=== PATIENT | female | born 1945 | race Caucasian/White ===

== ENCOUNTER → 2018-07-29 09:28 | Outpatient (CLI) | payer MEDICARE, OTHER, SELFPAY ==
--- NOTE | 2018-07-29 09:33 | BI_ITS ---
MAMMOGRAPHY - BILATERAL SCREENING 3-D ALBERT SYNTHESIS REASON FOR EXAM: Female, 73 years old. Bilateral Screening 3-D tomosynthesis PERTINENT HISTORY: No significant family history. TECHNIQUE: 2-D mammograms and 3-D Albert synthesis of the breast (s) were performed. CAD was performed. COMPARISON: July 28, 2017, July 23, 2016 FINDINGS: The breast composition is composed of scattered fibroglandular density. There are stable benign lymph nodes in both axillae. Scattered benign calcifications are seen. No dense spiculated masses or suspicious microcalcifications are identified. No architectural distortion is identified. There is no skin thickening or retraction. There has been no significant change since the prior study. BI/SCREENING MAMM (CAD), BILAT IMPRESSION: No mammographic signs of malignancy. Routine yearly mammograms recommended. ASSESSMENT CATEGORY: BIRADS Category 2: Benign. A letter regarding these results will be sent to the patient by the facility within 30 days. FOLLOW UP RECOMMENDATION: Yearly follow up mammogram recommended. (A) Approximately 10% of breast cancers are not detected by mammography. A normal mammogram should not delay biopsy of a clinically suspicious abnormality. Electronically Signed: Alexandro Hathaway MD at 10:45 EST , Service support ,
== END ==
PROVIDERS: Family Provider Family Medicine; PCP Family Medicine; Visit Provider Obstetrics & Gynecology
DX: Z12.31 Encounter for screening mammogram for malignant neoplasm of breast (principal)
CPT/HCPCS: 77063; 77067

== ENCOUNTER → 2019-09-01 14:12 | Outpatient (CLI) | payer MEDICARE, OTHER, SELFPAY ==
--- NOTE | 2019-09-01 14:15 | BI_ITS ---
MAMMOGRAPHY - BILATERAL SCREENING REASON FOR EXAM: Female, 74 years old. Routine annual screening examination. PERTINENT HISTORY: Non-contributory. TECHNIQUE: Digital bilateral breast albert (3D mammographic acquisition) in the CC and MLO projections. 2-D mediolateral oblique (MLO) and craniocaudad (CC) views of both breasts were obtained. CAD: Full Field Digital Mammography with Computer Added Detection was performed. COMPARISON: Comparison is made with prior study April 29, 2018 and July 28, 2017. FINDINGS: Breast Composition: The breasts are heterogeneously dense, which may obscure small masses. There are no dominant masses or suspicious calcifications. No other significant abnormalities are identified. There has been no significant change since the prior study. BI/SCREEN MAMM (CAD) W/ALBERT BILAT IMPRESSION: Stable bilateral screening mammogram. Yearly follow-up mammogram recommended. (A) ASSESSMENT CATEGORY: BIRADS Category 1: Negative. A letter regarding these results will be sent to the patient by the facility within 30 days. Approximately 10% of breast cancers are not detected by mammography. A normal mammogram should not delay biopsy of a clinically suspicious abnormality. [id number] Electronically Signed: Evan Leahy, at 15:34 EST , Service support ,
--- NOTE | 2019-09-01 14:26 | BD_ITS ---
STUDY: DUAL ENERGY X-RAY ABSORPTIOMETRY / DXA REASON FOR EXAM: Female, 74 years old. PURCHASING [employer] -- CURRENTLY ON HRT -- TAKES CALCIUM AND VITAMIN D -- DOES HIGH AMOUNT OF EXERCISE -- FAMILY HX OF OSTEO- MOTHER -- HX OF RIB FX -- NO AVANI TECHNIQUE: Bone Mineral Density (BMD) measurements of lumbar spine and bilateral hips were obtained. COMPARISON: Comparison is made with prior examination dated July 28, 2017. FINDINGS: Lumbar Spine (L1-L4): g/cm2 (1.142) / T-score (-0.3) / Z-score (1.4) Findings are suggestive of normal bone density with a low fracture risk. Left Femur Total: g/cm2 (0.921) / T-score (0.7) / Z-score (1.0) Left Femoral Neck: g/cm2 (0.762) / T-score (-2.0) / Z-score (-0.1) Right Femur Total: g/cm2 (0.866) / T-score (-1.1) / Z-score (0.5) Right Femoral Neck: g/cm2 (0.789) / T-score (-1.8) / Z-score (0.1) The T-Scores on the most recent prior examination were: Lumbar Spine (L1-L4): There has been worsening of bone density since the previous examination. Left Femur Total: which represents a worsening of 0.1%. Right Femur Total: which represents an improvement of 1.2%. BD/Dexa Bone Density Study IMPRESSION: The patient is considered osteopenic as outlined below according to World [place] Organization (WHO) criteria with a moderate fracture risk. There has been worsening of bone density since the previous examination. Reference Information: The T-score is the number of standard deviations above or below the standard which is normal for young adults at their peak bone mineral density. The World Health Organization (WHO) interprets the T-scores as follows: Above -1 Normal bone density Between -1 and -2.5 Osteopenia Equal to / or below -2.5 Osteoporosis As a practical clinical guideline, osteopenia may be graded as follows: Mild -1 through -1.5 Moderate -1.6 through -2.0 Severe -2.1 through -2.4 The Z-score is the number of standard deviations above or below age-matched controls. A Z-score of less than -1.5 would be considered abnormal. References: 1. NIH Osteoporosis and Related Bone Diseases http://www.osteo.org 2. International Society for Clinical Densitometry http://www.iscd.org 3. National Osteoporosis Foundation http://www.nof.org Electronically Signed: Evan Leahy, at 15:15 EST , Service support ,
== END ==
PROVIDERS: Family Provider Family Medicine; PCP Internal Medicine; Referring Provider Advanced Practice Midwife; Visit Provider Advanced Practice Midwife
DX: Z13.820 Encounter for screening for osteoporosis (principal); M85.89 Other specified disorders of bone density and structure, multiple sites; Z12.31 Encounter for screening mammogram for malignant neoplasm of breast
CPT/HCPCS: 77063; 77067; 77080

== ENCOUNTER → 2020-09-04 08:33 | Outpatient (CLI) | payer MEDICARE, OTHER, SELFPAY ==
--- NOTE | 2020-09-04 08:35 | BI_ITS ---
MAMMOGRAPHY - BILATERAL SCREENING REASON FOR EXAM: Female, 75 years old. Routine annual screening examination. PERTINENT HISTORY: Non-contributory. TECHNIQUE: Digital bilateral breast albert (3D mammographic acquisition) in the CC and MLO projections. 2-D mediolateral oblique (MLO) and craniocaudad (CC) views of both breasts were obtained. CAD: Full Field Digital Mammography with Computer Added Detection was performed. COMPARISON: Comparison is made with prior study dated 09/01/2019 and July 22 7018. FINDINGS: Breast Composition: The breasts are heterogeneously dense, which may obscure small masses. There are no dominant masses or suspicious calcifications. No other significant abnormalities are identified. There has been no significant change since the prior study. BI/SCRN MAMM (CAD)W/ALBERT BILAT IMPRESSION: Stable bilateral screening mammogram. Yearly follow-up mammogram recommended. (A) ASSESSMENT CATEGORY: Approximately 10% of breast cancers are not detected by mammography. A normal mammogram should not delay biopsy of a clinically suspicious abnormality. [id number] Electronically Signed: Evan Leahy MD at 9:50 EST , Service support ,
== END ==
PROVIDERS: PCP Internal Medicine; Referring Provider Obstetrics & Gynecology; Visit Provider Obstetrics & Gynecology
DX: Z12.31 Encounter for screening mammogram for malignant neoplasm of breast (principal)
CPT/HCPCS: 77063; 77067

== ENCOUNTER 2021-09-17 09:32 | Outpatient (CLI) | payer MEDICARE, OTHER, SELFPAY ==
--- NOTE | 2021-09-17 09:38 | BI_ITS ---
MAMMOGRAPHY - BILATERAL SCREENING REASON FOR EXAM: Female, 76 years old. Routine annual screening examination. PERTINENT HISTORY: Non-contributory. TECHNIQUE: Digital bilateral breast albert (3D mammographic acquisition) in the CC and MLO projections. 2-D mediolateral oblique (MLO) and craniocaudad (CC) views of both breasts were obtained. CAD: Full Field Digital Mammography with Computer Added Detection was performed. COMPARISON: Comparison is made with prior study dated 09/04/2020 and 09/01/2019. FINDINGS: Breast Composition: The breasts are heterogeneously dense, which may obscure small masses. There are no dominant masses or suspicious calcifications. No other significant abnormalities are identified. There has been no significant change since the prior study. BI/SCRN MAMM (CAD)W/ALBERT BILAT IMPRESSION: Stable bilateral screening mammogram. Yearly follow-up mammogram recommended. (A) ASSESSMENT CATEGORY: BIRADS Category 1: Negative. A letter regarding these results will be sent to the patient by the facility within 30 days. Approximately 10% of breast cancers are not detected by mammography. A normal mammogram should not delay biopsy of a clinically suspicious abnormality. [id number] Electronically Signed: Evan Leahy MD at 10:54 EST ,
--- NOTE | 2021-09-17 09:42 | BD_ITS ---
STUDY: DUAL ENERGY X-RAY ABSORPTIOMETRY / DXA REASON FOR EXAM: Female, 76 years old. [id number]. Patient is postmenopausal. TECHNIQUE: Bone Mineral Density (BMD) measurements of lumbar spine and bilateral hips were obtained. COMPARISON: Comparison is made with prior study dated 09/01/2019. FINDINGS: Lumbar Spine (L1-L4): g/cm2 (0.919) / T-score (-1.5) / Z-score (1.1) Findings are suggestive of osteopenia with a low fracture risk. Left Femur Total: g/cm2 (0.869) / T-score (-0.6) / Z-score (1.2) Left Femoral Neck: g/cm2 (0.648) / T-score (-1.8) / Z-score (0.3) Right Femur Total: g/cm2 (0.833) / T-score (-0.9) / Z-score (0.9) Right Femoral Neck: g/cm2 (0.6-0) / T-score (-2.1) / Z-score (0.0) The T-Scores on the most recent prior examination were: Lumbar Spine (L1-L4): There has been worsening of bone density since the previous examination. Left Femur Total: which represents an improvement of 1.5%. Right Femur Total: which represents an improvement of 3.6%. BD/Dexa Bone Density Study IMPRESSION: The patient is considered osteopenic as outlined below according to World [place] Organization (WHO) criteria with a moderate fracture risk. There has been improvement of bone density since the previous examination. Reference Information: The T-score is the number of standard deviations above or below the standard which is normal for young adults at their peak bone mineral density. The World Health Organization (WHO) interprets the T-scores as follows: Above -1 Normal bone density Between -1 and -2.5 Osteopenia Equal to / or below -2.5 Osteoporosis As a practical clinical guideline, osteopenia may be graded as follows: Mild -1 through -1.5 Moderate -1.6 through -2.0 Severe -2.1 through -2.4 The Z-score is the number of standard deviations above or below age-matched controls. A Z-score of less than -1.5 would be considered abnormal. References: 1. NIH Osteoporosis and Related Bone Diseases www osteo.org 2. International Society for Clinical Densitometry www iscd.org 3. National Osteoporosis Foundation www nof.org Electronically Signed: Evan Leahy MD at 9:28 EST ,
== END 2021-09-17 23:59 | disposition home or self-care (01) ==
LOC: OPBD 09:33
PROVIDERS: PCP Internal Medicine; Referring Provider Obstetrics & Gynecology; Visit Provider Obstetrics & Gynecology
DX: Z13.820 Encounter for screening for osteoporosis (principal); Z78.0 Asymptomatic menopausal state; Z12.31 Encounter for screening mammogram for malignant neoplasm of breast
CPT/HCPCS: 77063; 77067; 77080

== ENCOUNTER → 2022-07-15 | Outpatient (CLI) | payer MEDICARE, OTHER, SELFPAY ==
--- NOTE | 2022-07-15 08:53 | US_ITS ---
STUDY: ULTRASOUND BREAST - LEFT REASON FOR EXAM: Female, 77 years old. Increasing size of a left axillary lump. TECHNIQUE: Axial and longitudinal images of the LEFT breast were performed with a high resolution ultrasound transducer. # OF IMAGES: 21 COMPARISON: Comparison is made with prior mammograms and earlier today. FINDINGS: LEFT Breast: The axillary region of left breast was examined by ultrasound. 2 benign-appearing lymph nodes are seen. The larger lymph node measures 2.1 cm x 2.4 cm x 0.9 cm. A fatty hilum is seen US/Breast Limited Unilateral IMPRESSION: 2 benign appearing lymph nodes are seen in the left axilla. ASSESSMENT CATEGORY: BIRADS Category 2: Benign. A letter regarding these results will be sent to the patient by the facility within 30 days. Electronically Signed: Evan Leahy MD at 11:07 EST ,
--- NOTE | 2022-07-15 08:53 | BI_ITS ---
MAMMOGRAPHY - BILATERAL DIAGNOSTIC REASON FOR EXAM: Female, 77 years old. Palpable left axillary mass. PERTINENT HISTORY: Non-contributory. TECHNIQUE: Digital bilateral breast keiko (3D mammographic acquisition) in the CC and MLO projections. 2-D mediolateral oblique (MLO) and craniocaudad (CC) views of both breasts were obtained. Exaggerated craniocaudal views of the left breast were obtained as well. CAD: Full Field Digital Mammography with Computer Added Detection was performed. COMPARISON: Comparison is made with prior study dated 09/17/2021 and 09/04/2020. FINDINGS: Breast Composition: The breasts are heterogeneously dense, which may obscure small masses. There are no dominant masses or suspicious calcifications. Benign appearing bilateral axillary No other significant abnormalities are identified. There has been no significant change since the prior study. BI/DIAG MAMM W/CAD, BILAT IMPRESSION: Stable bilateral diagnostic mammogram. With the patient''s history of a palpable lump in the left axilla, correlation with ultrasound is recommended. ASSESSMENT CATEGORY: BIRADS Category 0: Incomplete. Need additional imaging evaluation. A letter regarding these results will be sent to the patient by the facility within 30 days. Approximately 10% of breast cancers are not detected by mammography. A normal mammogram should not delay biopsy of a clinically suspicious abnormality. Electronically Signed: Evan Leahy MD at 10:34 EST ,
== END | disposition home or self-care (01) ==
LOC: OPBI 08:50
PROVIDERS: PCP Internal Medicine; Visit Provider Internal Medicine
DX: Z12.31 Encounter for screening mammogram for malignant neoplasm of breast (principal); R22.32 Localized swelling, mass and lump, left upper limb; N64.4 Mastodynia
CPT/HCPCS: 76642; 77062; 77066; G0279

== ENCOUNTER → 2025-01-11 | Outpatient (CLI) | payer MEDICARE, SELFPAY ==
--- NOTE | 2025-01-11 10:12 | BI_ITS ---
EXAM: SCRN MAMM (CAD)W/ALBERT BILAT 01/11/2025 CLINICAL HISTORY: F, Age 79 y/o , SCREENING TECHNIQUE: Bilateral screening digital breast tomosynthesis with 2D and 3D images. Computer aided detection. COMPARISON: Prior exam(s) dated 07/15/2022, 09/17/2021, 09/04/2020. FINDINGS: TISSUE DENSITY: The breast tissue is heterogenously dense, which may obscure small masses. The mammogram demonstrates that the patient has dense breasts. Supplemental screening with whole breast ultrasound or MRI may be considered for further evaluation. Bilateral Breast Mammographic Findings: No significant masses, calcifications or other abnormalities are identified. BI/SCRN MAMM (CAD)W/ALBERT BILAT IMPRESSION: Right Breast: BIRADS 1 NEGATIVE. Left Breast: BIRADS 1 NEGATIVE. OVERALL FINAL ASSESSMENT: BIRADS 1 NEGATIVE. RECOMMENDATION: Routine annual follow-up in 1 Year A letter with findings and recommendations will be mailed to the patient. Reading Location: [id number]
--- NOTE | 2025-01-11 10:18 | BD_ITS ---
PROCEDURE: DEXA BONE DENSITY STUDY 01/11/2025 REASON FOR EXAM: F, age 79 y/o . Postmenopausal. TECHNIQUE: DXA scan of sites with data reported below. REFERENCE LINKS: [facility] Adult Position[facility] COMPARISON: Prior study dated September 01, 2019. FINDINGS: BMD and T-SCORES Lumbar spine: 0.956 g/cm2, T-score -0.8 Levels: L1-L4 Change from prior: Loss of 5.4%. Left femoral neck: 0.622 g/cm2, T-score -2.0 Femoral neck comparison data not recommended for monitoring change. Left total hip: 0.845 g/cm2, T-score -0.8 Change from prior: Loss of 2.9%. Right femoral neck: 0.602 g/cm2, T-score -2.2 Femoral neck comparison data not recommended for monitoring change. Right total hip: 0.793 g/cm2, T-score -1.2 Change from prior: Loss of 4.8%. The World Health Organization has defined the following categories based on bone density: Normal bone density: T-score equal to or greater than -1.0 Osteopenia: T-score between -1.0 and -2.5 Osteoporosis: T-score equal to or less than -2.5 The patient does meet the pharmacological treatment recommendations for prevention of osteoporosis. BD/Dexa Bone Density Study IMPRESSION: OSTEOPENIA. Recommend follow-up as clinically warranted. Reading Location: [place] [id number]
--- OUTSIDE RECORDS SUMMARY | 2025-01-11 20:02 | XMS RPT_ITS | CCD ---
Author Organization [facility] Care Team Providers Care Retail Store Associate Name Role Phone Oberhauser, Alberta Unavailable Unavailable Sippey, Alberta Unavailable Unavailable Oberhauser, Alberta L Unavailable Unavailable Unknown, Referring Provider Unavailable Unav ailable Cedric Zuluaga Unavailable Unavailable Oberhauser, Alberta L Unavailable Unavailable Oberhauser, Albreta L Unavailable Unavailable Unavailable Unavailable Unavailable Unavailable Unavailable Oberhauser, Alberta Primary Care Unavailable Babar Bill Attending Unavailable Oberhauser, Alberta Primary Care Unavailable Oberhauser, Alberta Attending Unavailable Oberhauser, Alberta Primary Care Unavailable Oberhauser, Alberta Attending Unavailable Maude, Mr. Ben Kelly Attending Unavail able Oberhauser, Alberta Primary Care Unavailable Oberhauser DO, Alberta L Primary Care Provider Oberhauser DO, Alberta L Unavailable Oberhauser DO, Alberta L Unavailable [phone] Oberhauser DO, Alberta L Unavailable [phone] OBERHAUSER, ALBERTA L Primary Care Unavailable OBERHAUSER, ALBERTA L Primary Care Unavailable Jona FOREIGN CORRESPONDENT, Sisi Unavailable Unavailable Oberhauser DO, Alberta L Unavailable Jona FOREIGN CORRESPONDENT, Sisi Unavailable Unavailable Oberhauser DO, Alberta L Unavailable Jona FOREIGN CORRESPONDENT, Sisi Unavailable Eliud CAR CHECKER-DETECTIVE PRIVATE EYE, Sangita B Primary Care Provider Generic Provider MD, No Assigned Pcp Primary Car e Provider Unavailable SIPPEY, ALBERTA Attending Unavailable SIPPEY, ALBERTA Referring Unavailable ELIUD, SANGITA B Primary Care Unavailable ELIUD, SANGITA B Referring Unavailable OBERHAUSER, ALBERTA L Primary Care Unavailable OBERHAUSER, ALBERTA L Primary Care Unavailable LEMSAURAV, JANI D Attending Unavailable OBERHAUSER, ALBERTA L Primary Care Unavailable LEMJANI MG D Attending Unavailable AFSHIN VALDEZ Referring Unavailable LEMSAURAV, JANI Arita Referring Unavailable OBERHAUSER, ALBERTA L Primary Care Unavailable OBERHAUSER, ALBERTA L Primary Care Unavailable THEO RECINOS Attending Unavailable THEO RECINOS Admitting Unavailable ELIUD, SANGITA B Attending Unavailable OBERHAUSER, ALBERTA L Primary Care Unavailable ELIUD, SANGITA B Attending Unavailable LEMASTERS, JANI D Referring Unavailable OBERHAUSER, ALBERTA L Primary Care Unavailable BG SRINIVASAN Attending Unavailable OBERHAUSER, ALBERTA L Primary Care Unavailable ELIUD, SANGITA B Attending Unavailable OBERHAUSER, ALBERTA L Primary Care Unavailable OBERHAUSER, ALBERTA L Attending Unavailable OBERHAUSER, ALBERTA L Referring Unavailable OBERHAUSER, ALBERTA L Primary Care Unavailable SIPPEY, ALBERTA Attending Unavailable OBERHAUSER, ALBERTA L Referring Unavailable OBERHAUSER, ALBERTA L Primary Care Unavailable OBERHAUSER, ALBERTA L Attending Unavailable OBERHAUSER, ALBERTA L Primary Care Unavailable LEMASTERS, JANI D Referring Unavailable ROBERTO WATSON Attending Unavailable ELIUD, SANGITA B Primary Care Unavailable WOOD, DON L Attending Unavailable THOMROBERTO PLUMMER R Attending Unavailable WOOD DON L Attending Unavailable WOOD, DON L Referring Unavailable WOOD, DON L Primary Care Unavailable Wood CAR CHECKER-DETECTIVE PRIVATE EYE, Don L Primary Care Provider Oberhauser, Alberta Primary Care Unavailable WOOD, DON Referring Unavailable WOOD, DON Attending Unavailable Allergies Allergy Classification Reported Allergen(s) Allergy Type Date of Onset Reaction(s) Facility Amoxicillin / Clavulanate (3 sources) Amoxicillin / Clavulanate; Translations: [Augmentin] Drug Allergy [facility] Work Phone: Fish (3 sources) shellfish, unspecified Food Allergy [facility] Work Phone: Quinolones (antibiotic) (3 sources) Ciprofloxacin; Translations: [Cipro] Drug Allergy [facility] Work Phone: (20 sources) Amoxicillin / Clavulanate; Translations: [Augmentin] Drug Allergy [facility] Work Phone: (20 sources) Ciprofloxacin; Translations: [Cipro] Drug Allergy [facility] Work Phone: (20 sources) shellfish, unspecified Allergy to substance (finding) [facility] Work Phone: (20 sources) gatifloxacin; Translations: [gatifloxacin] Drug Allergy 04-22-20 [address] Work Phone: (20 sources) levoFLOXacin; Translations: [levofloxacin] Drug Allergy 04-22-20 [address] Work Phone: (12 sources) Quinolones (Antibiotic); Translations: [Quinolones] Allergy to drug (finding) 12-23-19 14 Hives, Itching, Rash [facility] (20 sources) Amoxicillin / Clavulanate; Translations: [AMOXICILLIN-POT CLAVULANATE] Drug Allergy 01-20-20 23 Hives, Itching [facility] (20 sources) Ciprofloxacin; Translations: [CIPROFLOXACIN] Drug Allergy 01-20-20 23 [facility] Work Phone: (20 sources) Ciprofloxacin / fluocinolone; Translations: [CIPROFLOXACIN-FLUO CINOLONE] Drug Allergy 01-20-20 23 [facility] Work Phone: (20 sources) Shellfish; Translations: [SHELLFISH CONTAINING PRODUCTS] Propensity to adverse reactions 09-24-19 10 Hives, Swelling [facility] Work Phone: (20 sources) Amoxicillin; Translations: [AMOXICILLIN] Drug Allergy 12-23-19 14 Itching [facility] (17 sources) Quinolones Drug Allergy 12-23-19 14 Hives, Itching, Rash [facility] Work Phone: (18 sources) predniSONE; Translations: [PREDNISONE] Drug Allergy 04-02-20 24 Unknown [facility] (16 sources) Sulfamethoxazole / Trimethoprim; Translations: [SULFAMETHOXAZOLE-T RIMETHOPRIM] Drug Allergy 04-27-20 24 Hives [facility] Work Phone: (20 sources) Estroven Nighttime; Translations: [ESTROVEN NIGHTTIME] Propensity to adverse reactions 08-14-19 Rash [facility] Work Phone: (15 sources) Cephalexin; Translations: [CEPHALEXIN] Drug Allergy 07-14-20 Itching [facility] (15 sources) metroNIDAZOLE; Translations: [METRONIDAZOLE] Drug Allergy 07-14-20 Itching [facility] Work Phone: (10 sources) Shellfish; Translations: [SHELLFISH DERIVED] Propensity to adverse reactions 08-19-19 Other [facility] Medications Current Medications Medication Drug Class(es) Dates Sig (Normalized) Sig (Original) Acetaminophen (20 sources) Start: 08-19-2024 take 1 tablet by mouth every four hours as needed acetaminophen (Tylenol) tablet 650 mg take 2 tablets by mo uth once daily at bedtime acetaminophen (Tylenol 8 Hour) 650 mg ER tablet Take 2 tablets (1,300 mg) by mouth once daily at bedtime. Active acetaminophen (T ylenol 8 Hour) 650 mg ER tablet Take by mouth. [address] rength 500 MG Oral Tablet Quantity: 0 Refills: 0 Ordered: 23-May-2019 DO Active Tylenol Extra St rength 500 MG Oral Tablet Refills: 0 Active amLODIPine 2.5 mg oral tablet (9 sources) Dihydropyridine Calcium Channel Wagner Start: 08-23-2024 End: 08-26-2025 take 1 tablet by mouth once daily amLODIPine (Norvasc) 2.5 mg tablet Indications: Primary hypertension Take 1 tablet (2.5 mg) by mouth once daily. 90 tablet 3 08/31/2024 08/26/2025 Active Start: 08-20-2024 take 2.5 mg by mouth once ady y 2.5 mg, oral, Daily, First dose on 1/18/25 at 1000 amoxicillin 875 mg / clavulanate 125 mg oral tablet (7 sources) Penicillin-class Antibacterial Start: 11-15-2024 End: 11-20-2024 take 1 tablet by mouth twice daily amoxicillin-pot clavulanate (Augmentin) 875-125 mg tablet Indications: Diverticulitis Take 1 tablet (875 mg) by mouth 2 times a day for 5 days. 10 tablet 11/15/2024 11/20/2024 Active Start: 08-17-2024 End: 08-27-2024 take 1 tablet by mouth every twelve hours in the evening amoxicillin-pot clavulanate (Augmentin) 875-125 mg tablet Indications: Abdominal Infection Take 1 tablet by mouth every 12 hours for 5 doses. 5 tablet 08/22/2024 2:41 PM EST 08/22/2024 08/25/2024 Active ascorbic acid 500 mg oral capsule (20 sources) Vitamin C take 2 tablets by mo uth once daily ascorbic acid, vitamin C, 500 mg capsule Take 2 tablets by mouth once daily. Active take 1 tablet by mouth once ady y ascorbic acid, vitamin C, 500 mg capsule Take 1 tablet by mouth once daily. Active Vitamin C 500 MG Oral Capsule Quantity: 0 Refills: 0 Ordered: 05-Sep-2019 DO Active calcium carb-vit D3-magnesium 250-200-125 mg-unit-mg capsule (20 sources) Start: 01-23-2011 take 2 tablets by mouth once daily calcium carb-vit D3-magnesium 250-200-125 mg-unit-mg capsule Take 2 tablets by mouth once daily. 01/23/2011 Active Start: 01-23-2011 calcium carb-v it D3-magnesium 250-200-125 mg-unit-mg capsule Take by mouth. 01/23/2011 Active Start: 01-23-2011 calcium carb-v it D3-magnesium 250-200-125 mg-unit-mg capsule Take by mouth. 0 01/23/2011 Active calcium carbonate 1250 mg / cholecalciferol 200 unt oral tablet (2 sources) Vitamin D take 2 tablets by mouth once daily calcium carbonate-vitamin D3 500 mg-5 mcg (200 unit) tablet Take 2 tablets by mouth once daily. Active CHOLESTYRAMINE, BULK, MISC (1 source) Start: 020 End: CHOLESTYRAMINE, BULK, MISC Take by mouth. 0 03/26/2020 08/04/2023 Discontinued (Therapy completed) colesevelam hydrochloride 625 mg oral tablet (20 sources) Bile Acid Sequestrant Start: 020 End: 025 take 1 tablet by mouth twice daily at mealtime colesevelam (Welchol) 625 mg tablet Indications: Bile acid esophageal reflux Take 1 tablet (625 mg) by mouth 2 times a day. Take with meal(s) and a liquid. 180 tablet 3 10/30/2023 04/07/2024 Discontinued (Med List Cleanup) take 3 tablets by mouth twice da michelle colesevelam (Welchol) 625 mg tablet Take 3 tablets (1,875 mg) by mouth 2 times daily (morning and late afternoon). 625mg Active cyclobenzaprine hydrochloride 5 mg oral tablet (3 sources) Muscle Relaxant Start: 03-14-2021 End: 04-01-2021 take 1 tablet by mouth three times daily as needed Cyclobenzaprine HCl - 5 MG Oral Tablet TAKE 1 TABLET 3 TIMES DAILY NEEDED. Quantity: 30 Refills: 0 Ordered: 14-Mar-2021 Alberta Brown DO Start : 14-Mar-2021 End : 01-Apr-2021 Complete ECHINACEA ORAL (18 sources) take 2 tablets by mouth twice daily ECHINACEA ORAL Take 2 tablets by mouth 2 times a day. Active End: 08-19-2024 take 1 tablet by mouth once daily ECHINACEA ORAL Take 1 tablet by mouth once daily. 08/19/2024 Discontinued (Entered in Error) take 1 tablet by marry th once daily ECHINACEA ORAL Take 1 tablet by mouth once daily. Active take 1 tablet by marry th once daily ECHINACEA ORAL Take 1 tablet by mouth once daily. 0 Active ergocalciferol 0.05 mg oral tablet (5 sources) Provitamin D2 Compound ergocalci ferol, vitamin D2, 50 mcg (2,000 unit) tablet Take by mouth. 0 Active Vitamin D2 TABS Refills: 0 Active ergocalciferol, vitamin D2, (VITAMIN D2 ORAL) (3 sources) take 1 tablet by mouth once daily ergocalciferol, vitamin D2, (VITAMIN D2 ORAL) Take 1 tablet by mouth once daily. Active estradiol 1 mg oral tablet (20 sources) Estrogen Start: 08-04-2023 End: 08-13-2024 take 1 tablet by mouth once daily estradiol (Estrace) 1 mg tablet Indications: Osteopenia, unspecified location Take 1 tablet by mouth once daily 90 tablet 3 08/01/2024 Active Start: 05-23-2019 End: 05-25-2023 take 1 tablet by mouth once daily Estradiol 1 MG Oral Tablet TAKE 1 TABLET DAILY DIRECTED. Quantity: 0 Refills: 0 Ordered: 23-May-2019 Alberta Brown DO Start : 23-May-2019 Active Start: 05-23-2019 Estradiol 1 MG Oral Tablet Quantity: 0 Refills: 0 Ordered: 23-May-2019 Alberta Brown DO Start : 23-May-2019 Active famotidine 20 mg oral tablet (16 sources) Histamine-2 Receptor Antagonist Start: 08-21-2024 End: 08-25-2024 take 1 tablet by mouth twice daily in the evening famotidine (Pepcid) 20 mg tablet Indications: Diverticulitis Take 1 tablet (20 mg) by mouth 2 times a day for 5 doses. 5 tablet 08/22/2024 2:41 PM EST 08/22/2024 Active Start: 08-20-2024 End: 08-22-2024 take 20 mg by mouth once daily 20 mg, oral, Daily, Fir st dose on Thu08/20/24 at 0900 Start: 08-02-2023 End: 08-02-2023 famotidine PF (Pepcid) injec tion 40 mg 1 ml heparin sodium, porcine 5000 unt/ml injection (1 source) Unfractionated Heparin, Anti-coagulant Start: 08-19-2024 inject 5000 [IU] by subcutaneous injection every eight hours 5,000 Units, subcutaneous, Every 8 hours, First dose on Thu08/19/24 at 2115 herbal complex no.174 (ECHINACEA AND GOLDENSEAL ORAL) (4 sources) End: 08-04-2023 herbal complex no.174 (ECHINACEA AND GOLDENSEAL ORAL) Take by mouth. 0 08/04/2023 Discontinued (Therapy completed) herbal complex n o.174 (ECHINACEA AND GOLDENSEAL ORAL) Take by mouth. 0 Active lidocaine hydrochloride 20 mg/ml mucous membrane topical solution (1 source) Antiarrhythmic, Amide Local Anesthetic Start: 01-18-2025 10 mL, Swish & Spit, Every 4 hours PRN, mucositis/stomatitis, Starting on 08/20/24 at 1458 melatonin 3 mg oral tablet (1 source) Start: 08-19-2024 24 hr metoprolol succinate 25 mg extended release oral tablet (20 sources) beta-Adrenergic Wagner Start: 11-01-2024 End: 11-01-2025 take 1 tablet by mouth once daily metoprolol succinate XL (Toprol-XL) 25 mg 24 hr tablet Indications: PSVT (paroxysmal supraventricular tachycardia) Take 1 tablet (25 mg) by mouth once daily. Do not crush or chew. 90 tablet 3 11/01/2024 11/01/2025 Active Start: 11-23-2023 End: 05-27-2024 take 1 tablet by mouth once daily metoprolol tartrate (Lopressor) 25 mg tablet Indications: PSVT (paroxysmal supraventricular tachycardia) (CMS-HCC) Take 1 tablet (25 mg) by mouth once daily. 90 tablet 3 05/27/2024 Active Start: 09-18-2022 End: 05-25-2023 take 1 tablet by mouth once daily metoprolol tartrate (Lopressor) 25 mg tablet Indications: PSVT (paroxysmal supraventricular tachycardia) Take 1 tablet (25 mg) by mouth once daily. 90 tablet 3 05/25/2023 Active Start: 08-26-2022 End: 05-25-2023 take 1 tablet by mouth once daily metoprolol succinate XL (Toprol-XL) 25 mg 24 hr tablet Take 1 tablet (25 mg) by mouth once daily. 0 08/26/2022 05/25/2023 Discontinued (Duplicate order) Start: 07-31-2022 take 1 tablet by marry th once daily Metoprolol Succinate ER 25 MG Oral Tablet Extended Release 24 Hour take 1 tablet by mouth once daily Quantity: 30 Refills: 5 Ordered: 11-Aug-2022 Alberta Brown DO Start : 31-Jul-2022 Active 1 ml morphine sulfate 2 mg/ml prefilled syringe (1 source) Opioid Agonist Start: 08-19-2024 mv-mn/folic acid/vit [id number] (ALIVE ONCE DAILY WOMEN 50 PLUS ORAL) (3 sources) End: 08-04-2023 take 1 tablet by mouth once daily mv-mn/folic acid/vit [id number] (ALIVE ONCE DAILY WOMEN 50 PLUS ORAL) Take 1 tablet by mouth once daily. 0 08/04/2023 Discontinued (Therapy completed) take 1 tablet by mouth once ady y mv-mn/folic acid/vit [id number] (ALIVE ONCE DAILY WOMEN 50 PLUS ORAL) Take 1 tablet by mouth once daily. 0 Active omeprazole 20 mg delayed release oral capsule (12 sources) Proton Pump Inhibitor Start: 03-26-2020 End: 08-04-2023 omeprazole (PriLOSEC) [address] capsule Take by mouth. 0 03/26/2020 08/04/2023 Discontinued (Therapy completed) pantoprazole 40 mg injection (4 sources) Proton Pump Inhibitor Start: 12-19-2024 40 mg, intravenous, Daily, First dose on Thu12/19/24 at 1610, Reconstitute each 40 mg vial with 10 mL NS to make 4 mg/mL solution. Start: 12-19-2024 End: 12-29-2024 take 2 tablets by mouth once daily pantoprazole (ProtoNix) 20 mg EC tablet Indications: LUQ pain Take 2 tablets (40 mg) by mouth once daily for 10 days. Do not crush, chew, or split. 20 tablet 12/19/2024 Active polyethylene glycol 3350 70522 mg powder for oral solution (1 source) Osmotic Laxative Start: 08-19-2024 take 17 g by mouth every twenty-four hours as needed sucralfate 1000 mg oral tablet (3 sources) Aluminum Complex Start: 12-19-2024 take 1 tablet by mouth twice daily as needed sucralfate (Carafate) 1 gram tablet Indications: LUQ pain Take 1 tablet (1 g) by mouth 2 times a day as needed (acid reflux) for up to 30 doses. Chew tablet 30 tablet 12/19/2024 Active sulfamethoxazole 800 mg / trimethoprim 160 mg oral tablet (5 sources) Dihydrofolate Reductase Inhibitor Antibacterial, Sulfonamide Antimicrobial Start: 03-23-2024 End: 04-07-2024 take 1 tablet by mouth twice daily sulfamethoxazole -trimethoprim (Bactrim DS) 800-160 mg tablet Indications: Kidney infection Take 1 tablet by mouth 2 times a day for 5 days. 10 tablet 03/29/2024 04/07/2024 Discontinued (Med List Cleanup) Completed/Discontinued Medications Medication Drug Class(es) Dates Sig (Normalized) Sig (Original) ALPRAZolam 0.5 mg oral tablet (3 sources) Benzodiazepine Start: 08-31-2024 End: 04-28-2025 take 1 tablet by mouth three times daily as needed for anxiety ALPRAZolam (Xanax) 0.5 mg tablet Indications: Anxiety Take 1 tablet (0.5 mg) by mouth 3 times a day as needed for anxiety. 6 tablet 08/31/2024 11/15/2024 Discontinued (Other) aluminum hydroxide 40 mg/ml / magnesium hydroxide 40 mg/ml / simethicone 4 mg/ml oral suspension (6 sources) Start: 08-20-2024 End: 11-15-2024 take 10 mL by mouth every four hours in the evening alum-mag hydroxide-simeth (Mylanta) 200-200-20 mg/5 mL oral suspension Indications: Diverticulitis Take 10 mL by mouth every 4 hours if needed (mucositis/stomatiti s). 355 mL 08/22/2024 2:41 PM EST 08/22/2024 11/15/2024 Discontinued (Other) ampicillin-sulbact am (Unasyn) 3 g in sodium chloride 0.9 % 100 mL IV (2 sources) Start: 08-19-2024 End: 08-21-2024 take 3 g intravenously every six hours 3 g, intravenous, at 200 mL/hr, Administer over 30 Minutes, Every 6 hours, First dose on Thu08/19/24 at 0920, For 9 doses, Mini-Bag Plus/ADD-[place] bag, Suspected Indication (Select all that apply): Abdominal Infection, Type of Therapy: Empiric, Type of infection: Community-Acquired, Indications: Abdominal Infection Start: 08-17-2024 End: 08-17-2024 3 g, intravenous, at 200 mL/ hr, Administer over 30 Minutes, Once, On Thu08/17/24 at 1045, For 1 dose, Mini-Bag Plus/ADD-[place] bag, Suspected Indication (Select all that apply): Abdominal Infection, Type of Therapy: Empiric, Type of infection: Community-Acquired, Indications: Abdominal Infection aspirin 81 mg chewable tablet (1 source) Platelet Aggregation Inhibitor, Nonsteroidal Anti-inflammatory Drug Start: 01-23-2011 End: 05-25-2023 aspirin 81 mg chewable tablet Chew 1 tablet (81 mg) once daily. 0 01/23/2011 05/25/2023 Discontinued (Side effects) Calcium Citrate (20 sources) Citracal TABS TA KE 2 TABLET Daily Quantity: 0 Refills: 0 Ordered: 18-Sep-2022 DO Active Citracal TABS Qu antity: 0 Refills: 0 Ordered: 05-Sep-2019 DO Active Citracal TABS Re fills: 0 Active calcium citrate/vitamin D3 (CITRACAL REGULAR ORAL) (1 source) End: 05-25-2023 take 2 tablets by mouth once daily calcium citrate/vitamin D3 (CITRACAL REGULAR ORAL) Take 2 tablets by mouth once daily. 0 05/25/2023 Discontinued (Duplicate order) cetirizine hydrochloride 10 mg oral tablet (20 sources) Histamine-1 Receptor Antagonist Start: 08-20-2024 End: 08-21-2024 take 10 mg by mouth every other day 10 mg, oral, Every other day, First dose on 08/20/24 at 0900 Start: 05-23-2019 take 0.5 tablet by m outh every other day cetirizine (ZyrTEC) 10 mg tablet Take 0.5 tablets (5 mg) by mouth every other day. 4x/week 05/23/2019 Active Start: 05-23-2019 take 2 tablets by mo uth every other day cetirizine (ZyrTEC) 5 mg tablet Take 2 tablets (10 mg) by mouth every other day. 4x/week 05/23/2019 Active Start: 05-23-2019 take 1 tablet by marry th every other day cetirizine (ZyrTEC) 10 mg tablet Take 1 tablet (10 mg) by mouth every other day. 4x/week 05/23/2019 Active Start: 05-23-2019 take 0.5 tablet by m outh every week cetirizine (ZyrTEC) 10 mg tablet Take 0.5 tablets (5 mg) by mouth 1 (one) time per week in the molder closed molds.. 4x/week 05/23/2019 Active Start: 05-23-2019 take 1 tablet by marry th every twenty-four hours as needed cetirizine (ZyrTEC) 10 mg tablet Take 1 tablet (10 mg) by mouth once daily as needed. 0 05/23/2019 Active Start: 05-23-2019 Cetirizine HCl - 10 MG Oral Tablet Quantity: 0 Refills: 0 Ordered: 23-May-2019 Alberta Brown DO Start : 23-May-2019 Active cholecalciferol 0.025 mg oral capsule (1 source) Vitamin D End: 05-25-2023 take 1 capsule by mouth twice daily cholecalciferol (Vitamin D-3) 25 MCG (1000 UT) capsule Take 1 capsule (25 mcg) by mouth twice a day. 0 05/25/2023 Discontinued (Other) cholestyramine resin 4000 mg powder for oral suspension (3 sources) Bile Acid Sequestrant Start: 03-26-2020 Cholestyramine 4 GM Oral Packet MIX THE CONTENTS OF 1 POWDER PACKET WITH 2 TO 6 OZ OF NONCARBONATED BEVERAGE AND DRINK 3 TIMES DAILY. Quantity: 90 Refills: 0 Alberta Brown DO Start : 26-Mar-2020 Active diphenhydrAMINE hydrochloride 25 mg oral tablet (16 sources) Histamine-1 Receptor Antagonist Start: 08-22-2024 End: 10-18-2024 take 1 tablet by mouth twice daily diphenhydrAMINE (Sominex) 25 mg tablet Indications: Diverticulitis Take 1 tablet (25 mg) by mouth 2 times a day for 5 doses. 5 tablet 08/22/2024 10/18/2024 Discontinued (Med List Cleanup) Start: 08-21-2024 End: 08-25-2024 take 25 mg by mouth twice daily 25 mg, oral, 2 times daily, First dose on 08/21/24 at 2100, For 7 doses, Give with augmentin and pepcid Start: 08-19-2024 take 25 mg by mouth once daily as needed for sleep 25 mg, oral, Nightly PRN, sleep, Starting on Thu08/19/24 at 2054 Start: 08-02-2023 End: 08-02-2023 diphenhydrAMINE (BENADryl) i njection 50 mg take 1 tablet by marry once daily as needed diphenhydramine HCl (BENADRYL ALLERGY ORAL) Take 1 tablet by mouth once daily as needed. Active Echinacea TABS (4 sources) Echinacea TABS R efills: 0 Active Echinacea TABS (20 sources) Echinacea TABS T YEYO DIRECTED. Quantity: 0 Refills: 0 Ordered: 18-Sep-2022 DO Active Echinacea TABS Q uantity: 0 Refills: 0 Ordered: 05-Sep-2019 DO Active ERGOCALCIFEROL, VITAMIN D2, ORAL (19 sources) End: 11-15-2024 take 2400 [IU] by mouth once daily ERGOCALCIFEROL, VITAMIN D2, ORAL Take 2,400 Units by mouth once daily. 11/15/2024 Discontinued (Other) take 2400 [IU] by mouth once angelica ly ERGOCALCIFEROL, VITAMIN D2, ORAL Take 2,400 Units by mouth once daily. Active take 2400 [IU] by mouth once angelica ly ERGOCALCIFEROL, VITAMIN D2, ORAL Take 2,400 Units by mouth once daily. 0 Active 1 ml fentaNYL 0.05 mg/ml injection (3 sources) Opioid Agonist Start: 12-19-2024 End: 12-19-2024 50 mcg, intravenous, Once, On Thu12/19/24 at 1610, For 1 dose Start: 10-24-2024 End: 10-24-2024 intravenous, As needed, Star ting on Thu10/24/24 at 0903, Intraprocedure glucagon (rdna) 1 mg injection (1 source) Antihypoglycemic Agent Start: 10-24-2024 End: 10-24-2024 intravenous, As needed, Starting on Thu10/24/24 at 0855, Intraprocedure 250 ml glucose 50 mg/ml / sodium chloride 4.5 mg/ml injection (1 source) Start: 08-19-2024 End: 08-20-2024 take 75 mL intravenously every hour 75 mL/hr, intravenous, Continuous, Starting on Thu08/19/24 at 1730, For 1 day iohexol (OMNIPaque) 350 mg iodine/mL solution 68 mL (1 source) Start: 12-19-2024 End: 12-19-2024 68 mL, intravenous, Once in imaging, Starting on Thu12/19/24 at 1728, For 1 dose iohexol (OMNIPaque) 350 mg iodine/mL solution 72 mL (1 source) Start: 08-17-2024 End: 08-17-2024 72 mL, intravenous, Once in imaging, Starting on Thu08/17/24 at 0958, For 1 dose meloxicam 15 mg oral tablet (1 source) Nonsteroidal Anti-inflammatory Drug End: 05-25-2023 take 1 tablet by mouth once daily meloxicam (Mobic) 15 mg tablet Take 1 tablet (15 mg) by mouth once daily. 0 05/25/2023 Discontinued (Other) Metamucil POWD (2 sources) Metamucil POWD T YEYO 1 TSP Twice daily Quantity: 0 Refills: 0 Ordered: 20-Nov-2022 DO Active methylPREDNISolone 125 mg injection (1 source) Corticosteroid Start: 08-02-2023 End: 08-02-2023 methylPREDNISolone sod succinate (SOLU-Medrol) injection 125 mg 2 ml midazolam 5 mg/ml injection (2 sources) Benzodiazepine Start: 10-24-2024 End: 10-24-2024 intravenous, Administer over 5 Minutes, As needed, Starting on 10/24/24 at 0902, Intraprocedure NON FORMULARY (8 sources) End: 08-19-2024 take 1 dose by mouth once daily NON FORMULARY Take 1 each by mouth once daily. 08/19/2024 Discontinued (Entered in Error) take 1 dose by mouth once daily NON FORMULARY Take 1 each by mouth once daily. Active 2 ml ondansetron 2 mg/ml injection (1 source) Serotonin-3 Receptor Antagonist Start: 12-19-2024 End: 12-19-2024 4 mg, intravenous, Once, On 12/19/24 at 1610, For 1 dose, When administering via IV Push, administer over 3-5 minutes. microencapsulated potassium chloride 20 meq extended release oral tablet (1 source) Start: 08-20-2024 End: 08-20-2024 40 mEq, oral, Once, On 08/20/24 at 0830, For 1 dose, Best given with food and plenty of water to minimize gastric irritation. Do not crush or chew. predniSONE 10 mg oral tablet (3 sources) Start: 01-19-2023 End: 05-25-2023 take 4 tablets by mouth once daily, then take 3 tablets by mouth once daily, then take 2 tablets by mouth once daily, then take 1 tablet by mouth once daily predniSONE (Deltasone) 10 mg tablet Indications: Inflammatory arthritis 4 tabs po every day x3 days, then 3 tabs po every day x3 days, then 2 tabs po every day x3 days, then 1 tab po every day x3 days 30 tablet 0 01/20/2023 05/25/2023 Discontinued (Side effects) Psyllium (2 sources) End: 05-25-2023 psyllium (Metamucil, sugar,) powder Take by mouth twice a day. 0 05/25/2023 Discontinued (Therapy completed) psyllium (Metamu cil, sugar,) powder Take by mouth twice a day. 0 Active 1000 ml sodium chloride 9 mg/ml injection (2 sources) Start: 12-19-2024 End: 12-19-2024 500 mL, intravenous, at 500 mL/hr, Administer over 1 Hours, Once, On 12/19/24 at 1610, For 1 dose Start: 04-02-2024 End: 04-02-2024 1,000 mL, intravenous, at 99 9 mL/hr, Administer over 1 Hours, Once, On 04/02/24 at 1540, For 1 dose 1 ml triamcinolone acetonide 40 mg/ml injection (1 source) Corticosteroid Start: 08-02-2023 End: 08-02-2023 triamcinolone acetonide (Kenalog-40) injection 20 mg UNABLE TO FIND (4 sources) End: 10-18-2024 take 1 tablet by mouth once daily UNABLE TO FIND Take 1 tablet by mouth once daily. Med Name: PREVAGAN 10/18/2024 Discontinued (Med List Cleanup) take 1 tablet by mouth once ady y UNABLE TO FIND Take 1 tablet by mouth once daily. Med Name: PREVAGAN Active Vitamin D2 TABS (20 sources) Vitamin D2 TABS 2400 IU daily Quantity: 0 Refills: 0 Ordered: 18-Sep-2022 DO Active Vitamin D2 TABS Quantity: 0 Refills: 0 Ordered: 05-Sep-2019 DO Active Problems Active Problems Problem Classification Problem Date Documented Da te Episodic/Chronic Abdominal hernia (2 sources) Umbilical hernia; Translations: [Umbilical hernia without obstruction or gangrene] Onset: 5 01-05-2025 Episodic Anxiety disorders (3 sources) Anxiety; Translations: [Anxiety disorder, unspecified] Onset: 5 08-31-2024 Chronic Cardiac dysrhythmias (20 sources) Multiple premature ventricular complexes; Translations: [Other premature beats] Onset: 3 Chronic Disorders of lipid metabolism (5 sources) Mixed hyperlipidemia; Translations: [Dyslipidemia] Onset: 5 Chronic Diverticulosis and diverticulitis (20 sources) Diverticulitis; Translations: [Diverticulitis of intestine, part unspecified, without perforation or abscess without bleeding] Onset: 4 Resolved: 5 07-14-2024 Chronic E Codes: Adverse effects of medical drugs (2 sources) Adverse effect of other drugs, medicaments and biological substances, initial encounter; Translations: [Adverse effect of other drugs, medicaments and biological substances, initial encounter] Onset: 5 Episodic Essential hypertension (20 sources) Essential hypertension; Translations: [Essential (primary) hypertension] Onset: 4 08-04-2023 Chronic Osteoarthritis (20 sources) Osteoarthritis; Translations: [Osteoarthrosis, unspecified whether generalized or localized, site unspecified] Onset: 3 01-19-2023 Chronic Other bone disease and musculoskeletal deformities (1 source) Osteopenia; Translations: [Other specified disorders of bone density and structure, unspecified site] 08-04-2023 Episodic Other diseases of kidney and ureters (2 sources) Infectious disorder of kidney; Translations: [Renal tubulo-interstitial disease, unspecified] 03-29-2024 Chronic Other diseases of kidney and ureters (6 sources) Renal tubulo-interstitial disease, unspecified; Translations: [Renal tubulo-interstitial disease, unspecified] Onset: 4 Chronic Other gastrointestinal disorders (20 sources) History of gastrointestinal bleed; Translations: [Personal history of other diseases of digestive system] Episodic Other screening for suspected conditions (not mental disorders or infectious disease) (20 sources) Mammography abnormal; Translations: [Other abnormal and inconclusive findings on diagnostic imaging of breast] Onset: 0 04-22-2023 Episodic Other upper respiratory disease (2 sources) Other allergic rhinitis; Translations: [Other allergic rhinitis] Onset: 5 Chronic Other upper respiratory disease (2 sources) Chronic rhinitis; Translations: [Chronic rhinitis] Onset: 5 Chronic Other upper respiratory infections (2 sources) Acute pharyngitis; Translations: [Acute pharyngitis, unspecified] Onset: 5 01-05-2025 Episodic Prolapse of female genital organs (5 sources) Cystocele, unspecified; Translations: [Cystocele] Onset: 5 Chronic Residual codes; unclassified (3 sources) Asymptomatic menopausal state; Translations: [Asymptomatic menopausal state] Onset: 5 Episodic Unclassified (2 sources) ER Follow-up; Translations: [ER Follow-up] Onset: 5 Unclassified (1 source) Supraventricular tachycardia, unspecified (CMS-HCC); Translations: [Supraventricular tachycardia, unspecified (CMS-HCC)] Onset: 3 Urinary tract infections (20 sources) Acute urinary tract infection; Translations: [Urinary tract infection, site not specified] Episodic Viral infection (12 sources) Disease caused by 2019-nCoV; Translations: [Other specified viral infection] Episodic Past or Other Problems Problem Classification Problem Date Documented Da te Episodic/Chronic Abdominal pain (20 sources) Right flank pain; Translations: [Abdominal pain, other specified site] Onset: 6 04-22-2023 Episodic Allergic reactions (12 sources) Allergic reaction to drug; Translations: [Allergy, unspecified, initial encounter] Onset: 5 08-02-2023 Episodic Cardiac dysrhythmias (20 sources) Palpitations; Translations: [Palpitations] Onset: 2 Episodic Conditions associated with dizziness or vertigo (6 sources) Lightheadedness; Translations: [Dizziness and giddiness] Onset: 4 04-02-2024 Episodic Diabetes mellitus without complication (20 sources) Hyperglycemia; Translations: [Hyperglycemia, unspecified] Onset: 4 08-04-2023 Episodic Esophageal disorders (20 sources) Gastroesophageal reflux disease; Translations: [Esophageal reflux] Onset: 3 Resolved: 5 04-22-2023 Chronic Genitourinary symptoms and ill-defined conditions (20 sources) Dysuria; Translations: [Dysuria] Onset: 3 Resolved: 5 04-22-2023 Episodic Immunizations and screening for infectious disease (20 sources) Patient encounter status; Translations: [Other specified vaccination] Onset: 4 08-04-2023 Episodic Menopausal disorders (20 sources) Atrophic vaginitis; Translations: [Postmenopausal atrophic vaginitis] Onset: 1 Resolved: 5 04-22-2023 Chronic Nonmalignant breast conditions (20 sources) Mastodynia; Translations: [Breast pain, left] Onset: 3 04-22-2023 Episodic Other gastrointestinal disorders (20 sources) Non-infective diarrhea; Translations: [Other specified intestinal malabsorption] Onset: 3 Resolved: 5 04-22-2023 Chronic Other gastrointestinal disorders (3 sources) Non-infective diarrhea; Translations: [Bile salt-induced diarrhea] Episodic Other gastrointestinal disorders (12 sources) History of diverticulitis; Translations: [Personal history of other diseases of the digestive system] Onset: 5 08-08-2024 Episodic Other gastrointestinal disorders (2 sources) Personal history of other diseases of the digestive system; Translations: [Personal history of other diseases of the digestive system] Onset: 5 Episodic Other nutritional; endocrine; and metabolic disorders (20 sources) Body mass index 25-29 - overweight; Translations: [Body Mass Index 25.0-25.9, adult] Onset: 3 Resolved: 5 04-22-2023 Episodic Other nutritional; endocrine; and metabolic disorders (20 sources) Overweight in adulthood with body mass index of 25 or more but less than 30; Translations: [Body Mass Index 25.0-25.9, adult] Onset: 3 04-22-2023 Episodic Other skin disorders (20 sources) Localized swelling, mass and lump, left upper limb; Translations: [Mass of left axilla] Onset: 2 Episodic Other skin disorders (20 sources) Mass of axilla; Translations: [Localized superficial swelling, mass, or lump] Onset: 3 Resolved: 5 04-22-2023 Episodic Spondylosis; intervertebral disc disorders; other back problems (20 sources) Backache; Translations: [Backache, unspecified] Onset: 3 04-22-2023 Episodic Unclassified (4 sources) History of clinical finding in subject; Translations: [History of right flank pain] Unclassified (2 sources) Patient encounter status; Translations: [Medicare annual wellness visit, subsequent] Unclassified (20 sources) Onset: 3 Resolved: 5 01-19-2023 Unclassified (1 source) Supraventricular tachycardia, unspecified (CMS-HCC); Translations: [Supraventricular tachycardia, unspecified (CMS-HCC)] Onset: 4 NEGATED: Highlighted row has not occurred!Residual codes; unclassified (20 sources) Disease Episodic Results Test Name Value Interpretation Reference Range Facility HEMOGLOBIN A1c WITH eAGon eAG (mmol/L) 6.5 mmol/L Normal [facility] Comment on above: Performed By: #### 7 600, 93022, 22688 #### [facility] [address], [address] [place] [id number] Automotive Welder: dEuin Garcia MD HbA1c (Bld) [Mass fraction] 5.7 % High <5.7 [facility] Comment on above: Result Comment: For someone without known diabetes, a hemoglobin A1c value between 5.7% and 6.4% is consistent with prediabetes and should be confirmed with a follow-up test. For someone with known diabetes, a value <7% indicates that their diabetes is well controlled. A1c targets should be individualized based on duration of diabetes, age, comorbid conditions, and other considerations. This assay result is consistent with an increased risk of diabetes. Currently, no consensus exists regarding use of hemoglobin A1c for diagnosis of diabetes for children. Performed By: #### 7 600, 56412, 93019 #### [facility] [address], [address] [place] [phone] Automotive Welder: Eduin Garcia MD Magnesium [Mass/Vol] 117 mg/dL Normal [facility] Comment on above: Performed By: #### 7 600, 05540, 90968 #### [facility] [address], [address] [place] [phone] Automotive Welder: Eduin Garcia MD LIPID PANEL, STANDARDon 12-02 Cholesterol [Mass/Vol] 242 mg/dL High <200 [facility] Comment on above: Performed By: #### 7 600, 51609, 17789 #### [facility] [place] [address] Automotive Welder: Eduin Garcia MD Cholesterol in HDL [Mass/Vol] 52 mg/dL Normal > OR = 50 [facility] Comment on above: Performed By: #### 7 600, 89463, 05277 #### [facility] [address], [address] [place] [address] Automotive Welder: Eduin Garcia MD Cholesterol in LDL [Mass/Vol] 146 mg/dL High [facility] Comment on above: Result Comment: Refe rence range: <100 Desirable range <100 mg/dL for primary prevention; <70 mg/dL for patients with CHD or diabetic patients with > or = 2 CHD risk factors. LDL-C is now calculated using the Beata calculation, which is a validated novel method providing better accuracy than the Friedewald equation in the estimation of LDL-C. Tai ALLISON et al. SANTOS. 2013;310(19): 6586-3622 (http://education.[email or web address] Everest.Smart Sparrow/faq/EAT821) Performed By: #### 7 600, 83813, 97507 #### [facility] [place] [address] Automotive Welder: Eduin Garcia MD Cholesterol.total/Ch olesterol in HDL [Mass ratio] 4.7 {ratio} Normal <5.0 [facility] Comment on above: Performed By: #### 7 600, 38095, 18906 #### [facility] [address], [address] [place], [place] [id number] Automotive Welder: Eduin Garcia MD NON HDL CHOLESTEROL 190 mg/dL (calc) High <130 [facility] Comment on above: Result Comment: For patients with diabetes plus 1 major ASCVD risk factor, treating to a non-HDL-C goal of <100 mg/dL (LDL-C of <70 mg/dL) is considered a therapeutic option. Performed By: #### 7 600, 31805, 03579 #### [facility] [address], [address] [place] [address] Automotive Welder: Eduin Garcia MD Triglyceride [Mass/Vol] 266 mg/dL High <150 [facility] Comment on above: Result Comment: If a non-fasting specimen was collected, consider repeat triglyceride testing on a fasting specimen if clinically indicated. Dinorah et al. J. of Clin. Lipidol. 2015;9:129-169. Performed By: #### 7 600, 11610, 30739 #### [facility] [address], [address] [place] [address] Automotive Welder: Eduin Garcia MD TSH W/REFLEX TO FT4on 2024 TSH W/REFLEX TO FT4 1.53 mIU/L Normal 0.40-4.50 [facility] Comment on above: Performed By: #### 7 600, 70307, 77625 #### [facility] [address], [address] [place] [address] Automotive Welder: Eduin Garcia MD ECG 12 leadOrdered By: Diana Jiménez on 12-20-2024 Atrial Rate 84 BPM [facility] Work Phone: P [place] 53 degrees [facility] Work Phone: P Offset 207 [facility] Work Phone: P Onset 157 [facility] Work Phone: MO Interval 130 ms [facility] Work Phone: Q Onset 222 ms [facility] Work Phone: QRS Count 14 beats [facility] Work Phone: QRS Duration 82 ms [facility] Work Phone: QT Interval 368 ms [facility] Work Phone: QTC Calculation(Bazett) 434 [facility] Work Phone: QTC Fredericia 411 [facility] Work Phone: R [place] 25 degrees [facility] Work Phone: T [place] 36 degrees [facility] Work Phone: T Offset 406 ms [facility] Work Phone: Ventricular Rate 84 BPM [facility] Work Phone: [facility] Work Phone: ECG 12 leadon 12-20-2024 Normal sinus rhythm Nonspecific ST abnormality Abnormal ECG When compared with ECG of 17-AUG-2024 08:41, Premature ventricular complexes are no longer Present See ED provider note for full interpretation and clinical correlation Confirmed by Piedad Jiménez ([id number]) on 12/20/2024 12:50:25 PM Jessica Calles, [employer] - 12/20/2024 Normal sinus rhythm Nonspecific ST abnormality Abnormal ECG When compared with ECG of 17-AUG-2024 08:41, Premature ventricular complexes are no longer Present See ED provider note for full interpretation and clinical correlation Confirmed by Piedad Jiménez ([id number]) on 12/20/2024 12:50:25 PM [facility] Work Phone: CBC panel Auto (Bld)on 12-19 Erythrocyte distribution width (RBC) [Ratio] 13.2 % 11.5 - 14.5 % [facility] Hematocrit (Bld) [Volume fraction] 39.6 % 36.0 - 46.0 % [facility] Hemoglobin (Bld) [Mass/Vol] 12.9 g/dL 12.0 - 16.0 g/dL [facility] Interpretation and review of laboratory results Normal [facility] MCH (RBC) [Entitic mass] 30.1 pg 26.0 - 34.0 pg [facility] MCHC (RBC) [Mass/Vol] 32.6 g/dL 32.0 - 36.0 g/dL [facility] MCV (RBC) [Entitic vol] 92 fL 80 - 100 fL [facility] Nucleated RBC/100 WBC (Bld) [Ratio] 0 % [facility] Platelets (Bld) [#/Vol] 281 10*3/uL [facility] RBC (Bld) [#/Vol] 4.29 10*6/uL [facility] WBC (Bld) [#/Vol] 6.5 10*3/uL [facility] Erythrocyte distribution width (RBC) [Ratio] 13.2 % Normal 11.5-14.5 [facility] Comment on above: Performed By: #### 2 4323-8 #### IAN SCHMITT ([id number]) [facility] ([facility]) [address] [place] [address] Hematocrit (Bld) [Volume fraction] 39.6 % Normal 36.0-46.0 [facility] Comment on above: Performed By: #### 2 4323-8 #### IAN SCHMITT ([id number]) [facility] ([facility]) [address] [place] [address] Hemoglobin (Bld) [Mass/Vol] 12.9 g/dL Normal 12.0-16.0 [facility] Comment on above: Performed By: #### 2 4323-8 #### IAN SCHMITT ([id number]) [facility] ([facility]) [address] [place] [address]1982 MCH (RBC) [Entitic mass] 30.1 pg Normal 26.0-34.0 [facility] Comment on above: Performed By: #### 2 4323-8 #### IAN SCHMITT ([id number]) [facility] ([facility]) [address] [place] [address]107 MCHC (RBC) [Mass/Vol] 32.6 g/dL Normal 32.0-36.0 [facility] Comment on above: Performed By: #### 2 4323-8 #### IAN SCHMITT ([id number]) [facility] ([facility]) [address] [place] [address]51 MCV (RBC) [Entitic vol] 92 fL Normal 80-100 [facility] Comment on above: Performed By: #### 2 4323-8 #### IAN SCHMITT ([id number]) [facility] ([facility]) [address] [place] [address] 43734 Nucleated RBC/100 WBC (Bld) [Ratio] 0.0 /100 WBCs Normal 0.0-0.0 [facility] Comment on above: Performed By: #### 2 4323-8 #### IAN SCHMITT ([id number]) [facility] ([facility]) [address] [place] [address]29[address] Platelets (Bld) [#/Vol] 281 x10*3/uL Normal 150-450 [facility] Comment on above: Performed By: #### 2 4323-8 #### IAN SCHMITT ([id number]) [facility] ([facility]) [address] [place] [address] 97283 RBC (Bld) [#/Vol] 4.29 x10*6/uL Normal 4.00-5.20 [facility] Comment on above: Performed By: #### 2 4323-8 #### IAN SCHMITT ([id number]) [facility] ([facility]) [address] [place] [address] 42461 WBC (Bld) [#/Vol] 6.5 x10*3/uL Normal 4.4-11.3 [facility] Comment on above: Performed By: #### 2 4323-8 #### IAN SCHMITT ([id number]) [facility] ([facility]) [address] [place], [place] [id number] CT ABDOMEN PELVIS W IV CONTR Myron 12-19-2024 CT ABDOMEN PELVIS W IV CONTRAST Interpreted By: Richard Chatman, STUDY: CT ABDOMEN PELVIS W IV CONTRAST; 12/19/2024 5:27 pm INDICATION: 79 y/o F with Signs/Symptoms:RUQ and epigastric pain. LIMITATIONS: None. ACCESSION NUMBER(S): [id number] ORDERING CLINICIAN: AFSHIN VALDEZ TECHNIQUE: After the administration of IV iodonated contrast, spiral axial images were obtained from the xiphoid down through the symphysis pubis. Sagittal and coronal reconstruction images were generated. COMPARISON: 08/17/2024 FINDINGS: Lower Chest: Small hiatal hernia. Liver: Couple of small subcentimeter hypodensities adjacent to the gallbladder fossa, too small to characterize. There is an 11 mm enhancing lesion in the right posterior liver, stable when compared to prior exam and CT from 2020 indicating benign etiology. Gallbladder and Biliary: Status post cholecystectomy. Pancreas: Pancreatic parenchymal atrophy. Spleen: No abnormality identified in the spleen. Adrenals: No abnormality identified in either adrenal gland. Urinary: There is a 3 mm nonobstructive calculus in the left kidney midzone lower pole. Lobulated kidneys with renal cortical thinning bilaterally. Couple of small subcentimeter left renal hypodensities, too small to characterize. No hydronephrosis. Low-lying bladder neck. Gastrointestinal/Periton eum: No small or large bowel obstruction in the visualized abdomen. In the abdomen, there is no extraluminal air. No significant free fluid. Multiple duodenal diverticula. Colonic diverticulosis. Redemonstrated caty mesentery may be seen with edema or panniculitis, similar when compared to prior exam. Reproductive: Multiple left ovarian cysts measuring up to 2 cm. Vascular: Abdominal aorta is normal in caliber. Atherosclerosis. Lymphatics: No enlarged lymph nodes by size criteria. MSK/Body Wall: No aggressive bony lesion identified. IMPRESSION: No acute abnormality in the abdomen or pelvis. Nonobstructive left renal calculus. Severe colonic diverticulosis. Duodenal diverticula. Left ovarian cysts, recommend follow-up with annual ultrasound. Signed by: Richard Chatman 12/19/2024 6:11 PM Dictation workstation: [id number] [facility] CT Abdomen and Pelvis W cont rast Lane 12-19-2024 No acute abnormality in the abdomen or pelvis. Nonobstructive left renal calculus. Severe colonic diverticulosis. Duodenal diverticula. Left ovarian cysts, recommend follow-up with annual ultrasound. Signed by: Richard Chatman 12/19/2024 6:11 PM Dictation workstation: [id number] MMODAL Interpreted By: Richard Chatman, STUDY: CT ABDOMEN PELVIS W IV CONTRAST; 12/19/2024 5:27 pm INDICATION: 79 y/o F with Signs/Symptoms:RUQ and epigastric pain. LIMITATIONS: None. ACCESSION NUMBER(S): [id number] ORDERING CLINICIAN: AFSHIN VALDEZ TECHNIQUE: After the administration of IV iodonated contrast, spiral axial images were obtained from the xiphoid down through the symphysis pubis. Sagittal and coronal reconstruction images were generated. COMPARISON: 08/17/2024 FINDINGS: Lower Chest: Small hiatal hernia. Liver: Couple of small subcentimeter hypodensities adjacent to the gallbladder fossa, too small to characterize. There is an 11 mm enhancing lesion in the right posterior liver, stable when compared to prior exam and CT from 2020 indicating benign etiology. Gallbladder and Biliary: Status post cholecystectomy. Pancreas: Pancreatic parenchymal atrophy. Spleen: No abnormality identified in the spleen. Adrenals: No abnormality identified in either adrenal gland. Urinary: There is a 3 mm nonobstructive calculus in the left kidney midzone lower pole. Lobulated kidneys with renal cortical thinning bilaterally. Couple of small subcentimeter left renal hypodensities, too small to characterize. No hydronephrosis. Low-lying bladder neck. Gastrointestinal/Periton eum: No small or large bowel obstruction in the visualized abdomen. In the abdomen, there is no extraluminal air. No significant free fluid. Multiple duodenal diverticula. Colonic diverticulosis. Redemonstrated caty mesentery may be seen with edema or panniculitis, similar when compared to prior exam. Reproductive: Multiple left ovarian cysts measuring up to 2 cm. Vascular: Abdominal aorta is normal in caliber. Atherosclerosis. Lymphatics: No enlarged lymph nodes by size criteria. MSK/Body Wall: No aggressive bony lesion identified. MMODAL Richard Chatman MD - 12/19/2024 Interpreted By: Richard Chatman, STUDY: CT ABDOMEN PELVIS W IV CONTRAST; 12/19/2024 5:27 pm INDICATION: 79 y/o F with Signs/Symptoms:RUQ and epigastric pain. LIMITATIONS: None. ACCESSION NUMBER(S): [id number] ORDERING CLINICIAN: AFSHIN VALDEZ TECHNIQUE: After the administration of IV iodonated contrast, spiral axial images were obtained from the xiphoid down through the symphysis pubis. Sagittal and coronal reconstruction images were generated. COMPARISON: 08/17/2024 FINDINGS: Lower Chest: Small hiatal hernia. Liver: Couple of small subcentimeter hypodensities adjacent to the gallbladder fossa, too small to characterize. There is an 11 mm enhancing lesion in the right posterior liver, stable when compared to prior exam and CT from 2019 indicating benign etiology. Gallbladder and Biliary: Status post cholecystectomy. Pancreas: Pancreatic parenchymal atrophy. Spleen: No abnormality identified in the spleen. Adrenals: No abnormality identified in either adrenal gland. Urinary: There is a 3 mm nonobstructive calculus in the left kidney midzone lower pole. Lobulated kidneys with renal cortical thinning bilaterally. Couple of small subcentimeter left renal hypodensities, too small to characterize. No hydronephrosis. Low-lying bladder neck. Gastrointestinal/Periton eum: No small or large bowel obstruction in the visualized abdomen. In the abdomen, there is no extraluminal air. No significant free fluid. Multiple duodenal diverticula. Colonic diverticulosis. Redemonstrated caty mesentery may be seen with edema or panniculitis, similar when compared to prior exam. Reproductive: Multiple left ovarian cysts measuring up to 2 cm. Vascular: Abdominal aorta is normal in caliber. Atherosclerosis. Lymphatics: No enlarged lymph nodes by size criteria. MSK/Body Wall: No aggressive bony lesion identified. IMPRESSION: No acute abnormality in the abdomen or pelvis. Nonobstructive left renal calculus. Severe colonic diverticulosis. Duodenal diverticula. Left ovarian cysts, recommend follow-up with annual ultrasound. Signed by: Richard Chatman 12/19/2024 6:11 PM Dictation workstation: [id number] [facility] Work Phone: Radiology Study observation (narrative) [facility] Work Phone: CT Abdomen and Pelvis W cont rast IVOrdered By: Richard Chatman on 12-19-2024 [facility] Work Phone: Comprehensive metabolic 2000 panelon 12-19-2024 Albumin BCP dye [Mass/Vol] 4.3 g/dL 3.4 - 5.0 g/dL [facility] ALP [Catalytic activity/Vol] 42 U/L 33 - 136 U/L [facility] ALT With P-5'-P [Catalytic activity/Vol] 9 U/L 7 - 45 U/L [facility] Comment on above: Patients treated wit h Sulfasalazine may generate falsely decreased results for ALT. Anion gap [Moles/Vol] 13 mmol/L 10 - 20 mmol/L [facility] AST With P-5'-P [Catalytic activity/Vol] 12 U/L 9 - 39 U/L [facility] Bilirubin [Mass/Vol] 0.4 mg/dL 0.0 - 1 .2 mg/dL [facility] Calcium [Mass/Vol] 9.7 mg/dL 8.6 - 10. 3 mg/dL [facility] Chloride [Moles/Vol] 102 mmol/L 98 - 10 7 mmol/L [facility] CO2 [Moles/Vol] 28 mmol/L 21 - 32 mmol/L [facility] Creatinine [Mass/Vol] 0.57 mg/dL 0.50 - 1.05 mg/dL [facility] eGFR - PINF [facility] Comment on above: Calculations of jerilyn mated GFR are performed using the 2020 CKD-EPI Study Refit equation without the race variable for the IDMS-Traceable creatinine methods. https://jasn.asnjournals.org/content//ASN.3012479 988 Glucose [Mass/Vol] 109 mg/dL High 74 - 99 mg/dL [facility] Interpretation and review of laboratory results Abnormal [facility] Potassium [Moles/Vol] 4 mmol/L 3.5 - 5.3 mmol/L [facility] Protein [Mass/Vol] 7.1 g/dL 6.4 - 8.2 g/dL [facility] Sodium [Moles/Vol] 139 mmol/L 136 - 145 mmol/L [facility] Urea nitrogen [Mass/Vol] 11 mg/dL 6 - 23 mg/dL [facility] Albumin BCP dye [Mass/Vol] 4.3 g/dL Normal 3.4-5.0 [facility] Comment on above: Performed By: #### 2 4323-8 #### SOSA OSKAR ([id number]) [facility] ([facility]) [address] [place] [address] ALP [Catalytic activity/Vol] 42 U/L Normal 33-136 [facility] Comment on above: Performed By: #### 2 4323-8 #### AIN SCHMITT ([id number]) [facility] ([facility]) [address] [place] [address] ALT With P-5'-P [Catalytic activity/Vol] 9 U/L Normal 7-45 [facility] Comment on above: Result Comment: Dorita ents treated with Sulfasalazine may generate falsely decreased results for ALT. Performed By: #### 2 432-8 #### IAN SCHMITT ([id number]) [facility] ([facility]) [facility] [place] [address] Anion gap [Moles/Vol] 13 mmol/L Normal 10-20 [facility] Comment on above: Performed By: #### 2 432-8 #### IAN SCHMITT ([id number]) [facility] ([facility]) [address] [place] [address] AST With P-5'-P [Catalytic activity/Vol] 12 U/L Normal 9-39 [facility] Comment on above: Performed By: #### 2 432-8 #### IAN SCHMITT ([id number]) [facility] ([facility]) [address] [place] [address] Bilirubin [Mass/Vol] 0.4 mg/dL Normal 0.0-1.2 [facility] Comment on above: Performed By: #### 2 432-8 #### IAN SCHMITT ([id number]) [facility] ([facility]) [address] [place] [address] Calcium [Mass/Vol] 9.7 mg/dL Normal 8.6-10.3 [facility] Comment on above: Performed By: #### 2 4323-8 #### IAN SCHMITT ([id number]) [facility] ([facility]) [address] [place] [address] Chloride [Moles/Vol] 102 mmol/L Normal 98-107 [facility] Comment on above: Performed By: #### 2 4323-8 #### IAN SCHMITT ([id number]) [facility] ([facility]) [address] [place] [address] CO2 [Moles/Vol] 28 mmol/L Normal 21-32 [facility] Comment on above: Performed By: #### 2 4323-8 #### IAN SCHMITT ([id number]) [facility] ([facility]) [address] [place] [address] Creatinine [Mass/Vol] 0.57 mg/dL Normal 0.50-1.05 [facility] Comment on above: Performed By: #### 2 4323-8 #### IAN SCHMITT ([id number]) [facility] ([facility]) [address] [place] [address] GFR/1.73 sq M.predicted MDRD (S/P/Bld) [Vol rate/Area] mL/min/{1.73_m2} Normal >60 [facility] Comment on above: Result Comment: Calc ulations of estimated GFR are performed using the 2020 CKD-EPI Study Refit equation without the race variable for the IDMS-Traceable creatinine methods. https://jasn.asnjournals.org/content/early//ASN.1210932 988 Performed By: #### 2 4323-8 #### IAN SCHMITT ([id number]) [facility] ([facility]) [address] [place] [address] Glucose [Mass/Vol] 109 mg/dL High 74-99 [facility] Comment on above: Performed By: #### 2 4323-8 #### IAN SCHMITT ([id number]) [facility] ([facility]) [address] [place] [address] Potassium [Moles/Vol] 4.0 mmol/L Normal 3.5-5.3 [facility] Comment on above: Performed By: #### 2 4323-8 #### IAN SCHMITT ([id number]) [facility] ([facility]) [address] [place] [address] Protein [Mass/Vol] 7.1 g/dL Normal 6.4-8.2 [facility] Comment on above: Performed By: #### 2 4323-8 #### IAN SCHMITT ([id number]) [facility] ([facility]) [address] [place] [address] Sodium [Moles/Vol] 139 mmol/L Normal 136-145 [facility] Comment on above: Performed By: #### 2 4323-8 #### IAN SCHMITT ([id number]) [facility] ([facility]) [address] [place], [place] [address] Urea nitrogen [Mass/Vol] 11 mg/dL Normal 6-23 [facility] Comment on above: Performed By: #### 2 4323-8 #### IAN SCHMITT ([id number]) [facility] ([facility]) [address] [place], [place] [address] ECG 12-LEADon 12-19-2024 ECG 12-LEAD Ventricular Rate 84 Atrial Rate 84 P-R Interval 130 QRS Duration 82 Q-T Interval 368 QTC Calculation(Bazett) 434 P [place] 53 R [place] 25 T [place] 36 QRS Count 14 Q Onset 222 P Onset 157 P Offset 207 T Offset 406 QTC Fredericia 411 Diagnosis Normal sinus rhythm Nonspecific ST abnormality Abnormal ECG When compared with ECG of 17-AUG-2024 08:41, Premature ventricular complexes are no longer Present See ED provider note for full interpretation and clinical correlation Confirmed by Piedad Jiménez ([id number]) on 12/20/2024 12:50:25 PM Normal [facility] Lipaseon 12-19-2024 Lipase [Catalytic activity/Vol] 15 U/L 9 - 82 U/L [facility] Lipase [Catalytic activity/V ol]on 12-19-2024 Interpretation and review of laboratory results Normal [facility] Venipuncture immedia tely after or during the administration of Metamizole may lead to falsely low results. Testing should be performed immediately prior to Metamizole dosing. [facility] Triacylglycerol lipaseon Lipase [Catalytic activity/Vol] 15 U/L Normal -82 [facility] Comment on above: Order Comment: Venip uncture immediately after or during the administration of Metamizole may lead to falsely low results. Testing should be performed immediately prior to Metamizole dosing. Performed By: #### 2 4323-8 #### SOSA OSKAR ([id number]) [facility] ([facility]) [facility] [place] [address] Tropinin I.cardiac panel Hig h sensitivity methodon 12-19-2024 Interpretation and review of laboratory results Normal [facility] Less than 99th percentile of normal range cutoff- Female and children under 18 years old <14 ng/L; Male <21 ng/L: Negative Repeat testing should be performed if clinically indicated. Female and children under 18 years old 14-50 ng/L; Male 21-50 ng/L: Consistent with possible cardiac damage and possible increased clinical risk. Serial measurements may help to assess extent of myocardial damage. >50 ng/L: Consistent with cardiac damage, increased clinical risk and myocardial infarction. Serial measurements may help assess extent of myocardial damage. NOTE: Children less than 1 year old may have higher baseline troponin levels and results should be interpreted in conjunction with the overall clinical context. NOTE: Troponin I testing is performed using a different testing methodology at [facility] than at other [facility]. Direct result comparisons should only be made within the same method. [facility] Troponin I, High Sensitivity on 12-19-2024 Tropinin I.cardiac panel High sensitivity method 5 ng/L 0 - 13 ng/L [facility] Troponin I.cardiac panelon 0 12-19-2024 Tropinin I.cardiac panel High sensitivity method 5 ng/L Normal 0-13 [facility] Comment on above: Order Comment: Less than 99th percentile of normal range cutoff-Female and children under 18 years old <14 ng/L; Male <21 ng/L: NegativeRepeat testing should be performed if clinically indicated.Female and children under 18 years old 14-50 ng/L; Male 21-50 ng/L:Consistent with possible cardiac damage and possible increased clinicalrisk. Serial measurements may help to assess extent of myocardial damage.>50 ng/L: Consistent with cardiac damage, increased clinical risk andmyocardial infarction. Serial measurements may help assess extent ofmyocardial damage.NOTE: Children less than 1 year old may have higher baseline troponinlevels and results should be interpreted in conjunction with the overallclinical context.NOTE: Troponin I testing is performed using a differenttesting methodology at [facility] than at [facility]. Direct result comparisons should onlybe made within the same method. Performed By: #### 2 4323-8 #### IAN SCHMITT ([id number]) [facility] ([facility]) [address] [place] [address] Urinalysis complete W Reflex Culture panel (U)on 12-19-2024 Appearance (U) Clear Clear [facility] Bilirubin (U) [Mass/Vol] Negative NEGATIVE mg/dL [facility] Color (U) Colorless Abnormal Light-Yellow , Yellow, Dark-Yellow [facility] Glucose Auto test strip (U) [Mass/Vol] Normal Normal mg/dL [facility] Interpretation and review of laboratory results Abnormal [facility] Ketones (U) [Mass/Vol] Negative NEGATIVE mg/dL [facility] Leukocyte esterase Auto test strip Ql (U) Negative NEGATIVE [facility] Nitrite Auto test strip Ql (U) Negative NEGATIVE [facility] pH (U) 7 [pH] 5.0, 5.5, 6.0, 6.5, 7.0, 7.5, 8.0 [facility] Protein (U) [Mass/Vol] Negative NEGATIVE, 10 (TRACE), 20 (TRACE) mg/dL [facility] RBC (U) [#/Vol] Negative NEGATIVE mg/dL [facility] Specific gravity (U) [Rel density] 1.006 1.005 - 1.035 [facility] Urobilinogen (U) [Mass/Vol] Normal Normal mg/dL [facility] Appearance (U) Clear Normal Clear [facility] Comment on above: Performed By: #### 2 4323-8 #### IAN SCHMITT ([id number]) [facility] ([facility]) [address] [place] [address] Bilirubin (U) [Mass/Vol] Negative Normal NEGATIVE [facility] Comment on above: Performed By: #### 2 4322-8 #### IAN SCHMITT ([id number]) [facility] ([facility]) [address] [place], [place] [address] Color (U) Colorless Normal Light-Yellow , Yellow, Dark-Yellow [facility] Comment on above: Performed By: #### 2 4322-8 #### IAN SCHMITT ([id number]) [facility] ([facility]) [address] [place], [place] [address] Glucose Auto test strip (U) [Mass/Vol] Normal Normal Normal [facility] Comment on above: Performed By: #### 2 4322-8 #### IAN SCHMITT ([id number]) [facility] ([facility]) [address] [place], [place] [address] Ketones (U) [Mass/Vol] Negative Normal NEGATIVE [facility] Comment on above: Performed By: #### 2 4322-8 #### IAN SCHMITT ([id number]) [facility] ([facility]) [address] [place] [address] Leukocyte esterase Auto test strip Ql (U) Negative Normal NEGATIVE [facility] Comment on above: Performed By: #### 2 4322-8 #### IAN SCHMITT ([id number]) [facility]) [address] [place] [address] Nitrite Auto test strip Ql (U) Negative Normal NEGATIVE [facility] Comment on above: Performed By: #### 2 4322-8 #### IAN SCHMITT ([id number]) [facility] ([facility]) [address] [place], [place] [address] pH (U) 7.0 [pH] Normal 5.0, 5.5, 6.0, 6.5, 7.0, 7.5, 8.0 [facility] Comment on above: Performed By: #### 2 4322-8 #### IAN SCHMITT ([id number]) [facility] ([facility]) [address] [place] [address] Protein (U) [Mass/Vol] Negative Normal NEGATIVE, 10 (TRACE), 20 (TRACE) [facility] Comment on above: Performed By: #### 2 4323-8 #### IAN SCHMITT ([id number]) [facility]) [address] [place] [address] RBC (U) [#/Vol] Negative Normal NEGATIVE [facility] Comment on above: Performed By: #### 2 4323-8 #### IAN SCHMITT ([id number]) [facility] ([facility]) [address] [place] [address] Specific gravity (U) [Rel density] 1.006 Normal 1.005-1.035 [facility] Comment on above: Performed By: #### 2 4323-8 #### INA SCHMITT ([id number]) [facility] ([facility]) [address] [place] [address] Urobilinogen (U) [Mass/Vol] Normal Normal Normal [facility] Comment on above: Performed By: #### 2 4323-8 #### IAN SCHMITT ([id number]) [facility] ([facility]) [address] [place] [address] COLONOSCOPYon 10-24-2024 Colonoscopy Table formatting fro m the original result was not included. 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 One polyp measuring smaller than 5 mm in the cecum; performed cold forceps biopsy with complete en bloc removal One polyp measuring smaller than 5 mm in the proximal ascending colon; performed cold forceps biopsy with complete en bloc removal One polyp measuring 5-9 mm in the proximal transverse colon; performed cold snare with complete en bloc removal and retrieved specimen One polyp measuring smaller than 5 mm in the proximal descending colon; performed cold forceps biopsy with complete piecemeal removal Recommendation Await pathology results Repeat colonoscopy in 3 - 5 years provided remaining in good health. Indication Diverticulitis Medications fentaNYL PF (Sublimaze) injection 100 mcg midazolam PF (Versed) injection 6 mg glucagon (Glucagen) injection 1 mg (Totals for administrations occurring from 0850 to 0929 on 10/24/24) Preprocedure A history and physical has been performed, and patient medication allergies have been reviewed. The patient's tolerance of previous anesthesia has been reviewed. The risks and benefits of the procedure and the sedation options and risks were discussed with the patient. All questions were answered and informed consent obtained. Details of the Procedure The patient underwent moderate sedation, which was administered by the procedural nurse. The patient's blood pressure, ECG, ETCO2, heart rate, level of consciousness, oxygen and respirations were monitored throughout the procedure. A digital rectal exam was performed. The scope was introduced through the anus and advanced to the cecum. Retroflexion was performed in the rectum. The quality of bowel preparation was evaluated using the [place] Bowel Preparation Scale with scores of: right colon = 3, transverse colon = 3, left colon = 3. The total BBPS score was 9. Bowel prep was adequate. The patient's estimated blood loss was minimal (<5 mL). The procedure was not difficult. The patient tolerated the procedure well. There were no apparent adverse events. Events Procedure Events Event Event Time ENDO SCOPE IN TIME 10/24/2024 8:59 AM ENDO CECUM REACHED 10/24/2024 9:10 AM ENDO SCOPE OUT TIME 10/24/2024 9:29 AM Specimens ID Type Source Tests Collected by Time 1 : CECAL POLYP Tissue COLON -CECUM POLYP SURGICAL PATHOLOGY EXAM Ranjana Cormier RN 10/24/2024 0909 2 : ASCENDING COLON POLYP Tissue ASCENDING COLON POLYP SURGICAL PATHOLOGY EXAM Ranjana Cormier RN 10/24/2024 0912 3 : PROXIMAL TRANSVERSE COLON POLYP Tissue COLON - TRANSVERSE POLYP SURGICAL PATHOLOGY EXAM Ranjana Cormier RN 10/24/2024 0915 4 : PROXIMAL DESCENDING COLON POLYP Tissue COLON - DESCENDING POLYP SURGICAL PATHOLOGY EXAM Ranjana Cormier RN 10/24/2024 0920 Procedure Location [facility] OR [address] [place] [id number] Primary Care Provider Sangita Kline APRN-[employer]ECTIVE [employer] Procedure Provider Alberta Navarro MD [facility] Comment on above: Order Comment: Colonoscopy studyon 10-25-19 Table formatting fro m the original result was not included. 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 One polyp measuring smaller than 5 mm in the cecum; performed cold forceps biopsy with complete en bloc removal One polyp measuring smaller than 5 mm in the proximal ascending colon; performed cold forceps biopsy with complete en bloc removal One polyp measuring 5-9 mm in the proximal transverse colon; performed cold snare with complete en bloc removal and retrieved specimen One polyp measuring smaller than 5 mm in the proximal descending colon; performed cold forceps biopsy with complete piecemeal removal Recommendation Await pathology results Repeat colonoscopy in 3 - 5 years provided remaining in good health. Indication Diverticulitis Medications fentaNYL PF (Sublimaze) injection 100 mcg midazolam PF (Versed) injection 6 mg glucagon (Glucagen) injection 1 mg (Totals for administrations occurring from 0850 to 0929 on 10/24/24) Preprocedure A history and physical has been performed, and patient medication allergies have been reviewed. The patient's tolerance of previous anesthesia has been reviewed. The risks and benefits of the procedure and the sedation options and risks were discussed with the patient. All questions were answered and informed consent obtained. Details of the Procedure The patient underwent moderate sedation, which was administered by the procedural nurse. The patient's blood pressure, ECG, ETCO2, heart rate, level of consciousness, oxygen and respirations were monitored throughout the procedure. A digital rectal exam was performed. The scope was introduced through the anus and advanced to the cecum. Retroflexion was performed in the rectum. The quality of bowel preparation was evaluated using the [place] Bowel Preparation Scale with scores of: right colon = 3, transverse colon = 3, left colon = 3. The total BBPS score was 9. Bowel prep was adequate. The patient's estimated blood loss was minimal (<5 mL). The procedure was not difficult. The patient tolerated the procedure well. There were no apparent adverse events. Events Procedure Events Event Event Time ENDO SCOPE IN TIME 10/24/2024 8:59 AM ENDO CECUM REACHED 10/24/2024 9:10 AM ENDO SCOPE OUT TIME 10/24/2024 9:29 AM Specimens ID Type Source Tests Collected by Time 1 : CECAL POLYP Tissue COLON -CECUM POLYP SURGICAL PATHOLOGY EXAM Ranjana Cormier RN 10/24/2024 0909 2 : ASCENDING COLON POLYP Tissue ASCENDING COLON POLYP SURGICAL PATHOLOGY EXAM Ranjana Cormier RN 10/24/2024 0912 3 : PROXIMAL TRANSVERSE COLON POLYP Tissue COLON - TRANSVERSE POLYP SURGICAL PATHOLOGY EXAM Ranjana Cormier RN 10/24/2024 0915 4 : PROXIMAL DESCENDING COLON POLYP Tissue COLON - DESCENDING POLYP SURGICAL PATHOLOGY EXAM Ranjana Cormier RN 10/24/2024 0920 Procedure Location [facility] [place] [address] [facility] [address] Primary Care Provider Sangita Kline APRN-[employer]ECTIVE [employer] Procedure Provider Alberta Navarro MD IMAGING [facility] Work Phone: Radiology Study observation (narrative) [facility] Work Phone: Surgical pathology studyon 0 10-24-2024 Surgical pathology study Pathology report.total SEE COMMENT Surgical Pathology Case: [id number] Authorizing Provider: Alberta Navarro MD Collected: 10/24/2024 0909 Ordering Location: [facility] Received: 10/24/2024 1612 Center [place] Pathologist: Herman Wang MD Specimens: A) - COLON -CECUM POLYP, CECAL POLYP B) - ASCENDING COLON POLYP C) - COLON - TRANSVERSE POLYP, PROXIMAL TRANSVERSE COLON POLYP D) - COLON - DESCENDING POLYP, PROXIMAL DESCENDING COLON POLYP Path report.final diagnosis SEE COMMENT A. COLON -CECUM POLYP: TUBULAR ADENOMA. B. ASCENDING COLON POLYP: TUBULAR ADENOMA. C. COLON - TRANSVERSE POLYP: TUBULAR ADENOMA. D. COLON - DESCENDING POLYP: TUBULAR ADENOMA. Laboratory comment By the signature on this report, the individual or group listed as making the Final Interpretation/Diagnosis certifies that they have reviewed this case. Path report.relevant Hx Diverticulitis [K57.92] Path report.gross observation SEE COMMENT A: Received in formalin, labeled with the patient's name and hospital number and specimen 1, cecal polyp, C, is a fragment of humphreys, soft tissue measuring 0.3 x 0.2 x 0.2 cm. The specimen is submitted in toto in 1 cassette. Rabbit TV/Adapt B: Received in formalin, labeled with the patient's name and hospital number and ASC, specimen 2, ascending colon, is a fragment of humphreys, soft tissue measuring 0.3 x 0.3 x 0.2 cm. The specimen is submitted in toto in 1 cassette. JCodeEval/SMS C: Received in formalin, labeled with the patient's name and hospital number and T, specimen 3, proximal transverse colon, are multiple fragments of humphreys, soft tissue aggregating to 1.0 x 0.2 x 0.2 cm. The specimen is submitted in toto in 1 cassette. BAIRON/LINDA D: Received in formalin, labeled with the patient's name and hospital number and P.DESC, specimen 4, proximal descending colon, are 2 fragments of humphreys, soft tissue aggregating to 0.7 x 0.3 x 0.3 cm. The specimen is submitted in toto in 1 cassette. Vincent/[facility] Normal [facility] Basic metabolic 2000 panelon 08-22-2024 Anion gap [Moles/Vol] 11 mmol/L 10 - 20 mmol/L [facility] Calcium [Mass/Vol] 9.1 mg/dL 8.6 - 10. 3 mg/dL [facility] Chloride [Moles/Vol] 104 mmol/L 98 - 10 7 mmol/L [facility] CO2 [Moles/Vol] 27 mmol/L 21 - 32 mmol/L [facility] Creatinine [Mass/Vol] 0.7 mg/dL 0.50 - 1.05 mg/dL [facility] GFR/1.73 sq M.predicted among non-blacks MDRD (S/P/Bld) [Vol rate/Area] 89 mL/min/{1.73_m2} - PINF [facility] Comment on above: Calculations of jerilyn mated GFR are performed using the 2020 CKD-EPI Study Refit equation without the race variable for the IDMS-Traceable creatinine methods. https://jasn.asnjournals.org/content/early/ASN.8263291 988 Glucose [Mass/Vol] 95 mg/dL 74 - 99 mg/dL [facility] Interpretation and review of laboratory results Normal [facility] Potassium [Moles/Vol] 3.8 mmol/L 3.5 - 5.3 mmol/L [facility] Sodium [Moles/Vol] 138 mmol/L 136 - 145 mmol/L [facility] Urea nitrogen [Mass/Vol] 12 mg/dL 6 - 23 mg/dL [facility] Anion gap [Moles/Vol] 11 mmol/L Normal 10-20 [facility] Comment on above: Performed By: #### 2 4323-8 #### IAN SCHMITT ([id number]) [facility] ([facility]) [address] [place] [address] 09648 Calcium [Mass/Vol] 9.1 mg/dL Normal 8.6-10.3 [facility] Comment on above: Performed By: #### 2 4323-8 #### IAN SCHMITT ([id number]) [facility] ([facility]) [address] [place] [address] 85894 Chloride [Moles/Vol] 104 mmol/L Normal 98-107 [facility] Comment on above: Performed By: #### 2 4323-8 #### IAN SCHMITT ([id number]) [facility] ([facility]) [address] [place] [address] 71117 CO2 [Moles/Vol] 27 mmol/L Normal 21-32 [facility] Comment on above: Performed By: #### 2 4323-8 #### IAN SCHMITT ([id number]) [facility] ([facility]) [address] [place] [address] 63080 Creatinine [Mass/Vol] 0.70 mg/dL Normal 0.50-1.05 [facility] Comment on above: Performed By: #### 2 4323-8 #### IAN SCHMITT ([id number]) [facility] ([facility]) [address] [place] [address] 28296 Glomerular filtration rate/1.73 sq M.predicted 89 mL/min/1.73m*2 Normal >60 [facility] Comment on above: Result Comment: Calc ulations of estimated GFR are performed using the 2020 CKD-EPI Study Refit equation without the race variable for the IDMS-Traceable creatinine methods. https://jasn.asnjournals.org/content/early/ASN.8262118 988 Performed By: #### 2 4323-8 #### IAN SCHMITT ([id number]) [facility] ([facility]) [address] [place] [address] 84818 Glucose [Mass/Vol] 95 mg/dL Normal 74-99 [facility] Comment on above: Performed By: #### 2 4323-8 #### IAN SCHMITT ([id number]) [facility] ([facility]) [address] [place] [address] 47506 Potassium [Moles/Vol] 3.8 mmol/L Normal 3.5-5.3 [facility] Comment on above: Performed By: #### 2 4323-8 #### IAN SCHMITT ([id number]) [facility] ([facility]) [address] [place] [address] 33481 Sodium [Moles/Vol] 138 mmol/L Normal 136-145 [facility] Comment on above: Performed By: #### 2 4323-8 #### IAN SCHMITT ([id number]) [facility] ([facility]) [address] [place] [address] 17227 Urea nitrogen [Mass/Vol] 12 mg/dL Normal 6-23 [facility] Comment on above: Performed By: #### 2 4323-8 #### IAN SCHMITT ([id number]) [facility] ([facility]) [address] [place], [place] [id number] CBC W Auto Differential pane l (Bld)on 08-22-2024 Basophils (Bld) [#/Vol] 0.03 10*3/uL [facility] Basophils/100 WBC (Bld) 0.5 % 0.0 - 2.0 % [facility] Eosinophils (Bld) [#/Vol] 0.15 10*3/uL [facility] Eosinophils/100 WBC (Bld) 2.7 % 0.0 - 6.0 % [facility] Erythrocyte distribution width (RBC) [Ratio] 12.8 % 11.5 - 14.5 % [facility] Hematocrit (Bld) [Volume fraction] 37.8 % 36.0 - 46.0 % [facility] Hemoglobin (Bld) [Mass/Vol] 11.8 g/dL Low 12.0 - 16.0 g/dL [facility] Immature granulocytes (Bld) [#/Vol] 0.01 10*3/uL [facility] Immature granulocytes/100 WBC (Bld) 0.2 % 0.0 - 0.9 % [facility] Comment on above: Immature Granulocyte Count (IG) includes promyelocytes, myelocytes and metamyelocytes but does not include bands. Percent differential counts (%) should be interpreted in the context of the absolute cell counts (cells/UL). Interpretation and review of laboratory results Abnormal [facility] Lymphocytes (Bld) [#/Vol] 2.02 10*3/uL [facility] Lymphocytes/100 WBC (Bld) 36.4 % 13.0 - 44.0 % [facility] MCH (RBC) [Entitic mass] 29.3 pg 26.0 - 34.0 pg [facility] MCHC (RBC) [Mass/Vol] 31.2 g/dL Low 32.0 - 36.0 g/dL [facility] MCV (RBC) [Entitic vol] 94 fL 80 - 100 fL [facility] Monocytes (Bld) [#/Vol] 0.58 10*3/uL [facility] Monocytes/100 WBC (Bld) 10.5 % 2.0 - 10.0 % [facility] Neutrophils (Bld) [#/Vol] 2.76 10*3/uL [facility] Comment on above: Percent differential counts (%) should be interpreted in the context of the absolute cell counts (cells/uL). Neutrophils/100 WBC (Bld) 49.7 % 40.0 - 80.0 % [facility] Nucleated RBC/100 WBC (Bld) [Ratio] 0 % [facility] Platelets (Bld) [#/Vol] 310 10*3/uL [facility] RBC (Bld) [#/Vol] 4.03 10*6/uL [facility] WBC (Bld) [#/Vol] 5.6 10*3/uL [facility] Basophils (Bld) [#/Vol] 0.03 x10*3/uL Normal 0.00-0.10 [facility] Comment on above: Performed By: #### 5 7021-8 #### IAN SCHMITT ([id number]) [facility] ([facility]) [address] [place] [address] 14817 Basophils/100 WBC (Bld) 0.5 % Normal 0.0-2.0 [facility] Comment on above: Performed By: #### 7021-8 #### IAN SCHMITT ([id number]) [facility] ([facility]) [address] [place] [address] 98035 Eosinophils (Bld) [#/Vol] 0.15 x10*3/uL Normal 0.00-0.40 [facility] Comment on above: Performed By: #### 7021-8 #### IAN SCHMITT ([id number]) [facility] ([facility]) [address] [place] [address] 41586 Eosinophils/100 WBC (Bld) 2.7 % Normal 0.0-6.0 [facility] Comment on above: Performed By: #### 7021-8 #### IAN SCHMITT ([id number]) [facility] ([facility]) [address] [place] [address] 42048 Erythrocyte distribution width (RBC) [Ratio] 12.8 % Normal 11.5-14.5 [facility] Comment on above: Performed By: #### 7021-8 #### IAN SCHMITT ([id number]) [facility] ([facility]) [address] [place] [address] 80136 Hematocrit (Bld) [Volume fraction] 37.8 % Normal 36.0-46.0 [facility] Comment on above: Performed By: #### 7021-8 #### IAN SCHMITT ([id number]) [facility] ([facility]) [address] [place] [address] 14912 Hemoglobin (Bld) [Mass/Vol] 11.8 g/dL Low 12.0-16.0 [facility] Comment on above: Performed By: #### 7021-8 #### IAN SCHMITT ([id number]) [facility] ([facility]) [address] [place] [address] 18632 Immature granulocytes (Bld) [#/Vol] 0.01 x10*3/uL Normal 0.00-0.50 [facility] Comment on above: Performed By: #### 5 7021-8 #### IAN SCHMITT ([id number]) [facility] ([facility]) [address] [place] [address] 70236 Immature granulocytes/100 WBC (Bld) 0.2 % Normal 0.0-0.9 [facility] Comment on above: Result Comment: Lilliam ture Granulocyte Count (IG) includes promyelocytes, myelocytes and metamyelocytes but does not include bands. Percent differential counts (%) should be interpreted in the context of the absolute cell counts (cells/UL). Performed By: #### 5 7021-8 #### IAN SCHMITT ([id number]) [facility] ([facility]) [address] [place] [address] Lymphocytes (Bld) [#/Vol] 2.02 x10*3/uL Normal 0.80-3.00 [facility] Comment on above: Performed By: #### 5 7021-8 #### IAN SCHMITT ([id number]) [facility] ([facility]) [address] [place] [address] 72863 Lymphocytes/100 WBC (Bld) 36.4 % Normal 13.0-44.0 [facility] Comment on above: Performed By: #### 5 7021-8 #### IAN SCHMITT ([id number]) [facility] ([facility]) [address] [place] [address] 50723 MCH (RBC) [Entitic mass] 29.3 pg Normal 26.0-34.0 [facility] Comment on above: Performed By: #### 5 7021-8 #### IAN SCHMITT ([id number]) [facility] ([facility]) [address] [place] [address] 26750 MCHC (RBC) [Mass/Vol] 31.2 g/dL Low 32.0-36.0 [facility] Comment on above: Performed By: #### 5 7021-8 #### IAN SCHMITT ([id number]) [facility] ([facility]) [address] [place] [address] 61841 MCV (RBC) [Entitic vol] 94 fL Normal 80-100 [facility] Comment on above: Performed By: #### 5 7021-8 #### IAN SCHMITT ([id number]) [facility] ([facility]) [address] [place] [address] 66630 Monocytes (Bld) [#/Vol] 0.58 x10*3/uL Normal 0.05-0.80 [facility] Comment on above: Performed By: #### 5 7021-8 #### IAN SCHMITT ([id number]) [facility] ([facility]) [address] [place] [address] 68748 Monocytes/100 WBC (Bld) 10.5 % Normal 2.0-10.0 [facility] Comment on above: Performed By: #### 5 7021-8 #### IAN SCHMITT ([id number]) [facility] ([facility]) [address] [place] [address] 71087 Neutrophils (Bld) [#/Vol] 2.76 x10*3/uL Normal 1.60-5.50 [facility] Comment on above: Result Comment: Perc ent differential counts (%) should be interpreted in the context of the absolute cell counts (cells/uL). Performed By: #### 5 7021-8 #### IAN SCHMITT ([id number]) [facility] ([facility]) [address] [place] [address] 72199 Neutrophils/100 WBC (Bld) 49.7 % Normal 40.0-80.0 [facility] Comment on above: Performed By: #### 5 7021-8 #### IAN SCHMITT ([id number]) [facility] ([facility]) [address] [place] [address] 67013 Nucleated RBC/100 WBC (Bld) [Ratio] 0.0 /100 WBCs Normal 0.0-0.0 [facility] Comment on above: Performed By: #### 5 7021-8 #### IAN SCHMITT ([id number]) [facility] ([facility]) [address] [place] [address] Platelets (Bld) [#/Vol] 310 x10*3/uL Normal 150-450 [facility] Comment on above: Performed By: #### 5 7021-8 #### IAN SCHMITT ([id number]) [facility] ([facility]) [facility] [place] [address] RBC (Bld) [#/Vol] 4.03 x10*6/uL Normal 4.00-5.20 [facility] Comment on above: Performed By: #### 5 7021-8 #### IAN SCHMITT ([id number]) [facility] ([facility]) [address] [place] [address] 92504 WBC (Bld) [#/Vol] 5.6 x10*3/uL Normal 4.4-11.3 [facility] Comment on above: Performed By: #### 5 7021-8 #### IAN SCHMITT ([id number]) [facility] ([facility]) [address] [place] [address] 36285 Basic metabolic 2000 panelon 08-21-2024 Anion gap [Moles/Vol] 11 mmol/L 10 - 20 mmol/L [facility] Calcium [Mass/Vol] 9.3 mg/dL 8.6 - 10. 3 mg/dL [facility] Chloride [Moles/Vol] 106 mmol/L 98 - 10 7 mmol/L [facility] CO2 [Moles/Vol] 26 mmol/L 21 - 32 mmol/L [facility] Creatinine [Mass/Vol] 0.51 mg/dL 0.50 - 1.05 mg/dL [facility] eGFR - PINF [facility] Comment on above: Calculations of jerilyn mated GFR are performed using the 2020 CKD-EPI Study Refit equation without the race variable for the IDMS-Traceable creatinine methods. https://jasn.asnjournals.org/content//ASN.2054974 988 Glucose [Mass/Vol] 91 mg/dL 74 - 99 mg/dL [facility] Interpretation and review of laboratory results Normal [facility] Potassium [Moles/Vol] 4.2 mmol/L 3.5 - 5.3 mmol/L [facility] Sodium [Moles/Vol] 139 mmol/L 136 - 145 mmol/L [facility] Urea nitrogen [Mass/Vol] 8 mg/dL 6 - 23 mg/dL [facility] Anion gap [Moles/Vol] 11 mmol/L Normal 10-20 [facility] Comment on above: Performed By: #### 5 7021-8 #### IAN SCHMITT ([id number]) [facility] ([facility]) [address] [place] [address] 21046 Calcium [Mass/Vol] 9.3 mg/dL Normal 8.6-10.3 [facility] Comment on above: Performed By: #### 5 7021-8 #### IAN SCHMITT ([id number]) [facility] ([facility]) [address] [place] [address] 90696 Chloride [Moles/Vol] 106 mmol/L Normal 98-107 [facility] Comment on above: Performed By: #### 5 7021-8 #### IAN SCHMITT ([id number]) [facility] ([facility]) [address] [place] [address] 75850 CO2 [Moles/Vol] 26 mmol/L Normal 21-32 [facility] Comment on above: Performed By: #### 5 7021-8 #### IAN SCHMITT ([id number]) [facility] ([facility]) [address] [place] [address] 42362 Creatinine [Mass/Vol] 0.51 mg/dL Normal 0.50-1.05 [facility] Comment on above: Performed By: #### 5 7021-8 #### IAN SCHMITT ([id number]) [facility] ([facility]) [address] [place] [address] 48638 GFR/1.73 sq M.predicted MDRD (S/P/Bld) [Vol rate/Area] mL/min/{1.73_m2} Normal >60 [facility] Comment on above: Result Comment: Calc ulations of estimated GFR are performed using the 2020 CKD-EPI Study Refit equation without the race variable for the IDMS-Traceable creatinine methods. https://jasn.asnjournals.org/content/early/ASN.1717742 988 Performed By: #### 5 7021-8 #### IAN SCHMITT ([id number]) [facility] ([facility]) [address] [place] [address] 61776 Glucose [Mass/Vol] 91 mg/dL Normal 74-99 [facility] Comment on above: Performed By: #### 5 7021-8 #### IAN SCHMITT ([id number]) [facility] ([facility]) [address] [place] [address] 17396 Potassium [Moles/Vol] 4.2 mmol/L Normal 3.5-5.3 [facility] Comment on above: Performed By: #### 5 7021-8 #### IAN SCHMITT ([id number]) [facility] ([facility]) [address] [place] [address] 42722 Sodium [Moles/Vol] 139 mmol/L Normal 136-145 [facility] Comment on above: Performed By: #### 5 7021-8 #### IAN SCHMITT ([id number]) [facility] ([facility]) [address] [place] [address] 69493 Urea nitrogen [Mass/Vol] 8 mg/dL Normal 6-23 [facility] Comment on above: Performed By: #### 5 7021-8 #### IAN SCHMITT ([id number]) [facility] ([facility]) [address] [place] [address] 39491 CBC W Auto Differential pane l (Bld)on 08-21-2024 Basophils (Bld) [#/Vol] 0.03 10*3/uL [facility] Basophils/100 WBC (Bld) 0.6 % 0.0 - 2.0 % [facility] Eosinophils (Bld) [#/Vol] 0.14 10*3/uL [facility] Eosinophils/100 WBC (Bld) 2.7 % 0.0 - 6.0 % [facility] Erythrocyte distribution width (RBC) [Ratio] 12.8 % 11.5 - 14.5 % [facility] Hematocrit (Bld) [Volume fraction] 40.4 % 36.0 - 46.0 % [facility] Hemoglobin (Bld) [Mass/Vol] 12.7 g/dL 12.0 - 16.0 g/dL [facility] Immature granulocytes (Bld) [#/Vol] 0.01 10*3/uL [facility] Immature granulocytes/100 WBC (Bld) 0.2 % 0.0 - 0.9 % [facility] Comment on above: Immature Granulocyte Count (IG) includes promyelocytes, myelocytes and metamyelocytes but does not include bands. Percent differential counts (%) should be interpreted in the context of the absolute cell counts (cells/UL). Interpretation and review of laboratory results Abnormal [facility] Lymphocytes (Bld) [#/Vol] 1.92 10*3/uL [facility] Lymphocytes/100 WBC (Bld) 36.7 % 13.0 - 44.0 % [facility] MCH (RBC) [Entitic mass] 29.3 pg 26.0 - 34.0 pg [facility] MCHC (RBC) [Mass/Vol] 31.4 g/dL Low 32.0 - 36.0 g/dL [facility] MCV (RBC) [Entitic vol] 93 fL 80 - 100 fL [facility] Monocytes (Bld) [#/Vol] 0.53 10*3/uL [facility] Monocytes/100 WBC (Bld) 10.1 % 2.0 - 10.0 % [facility] Neutrophils (Bld) [#/Vol] 2.6 10*3/uL [facility] Comment on above: Percent differential counts (%) should be interpreted in the context of the absolute cell counts (cells/uL). Neutrophils/100 WBC (Bld) 49.7 % 40.0 - 80.0 % [facility] Nucleated RBC/100 WBC (Bld) [Ratio] 0 % [facility] Platelets (Bld) [#/Vol] 310 10*3/uL [facility] RBC (Bld) [#/Vol] 4.34 10*6/uL [facility] WBC (Bld) [#/Vol] 5.2 10*3/uL [facility] Basophils (Bld) [#/Vol] 0.03 x10*3/uL Normal 0.00-0.10 [facility] Comment on above: Performed By: #### 5 7021-8 #### IAN SCHMITT ([id number]) [facility] ([facility]) [address] [place] [address] 05884 Basophils/100 WBC (Bld) 0.6 % Normal 0.0-2.0 [facility] Comment on above: Performed By: #### 5 7021-8 #### IAN SCHMITT ([id number]) [facility] ([facility]) [address] [place] [address] 35233 Eosinophils (Bld) [#/Vol] 0.14 x10*3/uL Normal 0.00-0.40 [facility] Comment on above: Performed By: #### 7021-8 #### IAN SCHMITT ([id number]) [facility] ([facility]) [address] [place] [address] 01320 Eosinophils/100 WBC (Bld) 2.7 % Normal 0.0-6.0 [facility] Comment on above: Performed By: #### 5 7021-8 #### IAN SCHMITT ([id number]) [facility] ([facility]) [address] [place] [address] 06259 Erythrocyte distribution width (RBC) [Ratio] 12.8 % Normal 11.5-14.5 [facility] Comment on above: Performed By: #### 5 7021-8 #### IAN SCHMITT ([id number]) [facility] ([facility]) [address] [place] [address] 33558 Hematocrit (Bld) [Volume fraction] 40.4 % Normal 36.0-46.0 [facility] Comment on above: Performed By: #### 5 7021-8 #### IAN SCHMITT ([id number]) [facility] ([facility]) [address] [place] [address] 73393 Hemoglobin (Bld) [Mass/Vol] 12.7 g/dL Normal 12.0-16.0 [facility] Comment on above: Performed By: #### 5 7021-8 #### IAN SCHMITT ([id number]) [facility] ([facility]) [address] [place] [address] 58339 Immature granulocytes (Bld) [#/Vol] 0.01 x10*3/uL Normal 0.00-0.50 [facility] Comment on above: Performed By: #### 5 7021-8 #### IAN SCHMITT ([id number]) [facility] ([facility]) [address] [place] [address] 09660 Immature granulocytes/100 WBC (Bld) 0.2 % Normal 0.0-0.9 [facility] Comment on above: Result Comment: Lilliam ture Granulocyte Count (IG) includes promyelocytes, myelocytes and metamyelocytes but does not include bands. Percent differential counts (%) should be interpreted in the context of the absolute cell counts (cells/UL). Performed By: #### 5 7021-8 #### IAN SCHMITT ([id number]) [facility] ([facility]) [address] [place] [address] 77089 Lymphocytes (Bld) [#/Vol] 1.92 x10*3/uL Normal 0.80-3.00 [facility] Comment on above: Performed By: #### 5 7021-8 #### IAN SCHMITT ([id number]) [facility] ([facility]) [address] [place] [address] 99313 Lymphocytes/100 WBC (Bld) 36.7 % Normal 13.0-44.0 [facility] Comment on above: Performed By: #### 5 7021-8 #### IAN SCHMITT ([id number]) [facility] ([facility]) [address] [place] [address] 28932 MCH (RBC) [Entitic mass] 29.3 pg Normal 26.0-34.0 [facility] Comment on above: Performed By: #### 5 7021-8 #### IAN SCHMITT ([id number]) [facility] ([facility]) [address] [place] [address] 07539 MCHC (RBC) [Mass/Vol] 31.4 g/dL Low 32.0-36.0 [facility] Comment on above: Performed By: #### 5 7021-8 #### IAN SCHMITT ([id number]) [facility] ([facility]) [address] [place] [address] 59212 MCV (RBC) [Entitic vol] 93 fL Normal 80-100 [facility] Comment on above: Performed By: #### 5 7021-8 #### IAN SCHMITT ([id number]) [facility] ([facility]) [address] [place] [address] 55511 Monocytes (Bld) [#/Vol] 0.53 x10*3/uL Normal 0.05-0.80 [facility] Comment on above: Performed By: #### 5 7021-8 #### IAN SCHMITT ([id number]) [facility] ([facility]) [address] [place] [address] 30147 Monocytes/100 WBC (Bld) 10.1 % Normal 2.0-10.0 [facility] Comment on above: Performed By: #### 5 7021-8 #### IAN SCHMITT ([id number]) [facility] ([facility]) [address] [place] [address] 35603 Neutrophils (Bld) [#/Vol] 2.60 x10*3/uL Normal 1.60-5.50 [facility] Comment on above: Result Comment: Perc ent differential counts (%) should be interpreted in the context of the absolute cell counts (cells/uL). Performed By: #### 5 7021-8 #### IAN SCHMITT ([id number]) [facility] ([facility]) [address] [place] [address] 78030 Neutrophils/100 WBC (Bld) 49.7 % Normal 40.0-80.0 [facility] Comment on above: Performed By: #### 5 7021-8 #### IAN SCHMITT ([id number]) [facility] ([facility]) [address] [place] [address] 02391 Nucleated RBC/100 WBC (Bld) [Ratio] 0.0 /100 WBCs Normal 0.0-0.0 [facility] Comment on above: Performed By: #### 5 7021-8 #### IAN SCHMITT ([id number]) [facility] ([facility]) [address] [place] [address] 33827 Platelets (Bld) [#/Vol] 310 x10*3/uL Normal 150-450 [facility] Comment on above: Performed By: #### 5 7021-8 #### IAN SCHMITT ([id number]) [facility] ([facility]) [address] [place] [address] 36120 RBC (Bld) [#/Vol] 4.34 x10*6/uL Normal 4.00-5.20 [facility] Comment on above: Performed By: #### 5 7021-8 #### IAN SCHMITT ([id number]) [facility] ([facility]) [address] [place] [address] 87059 WBC (Bld) [#/Vol] 5.2 x10*3/uL Normal 4.4-11.3 [facility] Comment on above: Performed By: #### 5 7021-8 #### IAN SCHMITT ([id number]) [facility] ([facility]) [address] [place] [address] 45263 Basic metabolic 2000 panelon 08-20-2024 Anion gap [Moles/Vol] 10 mmol/L 10 - 20 mmol/L [facility] Calcium [Mass/Vol] 8.9 mg/dL 8.6 - 10. 3 mg/dL [facility] Chloride [Moles/Vol] 105 mmol/L 98 - 10 7 mmol/L [facility] CO2 [Moles/Vol] 27 mmol/L 21 - 32 mmol/L [facility] Creatinine [Mass/Vol] 0.5 mg/dL 0.50 - 1.05 mg/dL [facility] eGFR - PINF [facility] Comment on above: Calculations of jerilyn mated GFR are performed using the 2020 CKD-EPI Study Refit equation without the race variable for the IDMS-Traceable creatinine methods. https://jasn.asnjournals.org/content/early/ASN.5862687 988 Glucose [Mass/Vol] 103 mg/dL High 74 - 99 mg/dL [facility] Interpretation and review of laboratory results Abnormal [facility] Potassium [Moles/Vol] 3.4 mmol/L Low 3.5 - 5.3 mmol/L [facility] Sodium [Moles/Vol] 139 mmol/L 136 - 145 mmol/L [facility] Urea nitrogen [Mass/Vol] 7 mg/dL 6 - 23 mg/dL [facility] Anion gap [Moles/Vol] 10 mmol/L Normal 10-20 [facility] Comment on above: Performed By: #### 5 7021-8 #### IAN SCHMITT ([id number]) [facility] ([facility]) [address] [place] [address] Calcium [Mass/Vol] 8.9 mg/dL Normal 8.6-10.3 [facility] Comment on above: Performed By: #### 5 7021-8 #### IAN SCHMITT ([id number]) [facility] ([facility]) [address] [place] [address] Chloride [Moles/Vol] 105 mmol/L Normal 98-107 [facility] Comment on above: Performed By: #### 5 7021-8 #### IAN SCHMITT ([id number]) [facility] ([facility]) [address] [place] [address] CO2 [Moles/Vol] 27 mmol/L Normal 21-32 [facility] Comment on above: Performed By: #### 5 7021-8 #### IAN SCHMITT ([id number]) [facility] ([facility]) [address] [place] [address] Creatinine [Mass/Vol] 0.50 mg/dL Normal 0.50-1.05 [facility] Comment on above: Performed By: #### 5 7021-8 #### IAN SCHMITT ([id number]) [facility] ([facility]) [address] [place] [address] 59975 GFR/1.73 sq M.predicted MDRD (S/P/Bld) [Vol rate/Area] mL/min/{1.73_m2} Normal >60 [facility] Comment on above: Result Comment: Calc ulations of estimated GFR are performed using the 2020 CKD-EPI Study Refit equation without the race variable for the IDMS-Traceable creatinine methods. https://jasn.asnjournals.org/content//ASN.6484034 988 Performed By: #### 5 7021-8 #### IAN SCHMITT ([id number]) [facility] ([facility]) [address] [place] [address] 36009 Glucose [Mass/Vol] 103 mg/dL High 74-99 [facility] Comment on above: Performed By: #### 5 7021-8 #### IAN SCHMITT ([id number]) [facility] ([facility]) [address] [place] [address] 38150 Potassium [Moles/Vol] 3.4 mmol/L Low 3.5-5.3 [facility] Comment on above: Performed By: #### 5 7021-8 #### IAN SCHMITT ([id number]) [facility] ([facility]) [address] [place] [address] 76594 Sodium [Moles/Vol] 139 mmol/L Normal 136-145 [facility] Comment on above: Performed By: #### 5 7021-8 #### IAN SCHMITT ([id number]) [facility] ([facility]) [address] [place] [address] 11368 Urea nitrogen [Mass/Vol] 7 mg/dL Normal 6-23 [facility] Comment on above: Performed By: #### 5 7021-8 #### IAN SCHMITT ([id number]) [facility] ([facility]) [address] [place] [address] 90178 CBC panel Auto (Bld)on 08-20 Erythrocyte distribution width (RBC) [Ratio] 12.9 % 11.5 - 14.5 % [facility] Hematocrit (Bld) [Volume fraction] 38.3 % 36.0 - 46.0 % [facility] Hemoglobin (Bld) [Mass/Vol] 12.2 g/dL 12.0 - 16.0 g/dL [facility] Interpretation and review of laboratory results Abnormal [facility] MCH (RBC) [Entitic mass] 29.6 pg 26.0 - 34.0 pg [facility] MCHC (RBC) [Mass/Vol] 31.9 g/dL Low 32.0 - 36.0 g/dL [facility] MCV (RBC) [Entitic vol] 93 fL 80 - 100 fL [facility] Nucleated RBC/100 WBC (Bld) [Ratio] 0 % [facility] Platelets (Bld) [#/Vol] 307 10*3/uL [facility] RBC (Bld) [#/Vol] 4.12 10*6/uL [facility] WBC (Bld) [#/Vol] 6 10*3/uL [facility] Erythrocyte distribution width (RBC) [Ratio] 12.9 % Normal 11.5-14.5 [facility] Comment on above: Performed By: #### 5 7021-8 #### IAN SCHMITT ([id number]) [facility] ([facility]) [address] [place] [address] 12827 Hematocrit (Bld) [Volume fraction] 38.3 % Normal 36.0-46.0 [facility] Comment on above: Performed By: #### 5 7021-8 #### IAN SCHMITT ([id number]) [facility] ([facility]) [address] [place] [address] 35666 Hemoglobin (Bld) [Mass/Vol] 12.2 g/dL Normal 12.0-16.0 [facility] Comment on above: Performed By: #### 5 7021-8 #### IAN SCHMITT ([id number]) [facility] ([facility]) [address] [place] [address] 69335 MCH (RBC) [Entitic mass] 29.6 pg Normal 26.0-34.0 [facility] Comment on above: Performed By: #### 5 7021-8 #### IAN SCHMITT ([id number]) [facility] ([facility]) [address] [place] [address] 63837 MCHC (RBC) [Mass/Vol] 31.9 g/dL Low 32.0-36.0 [facility] Comment on above: Performed By: #### 5 7021-8 #### IAN SCHMITT ([id number]) [facility] ([facility]) [address] [place] [address] MCV (RBC) [Entitic vol] 93 fL Normal 80-100 [facility] Comment on above: Performed By: #### 5 7021-8 #### IAN SCHMITT ([id number]) [facility] ([facility]) [address] [place] [address] Nucleated RBC/100 WBC (Bld) [Ratio] 0.0 /100 WBCs Normal 0.0-0.0 [facility] Comment on above: Performed By: #### 5 7021-8 #### IAN SCHMITT ([id number]) [facility] ([facility]) [address] [place] [address] 71650 Platelets (Bld) [#/Vol] 307 x10*3/uL Normal 150-450 [facility] Comment on above: Performed By: #### 5 7021-8 #### IAN SCHMITT ([id number]) [facility] ([facility]) [address] [place] [address] 09985 RBC (Bld) [#/Vol] 4.12 x10*6/uL Normal 4.00-5.20 [facility] Comment on above: Performed By: #### 5 7021-8 #### IAN SCHMITT ([id number]) [facility] ([facility]) [address] [place] [address] 67624 WBC (Bld) [#/Vol] 6.0 x10*3/uL Normal 4.4-11.3 [facility] Comment on above: Performed By: #### 5 7021-8 #### SOSA OSKAR ([id number]) [facility] ([facility]) [address] [place] [address] CBC W Auto Differential pane l (Bld)on 08-19-2024 Basophils (Bld) [#/Vol] 0.02 10*3/uL [facility] Basophils/100 WBC (Bld) 0.3 % 0.0 - 2.0 % [facility] Eosinophils (Bld) [#/Vol] 0.03 10*3/uL [facility] Eosinophils/100 WBC (Bld) 0.4 % 0.0 - 6.0 % [facility] Erythrocyte distribution width (RBC) [Ratio] 12.8 % 11.5 - 14.5 % [facility] Hematocrit (Bld) [Volume fraction] 40.3 % 36.0 - 46.0 % [facility] Hemoglobin (Bld) [Mass/Vol] 12.6 g/dL 12.0 - 16.0 g/dL [facility] Immature granulocytes (Bld) [#/Vol] 0.03 10*3/uL [facility] Immature granulocytes/100 WBC (Bld) 0.4 % 0.0 - 0.9 % [facility] Comment on above: Immature Granulocyte Count (IG) includes promyelocytes, myelocytes and metamyelocytes but does not include bands. Percent differential counts (%) should be interpreted in the context of the absolute cell counts (cells/UL). Interpretation and review of laboratory results Abnormal [facility] Lymphocytes (Bld) [#/Vol] 1.59 10*3/uL [facility] Lymphocytes/100 WBC (Bld) 21.1 % 13.0 - 44.0 % [facility] MCH (RBC) [Entitic mass] 29.1 pg 26.0 - 34.0 pg [facility] MCHC (RBC) [Mass/Vol] 31.3 g/dL Low 32.0 - 36.0 g/dL [facility] MCV (RBC) [Entitic vol] 93 fL 80 - 100 fL [facility] Monocytes (Bld) [#/Vol] 0.51 10*3/uL [facility] Monocytes/100 WBC (Bld) 6.8 % 2.0 - 10.0 % [facility] Neutrophils (Bld) [#/Vol] 5.35 10*3/uL [facility] Comment on above: Percent differential counts (%) should be interpreted in the context of the absolute cell counts (cells/uL). Neutrophils/100 WBC (Bld) 71 % 40.0 - 80.0 % [facility] Nucleated RBC/100 WBC (Bld) [Ratio] 0 % [facility] Platelets (Bld) [#/Vol] 319 10*3/uL [facility] RBC (Bld) [#/Vol] 4.33 10*6/uL [facility] WBC (Bld) [#/Vol] 7.5 10*3/uL [facility] Basophils (Bld) [#/Vol] 0.02 x10*3/uL Normal 0.00-0.10 [facility] Comment on above: Performed By: #### 5 7021-8 #### IAN SCHMITT ([id number]) [facility] ([facility]) [address] [place] [address] 30030 Basophils/100 WBC (Bld) 0.3 % Normal 0.0-2.0 [facility] Comment on above: Performed By: #### 5 7021-8 #### IAN SCHMITT ([id number]) [facility] ([facility]) [address] [place] [address] 39298 Eosinophils (Bld) [#/Vol] 0.03 x10*3/uL Normal 0.00-0.40 [facility] Comment on above: Performed By: #### 5 7021-8 #### IAN SCHMITT ([id number]) [facility] ([facility]) [address] [place] [address] 81660 Eosinophils/100 WBC (Bld) 0.4 % Normal 0.0-6.0 [facility] Comment on above: Performed By: #### 5 7021-8 #### IAN SCHMITT ([id number]) [facility] ([facility]) [address] [place], [place] [phone] Erythrocyte distribution width (RBC) [Ratio] 12.8 % Normal 11.5-14.5 [facility] Comment on above: Performed By: #### 5 7021-8 #### IAN SCHMITT ([id number]) [facility] ([facility]) [address] [place] [address] Hematocrit (Bld) [Volume fraction] 40.3 % Normal 36.0-46.0 [facility] Comment on above: Performed By: #### 5 7021-8 #### IAN SCHMITT ([id number]) [facility] ([facility]) [address] [place] [address] Hemoglobin (Bld) [Mass/Vol] 12.6 g/dL Normal 12.0-16.0 [facility] Comment on above: Performed By: #### 5 7021-8 #### IAN SCHMITT ([id number]) [facility] ([facility]) [address] [place] [address] Immature granulocytes (Bld) [#/Vol] 0.03 x10*3/uL Normal 0.00-0.50 [facility] Comment on above: Performed By: #### 5 7021-8 #### IAN SCHMITT ([id number]) [facility] ([facility]) [address] [place], [place] [address] Immature granulocytes/100 WBC (Bld) 0.4 % Normal 0.0-0.9 [facility] Comment on above: Result Comment: Lilliam ture Granulocyte Count (IG) includes promyelocytes, myelocytes and metamyelocytes but does not include bands. Percent differential counts (%) should be interpreted in the context of the absolute cell counts (cells/UL). Performed By: #### 5 7021-8 #### IAN SCHMITT ([id number]) [facility] ([facility]) [address] [place], [place] [phone] Lymphocytes (Bld) [#/Vol] 1.59 x10*3/uL Normal 0.80-3.00 [facility] Comment on above: Performed By: #### 5 7021-8 #### IAN SCHMITT ([id number]) [facility] ([facility]) [address] [place] [address] 11078 Lymphocytes/100 WBC (Bld) 21.1 % Normal 13.0-44.0 [facility] Comment on above: Performed By: #### 5 7021-8 #### IAN SCHMITT ([id number]) [facility] ([facility]) [address] [place] [address] 00461 MCH (RBC) [Entitic mass] 29.1 pg Normal 26.0-34.0 [facility] Comment on above: Performed By: #### 5 7021-8 #### IAN SCHMITT ([id number]) [facility] ([facility]) [address] [place] [address] 71848 MCHC (RBC) [Mass/Vol] 31.3 g/dL Low 32.0-36.0 [facility] Comment on above: Performed By: #### 5 7021-8 #### IAN SCHMITT ([id number]) [facility] ([facility]) [address] [place] [address] 47509 MCV (RBC) [Entitic vol] 93 fL Normal 80-100 [facility] Comment on above: Performed By: #### 5 7021-8 #### IAN SCHMITT ([id number]) [facility] ([facility]) [address] [place] [address] 39356 Monocytes (Bld) [#/Vol] 0.51 x10*3/uL Normal 0.05-0.80 [facility] Comment on above: Performed By: #### 5 7021-8 #### IAN SCHMITT ([id number]) [facility] ([facility]) [address] [place] [address] 34343 Monocytes/100 WBC (Bld) 6.8 % Normal 2.0-10.0 [facility] Comment on above: Performed By: #### 5 7021-8 #### IAN SCHMITT ([id number]) [facility] ([facility]) [address] [place] [address] 04573 Neutrophils (Bld) [#/Vol] 5.35 x10*3/uL Normal 1.60-5.50 [facility] Comment on above: Result Comment: Perc ent differential counts (%) should be interpreted in the context of the absolute cell counts (cells/uL). Performed By: #### 5 7021-8 #### IAN SCHMITT ([id number]) [facility] ([facility]) [address] [place] [address] 21172 Neutrophils/100 WBC (Bld) 71.0 % Normal 40.0-80.0 [facility] Comment on above: Performed By: #### 5 7021-8 #### IAN SCHMITT ([id number]) [facility] ([facility]) [address] [place] [address] 95462 Nucleated RBC/100 WBC (Bld) [Ratio] 0.0 /100 WBCs Normal 0.0-0.0 [facility] Comment on above: Performed By: #### 5 7021-8 #### IAN SCHMITT ([id number]) [facility] ([facility]) [address] [place] [address] 42081 Platelets (Bld) [#/Vol] 319 x10*3/uL Normal 150-450 [facility] Comment on above: Performed By: #### 5 7021-8 #### IAN SCHMITT ([id number]) [facility] ([facility]) [address] [place] [address] 51438 RBC (Bld) [#/Vol] 4.33 x10*6/uL Normal 4.00-5.20 [facility] Comment on above: Performed By: #### 5 7021-8 #### IAN SCHMITT ([id number]) [facility] ([facility]) [address] [place] [address] 33107 WBC (Bld) [#/Vol] 7.5 x10*3/uL Normal 4.4-11.3 [facility] Comment on above: Performed By: #### 5 7021-8 #### SOSA YANEBRADFORD ([id number]) [facility]) [address] [place] [address] Comprehensive metabolic 2000 panelon 08-19-2024 Albumin BCP dye [Mass/Vol] 4.1 g/dL 3.4 - 5.0 g/dL [facility] ALP [Catalytic activity/Vol] 52 U/L 33 - 136 U/L [facility] ALT With P-5'-P [Catalytic activity/Vol] 6 U/L Low 7 - 45 U/L [facility] Comment on above: Patients treated wit h Sulfasalazine may generate falsely decreased results for ALT. Anion gap [Moles/Vol] 12 mmol/L 10 - 20 mmol/L [facility] AST With P-5'-P [Catalytic activity/Vol] 12 U/L 9 - 39 U/L [facility] Bilirubin [Mass/Vol] 0.3 mg/dL 0.0 - 1 .2 mg/dL [facility] Calcium [Mass/Vol] 9.5 mg/dL 8.6 - 10. 3 mg/dL [facility] Chloride [Moles/Vol] 104 mmol/L 98 - 10 7 mmol/L [facility] CO2 [Moles/Vol] 28 mmol/L 21 - 32 mmol/L [facility] Creatinine [Mass/Vol] 0.57 mg/dL 0.50 - 1.05 mg/dL [facility] eGFR - PINF [facility] Comment on above: Calculations of jerilyn mated GFR are performed using the 2020 CKD-EPI Study Refit equation without the race variable for the IDMS-Traceable creatinine methods. https://jasn.asnjournals.org/content///ASN.5020177 988 Glucose [Mass/Vol] 99 mg/dL 74 - 99 mg/dL [facility] Interpretation and review of laboratory results Abnormal [facility] Potassium [Moles/Vol] 4.2 mmol/L 3.5 - 5.3 mmol/L [facility] Protein [Mass/Vol] 7.5 g/dL 6.4 - 8.2 g/dL [facility] Sodium [Moles/Vol] 140 mmol/L 136 - 145 mmol/L [facility] Urea nitrogen [Mass/Vol] 10 mg/dL 6 - 23 mg/dL [facility] Albumin BCP dye [Mass/Vol] 4.1 g/dL Normal 3.4-5.0 [facility] Comment on above: Performed By: #### 5 7021-8 #### IAN SCHMITT ([id number]) [facility] ([facility]) [address] [place] [address] ALP [Catalytic activity/Vol] 52 U/L Normal 33-136 [facility] Comment on above: Performed By: #### 5 7021-8 #### IAN SCHMITT ([id number]) [facility] ([facility]) [address] [place] [address] 51257 ALT With P-5'-P [Catalytic activity/Vol] 6 U/L Low 7-45 [facility] Comment on above: Result Comment: Dorita ents treated with Sulfasalazine may generate falsely decreased results for ALT. Performed By: #### 5 7021-8 #### IAN SCHMITT ([id number]) [facility] ([facility]) [address] [place] [address] 52032 Anion gap [Moles/Vol] 12 mmol/L Normal 10-20 [facility] Comment on above: Performed By: #### 5 7021-8 #### IAN SCHMITT ([id number]) [facility] ([facility]) [address] [place] [address] 85118 AST With P-5'-P [Catalytic activity/Vol] 12 U/L Normal 9-39 [facility] Comment on above: Performed By: #### 5 7021-8 #### IAN SCHMITT ([id number]) [facility] ([facility]) [address] [place] [address] 88129 Bilirubin [Mass/Vol] 0.3 mg/dL Normal 0.0-1.2 [facility] Comment on above: Performed By: #### 5 7021-8 #### IAN SCHMITT ([id number]) [facility] ([facility]) [address] [place] [address] 46143 Calcium [Mass/Vol] 9.5 mg/dL Normal 8.6-10.3 [facility] Comment on above: Performed By: #### 5 7021-8 #### IAN SCHMITT ([id number]) [facility] ([facility]) [address] [place] [address] 54382 Chloride [Moles/Vol] 104 mmol/L Normal 98-107 [facility] Comment on above: Performed By: #### 5 7021-8 #### IAN SCHMITT ([id number]) [facility]) [address] [place] [address] 18252 CO2 [Moles/Vol] 28 mmol/L Normal 21-32 [facility] Comment on above: Performed By: #### 5 7021-8 #### IAN SCHMITT ([id number]) [facility] ([facility]) [address] [place] [address] 35844 Creatinine [Mass/Vol] 0.57 mg/dL Normal 0.50-1.05 [facility] Comment on above: Performed By: #### 5 7021-8 #### IAN SCHMITT ([id number]) [facility] ([facility]) [address] [place] [address] 69798 GFR/1.73 sq M.predicted MDRD (S/P/Bld) [Vol rate/Area] mL/min/{1.73_m2} Normal >60 [facility] Comment on above: Result Comment: Calc ulations of estimated GFR are performed using the 2020 CKD-EPI Study Refit equation without the race variable for the IDMS-Traceable creatinine methods. https://jasn.asnjournals.org/content//ASN.2881419 988 Performed By: #### 5 7021-8 #### IAN SCHMITT ([id number]) [facility]) [address] [place] [address] 71734 Glucose [Mass/Vol] 99 mg/dL Normal 74-99 [facility] Comment on above: Performed By: #### 5 7021-8 #### IAN SCHMITT ([id number]) [facility]) [address] [place] [address] 10861 Potassium [Moles/Vol] 4.2 mmol/L Normal 3.5-5.3 [facility] Comment on above: Performed By: #### 5 7021-8 #### IAN SCHMITT ([id number]) [facility]) [address] [place] [address] 32861 Protein [Mass/Vol] 7.5 g/dL Normal 6.4-8.2 [facility] Comment on above: Performed By: #### 5 7021-8 #### IAN SCHMITT ([id number]) [facility]) [address] [place] [address] 10085 Sodium [Moles/Vol] 140 mmol/L Normal 136-145 [facility] Comment on above: Performed By: #### 5 7021-8 #### IAN SCHMITT ([id number]) [facility]) [address] [place] [address] 28508 Urea nitrogen [Mass/Vol] 10 mg/dL Normal 6-23 [facility] Comment on above: Performed By: #### 5 7021-8 #### IAN SCHMITT ([id number]) [facility]) [address] [place] [address] 95975 CBC W Auto Differential pane l (Bld)on 08-17-2024 Basophils (Bld) [#/Vol] 0.04 10*3/uL [facility] Basophils/100 WBC (Bld) 0.5 % 0.0 - 2.0 % [facility] Eosinophils (Bld) [#/Vol] 0.02 10*3/uL [facility] Eosinophils/100 WBC (Bld) 0.2 % 0.0 - 6.0 % [facility] Erythrocyte distribution width (RBC) [Ratio] 13 % 11.5 - 14.5 % [facility] Hematocrit (Bld) [Volume fraction] 40.1 % 36.0 - 46.0 % [facility] Hemoglobin (Bld) [Mass/Vol] 12.7 g/dL 12.0 - 16.0 g/dL [facility] Immature granulocytes (Bld) [#/Vol] 0.02 10*3/uL [facility] [place] Immature granulocytes/100 WBC (Bld) 0.2 % 0.0 - 0.9 % [facility] Comment on above: Immature Granulocyte Count (IG) includes promyelocytes, myelocytes and metamyelocytes but does not include bands. Percent differential counts (%) should be interpreted in the context of the absolute cell counts (cells/UL). Interpretation and review of laboratory results Abnormal [facility] [place] Lymphocytes (Bld) [#/Vol] 1.68 10*3/uL [facility] [place] Lymphocytes/100 WBC (Bld) 20 % 13.0 - 44.0 % [facility] [place] MCH (RBC) [Entitic mass] 29.7 pg 26.0 - 34.0 pg [facility] [place] MCHC (RBC) [Mass/Vol] 31.7 g/dL Low 32.0 - 36.0 g/dL [facility] [place] MCV (RBC) [Entitic vol] 94 fL 80 - 100 fL [facility] [place] Monocytes (Bld) [#/Vol] 0.49 10*3/uL [facility] [place] Monocytes/100 WBC (Bld) 5.8 % 2.0 - 10.0 % [facility] [place] Neutrophils (Bld) [#/Vol] 6.13 10*3/uL High [facility] [place] Comment on above: Percent differential counts (%) should be interpreted in the context of the absolute cell counts (cells/uL). Neutrophils/100 WBC (Bld) 73.3 % 40.0 - 80.0 % [facility] [place] Nucleated RBC/100 WBC (Bld) [Ratio] 0 % [facility] [place] Platelets (Bld) [#/Vol] 308 10*3/uL [facility] [place] RBC (Bld) [#/Vol] 4.27 10*6/uL [facility] WBC (Bld) [#/Vol] 8.4 10*3/uL [facility] Basophils (Bld) [#/Vol] 0.04 x10*3/uL Normal 0.00-0.10 [facility] Comment on above: Order Comment: Laven sandee EDTA Performed By: #### 5 7021-8 #### IAN SCHMITT ([id number]) [facility] ([facility]) [address] [place] [address] [phone] Basophils/100 WBC (Bld) 0.5 % Normal 0.0-2.0 [facility] Comment on above: Order Comment: Laven sandee EDTA Performed By: #### 5 7021-8 #### IAN SCHMITT ([id number]) [facility] ([facility]) [address] [place] [address] 26318 Eosinophils (Bld) [#/Vol] 0.02 x10*3/uL Normal 0.00-0.40 [facility] Comment on above: Order Comment: Laven sandee EDTA Performed By: #### 5 7021-8 #### IAN SCHMITT ([id number]) [facility] ([facility]) [address] [place] [address] 16957 Eosinophils/100 WBC (Bld) 0.2 % Normal 0.0-6.0 [facility] Comment on above: Order Comment: Laven sandee EDTA Performed By: #### 5 7021-8 #### IAN SCHMITT ([id number]) [facility] ([facility]) [address] [place] [address] 28375 Erythrocyte distribution width (RBC) [Ratio] 13.0 % Normal 11.5-14.5 [facility] Comment on above: Order Comment: Laven sandee EDTA Performed By: #### 5 7021-8 #### IAN SCHMITT ([id number]) [facility] ([facility]) [address] [place] [address] 78560 Hematocrit (Bld) [Volume fraction] 40.1 % Normal 36.0-46.0 [facility] Comment on above: Order Comment: Laven sandee EDTA Performed By: #### 5 7021-8 #### IAN SCHMITT ([id number]) [facility] ([facility]) [address] [place] [address] 42705 Hemoglobin (Bld) [Mass/Vol] 12.7 g/dL Normal 12.0-16.0 [facility] Comment on above: Order Comment: Laven sandee EDTA Performed By: #### 5 7021-8 #### IAN SCHMITT ([id number]) [facility] ([facility]) [address] [place] [address] 23481 Immature granulocytes (Bld) [#/Vol] 0.02 x10*3/uL Normal 0.00-0.50 [facility] Comment on above: Order Comment: Laven sandee EDTA Performed By: #### 5 7021-8 #### IAN SCHMITT ([id number]) [facility] ([facility]) [address] [place] [address] 98052 Immature granulocytes/100 WBC (Bld) 0.2 % Normal 0.0-0.9 [facility] Comment on above: Order Comment: Laven sandee EDTA Result Comment: Lilliam ture Granulocyte Count (IG) includes promyelocytes, myelocytes and metamyelocytes but does not include bands. Percent differential counts (%) should be interpreted in the context of the absolute cell counts (cells/UL). Performed By: #### 5 7021-8 #### IAN SCHMITT ([id number]) [facility] ([facility]) [address] [place] [address] 63620 Lymphocytes (Bld) [#/Vol] 1.68 x10*3/uL Normal 0.80-3.00 [facility] Comment on above: Order Comment: Laven sandee EDTA Performed By: #### 5 7021-8 #### IAN SCHMITT ([id number]) [facility] ([facility]) [address] [place] [address] 56408 Lymphocytes/100 WBC (Bld) 20.0 % Normal 13.0-44.0 [facility] Comment on above: Order Comment: Laven sandee EDTA Performed By: #### 5 7021-8 #### IAN SCHMITT ([id number]) [facility] ([facility]) [address] [place] [address] 48256 MCH (RBC) [Entitic mass] 29.7 pg Normal 26.0-34.0 [facility] Comment on above: Order Comment: Laven sandee EDTA Performed By: #### 5 7021-8 #### IAN SCHMITT ([id number]) [facility] ([facility]) [address] [place] [address] 63641 MCHC (RBC) [Mass/Vol] 31.7 g/dL Low 32.0-36.0 [facility] Comment on above: Order Comment: Laven sandee EDTA Performed By: #### 5 7021-8 #### IAN SCHMITT ([id number]) [facility] ([facility]) [address] [place] [address] 72371 MCV (RBC) [Entitic vol] 94 fL Normal 80-100 [facility] Comment on above: Order Comment: Laven sandee EDTA Performed By: #### 5 7021-8 #### IAN SCHMITT ([id number]) [facility] ([facility]) [address] [place] [address] 84892 Monocytes (Bld) [#/Vol] 0.49 x10*3/uL Normal 0.05-0.80 [facility] Comment on above: Order Comment: Laven sandee EDTA Performed By: #### 5 7021-8 #### IAN SCHMITT ([id number]) [facility] ([facility]) [address] [place] [address] 68185 Monocytes/100 WBC (Bld) 5.8 % Normal 2.0-10.0 [facility] Comment on above: Order Comment: Laven sandee EDTA Performed By: #### 5 7021-8 #### IAN SCHMITT ([id number]) [facility] ([facility]) [address] [place] [address] 43442 Neutrophils (Bld) [#/Vol] 6.13 x10*3/uL High 1.60-5.50 [facility] Comment on above: Order Comment: Laven sandee EDTA Result Comment: Perc ent differential counts (%) should be interpreted in the context of the absolute cell counts (cells/uL). Performed By: #### 5 7021-8 #### IAN SCHMITT ([id number]) [facility] ([facility]) [address] [place] [address] 70245 Neutrophils/100 WBC (Bld) 73.3 % Normal 40.0-80.0 [facility] Comment on above: Order Comment: Laven sandee EDTA Performed By: #### 5 7021-8 #### IAN SCHMITT ([id number]) [facility] ([facility]) [address] [place] [address] 61485 Nucleated RBC/100 WBC (Bld) [Ratio] 0.0 /100 WBCs Normal 0.0-0.0 [facility] Comment on above: Order Comment: Laven sandee EDTA Performed By: #### 5 7021-8 #### IAN SCHMITT ([id number]) [facility] ([facility]) [address] [place] [address] 76956 Platelets (Bld) [#/Vol] 308 x10*3/uL Normal 150-450 [facility] Comment on above: Order Comment: Laven sandee EDTA Performed By: #### 5 7021-8 #### IAN SCHMITT ([id number]) [facility] ([facility]) [address] [place] [address] 42400 RBC (Bld) [#/Vol] 4.27 x10*6/uL Normal 4.00-5.20 [facility] Comment on above: Order Comment: Laven sandee EDTA Performed By: #### 5 7021-8 #### IAN SCHMITT ([id number]) [facility] ([facility]) [address] [place] [address] 09033 WBC (Bld) [#/Vol] 8.4 x10*3/uL Normal 4.4-11.3 [facility] Comment on above: Order Comment: Laven sandee EDTA Performed By: #### 5 7021-8 #### IAN SCHMITT ([id number]) [facility] ([facility]) [address] [place] [id number] [address] ABDOMEN PELVIS W IV CONTR Myron 08-17-2024 CT ABDOMEN PELVIS W IV CONTRAST Interpreted By: Raulito Segal, STUDY: CT ABDOMEN PELVIS W IV CONTRAST; 08/17/2024 10:02 am INDICATION: Signs/Symptoms:llq pain. COMPARISON: CT abdomen and pelvis without contrast 02 April 2024; CT chest without contrast 18 Dec 2021; CT abdomen and pelvis with contrast 23 August 2019 ACCESSION NUMBER(S): [id number] ORDERING CLINICIAN: JANI MCGRATH TECHNIQUE: CT of the abdomen and pelvis from the lung bases through the symphysis pubis after the uneventful administration of intravenous contrast (75 mL Omnipaque 350). No oral contrast. FINDINGS: LOWER CHEST: No acute airspace disease. BONES: No acute skeletal findings. LIVER: Elongated in craniocaudal long-axis diameter which may be a Candelaria lobe variant, remainder does not appear enlarged. No change from prior. Not overtly cirrhotic or fatty. No mass or abscess. All vessels patent SPLEEN: Normal. No enlargement, mass or evidence of splenic vein thrombosis. PANCREAS: Normal. No CT evidence of acute or chronic pancreatitis. No duct dilation. No mass. GALLBLADDER: Surgically absent. BILE DUCTS: Normal. No biliary duct dilation. ADRENAL GLANDS: Subcentimeter solitary left adrenal nodule did not have precontrast attenuation of a lipid rich adenoma on CT 02 April 2024, still statistically a lipid poor adenoma especially based on long-term stability, being unchanged back through 23 August 2027, the oldest comparison exam available. Right side remains normal KIDNEYS AND URETERS: Solitary small nonobstructing left renal stone is unchanged. No new stone anywhere in the urinary tract. No stone in either ureter. No hydroureteronephrosis on either side. Each kidney has one or two subcentimeter too small to characterize but likely benign low-attenuation lesions LYMPH NODES: No adenopathy, intraperitoneal, retroperitoneal, pelvic or otherwise APPENDIX: Normal. Not dilated, thick walled or in any other way inflamed in appearance. No inflammatory change about the appendix. COLON: Impressive pancolonic diverticulosis, with wall thickening of and inflammatory change around just one distal left or proximal sigmoid colonic diverticulum diverticulum on axial 119 and coronal 31). Elsewhere no inflammatory changes SMALL BOWEL: Normal. No small bowel dilation or any other sign of small bowel obstruction. No sign of active inflammatory bowel disease. STOMACH / DUODENUM: Grossly normal by CT which has limited sensitivity and specificity for the stomach and duodenum. RETROPERITONEUM: Normal. No acute hemorrhage or inflammatory change. Lymph nodes in a separate dedicated section. OMENTUM, MESENTERY AND PERITONEAL SPACES: Free intraperitoneal air: Negative Free intraperitoneal fluid: Negative Abscess: Negative Other: Unchanged hazy increase of the normal fat attenuation in the mesentery in the right abdomen unchanged back through 2019, of doubtful clinical consequence at this time URINARY BLADDER: Normal. No wall thickening, large diverticula, radiodense stone or surrounding inflammatory change. PELVIS: Hysterectomy. Two adjacent small left adnexal cysts are both unchanged from 02 April 2024 VASCULATURE: Aortic and iliac atherosclerotic calcifications without aneurysm or other acute finding. No high grade stenosis of the major abdominal aortic branch vessels. Portal venous system patent. ABDOMINAL WALL: Hernia: Negative Other: No acute or contributory abnormality. IMPRESSION: Pancolonic diverticulosis, but there is acute diverticulitis involving just a single thick walled, ectatic diverticulum along the antimesenteric margin of the distal left or proximal sigmoid colon No other acute findings No associated acute findings suggest perforation, abscess, free fluid or any extraluminal gas bubbles adjacent to the involved diverticulum to suggest so-called contained microperforation No separate acute process such as obstructing urinary stone/hydronephrosis. The left renal stone is unchanged from 02 April 2024 MACRO: None Signed by: Raulito Segal 08/17/2024 10:27 AM Dictation workstation: [id number] [facility] CT Abdomen and Pelvis W cont rast Lane 08-17-2024 Pancolonic diverticulosis, but there is acute diverticulitis involving just a single thick walled, ectatic diverticulum along the antimesenteric margin of the distal left or proximal sigmoid colon No other acute findings No associated acute findings suggest perforation, abscess, free fluid or any extraluminal gas bubbles adjacent to the involved diverticulum to suggest so-called contained microperforation No separate acute process such as obstructing urinary stone/hydronephrosis. The left renal stone is unchanged from 02 April 2024 MACRO: None Signed by: Raulito Segal 08/17/2024 10:27 AM Dictation workstation: [id number] Interpreted By: Raulito Conti, STUDY: CT ABDOMEN PELVIS W IV CONTRAST; 08/17/2024 10:02 am INDICATION: Signs/Symptoms:llq pain. COMPARISON: CT abdomen and pelvis without contrast 02 April 2024; CT chest without contrast 18 Dec 2021; CT abdomen and pelvis with contrast 23 August 2019 ACCESSION NUMBER(S): [id number] ORDERING CLINICIAN: JANI MCGRATH TECHNIQUE: CT of the abdomen and pelvis from the lung bases through the symphysis pubis after the uneventful administration of intravenous contrast (75 mL Omnipaque 350). No oral contrast. FINDINGS: LOWER CHEST: No acute airspace disease. BONES: No acute skeletal findings. LIVER: Elongated in craniocaudal long-axis diameter which may be a Candelaria lobe variant, remainder does not appear enlarged. No change from prior. Not overtly cirrhotic or fatty. No mass or abscess. All vessels patent SPLEEN: Normal. No enlargement, mass or evidence of splenic vein thrombosis. PANCREAS: Normal. No CT evidence of acute or chronic pancreatitis. No duct dilation. No mass. GALLBLADDER: Surgically absent. BILE DUCTS: Normal. No biliary duct dilation. ADRENAL GLANDS: Subcentimeter solitary left adrenal nodule did not have precontrast attenuation of a lipid rich adenoma on CT 02 April 2024, still statistically a lipid poor adenoma especially based on long-term stability, being unchanged back through 23 August 2027, the oldest comparison exam available. Right side remains normal KIDNEYS AND URETERS: Solitary small nonobstructing left renal stone is unchanged. No new stone anywhere in the urinary tract. No stone in either ureter. No hydroureteronephrosis on either side. Each kidney has one or two subcentimeter too small to characterize but likely benign low-attenuation lesions LYMPH NODES: No adenopathy, intraperitoneal, retroperitoneal, pelvic or otherwise APPENDIX: Normal. Not dilated, thick walled or in any other way inflamed in appearance. No inflammatory change about the appendix. COLON: Impressive pancolonic diverticulosis, with wall thickening of and inflammatory change around just one distal left or proximal sigmoid colonic diverticulum diverticulum on axial 119 and coronal 31). Elsewhere no inflammatory changes SMALL BOWEL: Normal. No small bowel dilation or any other sign of small bowel obstruction. No sign of active inflammatory bowel disease. STOMACH / DUODENUM: Grossly normal by CT which has limited sensitivity and specificity for the stomach and duodenum. RETROPERITONEUM: Normal. No acute hemorrhage or inflammatory change. Lymph nodes in a separate dedicated section. OMENTUM, MESENTERY AND PERITONEAL SPACES: Free intraperitoneal air: Negative Free intraperitoneal fluid: Negative Abscess: Negative Other: Unchanged hazy increase of the normal fat attenuation in the mesentery in the right abdomen unchanged back through 2019, of doubtful clinical consequence at this time URINARY BLADDER: Normal. No wall thickening, large diverticula, radiodense stone or surrounding inflammatory change. PELVIS: Hysterectomy. Two adjacent small left adnexal cysts are both unchanged from 02 April 2024 VASCULATURE: Aortic and iliac atherosclerotic calcifications without aneurysm or other acute finding. No high grade stenosis of the major abdominal aortic branch vessels. Portal venous system patent. ABDOMINAL WALL: Hernia: Negative Other: No acute or contributory abnormality. [facility] MMODAL Raulito Segal MD - 08/17/2024 Interpreted By: Raulito Segal, STUDY: CT ABDOMEN PELVIS W IV CONTRAST; 08/17/2024 10:02 am INDICATION: Signs/Symptoms:llq pain. COMPARISON: CT abdomen and pelvis without contrast 02 April 2024; CT chest without contrast 18 Dec 2021; CT abdomen and pelvis with contrast 23 August 2019 ACCESSION NUMBER(S): [id number] ORDERING CLINICIAN: JANI MCGRATH TECHNIQUE: CT of the abdomen and pelvis from the lung bases through the symphysis pubis after the uneventful administration of intravenous contrast (75 mL Omnipaque 350). No oral contrast. FINDINGS: LOWER CHEST: No acute airspace disease. BONES: No acute skeletal findings. LIVER: Elongated in craniocaudal long-axis diameter which may be a Candelaria lobe variant, remainder does not appear enlarged. No change from prior. Not overtly cirrhotic or fatty. No mass or abscess. All vessels patent SPLEEN: Normal. No enlargement, mass or evidence of splenic vein thrombosis. PANCREAS: Normal. No CT evidence of acute or chronic pancreatitis. No duct dilation. No mass. GALLBLADDER: Surgically absent. BILE DUCTS: Normal. No biliary duct dilation. ADRENAL GLANDS: Subcentimeter solitary left adrenal nodule did not have precontrast attenuation of a lipid rich adenoma on CT 02 April 2024, still statistically a lipid poor adenoma especially based on long-term stability, being unchanged back through 23 August 2027, the oldest comparison exam available. Right side remains normal KIDNEYS AND URETERS: Solitary small nonobstructing left renal stone is unchanged. No new stone anywhere in the urinary tract. No stone in either ureter. No hydroureteronephrosis on either side. Each kidney has one or two subcentimeter too small to characterize but likely benign low-attenuation lesions LYMPH NODES: No adenopathy, intraperitoneal, retroperitoneal, pelvic or otherwise APPENDIX: Normal. Not dilated, thick walled or in any other way inflamed in appearance. No inflammatory change about the appendix. COLON: Impressive pancolonic diverticulosis, with wall thickening of and inflammatory change around just one distal left or proximal sigmoid colonic diverticulum diverticulum on axial 119 and coronal 31). Elsewhere no inflammatory changes SMALL BOWEL: Normal. No small bowel dilation or any other sign of small bowel obstruction. No sign of active inflammatory bowel disease. STOMACH / DUODENUM: Grossly normal by CT which has limited sensitivity and specificity for the stomach and duodenum. RETROPERITONEUM: Normal. No acute hemorrhage or inflammatory change. Lymph nodes in a separate dedicated section. OMENTUM, MESENTERY AND PERITONEAL SPACES: Free intraperitoneal air: Negative Free intraperitoneal fluid: Negative Abscess: Negative Other: Unchanged hazy increase of the normal fat attenuation in the mesentery in the right abdomen unchanged back through 2019, of doubtful clinical consequence at this time URINARY BLADDER: Normal. No wall thickening, large diverticula, radiodense stone or surrounding inflammatory change. PELVIS: Hysterectomy. Two adjacent small left adnexal cysts are both unchanged from 02 April 2024 VASCULATURE: Aortic and iliac atherosclerotic calcifications without aneurysm or other acute finding. No high grade stenosis of the major abdominal aortic branch vessels. Portal venous system patent. ABDOMINAL WALL: Hernia: Negative Other: No acute or contributory abnormality. IMPRESSION: Pancolonic diverticulosis, but there is acute diverticulitis involving just a single thick walled, ectatic diverticulum along the antimesenteric margin of the distal left or proximal sigmoid colon No other acute findings No associated acute findings suggest perforation, abscess, free fluid or any extraluminal gas bubbles adjacent to the involved diverticulum to suggest so-called contained microperforation No separate acute process such as obstructing urinary stone/hydronephrosis. The left renal stone is unchanged from 02 April 2024 MACRO: None Signed by: Raulito Segal 08/17/2024 10:27 AM Dictation workstation: [id number] [facility] [place] Work Phone: Radiology Study observation (narrative) [facility] [place] Work Phone: CT Abdomen and Pelvis W cont rast IVOrdered By: Raulito Segal on 08-17-2024 [facility] [place] Work Phone: Comprehensive metabolic 2000 panelon 08-17-2024 Albumin BCP dye [Mass/Vol] 4.1 g/dL 3.4 - 5.0 g/dL [facility] [place] ALP [Catalytic activity/Vol] 52 U/L 33 - 136 U/L [facility] [place] ALT With P-5'-P [Catalytic activity/Vol] 6 U/L Low 7 - 45 U/L [facility] [place] Comment on above: Patients treated wit h Sulfasalazine may generate falsely decreased results for ALT. Anion gap [Moles/Vol] 13 mmol/L 10 - 20 mmol/L [facility] [place] AST With P-5'-P [Catalytic activity/Vol] 12 U/L 9 - 39 U/L [facility] [place] Bilirubin [Mass/Vol] 0.4 mg/dL 0.0 - 1 .2 mg/dL [facility] [place] Calcium [Mass/Vol] 9.3 mg/dL 8.6 - 10. 3 mg/dL [facility] [place] Chloride [Moles/Vol] 104 mmol/L 98 - 10 7 mmol/L [facility] [place] CO2 [Moles/Vol] 27 mmol/L 21 - 32 mmol/L [facility] [place] Creatinine [Mass/Vol] 0.57 mg/dL 0.50 - 1.05 mg/dL [facility] [place] eGFR - PINF [facility] [place] Comment on above: Calculations of jerilyn mated GFR are performed using the 2020 CKD-EPI Study Refit equation without the race variable for the IDMS-Traceable creatinine methods. https://jasn.asnjournals.org/content//ASN.1161706 988 Glucose [Mass/Vol] 104 mg/dL High 74 - 99 mg/dL [facility] [place] Interpretation and review of laboratory results Abnormal [facility] [place] Potassium [Moles/Vol] 4.4 mmol/L 3.5 - 5.3 mmol/L [facility] [place] Protein [Mass/Vol] 7.7 g/dL 6.4 - 8.2 g/dL [facility] [place] Sodium [Moles/Vol] 140 mmol/L 136 - 145 mmol/L [facility] [place] Urea nitrogen [Mass/Vol] 7 mg/dL 6 - 23 mg/dL [facility] [place] Albumin BCP dye [Mass/Vol] 4.1 g/dL Normal 3.4-5.0 [facility] Comment on above: Order Comment: Plasm a Serum Separator Tube (SST) Performed By: #### 2 4323-8 #### IAN SCHMITT ([id number]) [facility]) [address] [place] [address] ALP [Catalytic activity/Vol] 52 U/L Normal 33-136 [facility] Comment on above: Order Comment: Plasm a Serum Separator Tube (SST) Performed By: #### 2 4323-8 #### IAN SCHMITT ([id number]) [facility] ([facility]) [address] [place] [address] ALT With P-5'-P [Catalytic activity/Vol] 6 U/L Low 7-45 [facility] Comment on above: Order Comment: Plasm a Serum Separator Tube (SST) Result Comment: Dorita ents treated with Sulfasalazine may generate falsely decreased results for ALT. Performed By: #### 2 4323-8 #### IAN SCHMITT ([id number]) [facility] ([facility]) [address] [place] [address] Anion gap [Moles/Vol] 13 mmol/L Normal 10-20 [facility] Comment on above: Order Comment: Plasm a Serum Separator Tube (SST) Performed By: #### 2 4323-8 #### IAN SCHMITT ([id number]) [facility] ([facility]) [address] [place] [address] AST With P-5'-P [Catalytic activity/Vol] 12 U/L Normal 9-39 [facility] Comment on above: Order Comment: Plasm a Serum Separator Tube (SST) Performed By: #### 2 4323-8 #### IAN SCHMITT ([id number]) [facility] ([facility]) [address] [place] [address] Bilirubin [Mass/Vol] 0.4 mg/dL Normal 0.0-1.2 [facility] Comment on above: Order Comment: Plasm a Serum Separator Tube (SST) Performed By: #### 2 4323-8 #### IAN SCHMITT ([id number]) [facility] [facility] ([facility]) [address] [place] [address] Calcium [Mass/Vol] 9.3 mg/dL Normal 8.6-10.3 [facility] Comment on above: Order Comment: Plasm a Serum Separator Tube (SST) Performed By: #### 2 4323-8 #### IAN SCHMITT ([id number]) [facility] ([facility]) [address] [place] [address] Chloride [Moles/Vol] 104 mmol/L Normal 98-107 [facility] Comment on above: Order Comment: Plasm a Serum Separator Tube (SST) Performed By: #### 2 4323-8 #### IAN SCHMITT ([id number]) [facility] ([facility]) [address] [place] [address] 28280 CO2 [Moles/Vol] 27 mmol/L Normal 21-32 [facility] Comment on above: Order Comment: Plasm a Serum Separator Tube (SST) Performed By: #### 2 4323-8 #### IAN SCHMITT ([id number]) [facility] ([facility]) [address] [place] [address] 62948 Creatinine [Mass/Vol] 0.57 mg/dL Normal 0.50-1.05 [facility] Comment on above: Order Comment: Plasm a Serum Separator Tube (SST) Performed By: #### 2 4323-8 #### IAN SCHMITT ([id number]) [facility] ([facility]) [address] [place] [address] 57083 GFR/1.73 sq M.predicted MDRD (S/P/Bld) [Vol rate/Area] mL/min/{1.73_m2} Normal >60 [facility] Comment on above: Order Comment: Plasm a Serum Separator Tube (SST) Result Comment: Calc ulations of estimated GFR are performed using the 2020 CKD-EPI Study Refit equation without the race variable for the IDMS-Traceable creatinine methods. https://jasn.asnjournals.org/content/early//ASN.8647211 988 Performed By: #### 2 4323-8 #### IAN SCHMITT ([id number]) [facility] ([facility]) [address] [place] [address] 66200 Glucose [Mass/Vol] 104 mg/dL High 74-99 [facility] Comment on above: Order Comment: Plasm a Serum Separator Tube (SST) Performed By: #### 2 4323-8 #### IAN SCHMITT ([id number]) [facility] ([facility]) [address] [place] [address] 19522 Potassium [Moles/Vol] 4.4 mmol/L Normal 3.5-5.3 [facility] Comment on above: Order Comment: Plasm a Serum Separator Tube (SST) Performed By: #### 2 4323-8 #### IAN SCHMITT ([id number]) [facility] ([facility]) [address] [place] [address] 35940 Protein [Mass/Vol] 7.7 g/dL Normal 6.4-8.2 [facility] Comment on above: Order Comment: Plasm a Serum Separator Tube (SST) Performed By: #### 2 4323-8 #### IAN SCHMITT ([id number]) [facility] ([facility]) [address] [place] [address] 29234 Sodium [Moles/Vol] 140 mmol/L Normal 136-145 [facility] Comment on above: Order Comment: Plasm a Serum Separator Tube (SST) Performed By: #### 2 4323-8 #### IAN SCHMITT ([id number]) [facility] ([facility]) [address] [place] [address] 98494 Urea nitrogen [Mass/Vol] 7 mg/dL Normal 6-23 [facility] Comment on above: Order Comment: Plasm a Serum Separator Tube (SST) Performed By: #### 2 4323-8 #### IAN SCHMITT ([id number]) [facility] ([facility]) [address] [place] [address] 04539 ECG 12-LEADon 01-15-2025 ECG 12-LEAD Ventricular Rate 85 Atrial Rate 85 P-R Interval 136 QRS Duration 78 Q-T Interval 402 QTC Calculation(Bazett) 478 P [place] 51 R [place] 14 T [place] 13 QRS Count 14 Q Onset 220 P Onset 152 P Offset 204 T Offset 421 QTC Fredericia 451 Diagnosis Sinus rhythm with occasional Premature ventricular complexes Nonspecific ST abnormality Abnormal ECG When compared with ECG of 02-APR-2024 15:48, Premature ventricular complexes are now Present Nonspecific T wave abnormality now evident in Inferior leads See ED provider note for full interpretation and clinical correlation Confirmed by Afshin Valdez ([id number]) on 08/22/2024 2:25:21 PM Normal [facility] Lactateon 08-17-2024 Lactate [Moles/Vol] 1.1 mmol/L 0.4 - 2. 0 mmol/L [facility] Lactate [Moles/Vol] 1.1 mmol/L Normal 0.4-2.0 [facility] Comment on above: Order Comment: Venip uncture immediately after or during the administration of Metamizole may lead to falsely low results. Testing should be performed immediately prior to Metamizole dosing. Performed By: #### 5 7021-8 #### SOSA OSKAR ([id number]) [facility] ([facility]) [address] [place] [address] Lactate [Moles/Vol]on 2024 Interpretation and review of laboratory results Normal [facility] Venipuncture immedia tely after or during the administration of Metamizole may lead to falsely low results. Testing should be performed immediately prior to Metamizole dosing. [facility] Lipaseon 08-17-2024 Lipase [Catalytic activity/Vol] 9 U/L 9 - 82 U/L [facility] Lipase [Catalytic activity/V ol]on 08-17-2024 Interpretation and review of laboratory results Normal [facility] Venipuncture immedia tely after or during the administration of Metamizole may lead to falsely low results. Testing should be performed immediately prior to Metamizole dosing. [facility] No Panel Informationon 08-17 Extra Tube Hold for add-ons. [facility] Comment on above: Auto resulted. [facility] Triacylglycerol lipaseon Lipase [Catalytic activity/Vol] 9 U/L Normal 9-82 [facility] Comment on above: Order Comment: Plasm a/Serum Separator Venipuncture immediately after or during the administration of Metamizole may lead to falsely low results. Testing should be performed immediately prior to Metamizole dosing. Performed By: #### 3 040-3 #### IAN SCHMITT ([id number]) [facility] ([facility]) [address] [place] [address] Urinalysis complete W Reflex Culture panel (U)on 08-17-2024 Appearance (U) Clear Clear [facility] Bilirubin (U) [Mass/Vol] Negative NEGATIVE [facility] Color (U) Colorless Abnormal Light-Yellow , Yellow, Dark-Yellow [facility] Glucose Auto test strip (U) [Mass/Vol] Normal Normal mg/dL [facility] Interpretation and review of laboratory results Abnormal [facility] Ketones (U) [Mass/Vol] 10 (1+) Abnormal NEGATIVE mg/dL [facility] Leukocyte esterase Auto test strip Ql (U) Negative NEGATIVE [facility] Nitrite Auto test strip Ql (U) Negative NEGATIVE [facility] pH (U) 7 [pH] 5.0, 5.5, 6.0, 6.5, 7.0, 7.5, 8.0 [facility] Protein (U) [Mass/Vol] Negative NEGATIVE, 10 (TRACE), 20 (TRACE) mg/dL [facility] RBC (U) [#/Vol] Negative NEGATIVE [facility] Specific gravity (U) [Rel density] 1.035 1.005 - 1.035 [facility] Urobilinogen (U) [Mass/Vol] Normal Normal mg/dL [facility] Appearance (U) Clear Normal Clear [facility] Comment on above: Performed By: #### 5 7021-8 #### IAN SCHMITT ([id number]) [facility] ([facility]) [address] [place] [address] Bilirubin (U) [Mass/Vol] Negative Normal NEGATIVE [facility] Comment on above: Performed By: #### 5 7021-8 #### IAN SCHMITT ([id number]) [facility] ([facility]) [address] [place] [address] 06531 Color (U) Colorless Normal Light-Yellow , Yellow, Dark-Yellow [facility] Comment on above: Performed By: #### 7021-8 #### IAN SCHMITT ([id number]) [facility] ([facility]) [address] [place] [address] 68438 Glucose Auto test strip (U) [Mass/Vol] Normal Normal Normal [facility] Comment on above: Performed By: #### 5 7021-8 #### IAN SCHMITT ([id number]) [facility] ([facility]) [address] [place] [address] 06601 Ketones (U) [Mass/Vol] 10 (1+) Abnormal NEGATIVE [facility] Comment on above: Performed By: #### 7021-8 #### IAN SCHMITT ([id number]) [facility] ([facility]) [address] [place] [address] 36833 Leukocyte esterase Auto test strip Ql (U) Negative Normal NEGATIVE [facility] Comment on above: Performed By: #### 7021-8 #### IAN SCHMITT ([id number]) [facility] ([facility]) [address] [place] [address] 91714 Nitrite Auto test strip Ql (U) Negative Normal NEGATIVE [facility] Comment on above: Performed By: #### 7021-8 #### IAN SCHMITT ([id number]) [facility] ([facility]) [address] [place] [address] 57733 pH (U) 7.0 [pH] Normal 5.0, 5.5, 6.0, 6.5, 7.0, 7.5, 8.0 [facility] Comment on above: Performed By: #### 7021-8 #### IAN SCHMITT ([id number]) [facility] ([facility]) [address] [place] [address] 69301 Protein (U) [Mass/Vol] Negative Normal NEGATIVE, 10 (TRACE), 20 (TRACE) [facility] Comment on above: Performed By: #### 5 7021-8 #### IAN SCHMITT ([id number]) [facility] ([facility]) [address] [place] [address] 98305 RBC (U) [#/Vol] Negative Normal NEGATIVE [facility] Comment on above: Performed By: #### 5 7021-8 #### IAN SCHMITT ([id number]) [facility] ([facility]) [address] [place] [address] 15069 Specific gravity (U) [Rel density] 1.035 Normal 1.005-1.035 [facility] Comment on above: Performed By: #### 5 7021-8 #### IAN SCHMITT ([id number]) [facility] ([facility]) [address] [place] [address] 41882 Urobilinogen (U) [Mass/Vol] Normal Normal Normal [facility] Comment on above: Performed By: #### 5 7021-8 #### IAN SCHMITT ([id number]) [facility] ([facility]) [address] [place] [address] Amoxicillin Ab.IgEon 025 Amoxicillin IgE Qn (S) <0.10 Normal <=0.34 [facility] Comment on above: Result Comment: Perf ormed By: [employer] [facility] [address] [place] [address] [employer]: Chuy Petit MD, PhD CLIA Number: [id number] Performed By: #### 6 829-6 #### CLEAR (BRYCE) ([id number]) [address] [place] [address] Miscellaneous allergen IgE R AST class (S)on 08-15-2024 Annotation comment [Interpretation] Narrative See Note Normal [facility] Comment on above: Result Comment: REFE RENCE INTERVAL: Allergen, Interpretation Less than 0.10 kU/L......Class 0.....No significant level detected 0.10-0.34 kU/L...........Class 0/1...Clinical relevance undetermined 0.35-0.70 kU/L...........Class 1.....Low 0.71-3.50 kU/L...........Class 2.....Moderate 3.51-17.50 kU/L..........Class 3.....High 17.51-50.00 kU/L.........Class 4.....Very High 50.01-100.00 kU/L........Class 5.....Very High Greater than 100.00kU/L..Class 6.....Very High Allergen results of 0.10-0.34 kU/L are intended for specialist use as the clinical relevance is undetermined. Even though increasing ranges are reflective of increasing concentrations of allergen-specific IgE, these concentrations may not correlate with the degree of clinical response or skin testing results when challenged with a specific allergen. The correlation of allergy laboratory results with clinical history and in vivo reactivity to specific allergens is essential. A negative test may not rule out clinical allergy or even anaphylaxis. Performed By: [facility] [address] [place] [address] [employer]: Chuy Petit MD, PhD CLIA Number: [id number] Performed By: #### 3 3536-4 #### [facility]) ([id number]) [address] [place] [address] CBC W Auto Differential pane l (Bld)on 04-02-2024 Basophils (Bld) [#/Vol] 0.03 10*3/uL [facility] Basophils/100 WBC (Bld) 0.4 % 0.0 - 2.0 % [facility] Eosinophils (Bld) [#/Vol] 0.04 10*3/uL [facility] Eosinophils/100 WBC (Bld) 0.6 % 0.0 - 6.0 % [facility] Erythrocyte distribution width (RBC) [Ratio] 13.5 % 11.5 - 14.5 % [facility] Hematocrit (Bld) [Volume fraction] 42.4 % 36.0 - 46.0 % [facility] Hemoglobin (Bld) [Mass/Vol] 13.2 g/dL 12.0 - 16.0 g/dL [facility] Immature granulocytes (Bld) [#/Vol] 0.01 10*3/uL [facility] Immature granulocytes/100 WBC (Bld) 0.1 % 0.0 - 0.9 % [facility] Comment on above: Immature Granulocyte Count (IG) includes promyelocytes, myelocytes and metamyelocytes but does not include bands. Percent differential counts (%) should be interpreted in the context of the absolute cell counts (cells/UL). Interpretation and review of laboratory results Abnormal [facility] Lymphocytes (Bld) [#/Vol] 2.34 10*3/uL [facility] Lymphocytes/100 WBC (Bld) 33.5 % 13.0 - 44.0 % [facility] MCH (RBC) [Entitic mass] 29.3 pg 26.0 - 34.0 pg [facility] MCHC (RBC) [Mass/Vol] 31.1 g/dL Low 32.0 - 36.0 g/dL [facility] MCV (RBC) [Entitic vol] 94 fL 80 - 100 fL [facility] Monocytes (Bld) [#/Vol] 0.55 10*3/uL [facility] Monocytes/100 WBC (Bld) 7.9 % 2.0 - 10.0 % [facility] Neutrophils (Bld) [#/Vol] 4.02 10*3/uL [facility] Comment on above: Percent differential counts (%) should be interpreted in the context of the absolute cell counts (cells/uL). Neutrophils/100 WBC (Bld) 57.5 % 40.0 - 80.0 % [facility] Nucleated RBC/100 WBC (Bld) [Ratio] 0.0 % [facility] Platelets (Bld) [#/Vol] 268 10*3/uL [facility] RBC (Bld) [#/Vol] 4.51 10*6/uL [facility] WBC (Bld) [#/Vol] 7.0 10*3/uL [facility] Basophils (Bld) [#/Vol] 0.03 x10*3/uL Normal 0.00-0.10 [facility] Comment on above: Performed By: #### 5 7021-8 #### IAN SCHMITT ([id number]) [facility] ([facility]) [address] [place] [address] 57000 Basophils/100 WBC (Bld) 0.4 % Normal 0.0-2.0 [facility] Comment on above: Performed By: #### 5 7021-8 #### IAN SCHMITT ([id number]) [facility] ([facility]) [address] [place] [address] 80108 Eosinophils (Bld) [#/Vol] 0.04 x10*3/uL Normal 0.00-0.40 [facility] Comment on above: Performed By: #### 5 7021-8 #### IAN SCHMITT ([id number]) [facility] ([facility]) [address] [place] [address] 55674 Eosinophils/100 WBC (Bld) 0.6 % Normal 0.0-6.0 [facility] Comment on above: Performed By: #### 5 7021-8 #### IAN SCHMITT ([id number]) [facility] ([facility]) [address] [place] [address] 02242 Erythrocyte distribution width (RBC) [Ratio] 13.5 % Normal 11.5-14.5 [facility] Comment on above: Performed By: #### 5 7021-8 #### IAN SCHMITT ([id number]) [facility] ([facility]) [address] [place] [address] 82216 Hematocrit (Bld) [Volume fraction] 42.4 % Normal 36.0-46.0 [facility] Comment on above: Performed By: #### 5 7021-8 #### AIN SCHMITT ([id number]) [facility] ([facility]) [address] [place] [address] 72076 Hemoglobin (Bld) [Mass/Vol] 13.2 g/dL Normal 12.0-16.0 [facility] Comment on above: Performed By: #### 5 7021-8 #### IAN SCHMITT ([id number]) [facility] ([facility]) [address] [place] [address] 57811 Immature granulocytes (Bld) [#/Vol] 0.01 x10*3/uL Normal 0.00-0.50 [facility] Comment on above: Performed By: #### 5 7021-8 #### IAN SCHMITT ([id number]) [facility] ([facility]) [address] [place] [address] 13994 Immature granulocytes/100 WBC (Bld) 0.1 % Normal 0.0-0.9 [facility] Comment on above: Result Comment: Lilliam ture Granulocyte Count (IG) includes promyelocytes, myelocytes and metamyelocytes but does not include bands. Percent differential counts (%) should be interpreted in the context of the absolute cell counts (cells/UL). Performed By: #### 5 7021-8 #### IAN SCHMITT ([id number]) [facility] ([facility]) [address] [place] [address] 04580 Lymphocytes (Bld) [#/Vol] 2.34 x10*3/uL Normal 0.80-3.00 [facility] Comment on above: Performed By: #### 5 7021-8 #### IAN SCHMITT ([id number]) [facility] ([facility]) [address] [place] [address] 92661 Lymphocytes/100 WBC (Bld) 33.5 % Normal 13.0-44.0 [facility] Comment on above: Performed By: #### 5 7021-8 #### IAN SCHMITT ([id number]) [facility] ([facility]) [address] [place] [address] 45946 MCH (RBC) [Entitic mass] 29.3 pg Normal 26.0-34.0 [facility] Comment on above: Performed By: #### 5 7021-8 #### IAN SCHMITT ([id number]) [facility] ([facility]) [address] [place] [address] 10638 MCHC (RBC) [Mass/Vol] 31.1 g/dL Low 32.0-36.0 [facility] Comment on above: Performed By: #### 5 7021-8 #### IAN SCHMITT ([id number]) [facility] ([facility]) [address] [place] [address] 00457 MCV (RBC) [Entitic vol] 94 fL Normal 80-100 [facility] Comment on above: Performed By: #### 5 7021-8 #### IAN SCHMITT ([id number]) [facility] ([facility]) [address] [place] [address] 23337 Monocytes (Bld) [#/Vol] 0.55 x10*3/uL Normal 0.05-0.80 [facility] Comment on above: Performed By: #### 5 7021-8 #### IAN SCHMITT ([id number]) [facility] ([facility]) [address] [place] [address] 52924 Monocytes/100 WBC (Bld) 7.9 % Normal 2.0-10.0 [facility] Comment on above: Performed By: #### 5 7021-8 #### IAN SCHMITT ([id number]) [facility] ([facility]) [address] [place] [address] 16853 Neutrophils (Bld) [#/Vol] 4.02 x10*3/uL Normal 1.60-5.50 [facility] Comment on above: Result Comment: Perc ent differential counts (%) should be interpreted in the context of the absolute cell counts (cells/uL). Performed By: #### 5 7021-8 #### IAN SCHMITT ([id number]) [facility] ([facility]) [address] [place] [address] 80316 Neutrophils/100 WBC (Bld) 57.5 % Normal 40.0-80.0 [facility] Comment on above: Performed By: #### 5 7021-8 #### IAN SCHMITT ([id number]) [facility] ([facility]) [address] [place] [address] 98775 Nucleated RBC/100 WBC (Bld) [Ratio] 0.0 /100 WBCs Normal 0.0-0.0 [facility] Comment on above: Performed By: #### 5 7021-8 #### IAN SCHMITT ([id number]) [facility] ([facility]) [facility] [place] [address] Platelets (Bld) [#/Vol] 268 x10*3/uL Normal 150-450 [facility] Comment on above: Performed By: #### 5 7021-8 #### IAN SCHMITT ([id number]) [facility] ([facility]) [facility] [place] [address] RBC (Bld) [#/Vol] 4.51 x10*6/uL Normal 4.00-5.20 [facility] Comment on above: Performed By: #### 5 7021-8 #### IAN SCHMITT ([id number]) [facility] ([facility]) [address] [place] [address] WBC (Bld) [#/Vol] 7.0 x10*3/uL Normal 4.4-11.3 [facility] Comment on above: Performed By: #### 5 7021-8 #### IAN SCHMITT ([id number]) [facility] ([facility]) [address] [place] [address] CT ABDOMEN PELVIS WO IV CONT [facility] 04-02-2024 CT ABDOMEN PELVIS WO IV CONTRAST Interpreted By: Raulito Segal, STUDY: CT ABDOMEN PELVIS WO IV CONTRAST; 04/02/2024 3:59 pm INDICATION: Signs/Symptoms:right flank. COMPARISON: CT abdomen and pelvis with contrast 23 August 2019 ACCESSION NUMBER(S): [id number] ORDERING CLINICIAN: JANI MCGRATH TECHNIQUE: CT of the abdomen and pelvis from the lung bases through the symphysis pubis without oral or IV contrast FINDINGS: LOWER CHEST: No acute airspace disease. BONES: No acute skeletal findings. RIGHT KIDNEY AND URETER: Radiodense stone: Solitary less than 3 mm (too small to accurately measure attenuation) nonobstructing renal stone. No others. None in the ureter Hydronephrosis: Negative Congenital variant anatomy: Negative. No duplicated ureter or other variant anatomy. Other: n/a LEFT KIDNEY AND URETER: Radiodense stone: Solitary less than 3 mm (too small to accurately measure attenuation) nonobstructing renal stone. No others. None in the ureter Hydronephrosis: Negative Congenital variant anatomy: Negative. No duplicated ureter or other variant anatomy. Other: n/a URINARY BLADDER: Radiodense stone: Negative Wall thickening / other inflammatory change: Negative Diverticula: Negative Congenital variant anatomy: Negative. No variant anatomy such as urachal remnant. Other: n/a LIVER: Normal. No enlargement or evidence of cirrhosis or fatty change. No gross evidence of a mass, noting low sensitivity and specificity without IV contrast. SPLEEN: Normal. No enlargement. PANCREAS: Normal. No CT evidence of acute or chronic pancreatitis. No obvious duct dilation. No gross evidence of a mass, noting low sensitivity and specificity without IV contrast. GALLBLADDER: Surgically absent. BILE DUCTS: Normal. No biliary duct dilation. ADRENAL GLANDS: Right side normal. Left adrenal nodule is not a lipid rich adenoma based on unenhanced attenuation, nevertheless still statistically a lipid poor adenoma given no interval change from 23 August 2019 LYMPH NODES: No adenopathy, intraperitoneal, retroperitoneal, pelvic, inguinal or otherwise. APPENDIX: Normal. Not dilated, thick walled or in any other way inflamed in appearance. No inflammatory change about the appendix. COLON: Distal diverticulosis without acute inflammatory change; otherwise, normal. No sign of acute diverticulitis or other colitis. No annular constricting mass. SMALL BOWEL: Normal. No small bowel dilation or any other sign of small bowel obstruction. STOMACH / DUODENUM: Incidental but unchanged duodenal diverticula without acute inflammatory changes RETROPERITONEUM: Normal. No acute hemorrhage or inflammatory change. Lymph nodes in a separate dedicated section. OMENTUM, MESENTERY AND PERITONEAL SPACES: Free intraperitoneal air: Negative Free intraperitoneal fluid: Negative Abscess: Negative Other: There is hazy increased attenuation of the normal fat density of the small bowel mesentery where there is an increased number of nonenlarged lymph nodes, constellation of findings commonly seen in asymptomatic patients, but sometimes associated with mesenteritis, a self-limiting condition. I suspect it is completely incidental as it is unchanged from prior CT PELVIS: Adjacent benign-appearing ellipsoid 21 mm (sagittal 58) and 19 mm (sagittal 55) left adnexal cysts. Floor of urinary bladder is about 1.5 cm inferior to the pubococcygeal line, new VASCULATURE: Aortic and iliac atherosclerotic calcifications without aneurysm or other acute finding. ABDOMINAL WALL: Hernia: Negative Other: No acute or contributory abnormality. IMPRESSION: No acute findings in the abdomen or pelvis Each kidney contains just one, less than 3 mm (too small to accurately measure attenuation) nonobstructing stone. No obstructing/offending stone anywhere in the urinary tract No hydroureteronephrosis Mild urinary bladder floor descent, 1.5 cm inferior to the level the pubococcygeal line for example on sagittal image 65 which I have annotated. This is new from prior CT from 2019 Normal appendix No bowel obstruction, perforation, abscess or free fluid No hernia Two unchanged benign-appearing small left adnexal cysts, the more inferior of which could artifactually mimic a urinary bladder diverticulum volume confident it is an adnexal cyst especially given no change from CT from 2019 Impressive nearly orantes colonic diverticulosis but none with any associated inflammatory change No acute hemorrhage or hematoma, retroperitoneal or otherwise anywhere in the abdomen or pelvis MACRO: None Signed by: Raulito Segal 04/02/2024 4:52 PM Dictation workstation: [id number] [facility] CT Abdomen WO contraston No acute findings in the abdomen or pelvis Each kidney contains just one, less than 3 mm (too small to accurately measure attenuation) nonobstructing stone. No obstructing/offending stone anywhere in the urinary tract No hydroureteronephrosis Mild urinary bladder floor descent, 1.5 cm inferior to the level the pubococcygeal line for example on sagittal image 65 which I have annotated. This is new from prior CT from 2019 Normal appendix No bowel obstruction, perforation, abscess or free fluid No hernia Two unchanged benign-appearing small left adnexal cysts, the more inferior of which could artifactually mimic a urinary bladder diverticulum volume confident it is an adnexal cyst especially given no change from CT from 2019 Impressive nearly orantes colonic diverticulosis but none with any associated inflammatory change No acute hemorrhage or hematoma, retroperitoneal or otherwise anywhere in the abdomen or pelvis MACRO: None Signed by: Raulito Segal 04/02/2024 4:52 PM Dictation workstation: [id number] MMODAL Interpreted By: Raulito Conti, STUDY: CT ABDOMEN PELVIS WO IV CONTRAST; 04/02/2024 3:59 pm INDICATION: Signs/Symptoms:right flank. COMPARISON: CT abdomen and pelvis with contrast 23 August 2019 ACCESSION NUMBER(S): [id number] ORDERING CLINICIAN: JANI MCGRATH TECHNIQUE: CT of the abdomen and pelvis from the lung bases through the symphysis pubis without oral or IV contrast FINDINGS: LOWER CHEST: No acute airspace disease. BONES: No acute skeletal findings. RIGHT KIDNEY AND URETER: Radiodense stone: Solitary less than 3 mm (too small to accurately measure attenuation) nonobstructing renal stone. No others. None in the ureter Hydronephrosis: Negative Congenital variant anatomy: Negative. No duplicated ureter or other variant anatomy. Other: n/a LEFT KIDNEY AND URETER: Radiodense stone: Solitary less than 3 mm (too small to accurately measure attenuation) nonobstructing renal stone. No others. None in the ureter Hydronephrosis: Negative Congenital variant anatomy: Negative. No duplicated ureter or other variant anatomy. Other: n/a URINARY BLADDER: Radiodense stone: Negative Wall thickening / other inflammatory change: Negative Diverticula: Negative Congenital variant anatomy: Negative. No variant anatomy such as urachal remnant. Other: n/a LIVER: Normal. No enlargement or evidence of cirrhosis or fatty change. No gross evidence of a mass, noting low sensitivity and specificity without IV contrast. SPLEEN: Normal. No enlargement. PANCREAS: Normal. No CT evidence of acute or chronic pancreatitis. No obvious duct dilation. No gross evidence of a mass, noting low sensitivity and specificity without IV contrast. GALLBLADDER: Surgically absent. BILE DUCTS: Normal. No biliary duct dilation. ADRENAL GLANDS: Right side normal. Left adrenal nodule is not a lipid rich adenoma based on unenhanced attenuation, nevertheless still statistically a lipid poor adenoma given no interval change from 23 August 2019 LYMPH NODES: No adenopathy, intraperitoneal, retroperitoneal, pelvic, inguinal or otherwise. APPENDIX: Normal. Not dilated, thick walled or in any other way inflamed in appearance. No inflammatory change about the appendix. COLON: Distal diverticulosis without acute inflammatory change; otherwise, normal. No sign of acute diverticulitis or other colitis. No annular constricting mass. SMALL BOWEL: Normal. No small bowel dilation or any other sign of small bowel obstruction. STOMACH / DUODENUM: Incidental but unchanged duodenal diverticula without acute inflammatory changes RETROPERITONEUM: Normal. No acute hemorrhage or inflammatory change. Lymph nodes in a separate dedicated section. OMENTUM, MESENTERY AND PERITONEAL SPACES: Free intraperitoneal air: Negative Free intraperitoneal fluid: Negative Abscess: Negative Other: There is hazy increased attenuation of the normal fat density of the small bowel mesentery where there is an increased number of nonenlarged lymph nodes, constellation of findings commonly seen in asymptomatic patients, but sometimes associated with mesenteritis, a self-limiting condition. I suspect it is completely incidental as it is unchanged from prior CT PELVIS: Adjacent benign-appearing ellipsoid 21 mm (sagittal 58) and 19 mm (sagittal 55) left adnexal cysts. Floor of urinary bladder is about 1.5 cm inferior to the pubococcygeal line, new VASCULATURE: Aortic and iliac atherosclerotic calcifications without aneurysm or other acute finding. ABDOMINAL WALL: Hernia: Negative Other: No acute or contributory abnormality. [facility] MMODAL Raulito Segal MD - 04/02/2024 Interpreted By: Raulito Segal, STUDY: CT ABDOMEN PELVIS WO IV CONTRAST; 04/02/2024 3:59 pm INDICATION: Signs/Symptoms:right flank. COMPARISON: CT abdomen and pelvis with contrast 23 August 2019 ACCESSION NUMBER(S): [id number] ORDERING CLINICIAN: JANI MCGRATH TECHNIQUE: CT of the abdomen and pelvis from the lung bases through the symphysis pubis without oral or IV contrast FINDINGS: LOWER CHEST: No acute airspace disease. BONES: No acute skeletal findings. RIGHT KIDNEY AND URETER: Radiodense stone: Solitary less than 3 mm (too small to accurately measure attenuation) nonobstructing renal stone. No others. None in the ureter Hydronephrosis: Negative Congenital variant anatomy: Negative. No duplicated ureter or other variant anatomy. Other: n/a LEFT KIDNEY AND URETER: Radiodense stone: Solitary less than 3 mm (too small to accurately measure attenuation) nonobstructing renal stone. No others. None in the ureter Hydronephrosis: Negative Congenital variant anatomy: Negative. No duplicated ureter or other variant anatomy. Other: n/a URINARY BLADDER: Radiodense stone: Negative Wall thickening / other inflammatory change: Negative Diverticula: Negative Congenital variant anatomy: Negative. No variant anatomy such as urachal remnant. Other: n/a LIVER: Normal. No enlargement or evidence of cirrhosis or fatty change. No gross evidence of a mass, noting low sensitivity and specificity without IV contrast. SPLEEN: Normal. No enlargement. PANCREAS: Normal. No CT evidence of acute or chronic pancreatitis. No obvious duct dilation. No gross evidence of a mass, noting low sensitivity and specificity without IV contrast. GALLBLADDER: Surgically absent. BILE DUCTS: Normal. No biliary duct dilation. ADRENAL GLANDS: Right side normal. Left adrenal nodule is not a lipid rich adenoma based on unenhanced attenuation, nevertheless still statistically a lipid poor adenoma given no interval change from 23 August 2019 LYMPH NODES: No adenopathy, intraperitoneal, retroperitoneal, pelvic, inguinal or otherwise. APPENDIX: Normal. Not dilated, thick walled or in any other way inflamed in appearance. No inflammatory change about the appendix. COLON: Distal diverticulosis without acute inflammatory change; otherwise, normal. No sign of acute diverticulitis or other colitis. No annular constricting mass. SMALL BOWEL: Normal. No small bowel dilation or any other sign of small bowel obstruction. STOMACH / DUODENUM: Incidental but unchanged duodenal diverticula without acute inflammatory changes RETROPERITONEUM: Normal. No acute hemorrhage or inflammatory change. Lymph nodes in a separate dedicated section. OMENTUM, MESENTERY AND PERITONEAL SPACES: Free intraperitoneal air: Negative Free intraperitoneal fluid: Negative Abscess: Negative Other: There is hazy increased attenuation of the normal fat density of the small bowel mesentery where there is an increased number of nonenlarged lymph nodes, constellation of findings commonly seen in asymptomatic patients, but sometimes associated with mesenteritis, a self-limiting condition. I suspect it is completely incidental as it is unchanged from prior CT PELVIS: Adjacent benign-appearing ellipsoid 21 mm (sagittal 58) and 19 mm (sagittal 55) left adnexal cysts. Floor of urinary bladder is about 1.5 cm inferior to the pubococcygeal line, new VASCULATURE: Aortic and iliac atherosclerotic calcifications without aneurysm or other acute finding. ABDOMINAL WALL: Hernia: Negative Other: No acute or contributory abnormality. IMPRESSION: No acute findings in the abdomen or pelvis Each kidney contains just one, less than 3 mm (too small to accurately measure attenuation) nonobstructing stone. No obstructing/offending stone anywhere in the urinary tract No hydroureteronephrosis Mild urinary bladder floor descent, 1.5 cm inferior to the level the pubococcygeal line for example on sagittal image 65 which I have annotated. This is new from prior CT from 2019 Normal appendix No bowel obstruction, perforation, abscess or free fluid No hernia Two unchanged benign-appearing small left adnexal cysts, the more inferior of which could artifactually mimic a urinary bladder diverticulum volume confident it is an adnexal cyst especially given no change from CT from 2020 Impressive nearly orantes colonic diverticulosis but none with any associated inflammatory change No acute hemorrhage or hematoma, retroperitoneal or otherwise anywhere in the abdomen or pelvis MACRO: None Signed by: Raulito Segal 04/02/2024 4:52 PM Dictation workstation: [id number] [facility] Work Phone: Radiology Study observation (narrative) [facility] Work Phone: CT Abdomen WO contrastOrdere d By: Raulito Segal on 04-02-2024 [facility] Work Phone: Comprehensive metabolic 2000 panelon 04-02-2024 Albumin BCP dye [Mass/Vol] 4.5 g/dL 3.4 - 5.0 g/dL [facility] ALP [Catalytic activity/Vol] 60 U/L 33 - 136 U/L [facility] ALT With P-5'-P [Catalytic activity/Vol] 9 U/L 7 - 45 U/L [facility] Comment on above: Patients treated wit h Sulfasalazine may generate falsely decreased results for ALT. Anion gap [Moles/Vol] 16 mmol/L 10 - 20 mmol/L [facility] AST With P-5'-P [Catalytic activity/Vol] 18 U/L 9 - 39 U/L [facility] Bilirubin [Mass/Vol] 0.3 mg/dL 0.0 - 1 .2 mg/dL [facility] Calcium [Mass/Vol] 9.2 mg/dL 8.6 - 10. 3 mg/dL [facility] Chloride [Moles/Vol] 103 mmol/L 98 - 10 7 mmol/L [facility] CO2 [Moles/Vol] 22 mmol/L 21 - 32 mmol/L [facility] Creatinine [Mass/Vol] 0.84 mg/dL 0.50 - 1.05 mg/dL [facility] GFR/1.73 sq M.predicted among non-blacks MDRD (S/P/Bld) [Vol rate/Area] 71 mL/min/{1.73_m2} - PINF [facility] Comment on above: Calculations of jerilyn mated GFR are performed using the 2020 CKD-EPI Study Refit equation without the race variable for the IDMS-Traceable creatinine methods. https://jasn.asnjournals.org/content//ASN.0029563 988 Glucose [Mass/Vol] 124 mg/dL High 74 - 99 mg/dL [facility] Interpretation and review of laboratory results Abnormal [facility] Potassium [Moles/Vol] 3.7 mmol/L 3.5 - 5.3 mmol/L [facility] Protein [Mass/Vol] 7.9 g/dL 6.4 - 8.2 g/dL [facility] Sodium [Moles/Vol] 137 mmol/L 136 - 145 mmol/L [facility] Urea nitrogen [Mass/Vol] 14 mg/dL 6 - 23 mg/dL [facility] Albumin BCP dye [Mass/Vol] 4.5 g/dL Normal 3.4-5.0 [facility] Comment on above: Performed By: #### 2 4323-8 #### IAN SCHMITT ([id number]) [facility] ([facility]) [address] [place] [address] ALP [Catalytic activity/Vol] 60 U/L Normal 33-136 [facility] Comment on above: Performed By: #### 2 4323-8 #### AIN SCHMITT ([id number]) [facility] ([facility]) [address] [place] [address] ALT With P-5'-P [Catalytic activity/Vol] 9 U/L Normal 7-45 [facility] Comment on above: Result Comment: Dorita ents treated with Sulfasalazine may generate falsely decreased results for ALT. Performed By: #### 2 4323-8 #### IAN SCHMITT ([id number]) [facility] ([facility]) [address] [place] [address] Anion gap [Moles/Vol] 16 mmol/L Normal 10-20 [facility] Comment on above: Performed By: #### 2 432-8 #### IAN SCHMITT ([id number]) [facility] ([facility]) [address] [place] [address] AST With P-5'-P [Catalytic activity/Vol] 18 U/L Normal 9-39 [facility] Comment on above: Performed By: #### 2 432-8 #### IAN SCHMITT ([id number]) [facility] ([facility]) [address] [place] [address] Bilirubin [Mass/Vol] 0.3 mg/dL Normal 0.0-1.2 [facility] Comment on above: Performed By: #### 2 4322-8 #### IAN SCHMITT ([id number]) [facility] ([facility]) [address] [place] [address] Calcium [Mass/Vol] 9.2 mg/dL Normal 8.6-10.3 [facility] Comment on above: Performed By: #### 2 4322-8 #### IAN SCHMITT ([id number]) [facility] ([facility]) [address] [place] [address] Chloride [Moles/Vol] 103 mmol/L Normal 98-107 [facility] Comment on above: Performed By: #### 2 4322-8 #### IAN SCHMITT ([id number]) [facility] ([facility]) [address] [place] [address] CO2 [Moles/Vol] 22 mmol/L Normal 21-32 [facility] Comment on above: Performed By: #### 2 4323-8 #### IAN SCHMITT ([id number]) [facility] ([facility]) [address] [place] [address] Creatinine [Mass/Vol] 0.84 mg/dL Normal 0.50-1.05 [facility] Comment on above: Performed By: #### 2 4323-8 #### IAN SCHMITT ([id number]) [facility] ([facility]) [address] [place] [address] Glomerular filtration rate/1.73 sq M.predicted 71 mL/min/1.73m*2 Normal >60 [facility] Comment on above: Result Comment: Calc ulations of estimated GFR are performed using the 2020 CKD-EPI Study Refit equation without the race variable for the IDMS-Traceable creatinine methods. https://jasn.asnjournals.org/content/early/ASN.1556514 988 Performed By: #### 2 4323-8 #### IAN SCHMITT ([id number]) [facility] ([facility]) [address] [place] [address] Glucose [Mass/Vol] 124 mg/dL High 74-99 [facility] Comment on above: Performed By: #### 2 4323-8 #### IAN SCHMITT ([id number]) [facility] ([facility]) [address] [place] [address] Potassium [Moles/Vol] 3.7 mmol/L Normal 3.5-5.3 [facility] Comment on above: Performed By: #### 2 4323-8 #### IAN SCHMITT ([id number]) [facility] ([facility]) [address] [place] [address] Protein [Mass/Vol] 7.9 g/dL Normal 6.4-8.2 [facility] Comment on above: Performed By: #### 2 4323-8 #### IAN SCHMITT ([id number]) [facility] ([facility]) [address] [place] [address] Sodium [Moles/Vol] 137 mmol/L Normal 136-145 [facility] Comment on above: Performed By: #### 2 4323-8 #### IAN SCHMITT ([id number]) [facility] ([facility]) [address] [place] [address]65 Urea nitrogen [Mass/Vol] 14 mg/dL Normal 6-23 [facility] Comment on above: Performed By: #### 2 4323-8 #### IAN SCHMITT ([id number]) [facility] ([facility]) [address] [place] [address], [place] [address] ECG 12-LEADon 04-02-2024 ECG 12-LEAD Ventricular Rate 88 Atrial Rate 88 P-R Interval 140 QRS Duration 94 Q-T Interval 394 QTC Calculation(Bazett) 476 P [place] 60 R [place] 21 T [place] 49 QRS Count 14 Q Onset 222 P Onset 152 P Offset 206 T Offset 419 QTC Fredericia 447 Diagnosis Normal sinus rhythm Minimal voltage criteria for LVH, may be normal variant ( Stanislaw product ) Nonspecific ST abnormality Abnormal ECG When compared with ECG of 02-AUG-2023 01:22, No significant change was found See ED provider note for full interpretation and clinical correlation Confirmed by Afshin Valdez ([id number]) on 04/05/2024 5:27:39 PM Normal [facility] Tropinin I.cardiac panel Hig h sensitivity methodon 04-02-2024 Interpretation and review of laboratory results Normal [facility] Less than 99th percentile of normal range cutoff- Female and children under 18 years old <14 ng/L; Male <21 ng/L: Negative Repeat testing should be performed if clinically indicated. Female and children under 18 years old 14-50 ng/L; Male 21-50 ng/L: Consistent with possible cardiac damage and possible increased clinical risk. Serial measurements may help to assess extent of myocardial damage. >50 ng/L: Consistent with cardiac damage, increased clinical risk and myocardial infarction. Serial measurements may help assess extent of myocardial damage. NOTE: Children less than 1 year old may have higher baseline troponin levels and results should be interpreted in conjunction with the overall clinical context. NOTE: Troponin I testing is performed using a different testing methodology at [facility] than at other [facility]. Direct result comparisons should only be made within the same method. [facility] Troponin I, High Sensitivity on 04-02-2024 Tropinin I.cardiac panel High sensitivity method 4 ng/L 0 - 13 ng/L [facility] Troponin I.cardiac panelon 0 04-02-2024 Tropinin I.cardiac panel High sensitivity method 4 ng/L Normal 0-13 [facility] Comment on above: Order Comment: Less than 99th percentile of normal range cutoff- Female and children under 18 years old <14 ng/L; Male <21 ng/L: Negative Repeat testing should be performed if clinically indicated. Female and children under 18 years old 14-50 ng/L; Male 21-50 ng/L: Consistent with possible cardiac damage and possible increased clinical risk. Serial measurements may help to assess extent of myocardial damage. >50 ng/L: Consistent with cardiac damage, increased clinical risk and myocardial infarction. Serial measurements may help assess extent of myocardial damage. NOTE: Children less than 1 year old may have higher baseline troponin levels and results should be interpreted in conjunction with the overall clinical context. NOTE: Troponin I testing is performed using a different testing methodology at [facility] than at other [facility]. Direct result comparisons should only be made within the same method. Performed By: #### 8 9577-1 #### IAN SCHMITT ([id number]) [facility] ([facility]) [address] [place] [address] Urinalysis complete W Reflex Culture panel (U)on 04-02-2024 Appearance (U) Clear Clear [facility] Bilirubin (U) [Mass/Vol] Negative NEGATIVE [facility] Color (U) Colorless Abnormal Light-Yellow , Yellow, Dark-Yellow [facility] Glucose Auto test strip (U) [Mass/Vol] Normal Normal mg/dL [facility] Interpretation and review of laboratory results Abnormal [facility] Ketones (U) [Mass/Vol] Negative NEGATIVE mg/dL [facility] Leukocyte esterase Auto test strip Ql (U) Negative NEGATIVE [facility] Nitrite Auto test strip Ql (U) Negative NEGATIVE [facility] pH (U) 6.0 [pH] 5.0, 5.5, 6.0, 6.5, 7.0, 7.5, 8.0 [facility] Protein (U) [Mass/Vol] Negative NEGATIVE, 10 (TRACE), 20 (TRACE) mg/dL [facility] RBC (U) [#/Vol] Negative NEGATIVE [facility] Specific gravity (U) [Rel density] 1.005 1.005 - 1.035 [facility] Urobilinogen (U) [Mass/Vol] Normal Normal mg/dL [facility] Appearance (U) Clear Normal Clear [facility] Comment on above: Performed By: #### 5 8077-9 #### IAN SCHMITT ([id number]) [facility] ([facility]) [address] [place] [address]20 Bilirubin (U) [Mass/Vol] Negative Normal NEGATIVE [facility] Comment on above: Performed By: #### 5 8077-9 #### IAN SCHMITT ([id number]) [facility] ([facility]) [address] [place] [address] Color (U) Colorless Normal Light-Yellow , Yellow, Dark-Yellow [facility] Comment on above: Performed By: #### 5 8077-9 #### IAN SCHMITT ([id number]) [facility] ([facility]) [address] [place] [address] Glucose Auto test strip (U) [Mass/Vol] Normal Normal Normal [facility] Comment on above: Performed By: #### 5 8077-9 #### IAN SCHMITT ([id number]) [facility] ([facility]) [address] [place] [address] Ketones (U) [Mass/Vol] Negative Normal NEGATIVE [facility] Comment on above: Performed By: #### 5 8077-9 #### IAN SCHMITT ([id number]) [facility] ([facility]) [address] [place] [address] Leukocyte esterase Auto test strip Ql (U) Negative Normal NEGATIVE [facility] Comment on above: Performed By: #### 5 8077-9 #### IAN SCHMITT ([id number]) [facility] ([facility]) [address] [place] [address] Nitrite Auto test strip Ql (U) Negative Normal NEGATIVE [facility] Comment on above: Performed By: #### 5 8077-9 #### IAN SCHMITT ([id number]) [facility] ([facility]) [address] [place], [place] [id number] pH (U) 6.0 [pH] Normal 5.0, 5.5, 6.0, 6.5, 7.0, 7.5, 8.0 [facility] Comment on above: Performed By: #### 5 8077-9 #### IAN SCHMITT ([id number]) [facility] ([facility]) [address] [place] [address] Protein (U) [Mass/Vol] Negative Normal NEGATIVE, 10 (TRACE), 20 (TRACE) [facility] Comment on above: Performed By: #### 5 8077-9 #### IAN SCHMITT ([id number]) [facility] ([facility]) [address] [place] [address] RBC (U) [#/Vol] Negative Normal NEGATIVE [facility] Comment on above: Performed By: #### 5 8077-9 #### IAN SCHMITT ([id number]) [facility] ([facility]) [address] [place] [address] Specific gravity (U) [Rel density] 1.005 Normal 1.005-1.035 [facility] Comment on above: Performed By: #### 5 8077-9 #### IAN SCHMITT ([id number]) [facility] ([facility]) [address] [place] [address] Urobilinogen (U) [Mass/Vol] Normal Normal Normal [facility] Comment on above: Performed By: #### 5 8077-9 #### IAN SCHMITT ([id number]) [facility] ([facility]) [address] [place] [address] XR CHEST 1 VIEWon 04-02-2024 XR CHEST 1 VIEW Interpreted By: Jay Davis, STUDY: XR CHEST 1 VIEW; 04/02/2024 4:06 pm INDICATION: Signs/Symptoms:palpitati ons. COMPARISON: 11/27/2012 ACCESSION NUMBER(S): [id number] ORDERING CLINICIAN: JANI MCGRATH FINDINGS: The cardiomediastinal silhouette and pulmonary vasculature are within normal limits. There is an opacity at the medial right lung base that does not correspond to the opacity on the CT abdomen pelvis, likely representing right cardiophrenic fat pad. No consolidation, pleural effusion or pneumothorax. IMPRESSION: No acute cardiopulmonary process. Right medial lung base opacity likely represents prominent cardiophrenic fat pad. MACRO: None. Signed by: Jay Davis 04/02/2024 5:33 PM Dictation workstation: [id number] [facility] XR Chest Single viewon 04-02 No acute cardiopulmo nary process. Right medial lung base opacity likely represents prominent cardiophrenic fat pad. MACRO: None. Signed by: Jay aDvis 04/02/2024 5:33 PM Dictation workstation: [id number] MMODAL Interpreted By: Jay Davis, STUDY: XR CHEST 1 VIEW; 04/02/2024 4:06 pm INDICATION: Signs/Symptoms:palpitati ons. COMPARISON: 11/27/2012 ACCESSION NUMBER(S): [id number] ORDERING CLINICIAN: JANI MCGRATH FINDINGS: The cardiomediastinal silhouette and pulmonary vasculature are within normal limits. There is an opacity at the medial right lung base that does not correspond to the opacity on the CT abdomen pelvis, likely representing right cardiophrenic fat pad. No consolidation, pleural effusion or pneumothorax. MMODAL Jay Davis MD - 04/02/2024 Interpreted By: Jay Davis, STUDY: XR CHEST 1 VIEW; 04/02/2024 4:06 pm INDICATION: Signs/Symptoms:palpitati ons. COMPARISON: 11/27/2012 ACCESSION NUMBER(S): [id number] ORDERING CLINICIAN: JANI MCGRATH FINDINGS: The cardiomediastinal silhouette and pulmonary vasculature are within normal limits. There is an opacity at the medial right lung base that does not correspond to the opacity on the CT abdomen pelvis, likely representing right cardiophrenic fat pad. No consolidation, pleural effusion or pneumothorax. IMPRESSION: No acute cardiopulmonary process. Right medial lung base opacity likely represents prominent cardiophrenic fat pad. MACRO: None. Signed by: Jay Davis 04/02/2024 5:33 PM Dictation workstation: [id number] [facility] Work Phone: Radiology Study observation (narrative) [facility] Work Phone: XR Chest Single viewOrdered By: Jay Davis on 04-02-2024 [facility] Work Phone: CBC W Auto Differential pane l (Bld)on 03-31-2024 Basophils (Bld) [#/Vol] 0.02 x10*3/uL Normal 0.00-0.10 [facility] Comment on above: Performed By: #### 5 7021-8 #### IAN SCHMITT ([id number]) [facility] ([facility]) [address] [place] [address] 30349 Basophils/100 WBC (Bld) 0.3 % Normal 0.0-2.0 [facility] Comment on above: Performed By: #### 5 7021-8 #### IAN SCHMITT ([id number]) [facility] ([facility]) [address] [place] [address] 11145 Eosinophils (Bld) [#/Vol] 0.09 x10*3/uL Normal 0.00-0.40 [facility] Comment on above: Performed By: #### 5 7021-8 #### IAN SCHMITT ([id number]) [facility] ([facility]) [address] [place] [address] 88239 Eosinophils/100 WBC (Bld) 1.5 % Normal 0.0-6.0 [facility] Comment on above: Performed By: #### 5 7021-8 #### IAN SCHMITT ([id number]) [facility] ([facility]) [address] [place] [address] 28800 Erythrocyte distribution width (RBC) [Ratio] 13.9 % Normal 11.5-14.5 [facility] Comment on above: Performed By: #### 5 7021-8 #### IAN SCHMITT ([id number]) [facility] ([facility]) [address] [place] [address] 92532 Hematocrit (Bld) [Volume fraction] 40.0 % Normal 36.0-46.0 [facility] Comment on above: Performed By: #### 5 7021-8 #### IAN SCHMITT ([id number]) [facility] ([facility]) [address] [place] [address] 59204 Hemoglobin (Bld) [Mass/Vol] 12.3 g/dL Normal 12.0-16.0 [facility] Comment on above: Performed By: #### 5 7021-8 #### IAN SCHMITT ([id number]) [facility] ([facility]) [address] [place] [address] 29685 Immature granulocytes (Bld) [#/Vol] 0.00 x10*3/uL Normal 0.00-0.50 [facility] Comment on above: Performed By: #### 5 7021-8 #### IAN SCHMITT ([id number]) [facility] ([facility]) [address] [place] [address] 20840 Immature granulocytes/100 WBC (Bld) 0.0 % Normal 0.0-0.9 [facility] Comment on above: Result Comment: Lilliam ture Granulocyte Count (IG) includes promyelocytes, myelocytes and metamyelocytes but does not include bands. Percent differential counts (%) should be interpreted in the context of the absolute cell counts (cells/UL). Performed By: #### 5 7021-8 #### IAN CSHMITT ([id number]) [facility] ([facility]) [address] [place] [address] 59661 Lymphocytes (Bld) [#/Vol] 1.57 x10*3/uL Normal 0.80-3.00 [facility] Comment on above: Performed By: #### 5 7021-8 #### IAN SCHMITT ([id number]) [facility] ([facility]) [address] [place] [address] 42766 Lymphocytes/100 WBC (Bld) 27.0 % Normal 13.0-44.0 [facility] Comment on above: Performed By: #### 5 7021-8 #### IAN SCHMITT ([id number]) [facility] ([facility]) [address] [place] [address] 16690 MCH (RBC) [Entitic mass] 29.4 pg Normal 26.0-34.0 [facility] Comment on above: Performed By: #### 5 7021-8 #### IAN SCHMITT ([id number]) [facility] ([facility]) [address] [place] [address] 99329 MCHC (RBC) [Mass/Vol] 30.8 g/dL Low 32.0-36.0 [facility] Comment on above: Performed By: #### 5 7021-8 #### IAN SCHMITT ([id number]) [facility] ([facility]) [address] [place] [address] 41551 MCV (RBC) [Entitic vol] 96 fL Normal 80-100 [facility] Comment on above: Performed By: #### 5 7021-8 #### IAN SCHMITT ([id number]) [facility] ([facility]) [address] [place] [address] 97470 Monocytes (Bld) [#/Vol] 0.58 x10*3/uL Normal 0.05-0.80 [facility] Comment on above: Performed By: #### 5 7021-8 #### IAN SCHMITT ([id number]) [facility] ([facility]) [address] [place] [address] 62258 Monocytes/100 WBC (Bld) 10.0 % Normal 2.0-10.0 [facility] Comment on above: Performed By: #### 5 7021-8 #### IAN SCHMITT ([id number]) [facility] ([facility]) [address] [place] [address] 83459 Neutrophils (Bld) [#/Vol] 3.56 x10*3/uL Normal 1.60-5.50 [facility] Comment on above: Result Comment: Perc ent differential counts (%) should be interpreted in the context of the absolute cell counts (cells/uL). Performed By: #### 5 7021-8 #### IAN SCHMITT ([id number]) [facility] ([facility]) [address] [place] [address] 93851 Neutrophils/100 WBC (Bld) 61.2 % Normal 40.0-80.0 [facility] Comment on above: Performed By: #### 5 7021-8 #### IAN SCHMITT ([id number]) [facility] ([facility]) [address] [place] [address] 75726 Nucleated RBC/100 WBC (Bld) [Ratio] 0.0 /100 WBCs Normal 0.0-0.0 [facility] Comment on above: Performed By: #### 5 7021-8 #### IAN SCHMITT ([id number]) [facility] ([facility]) [address] [place] [address] 45076 Platelets (Bld) [#/Vol] 276 x10*3/uL Normal 150-450 [facility] Comment on above: Performed By: #### 5 7021-8 #### IAN SCHMITT ([id number]) [facility] ([facility]) [address] [place] [address] 02310 RBC (Bld) [#/Vol] 4.18 x10*6/uL Normal 4.00-5.20 [facility] Comment on above: Performed By: #### 5 7021-8 #### IAN SCHMITT ([id number]) [facility] ([facility]) [address] [place] [address] 01798 WBC (Bld) [#/Vol] 5.8 x10*3/uL Normal 4.4-11.3 [facility] Comment on above: Performed By: #### 5 7021-8 #### IAN SCHMITT ([id number]) [facility] ([facility]) [address] [place] [address] 36290 Comprehensive metabolic 2000 panelon 03-31-2024 Albumin BCP dye [Mass/Vol] 4.1 g/dL Normal 3.4-5.0 [facility] Comment on above: Performed By: #### 2 4323-8 #### IAN SCHMITT ([id number]) [facility] ([facility]) [address] [place] [address] 50296 ALP [Catalytic activity/Vol] 56 U/L Normal 33-136 [facility] Comment on above: Performed By: #### 2 4323-8 #### IAN SCHMITT ([id number]) [facility] ([facility]) [address] [place] [address] 17721 ALT With P-5'-P [Catalytic activity/Vol] 6 U/L Low 7-45 [facility] Comment on above: Result Comment: Dorita ents treated with Sulfasalazine may generate falsely decreased results for ALT. Performed By: #### 2 4323-8 #### IAN SCHMITT ([id number]) [facility] ([facility]) [address] [place] [address] Anion gap [Moles/Vol] 10 mmol/L Normal 10-20 [facility] Comment on above: Performed By: #### 2 4323-8 #### IAN SCHMITT ([id number]) [facility] ([facility]) [address] [place] [address] AST With P-5'-P [Catalytic activity/Vol] 14 U/L Normal 9-39 [facility] Comment on above: Performed By: #### 2 4322-8 #### IAN SCHMITT ([id number]) [facility] ([facility]) [address] [place] [address] 05958 Bilirubin [Mass/Vol] 0.4 mg/dL Normal 0.0-1.2 [facility] Comment on above: Performed By: #### 2 432-8 #### IAN SCHMITT ([id number]) [facility] ([facility]) [address] [place] [address] 88122 Calcium [Mass/Vol] 9.1 mg/dL Normal 8.6-10.3 [facility] Comment on above: Performed By: #### 2 4323-8 #### IAN SCHMITT ([id number]) [facility] ([facility]) [address] [place] [address] 38257 Chloride [Moles/Vol] 102 mmol/L Normal 98-107 [facility] Comment on above: Performed By: #### 2 4323-8 #### IAN SCHMITT ([id number]) [facility] ([facility]) [address] [place] [address] 94914 CO2 [Moles/Vol] 27 mmol/L Normal 21-32 [facility] Comment on above: Performed By: #### 2 4323-8 #### IAN SCHMITT ([id number]) [facility] ([facility]) [address] [place] [address] 24125 Creatinine [Mass/Vol] 0.81 mg/dL Normal 0.50-1.05 [facility] Comment on above: Performed By: #### 2 4323-8 #### IAN SCHMITT ([id number]) [facility] ([facility]) [address] [place] [address] 25869 Glomerular filtration rate/1.73 sq M.predicted 74 mL/min/1.73m*2 Normal >60 [facility] Comment on above: Result Comment: Calc ulations of estimated GFR are performed using the 2020 CKD-EPI Study Refit equation without the race variable for the IDMS-Traceable creatinine methods. https://jasn.asnjournals.org/content/early/ASN.6769167 988 Performed By: #### 2 432-8 #### IAN SCHMITT ([id number]) [facility] ([facility]) [address] [place] [address] 44422 Glucose [Mass/Vol] 79 mg/dL Normal 74-99 [facility] Comment on above: Performed By: #### 2 432-8 #### IAN SCHMITT ([id number]) [facility] ([facility]) [address] [place] [address] 00105 Potassium [Moles/Vol] 4.4 mmol/L Normal 3.5-5.3 [facility] Comment on above: Performed By: #### 2 4322-8 #### IAN SCHMITT ([id number]) [facility] ([facility]) [address] [place] [address] 26543 Protein [Mass/Vol] 6.9 g/dL Normal 6.4-8.2 [facility] Comment on above: Performed By: #### 2 4323-8 #### IAN SCHMITT ([id number]) [facility] ([facility]) [address] [place] [address] 60646 Sodium [Moles/Vol] 135 mmol/L Low 136-145 [facility] Comment on above: Performed By: #### 2 4323-8 #### SOSA OSKAR ([id number]) [facility] ([facility]) [address] [place] [address] Urea nitrogen [Mass/Vol] 14 mg/dL Normal - [facility] Comment on above: Performed By: #### 2 4323-8 #### SOSA OSKAR ([id number]) [facility] ([facility]) [facility] [place] [address] US RENAL COMPLETEon 03-31-20 US RENAL COMPLETE Interpreted By: Flo Whatley, STUDY: US RENAL COMPLETE; 03/31/2024 1:24 pm INDICATION: Signs/Symptoms:R flank pain. ,N15.9 Renal tubulo-interstitial disease, unspecified COMPARISON: CT abdomen/pelvis of 08/23/2019. ACCESSION NUMBER(S): [id number] ORDERING CLINICIAN: SANGITA KLINE TECHNIQUE: Real-time sonographic evaluation of the kidneys and urinary bladder was performed. FINDINGS: RIGHT KIDNEY: Right kidney measures 11.3 cm. No shadowing calculus or right hydronephrosis is visualized. No discrete renal lesion is visualized. LEFT KIDNEY: Left kidney measures 13.3 cm. Left central renal small hyperechoic nonobstructing calculi are demonstrated. No left hydronephrosis. No discrete renal lesion is visualized. BLADDER: Urinary bladder appears normal in configuration. No intraluminal mass, wall thickening or shadowing calculus is visualized. IMPRESSION: Left central renal small nonobstructing calculi. No hydronephrosis bilaterally. No focal urinary bladder abnormality identified. MACRO: None. Signed by: Flo Whatley 04/01/2024 6:05 PM Dictation workstation: [id number] [facility] Office Visit (Cardiology)on 11-20-2022 Follow-up visit Diagnoses/Problems Assessed PVC (premature ventricular contraction) (427.69) (I49.3) Palpitations (785.1) (R00.2) PSVT (paroxysmal supraventricular tachycardia) (427.0) (I47.1) Orders PVC (premature ventricular contraction) IO EKG Electrocardiogram- 12 Lead; Status:Complete; Done: 20Nov2022 Chief Complaint TROY RAMOS is being seen for a 2 month follow-up of palpitations. History of Present Illness 77-year-old F with h/o PSVT, Osteoarthritis being referred by their PCP for further evaluation management of Palpitations patient presenting today for follow-up. Patient reports has been doing well denies any chest pain, palpitation, dizziness or loss of consciousness. She has been taking her metoprolol once a day and has not needed to take an additional as needed dose. PMHx/PSHx: As above Tobacco never, alcohol - Social, caffeine use 1 cup coffee/day, 1 can of Coke/day, drug use - denies A 12 point ROS was done, and negative unless otherwise stated in the HPI. 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) Body mass index (BMI) of 25.0 to 25.9 in adult (V85.21) (Z68.25) Breast pain, left (611.71) (N64.4) COVID (079.89) (U07.1) Encounter for immunization (V03.89) (Z23) Encounter for screening mammogram for malignant neoplasm of breast (V76.12) (Z12.31) GERD (gastroesophageal reflux disease) (530.81) (K21.9) Mass of left axilla (782.2) (R22.32) Medicare annual wellness visit, subsequent (V70.0) (Z00.00) Osteoarthritis (715.90) (M19.90) Overweight (BMI 25.0-29.9) (278.02) (E66.3) Overweight with body mass index (BMI) of 26 to 26.9 in adult (278.02,V85.22) (E66.3,Z68.26) Pain with urination (788.1) (R30.9) Palpitations (785.1) (R00.2) PVC (premature ventricular contraction) (427.69) (I49.3) Right flank pain (789.09) (R10.9) Surgical History Problems History of Cataract surgery b/l 2020 History of Cholecystectomy Laparoscopic cholecystectomy on 09/21/[address] Navarro, pathology showed chronic cholecystitis and cholelithiasis History of Colonoscopy 01/[address] Watson History of Cystocele repair History of Finger joint replacement History of Hysterectomy History of Rectocele repair Past Medical History Problems History of gastrointestinal hemorrhage (V12.79) (Z87.19) Osteoarthritis (715.90) (M19.90) Current Meds Medication NameInstruction Cetirizine HCl - 10 MG Oral TabletTAKE 1 TABLET DAILY NEEDED. Citracal TABSTAKE 2 TABLET Daily Colesevelam HCl - 625 MG Oral TabletTAKE 1 TABLET BID Echinacea TABSTAKE DIRECTED. Estradiol 1 MG Oral TabletTAKE 1 TABLET DAILY DIRECTED. Metamucil POWDTAKE 1 TSP Twice daily Metoprolol Tartrate 25 MG Oral TabletTake 1 tablet daily Tylenol Arthritis Ext Relief 650 MG TBCRtake 2 tabs daily Vitamin C 500 MG Oral CapsuleTake 1-2 tabs daily Vitamin D2 [id number] IU daily Allergies Medication Augmentin Recorded By: Ene Watson; 08/15/2019 3:02:01 PM Additional reactions - itching, rash Cipro Recorded By: Ene Watson; 08/15/2019 3:02:01 PM Additional reactions - itching, rash gatifloxacin Recorded By: Ann Marie Carter; 09/18/2022 11:06:12 AM levofloxacin Recorded By: Ann Marie Carter; 09/18/2022 11:06:12 AM Quinolones Recorded By: Ann Marie Carter; 09/18/2022 11:06:12 AM NonMedication Shellfish Recorded By: Ene Watson; 08/15/2019 3:02:01 PM Additional reactions - itching, hives Family History Mother Family history of Aneurysm Father Family history of coronary artery disease (V17.3) (Z82.49) Brother Family history of DM II (diabetes mellitus, type II), controlled Social History Problems Never a smoker No advance directives (V49.89) (Z78.9) No caffeine use No illicit drug use Rarely consumes alcohol (V49.89) (Z78.9) Vitals Vital Signs Recorded: 20Nov2022 03:31PM Heart Rate79 [id number] Ysjhkzsxc03 Height5 ft 7 in Hlgyjk153 lb 2 oz BMI Ugdrttmmgk43.71 kg/m2 BSA Calculated1.86 Tobacco Useb) No Falls Screening (Age 18+)a) No falls within the last year O2 [id number] Physical Exam Constitutional: Well developed, awake/alert/oriented x3, no distress Eyes: PERRL, EOMI, clear sclera ENMT: mucous membranes moist, no apparent injury Head/Neck: Neck supple, No JVD, trachea midline, no bruits Respiratory: Patent airways, CTAB, normal breath sounds with good chest expansion, thorax symmetric Cardiovascular: Regular, rate and rhythm, no murmurs, normal S 1and S 2 Gastrointestinal: Nondistended, soft, non-tender, no rebound tenderness , +BS Extremities: normal extremities, no cyanosis edema, contusions or wounds, no clubbing Neurological: alert and oriented x3, gross strength equal and normal b (more content not included)... Normal [facility] Echocardiogramon 11-13-2022 [place] [address] [phone], TRANSTHORACIC ECHOCARDIOGRAM REPORT Patient Name: TROY Arita RACHEL Reading Physician: [id number] Mat Weaver MD Study Date: 11/13/2022 Referring BABAR BILL MD Physician: MRN/PID: [id number] PCP: Accession/Order#: [id number] Department [facility] Echo Lab Location: Date of : 1945 Fellow: Gender: F Nurse: Coreen Mark Admit Date: Gold Miner: Silver Orta [facility] Admission Status: Outpatient Additional Staff: Height: 170.18 cm CC Report to: Weight: 73.48 kg Study Type: Echocardiogram BSA: 1.85 m2 Blood Pressure: 179 /79 mmHg Diagnosis/ICD: I47.1-Supraventricular tachycardia Indication: Procedure/CPT: Echo Complete w Full [id number] Study Detail: The following Echo studies were performed: 2D, M-Mode, Doppler and color flow. Agitated saline used as a contrast agent for intraseptal flow evaluation. PHYSICIAN INTERPRETATION: Left Ventricle: Left ventricular systolic function is normal, with an estimated ejection fraction of 60%. There are no regional wall motion abnormalities. The left ventricular cavity size is normal. Spectral Doppler shows an impaired relaxation pattern of left ventricular diastolic filling. Left Atrium: The left atrium is normal in size. A bubble study using agitated saline was performed. Bubble study is negative. Right Ventricle: The right ventricle is normal in size. There is normal right ventricular global systolic function. Right Atrium: The right atrium is normal in size. Aortic Valve: The aortic valve is trileaflet. There is no evidence of aortic valve regurgitation. The peak instantaneous gradient of the aortic valve is 7.7 mmHg. The mean gradient of the aortic valve is 4.0 mmHg. Mitral Valve: The mitral valve is normal in structure. There is trace mitral valve regurgitation. Tricuspid Valve: The tricuspid valve is structurally normal. There is trace tricuspid regurgitation. Pulmonic Valve: The pulmonic valve is not well visualized. There is trace pulmonic valve regurgitation. Pericardium: There is no pericardial effusion noted. There is a pericardial fat pad present. Aorta: The aortic root is normal. Systemic Veins: The inferior vena cava appears to be of normal size. There is IVC inspiratory collapse greater than 50%. CONCLUSIONS: 1. Left ventricular systolic function is normal with a 60% estimated ejection fraction. 2. Spectral Doppler shows an impaired relaxation pattern of left ventricular diastolic filling. QUANTITATIVE DATA SUMMARY: 2D MEASUREMENTS: Normal Ranges: Ao Root d: 3.10 cm (2.0-3.7cm) LAs: 3.80 cm (2.7-4.0cm) IVSd: 1.00 cm (0.6-1.1cm) LVPWd: 0.92 cm (0.6-1.1cm) LVIDd: 4.57 cm (3.9-5.9cm) LVIDs: 2.82 cm LV Mass Index: 80.2 g/m2 LV % FS 38.3 % LA VOLUME: Normal Ranges: LA Vol A4C: 49.3 ml (22+/-6mL/m2) LA Vol A2C: 36.2 ml LA Vol BP: 43.2 ml LA Vol Index A4C: 26.7ml/m2 LA Vol Index A2C: 19.6 ml/m2 LA Vol Index BP: 23.3 ml/m2 LA Area A4C: 17.2 cm2 LA Area A2C: 14.4 cm2 LA Major [place] A4C: 5.1 cm LA [place] A2C: 4.9 cm LA Volume Index: 25.4 ml/m2 LA Vol A4C: 46.9 ml LA Vol A2C: 36.3 ml LV SYSTOLIC FUNCTION BY 2D PLANIMETRY (MOD): Normal Ranges: EF-A4C View: 60.9 % (>=55%) EF-A2C View: 56.5 % EF-Biplane: 58.2 % LV DIASTOLIC FUNCTION: Normal Ranges: MV Peak E: 0.82 m/s (0.7-1.2 m/s) MV Peak A: 1.09 m/s (0.42-0.7 m/s) E/A Ratio: 0.75 (1.0-2.2) MV lateral e' 0.07 m/s MV medial e' 0.08 m/s MITRAL VALVE: Normal Ranges: MV DT: 151 msec (150-240msec) AORTIC VALVE: Normal Ranges: AoV Vmax: 1.39 m/s (<=1.7m/s) AoV Peak P.7 mmHg (<20mmHg) AoV Mean P.0 mmHg (1.7-11.5mmHg) LVOT Max Damir: 0.96 m/s (<=1.1m/s) AoV VTI: 31.40 cm (18-25cm) LVOT VTI: 21.20 cm LVOT Diameter: 1.90 cm (1.8-2.4cm) AoV Area, VTI: 1.91 cm2 (2.5-5.5cm2) AoV Area,Vmax: 1.96 cm2 (2.5-4.5cm2) AoV Dimensionless Index: 0.68 RIGHT VENTRICLE: RV 1 3.49 cm RV 2 2.68 cm RV 3 7.13 cm TAPSE: 22.6 mm RV s' 0.14 m/s TRICUSPID VALVE/RVSP: Normal Ranges: Peak TR Velocity: 2.86 m/s RV Syst Pressure: 35.7 mmHg (< 30mmHg) PULMONIC VALVE: Normal Ranges: PV Accel Time: 162 msec (>120ms) PV Max Damir: 0.7 m/s (0.6-0.9m/s) PV Max P.0 mmHg [id number] Mat Weaver MD Electronically signed on 11/13/2022 at 1:11:38 PM Final [facility] Narrative Note - Outpatient- CPS for bubbleson 11-13-2022 Narrative Note - Outpatient-CPS for bubbles Narrative Note: Discipline/ClinicCPS for bubbles Description Called to CPS to administer bubbles. Started a 22g IV in the L AC. IV flushed easily. Administered bubble test times 1 as tissue recovery technician instructed. Once test completed IV flushed with NS then dc'ed with angiocath intact and dressing to site. Patient tolerated without complaint. Electronic Signatures: Coreen Mark (RN) (Signed 13-Nov-2022 11:48) Authored: Narrative Note - OP Last Updated: 13-Nov-2022 11:48 by Coreen Mark (RN) [facility] Office Visit (Cardiology)on 09-18-2022 Follow-up visit Diagnoses/Problems Assessed Paroxysmal SVT (supraventricular tachycardia) (427.0) (I47.1) Palpitations (785.1) (R00.2) Orders Palpitations, Paroxysmal SVT (supraventricular tachycardia) Echocardiogram; Status:Hold For - Scheduling; Requested for:[id number]; Paroxysmal SVT (supraventricular tachycardia) Start: Metoprolol Tartrate 25 MG Oral Tablet; Take 1 tablet daily IO EKG Electrocardiogram- 12 Lead; Status:Complete; Done: [id number] 11:07AM Chief Complaint TROY RAMOS is being seen for a consultation for palpitations. History of Present Illness 77-year-old F with h/o PSVT, Osteoarthritis being referred by their PCP for further evaluation management of Palpitations Palpitations HPI: Sx started Jul 2022. 1st episode lasting 1-2 hours. Caffeine makes it worse but lack of it nor resolving it. Pt reports that she has been having episodes daily. Episodes not associated with activity (dog walking 1 mile at time without any events). Denies CP, reports palpitations. She denies dizziness or LOC with the episodes. Reports increased frequency but not intense. PMHx/PSHx: As above Tobacco never, alcohol - Social, caffeine use 1 cup coffee/day, 1 can of Coke/day, drug use - denies A 12 point ROS was done, and negative unless otherwise stated in the HPI. 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) Body mass index (BMI) of 25.0 to 25.9 in adult (V85.21) (Z68.25) Breast pain, left (611.71) (N64.4) COVID (079.89) (U07.1) Encounter for immunization (V03.89) (Z23) Encounter for screening mammogram for malignant neoplasm of breast (V76.12) (Z12.31) GERD (gastroesophageal reflux disease) (530.81) (K21.9) Mass of left axilla (782.2) (R22.32) Medicare annual wellness visit, subsequent (V70.0) (Z00.00) Osteoarthritis (715.90) (M19.90) Overweight (BMI 25.0-29.9) (278.02) (E66.3) Overweight with body mass index (BMI) of 26 to 26.9 in adult (278.02,V85.22) (E66.3,Z68.26) Pain with urination (788.1) (R30.9) Palpitations (785.1) (R00.2) Paroxysmal SVT (supraventricular tachycardia) (427.0) (I47.1) PVC (premature ventricular contraction) (427.69) (I49.3) Right flank pain (789.09) (R10.9) Surgical History Problems History of Cataract surgery b/l 2020 History of Cholecystectomy Laparoscopic cholecystectomy on 09/21/[address] Navarro, pathology showed chronic cholecystitis and cholelithiasis History of Colonoscopy 01/[address] Watson History of Cystocele repair History of Finger joint replacement History of Hysterectomy History of Rectocele repair Past Medical History Problems History of gastrointestinal hemorrhage (V12.79) (Z87.19) Osteoarthritis (715.90) (M19.90) Current Meds Medication NameInstruction Cetirizine HCl - 10 MG Oral TabletTAKE 1 TABLET DAILY NEEDED. Citracal TABSTAKE 2 TABLET Daily Colesevelam HCl - 625 MG Oral TabletTAKE 1 TABLET BID Echinacea TABSTAKE DIRECTED. Estradiol 1 MG Oral TabletTAKE 1 TABLET DAILY DIRECTED. Metoprolol Succinate ER 25 MG Oral Tablet Extended Release 24 Hourtake 1 tablet by mouth once daily Tylenol Arthritis Ext Relief 650 MG TBCRtake 2 tabs daily Vitamin C 500 MG Oral CapsuleTake 1-2 tabs daily Vitamin D2 [id number] IU daily Allergies Medication Augmentin Recorded By: Ene Watson; 08/15/2019 3:02:01 PM Additional reactions - itching, rash Cipro Recorded By: Ene Watson; 08/15/2019 3:02:01 PM Additional reactions - itching, rash gatifloxacin Recorded By: Ann Marie Carter; 09/18/2022 11:06:12 AM levofloxacin Recorded By: Ann Marie Carter; 09/18/2022 11:06:12 AM Quinolones Recorded By: Ann Marie Carter; 09/18/2022 11:06:12 AM NonMedication Shellfish Recorded By: Ene Watson; 08/15/2019 3:02:01 PM Additional reactions - itching, hives Family History Mother Family history of Aneurysm Father Family history of coronary artery disease (V17.3) (Z82.49) Brother Family history of DM II (diabetes mellitus, type II), controlled Social History Problems Never a smoker No advance directives (V49.89) (Z78.9) No caffeine use No illicit drug use Rarely consumes alcohol (V49.89) (Z78.9) Vitals Vital Signs Recorded: [id number] 11:13AM Heart Rate83 Ethwnzps348, RUE, Sitting Akbhtgxxu44, RUE, Sitting Height5 ft 7 in Qrdfps179 lb 4.8 oz BMI Bzmluoxrpm82.2 kg/m2 BSA Calculated1.87 Tobacco Useb) No Falls Screening (Age 18+)a) No falls within the last year O2 Vzrpyqgvcx37 Physical Exam Constitutional: Well developed, awake/alert/oriented x3, no distress Eyes: PERRL, EOMI, clear sclera ENMT: mucous membranes moist, no apparent injury Head/Neck: Neck supple, No JVD, trachea midline, no bruits Respiratory: Patent airways, CTAB, normal breath sounds with good chest expansion, thorax symmetric Cardiovascular: Regular, rate and rhythm, no murmurs, normal S 1and S 2 G (more content not included)... Normal Splother Tobacco Screening.on 023 Fall risk assessment a) No falls within the last year -Cardiology- [place] [address] Work Phone: Tobacco use status [facility] b) No -Cardiology- [place] [address] Work Phone: Blood Pressure Cuff Sizeon 1 08-30-2021 Fall risk assessment a) No falls within the last year [facility] Work Phone: Tobacco use status [facility] b) No [facility] Work Phone: Blood Pressure Cuff Size Adult [facility] [facility] Work Phone: Laboratory - Chemistry and C hemistry - challengeon 06-30-2022 TSH Qn 0.95 m[IU]/L See Below [facility] Work Phone: Comment on above: Reference Range: 0.4 4 - 3.98 TSH testing is performed using different testing methodology at [facility] than at other [facility]. Direct result comparisons should only be made within the same method. Medicare Annual Wellness Vis iton 06-30-2022 Medicare Annual Wellness Visit *Chief Complaint 77 y/o female presents for Medicare wellness and a lump in her LT armpit Had CT scan done through [facility] back in December Lump has been enlarging since this visit Pt has recently been getting heart palpitations History of Present Illness The patient is being seen for the subsequent annual wellness visit. Past Medical, Surgical and Family History: reviewed and updated in chart. Interval History: Patient has not been hospitalized previously. Medications and Supplements: Review of all medications by a prescribing practitioner or clinical pharmacist (such as prescriptions, OTCs, herbal therapies and supplements) documented in the medical record. No, the patient is not using opioids. Health Risk Assessment: During the past 4 weeks: How much have you been bothered by feeling anxious, depressed, irritable or sad, downhearted or blue? Not at all. Has your physical and emotional health limited your social activities with family, friends, neighbors or groups? Not at all. In general bodily pain: No pain. Was someone available to help you if you needed or wanted help: Yes, as much as I wanted. The hardest physical activity you could do for at least 2 minutes: Light. Yes, can get to places out of walking distance without help. Yes, can shop for groceries or clothes without help. Yes, does prepare meals. Yes, does housework without help. Yes, handles money without help. Does not need help eating, bathing, dressing, or getting around home. Rates health in general: Good. How have things been going for you? Pretty good. Having difficulties driving a car: No. Always fastens seatbelt when in a car: Yes, usually. Has fallen or gotten dizzy when standing up: Never Sexual problems: Never Has trouble eating: Never Has problems with teeth or dentures: Never Has problems using the telephone: Never Tired or fatigued: Never No, has not fallen 2 or more times in the past year. No, not afraid of falling. Number of drinks of wine, beer or other alcoholic beverages: No alcohol at all. Exercise for about 20 minutes 3 or more days a week: No, I usually do not exercise this much. Have you been given any information to help you with the following: Yes, has given information regarding hazards in the home that might hurt you. Yes, has been given information regarding keeping track of medications. Do you have trouble taking medicines the way told to take them: I always take them as prescribed. Confidence in control and management of most health problems: Somewhat cofident. Patient Self Assessment of Health Status: good. Tobacco use: Non-User Alcohol use: Non-User Illicit drug use: Non-User Current diet: well balanced diet, does consume adequate fluids and does consume caffeine. Exercise Frequency: the patient does not exercise. Depression/Suicide Screening: . During the past 2 weeks, the patient has not felt down, depressed or hopeless. During the past 2 weeks, the patient has not felt little interest or pleasure in doing things. Hearing Impairment: none. Cognitive Impairment: No cognitive impairment observed. Bathing: performs independently. Dressing: performs independently. Walking: performs independently. Toileting: performs independently. Feeding: performs independently. Personal Hygiene: performs independently. Bowels: continent. Bladder: continent. Managing Finances: performs independently. Shopping: performs independently. Managing Medications: performs independently. Housework / Basic Home Maintenance: performs independently. Handling Transportation: performs independently. Preparing Meals: performs independently. Using the Telephone/ Communication Devices: performs independently. Falls Risk Screening:. TROY has not fallen in the last 6 months. Home safety risk factors: none. Advance directives:. Advance Care Planning discussed and documented in the medical record, patient did not wish or was not able to name a surrogate decision maker or provide an advance care plan. Patient has no living will. Patient has no healthcare POA. Patient's End of Life Decisions: I agree to follow the patient's decisions. Patient is ere today for left sided axillary lump. She has had a lump in her axilla that she has noticed since around December she thinks it has gotten larger. Review of Ct scan does not show any lymph nodes r other abnormalities. Patient has been also having some breast tenderness as well, her last mammogram was 09/18/2021 that was done at [facility] [place] and it was normal. She has also noticed some heart palpitations. She reports on Thanksgiving her heart was racing and she felt like it was skipping, she was just siting in her recliner. She has not changed her caffeine intake. Reports that this happened every day except this morning. She has not gotten any covid shots. *Active Problems Acute UTI (599.0) (N39.0) Back pain (724.5) (M54.9) Bile salt-induced di (more content not included)... [facility]ASTon 12-18 CT CHEST WO CONTRAST Patient Name: TROY RAMOS STUDY: CT CHEST WO CONTRAST; 12/18/2021 5:29 pm INDICATION: (L) axillary lump R22.32: Mass of left axilla. COMPARISON: None. ACCESSION NUMBER(S): [id number] ORDERING CLINICIAN: BEN SANTORO TECHNIQUE: Helical data acquisition of the chest was obtained Please note that, IV contrast was not administered for this exam due to nation-wide shortage of iodinated contrast media and in accordance with guidance provided by [employer] (ACR). (https://www.acr.org/Adv vlrbc-ume-Ulpdshiqy/ACR- Position-Statements/Co btidei-Xgsxz-Dxgtfkge). ACR.CS.1. Images were reformatted in axial, coronal, and sagittal planes. FINDINGS: LUNGS and AIRWAYS: There are several perifissural nodes, and mild left basilar compressive atelectasis. The lungs otherwise are clear. MEDIASTINUM and LAURA, LOWER NECK AND AXILLA: The visualized thyroid gland is within normal limits. No evidence of thoracic lymphadenopathy by CT criteria. HEART and VESSELS: The thoracic aorta is of normal course and caliber without significant atherosclerotic calcification . Main pulmonary artery and its branches are normal in caliber. No coronary artery calcifications are seen. The study is not optimized for evaluation of coronary arteries. The cardiac chambers are not enlarged. UPPER ABDOMEN: Mild cortical atrophy of the included upper renal poles. There are several nonobstructing intrarenal calculi. Small hiatal hernia. CHEST WALL, OSSEOUS STRUCTURES AND OTHER FINDINGS: There are no suspicious osseous lesions. A BB marker was placed at the site of symptomatology of fullness at the left axilla, and a marker was anterior overlying the level of the shoulder joint. The subcutaneous layer at this level. Slightly thicker than on the right by approximately 3 mm, which may account for the mass. Otherwise no subcutaneous edema, cyst or mass, or underlying significant adenopathy. There is no aneurysm of the axillary artery. The axillary vein also appears unremarkable. The pectoralis musculature is unremarkable. IMPRESSION: 1. No abnormality at the left axilla as described. Additional findings as above. Electronically signed by: GREGORIO CHEN MD Normal [facility] CT Chest without Contraston 12-18-2021 CT Chest WO contrast Normal [facility] Work Phone: Laboratory - Hematology and Cell countson 12-16-2021 Erythrocyte distribution width (RBC) [Ratio] 13.7 % See Below [facility] Work Phone: Comment on above: Reference Range: 11. 5 - 14.5 Hematocrit (Bld) [Volume fraction] 39.6 % See Below [facility] Work Phone: Comment on above: Reference Range: 36. 0 - 46.0 Hemoglobin (Bld) [Mass/Vol] 13.0 g/dL See Below [facility] Work Phone: Comment on above: Reference Range: 12. 0 - 16.0 MCHC (RBC) [Mass/Vol] 32.8 g/dL See Below [facility] Work Phone: Comment on above: Reference Range: 32. 0 - 36.0 MCV (RBC) [Entitic vol] 91 fL 80 - 100 [facility] Work Phone: Platelets (Bld) [#/Vol] 266 10*3/uL 150 - 450 [facility] Work Phone: RBC (Bld) [#/Vol] 4.36 {x10E12/L} See Below [facility] Work Phone: Comment on above: Reference Range: 4.0 0 - 5.20 WBC (Bld) [#/Vol] 7.7 10*3/uL 4.4 - 11.3 [facility] Work Phone: Office Visit (Internal Medic ine)on 12-16-2021 Follow-up visit Diagnoses/Problems Assessed Mass of left axilla (782.2) (R22.32) Orders Mass of left axilla Complete Blood Count; Status:Active; Requested for:16Dec2021; Perform:Lab Services - Lab To Draw (Blood Test); Due:[id number];Ordered; For:Mass of left axilla; Ordered By:Ben Santoro; CT Chest without Contrast; Status:Hold For - Scheduling; Requested for:16Dec2021; Perform:[facility] Radiology Services Imaging; Due:26Dec2021;Ordered; For:Mass of left axilla; Ordered By:Ben Santoro; Patient taking Metformin or Derivatives? : No Radiologist to Determine Optimal Study : Y What are the patient's signs and symptoms? : (L) axillary lump Patient Discussion/Summary Exam did reveal left axillary lump. Etiology unclear. CBC and CT chest ordered. Other recommendations pending results. Chief Complaint Patient here today to be sen for tissue swelling of the left armpit and breast area x 5 days. Patient denies any discomfort or breast discharge, no known injury. History of Present IllnessPatient presents for evaluation of left axillary lump. Patient states its been there for some time without overlying skin changes erythema, tenderness, or drainage. Patient did have recent mammogram which was unremarkable. Review of Systems Skin: as noted in HPI. Hematologic/Lymphatic: as noted in HPI. 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 Navarro, pathology showed chronic cholecystitis and cholelithiasis History of Colonoscopy 01/[address] Watson History of Hysterectomy Family History Mother Family history of Aneurysm Father Family history of coronary artery disease (V17.3) (Z82.49) Son Family history of hypertension (V17.49) (Z82.49) Brother Family history of DM II (diabetes mellitus, type II), controlled Social History Problems Never a smoker Allergies Medication Augmentin Recorded By: Ene Watson; 08/15/2019 3:02:01 PM Additional reactions - itching, rash Cipro Recorded By: Ene Watson; 08/15/2019 3:02:01 PM Additional reactions - itching, rash NonMedication Shellfish Recorded By: Ene Watson; 08/15/2019 3:02:01 PM Additional reactions - itching, hives Current Meds Medication NameInstruction Cetirizine HCl - 10 MG Oral Tablet Citracal TABS Colesevelam HCl - 625 MG Oral TabletTAKE 1 TABLET BID Echinacea TABS Estradiol 1 MG Oral Tablet Omeprazole 20 MG Oral Capsule Delayed ReleaseTAKE 1 CAPSULE Daily Tylenol Extra Strength 500 MG Oral Tablet Vitamin C 500 MG Oral Capsule Vitamin D2 TABS Vitals Vital Signs Recorded: 27Fun5022 02:45PM Bouswtlasdb10.7 F Heart Rate92 Xsqxehww218 Rsqhrjkrs88 Height5 ft 6 in Rqtbap964 lb 12.8 oz BMI Niongbxavq57.12 kg/m2 BSA Calculated1.83 Tobacco Useb) No PHQ-2 #1. Over the last 2 weeks have you felt down, depressed or hopeless? (If yes, answer PHQ-9 below)No Fall Screeninga) No falls within the last year O2 Xbbaxttjir65.7, RA Physical Exam Constitutional General appearance: Alert and in no acute distress. Eyes Inspection of eyes: Sclera and conjunctiva were normal. Ears, Nose, Mouth, and Throat Ears: Auricles: Normal. Pulmonary Respiratory assessment: No respiratory distress, normal respiratory rhythm and effort. Left axilla with approximate 4 cm x 2 cm subcutaneous lump. Left breast without palpable mass. Right axilla with 3 cm x 1 cm similar subcutaneous lump. Exam was performed with female MA drier take off tender in the room. Signatures Electronically signed by : Ben Santoro PA-C; Dec 16 2021 3:13PM EST (Author) Normal Splother Tobacco Screening.on Adult depression screening assessment No [facility] Work Phone: Fall risk assessment a) No falls within the last year [facility] Work Phone: Tobacco use status [facility] b) No [facility] Work Phone: Blood Pressure Cuff Sizeon 0 04-01-2021 Fall risk assessment a) No falls within the last year [facility] Work Phone: Tobacco use status [facility] b) No [facility] Work Phone: Blood Pressure Cuff Size Adult [facility] Work Phone: Radiologyon 03-15-2021 XR Thoracic spine AP and Lateral Normal [facility] Work Phone: XR Thoracic spine AP and Lateral Please click on the link to view the study images Normal [facility] Work Phone: Cult, Urineon 03-13-2021 Bacteria identified Cx Nom (U) [facility] Work Phone: Urinalysison 03-13-2021 Color (U) Yellow See Below [facility] Work Phone: Comment on above: Reference Range: STR AW,YELLOW Glucose Ql (U) Negative NEGATIVE [facility] Work Phone: Ketones Ql (U) Negative NEGATIVE [facility] Work Phone: Leukocyte esterase Test strip Ql (U) Negative NEGATIVE [facility] Work Phone: pH (U) 5.0 [pH] 5.0 - 8.0 [facility] Work Phone: Protein (U) [Mass/Vol] Negative NEGATIVE [facility] Work Phone: RBC (U) [#/Vol] Negative NEGATIVE [facility] Work Phone: Specific gravity (U) [Rel density] 1.012 1 See Below [facility] Work Phone: Comment on above: Reference Range: 1.0 05 - 1.035 Urinalysis Negative NEGATIVE [facility] Work Phone: Urinalysis <2.0 0.0 - 1.9 [facility] Work Phone: Urinalysis CLEAR CLEAR [facility] Work Phone: Blood Pressure Cuff Sizeon 0 03-12-2021 Fall risk assessment a) No falls within the last year [facility] Work Phone: Tobacco use status [facility] b) No [facility] Work Phone: Blood Pressure Cuff Size Adult [facility] Work Phone: Otheron 09-21-2019 Name AUGIE RAMOS Pathologist: SHAUNA YOUSSEFate of Procedure: 09/21/2019Date Received: 09/21/2019Date Reported 09/23/2019Submitting Physician: ALBERTA NAVARRO MDLocation: [facility] Copy To/Referring/Attending:Constantine BROWN DO Other External # FINAL DIAGNOSISA. GALLBLADDER, CHOLECYSTECTOMY:-- CHRONIC CHOLECYSTITIS WITH CHOLELITHIASIS. Electronically Signed Out By DANIELLA CANDELARIO MD/Elio the signature on this report, the individual or group listed as making theFinal Interpretation/Diagnosis certifies that they have reviewed this case. Clinical History:Physician Contact Number: [phone] (A): FormalinClinical Diagnosis History K80.20 Calculus of gallbladder w/o mention ofcholecystitis or obstructionSpecimens Submitted As:A: GALLBLADDER Gross Description:Received in formalin, labeled with the patient's name and hospital number andgallbladder, is an intact gallbladder, measuring 7.4 x 3.8 x 2.2 cm. Theserosal surface is smooth, glistening, and unremarkable. The wall measures upto 0.2 cm in greatest thickness. The lumen contains bile. Yellow, multifacetedcalculi are present, with a granular cut surface, and range from 0.9-1.8 cm ingreatest diameter. A calculus is not impacted in the cystic duct. Themucosal surface is unremarkable. Train Clerk sections consisting of thecystic duct margin, and gallbladder wall are submitted in one cassette.CJNcjn/ 0 [facility] Work Phone: Hepatic Function Panelon Albumin BCP dye [Mass/Vol] 4.0 g/dL 3.4 - 5.0 [facility] Work Phone: ALP [Catalytic activity/Vol] 54 U/L 33 - 136 -[place] [facility] Work Phone: ALT With P-5'-P [Catalytic activity/Vol] 8 U/L 7 - 45 [facility] Work Phone: Comment on above: Patients treated wit h Sulfasalazine may generate falsely decreased results for ALT. AST With P-5'-P [Catalytic activity/Vol] 15 U/L 9 - 39 [facility] Work Phone: Bilirubin [Mass/Vol] 0.4 mg/dL 0.0 - 1.2 [facility] Work Phone: Bilirubin.direct [Mass/Vol] 0.1 mg/dL 0.0 - 0.3 [facility] Work Phone: Protein [Mass/Vol] 7.2 g/dL 6.4 - 8.2 [facility] Work Phone: Otheron [phone] [facility] Work Phone: [email or web address] [facility] Work Phone: [phone] [facility] Work Phone: [phone] [facility] [facility] Work Phone: [phone] [facility] Work Phone: [phone] [facility] Work Phone: Normal sinus rhythm -[facility] Work Phone: 62 1 [facility] Work Phone: [phone] 1 -[facility] Work Phone: [phone] 1 -[facility] Work Phone: 13 1 -[facility] Work Phone: [phone] -[facility] Work Phone: [phone] -[facility] Work Phone: [phone] -[facility] Work Phone: [phone] [facility] Work Phone: [phone] -[facility] Work Phone: Lab Miscellaneouson 01-21-20 19 Status See Ref Lab Report Normal [facility] Comment on above: Performed By: #### 2 [id number] #### ESTEFANY [employer] [address] [place] [address] Antinuclear Antibody Screeno n 01-19-2019 WILLY Direct Negative Normal Negative [facility] Comment on above: Result Comment: Perf ormed At: [address] [id number] Richie Bergman PhD Ph:[phone] Performed By: #### 2 [id number] #### ESTEFANY [employer] [facility] [place] [address] RF Quanton 01-19-2019 RA Latex Turbid <10.0 Normal 0.0-13.9 [facility] Comment on above: Result Comment: Perf ormed At: [address] [id number] Richie Bergman PhD Ph:[phone] Performed By: #### 2 [id number] #### ESTEFANY [employer] [address] [place] [address] Auto Diffon 01-17-2019 Basophils (Bld) [#/Vol] 0.1 E3/mcL Normal 0.0-0.2 [facility] Comment on above: Order Comment: Order Added by Discern Expert. Performed By: #### 2 258524 #### ESTEFANY [employer] [address] [place] [address] Basophils/100 WBC (Bld) 0.8 % Normal 0.0-2.0 [facility] Comment on above: Order Comment: Order Added by Discern Expert. Performed By: #### 2 359370 #### ESTEFANY [employer] [address] [place] [address] Eos Absolute 0.1 E3/mcL Normal 0.0-0.7 [facility] Comment on above: Order Comment: Order Added by Discern Expert. Performed By: #### 2 624411 #### ESTEFANY [employer] [address] [place] [address] Eosinophils/100 WBC (Bld) 1.0 % Normal 0.0-11.0 [facility] Comment on above: Order Comment: Order Added by Discern Expert. Performed By: #### 2 065552 #### ESTEFANY [employer] [address] [place] [address] Lymphocytes (Bld) [#/Vol] 2.3 E3/mcL Normal 1.2-3.4 [facility] Comment on above: Order Comment: Order Added by Radha Expert. Performed By: #### 2 795753 #### ESTEFANY [employer] [address] [place] [address] Lymphocytes/100 WBC (Bld) 34.4 % Normal 20.0-55.0 [facility] Comment on above: Order Comment: Order Added by Radha Expert. Performed By: #### 2 355410 #### ESTEFANY [employer] [address] [place] [address] Ceiba Absolute 0.4 E3/mcL Normal 0.0-0.7 [facility] Comment on above: Order Comment: Order Added by Discern Expert. Performed By: #### 2 882154 #### ESTEFANY [employer] [address] [place] [address] Monocytes/100 WBC (Bld) 6.1 % Normal 0.0-10.0 [facility] Comment on above: Order Comment: Order Added by Discern Expert. Performed By: #### 2 759983 #### ESTEFANY [employer] [address] [place] [address] Neutro Absolute 3.8 E3/mcL Normal 1.4-6.5 [facility] Comment on above: Order Comment: Order Added by Discern Expert. Performed By: #### 2 436733 #### ESTEFANY [employer] [address] [place] [address] Neutro Auto 57.7 % Normal 37.0-75.0 [facility] Comment on above: Order Comment: Order Added by Discern Expert. Performed By: #### 2 478196 #### ESTEFANY [employer] [address] [place] [address] CBC w/ Auto Diffon Erythrocyte distribution width (RBC) [Ratio] 15.0 % High 11.5-14.5 [facility] Comment on above: Performed By: #### 2 610940 #### ESTEFANY [employer] [address] [place] [address] Hematocrit (Bld) [Volume fraction] 29.1 % Low 36.0-48.0 [facility] Comment on above: Performed By: #### 2 257984 #### ESTEFANY [employer] [address] [place] [address] Hemoglobin (Bld) [Mass/Vol] 9.5 g/dL Low 12.0-16.0 [facility] Comment on above: Performed By: #### 2 773885 #### ESTEFANY [employer] [facility] [place] [address] MCH (RBC) [Entitic mass] 29.3 pg Normal 27.0-31.0 [facility] Comment on above: Performed By: #### 2 146367 #### ESTEFANY [employer] [address] [place] [address] MCHC (RBC) [Mass/Vol] 32.7 g/dL Low 33.0-37.0 [facility] Comment on above: Performed By: #### 2 293891 #### ESTEFANY [employer] [address] [place] [address] MCV (RBC) [Entitic vol] 89.7 fL Normal 78.0-100.0 [facility] Comment on above: Performed By: #### 2 153633 #### ESTEFANY [employer] [address] [place] [address] Platelet mean volume (Bld) [Entitic vol] 8.6 fL Normal 7.4-11.0 [facility] Comment on above: Performed By: #### 2 641249 #### ESTEFANY [employer] [address] [place] [address] Platelets (Bld) [#/Vol] 330 E3/mcL Normal 130-400 [facility] Comment on above: Performed By: #### 2 293202 #### ESTEFANY Fleming [address] [place] [address] RBC (Bld) [#/Vol] 3.24 E6/mcL Low 3.90-5.40 [facility] Comment on above: Performed By: #### 2 580106 #### ESTEFANY Fleming [address] [place] [address] WBC (Bld) [#/Vol] 6.7 E3/mcL Normal 3.6-11.0 [facility] Comment on above: Performed By: #### 2 999825 #### ESTEFANY Fleming [address] [place] [address] Lab Miscellaneouson 01-18-20 Test Name anti-ccp Normal [facility] Comment on above: Performed By: #### 2 085127 #### ESTEFANY Fleming [address] [place] [address] Auto Diffon 01-07-2019 Basophils (Bld) [#/Vol] 0.0 E3/mcL Normal 0.0-0.2 [facility] Comment on above: Order Comment: Order Added by Discern Expert. Performed By: #### 2 242871 #### ESTEFANY Fleming [address] [place] [address] Basophils/100 WBC (Bld) 0.5 % Normal 0.0-2.0 [facility] Comment on above: Order Comment: Order Added by Discern Expert. Performed By: #### 2 606375 #### ESTEFANY Fleming [address] [place] [address] Eos Absolute 0.2 E3/mcL Normal 0.0-0.7 [facility] Comment on above: Order Comment: Order Added by Discern Expert. Performed By: #### 2 204814 #### ESTEFANY Fleming [address] [place] [address] Eosinophils/100 WBC (Bld) 2.6 % Normal 0.0-11.0 [facility] Comment on above: Order Comment: Order Added by Discern Expert. Performed By: #### 2 347934 #### ESTEFANY Fleming [address] [place] [address] Lymphocytes (Bld) [#/Vol] 2.6 E3/mcL Normal 1.2-3.4 [facility] Comment on above: Order Comment: Order Added by Discern Expert. Performed By: #### 2 561206 #### [facility] [address] [place] [address] Lymphocytes/100 WBC (Bld) 38.5 % Normal 20.0-55.0 [facility] Comment on above: Order Comment: Order Added by Discern Expert. Performed By: #### 2 698603 #### [facility] [address] [place] [address] Ceiba Absolute 0.5 E3/mcL Normal 0.0-0.7 [facility] Comment on above: Order Comment: Order Added by Discern Expert. Performed By: #### 2 609543 #### ESTEFANY Rich[address] [address] Monocytes/100 WBC (Bld) 7.2 % Normal 0.0-10.0 [facility] Comment on above: Order Comment: Order Added by Discern Expert. Performed By: #### 2 505295 #### ESTEFANY Rich[address] [address] Neutro Absolute 3.5 E3/mcL Normal 1.4-6.5 [facility] Comment on above: Order Comment: Order Added by Discern Expert. Performed By: #### 2 519658 #### [facility] [address] [place] [address] Neutro Auto 51.2 % Normal 37.0-75.0 [facility] Comment on above: Order Comment: Order Added by Discern Expert. Performed By: #### 2 907325 #### [facility]ANY [facility] [address] [place] [address] CBC w/ Auto Diffon 9 Erythrocyte distribution width (RBC) [Ratio] 14.9 % High 11.5-14.5 [facility] Comment on above: Performed By: #### 2 125631 #### [facility]ANY [facility] [address] [place] [address] Hematocrit (Bld) [Volume fraction] 26.2 % Low 36.0-48.0 [facility] Comment on above: Performed By: #### 2 532946 #### ESTEFANY [employer] [address] [place] [address] Hemoglobin (Bld) [Mass/Vol] 8.8 g/dL Low 12.0-16.0 [facility] Comment on above: Performed By: #### 2 194778 #### ESTEFANY [employer] [address] [place] [address] MCH (RBC) [Entitic mass] 29.7 pg Normal 27.0-31.0 [facility] Comment on above: Performed By: #### 2 537505 #### ESTEFANY [employer] [address] [place] [address] MCHC (RBC) [Mass/Vol] 33.7 g/dL Normal 33.0-37.0 [facility] Comment on above: Performed By: #### 2 101742 #### ESTEFANY [employer] [address] [place] [address] MCV (RBC) [Entitic vol] 88.0 fL Normal 78.0-100.0 [facility] Comment on above: Performed By: #### 2 185732 #### ESTEFANY [employer] [address] [place] [address] Platelet mean volume (Bld) [Entitic vol] 8.5 fL Normal 7.4-11.0 [facility] Comment on above: Performed By: #### 2 993224 #### ESTEFANY [employer] [address] [place] [address] Platelets (Bld) [#/Vol] 192 E3/mcL Normal 130-400 [facility] Comment on above: Performed By: #### 2 857327 #### ESTEFANY [employer] [address] [place] [address] RBC (Bld) [#/Vol] 2.97 E6/mcL Low 3.90-5.40 [facility] Comment on above: Performed By: #### 2 223999 #### ESTEFANY [employer] [address] [place] [address] WBC (Bld) [#/Vol] 6.8 E3/mcL Normal 3.6-11.0 [facility] Comment on above: Performed By: #### 2 314797 #### ESTEFANY [employer] [address] [place] [address] HAROON Teston 01-07-2019 HAROON Test Negative Normal Negative [facility] Comment on above: Performed By: #### 2 766699 #### ESTEFANY [employer] [address] [place] [address] Auto Diffon 01-06-2019 Basophils (Bld) [#/Vol] 0.0 E3/mcL Normal 0.0-0.2 [facility] Comment on above: Order Comment: Order Added by Discern Expert. Performed By: #### 2 869751 #### ESTEFANY Rem[employer] [address] [place] [address] Basophils/100 WBC (Bld) 0.4 % Normal 0.0-2.0 [facility] Comment on above: Order Comment: Order Added by Discern Expert. Performed By: #### 2 179696 #### ESTEFANY [employer] [address] [place] [address] Eos Absolute 0.1 E3/mcL Normal 0.0-0.7 [facility] Comment on above: Order Comment: Order Added by Discern Expert. Performed By: #### 2 492256 #### ESTEFANY [employer] [address] [place] [address] Eosinophils/100 WBC (Bld) 1.9 % Normal 0.0-11.0 [facility] Comment on above: Order Comment: Order Added by Discern Expert. Performed By: #### 2 324811 #### ESTEFANY Rem[employer] [address] [place] [address] Lymphocytes (Bld) [#/Vol] 2.6 E3/mcL Normal 1.2-3.4 [facility] Comment on above: Order Comment: Order Added by Discern Expert. Performed By: #### 2 287578 #### ESTEFANY RemHemo [address] [place] [address] Lymphocytes/100 WBC (Bld) 42.2 % Normal 20.0-55.0 [facility] Comment on above: Order Comment: Order Added by Discern Expert. Performed By: #### 2 417167 #### ESTEFANY RemHemo [address] [place] [address] Ceiba Absolute 0.5 E3/mcL Normal 0.0-0.7 [facility] Comment on above: Order Comment: Order Added by Discern Expert. Performed By: #### 2 949692 #### ESTEFANY Bello [address] [place] [address] Monocytes/100 WBC (Bld) 7.9 % Normal 0.0-10.0 [facility] Comment on above: Order Comment: Order Added by Discern Expert. Performed By: #### 2 481768 #### ESTEFANY RichHemo [address] [place] [address] Neutro Absolute 3.0 E3/mcL Normal 1.4-6.5 [facility] Comment on above: Order Comment: Order Added by Discern Expert. Performed By: #### 2 104608 #### ESTEFANY Bello [facility] [place] [address] Neutro Auto 47.6 % Normal 37.0-75.0 [facility] Comment on above: Order Comment: Order Added by Discern Expert. Performed By: #### 2 938393 #### ESTEFANY RichHemo [address] [place] [address] BMPon 01-06-2019 Anion gap [Moles/Vol] 9 mmol/L Low 10-20 [facility] Comment on above: Performed By: #### 2 317049 #### ESTEFANY RichHemo [facility] [place] [address] Calcium [Mass/Vol] 8.0 mg/dL Low 8.6-10.3 [facility] Comment on above: Performed By: #### 2 872553 #### ESTEFANY RichHemo [address] [place] [address] Chloride [Moles/Vol] 110 mmol/L High 98-107 [facility] Comment on above: Performed By: #### 2 206737 #### ESTEFANY RichHemo [address] [place] [address] CO2 [Moles/Vol] 26.0 mmol/L Normal 21.0-32.0 [facility] Comment on above: Performed By: #### 2 140665 #### ESTEFANY RichHemo [address] [place] [address] Creatinine [Mass/Vol] 0.6 mg/dL Normal 0.5-1.1 [facility] Comment on above: Performed By: #### 2 126042 #### ESTEFANY RichHemo [address] [place] [address] Glucose [Mass/Vol] 99 mg/dL Normal 70-99 [facility] Comment on above: Performed By: #### 2 293897 #### ESTEFANY RemHemo [address] [place] [address] Potassium [Moles/Vol] 3.7 mmol/L Normal 3.5-5.3 [facility] Comment on above: Performed By: #### 2 752641 #### ESTEFANY Rem[employer]emo [address] [place] [address] Sodium [Moles/Vol] 141 mmol/L Normal 136-145 [facility] Comment on above: Performed By: #### 2 752216 #### ESTEFANY RemHemo [address] [place] [address] Urea nitrogen [Mass/Vol] 10 mg/dL Normal 6-23 [facility] Comment on above: Performed By: #### 2 991240 #### ESTEFANY RemHemo [address] [place] [address] Urea nitrogen/Creatinine [Mass ratio] 16.7 ratio Normal 5.4-30.0 [facility] Comment on above: Performed By: #### 2 073097 #### ESTEFANY RichHemo [address] [place] [address] CBC w/ Auto Diffon 9 Erythrocyte distribution width (RBC) [Ratio] 13.7 % Normal 11.5-14.5 [facility] Comment on above: Performed By: #### 2 053116 #### ESTEFANY RemHemo [address] [place] [address] Hematocrit (Bld) [Volume fraction] 22.8 % Low 36.0-48.0 [facility] Comment on above: Performed By: #### 2 189682 #### ESTEFANY RemHemo [address] [place] [address] Hemoglobin (Bld) [Mass/Vol] 7.5 g/dL Low 12.0-16.0 [facility] Comment on above: Performed By: #### 2 472353 #### ESTEFANY RemHemo [address] [place] [address] MCH (RBC) [Entitic mass] 29.9 pg Normal 27.0-31.0 [facility] Comment on above: Performed By: #### 2 942201 #### ESTEFANY RemHemo [address] [place] [address] MCHC (RBC) [Mass/Vol] 32.9 g/dL Low 33.0-37.0 [facility] Comment on above: Performed By: #### 2 993848 #### ESTEFANY RemHemo [address] [place] [address] MCV (RBC) [Entitic vol] 90.7 fL Normal 78.0-100.0 [facility] Comment on above: Performed By: #### 2 102974 #### ESTEFANY RemHemo [address] [place] [address] Platelet mean volume (Bld) [Entitic vol] 8.9 fL Normal 7.4-11.0 [facility] Comment on above: Performed By: #### 2 506867 #### ESTEFANY RemHemo [address] [place] [address] Platelets (Bld) [#/Vol] 222 E3/mcL Normal 130-400 [facility] Comment on above: Performed By: #### 2 098901 #### ESTEFANY RemHemo [address] [place] [address] RBC (Bld) [#/Vol] 2.51 E6/mcL Low 3.90-5.40 [facility] Comment on above: Performed By: #### 2 924570 #### ESTEFANY RemHemo [address] [place] [address] WBC (Bld) [#/Vol] 6.3 E3/mcL Normal 3.6-11.0 [facility] Comment on above: Performed By: #### 2 713126 #### ESTEFANY RemHemo [address] [place] [address] Hct & Hgbon 01-06-2019 Hematocrit (Bld) [Volume fraction] 25.1 % Low 36.0-48.0 [facility] Comment on above: Performed By: #### 2 524198 #### ESTEFANY Fleming [address] [place], [place] [address] Hemoglobin (Bld) [Mass/Vol] 8.3 g/dL Low 12.0-16.0 [facility] Comment on above: Performed By: #### 2 620327 #### ESTEFANY RichMisael [address] [place], [place] [address] Hemoglobinon 01-06-2019 Hemoglobin (Bld) [Mass/Vol] 8.9 g/dL Low 12.0-16.0 [facility] Comment on above: Performed By: #### 2 025795 #### [place] [address] RCOon 01-06-2019 Product Type None Required Normal [facility] Comment on above: Performed By: #### 2 908168 #### [place] [address] eGFRon 01-06-2019 GFR/1.73 sq M predicted among non-blacks MDRD (S/P/Bld) [Vol rate/Area] mL/min/{1.73_m2} Normal [facility] Comment on above: Order Comment: Order added by Discern Expert. Performed By: #### 2 005940 #### ESTEFANY LaylaMisael [address] [place] [address] ABO/Rh Echoon 01-05-2019 ABO/Rh E Interp... Positive Normal [facility] Comment on above: Performed By: #### 8 [id number] #### ESTEFANY [facility] [address] [place], [place] [address] Antibody Screen Cap...on Screen Interp... Negative Normal [facility] Comment on above: Performed By: #### 8 [id number] #### ESTEFANY [facility] [address] [place], [place] [address] Auto Diffon 01-05-2019 Basophils (Bld) [#/Vol] 0.0 E3/mcL Normal 0.0-0.2 [facility] Comment on above: Order Comment: Order Added by Discern Expert. Performed By: #### 2 143385 #### ESTEFANY RichHemo [address] [place] [address] Basophils/100 WBC (Bld) 0.4 % Normal 0.0-2.0 [facility] Comment on above: Order Comment: Order Added by Discern Expert. Performed By: #### 2 836257 #### ESTEFANY RemHemo [address] [place] [address] Eos Absolute 0.1 E3/mcL Normal 0.0-0.7 [facility] Comment on above: Order Comment: Order Added by Discern Expert. Performed By: #### 2 655748 #### ESTEFANY RemHemo [address] [place] [address] Eosinophils/100 WBC (Bld) 1.0 % Normal 0.0-11.0 [facility] Comment on above: Order Comment: Order Added by Discern Expert. Performed By: #### 2 450163 #### ESTEFANY RemHemo [address] [place] [address] Lymphocytes (Bld) [#/Vol] 1.7 E3/mcL Normal 1.2-3.4 [facility] Comment on above: Order Comment: Order Added by Discern Expert. Performed By: #### 2 864070 #### ESTEFANY RichHemo [address] [place] [address] Lymphocytes/100 WBC (Bld) 20.8 % Normal 20.0-55.0 [facility] Comment on above: Order Comment: Order Added by Discern Expert. Performed By: #### 2 638367 #### ESTEFANY Rem[employer] [address] [place] [address] Ceiba Absolute 0.5 E3/mcL Normal 0.0-0.7 [facility] Comment on above: Order Comment: Order Added by Discern Expert. Performed By: #### 2 666311 #### ESTEFANY RemHemo [address] [place] [address] Monocytes/100 WBC (Bld) 6.5 % Normal 0.0-10.0 [facility] Comment on above: Order Comment: Order Added by Discern Expert. Performed By: #### 2 648544 #### ESTEFANY RemHemo [address] [place] [address] Neutro Absolute 6.0 E3/mcL Normal 1.4-6.5 [facility] Comment on above: Order Comment: Order Added by Discern Expert. Performed By: #### 2 217176 #### ESTEFANY RichHemo [address] [place] [address] Neutro Auto 71.3 % Normal 37.0-75.0 [facility] Comment on above: Order Comment: Order Added by Discern Expert. Performed By: #### 2 759953 #### ESTEFANY RichHemo [address] [place] [address] CBC w/ Auto Diffon 9 Erythrocyte distribution width (RBC) [Ratio] 13.6 % Normal 11.5-14.5 [facility] Comment on above: Performed By: #### 2 167014 #### ESTEFANY RichHemo [address] [place] [address] Hematocrit (Bld) [Volume fraction] 30.3 % Low 36.0-48.0 [facility] Comment on above: Performed By: #### 2 388846 #### ESTEFANY RichHemo [address] [place] [address] Hemoglobin (Bld) [Mass/Vol] 9.9 g/dL Low 12.0-16.0 [facility] Comment on above: Performed By: #### 2 208171 #### ESTEFANY RichHemo [address] [place] [address] MCH (RBC) [Entitic mass] 29.6 pg Normal 27.0-31.0 [facility] Comment on above: Performed By: #### 2 063878 #### ESTEFANY RemHemo [address] [place] [address] MCHC (RBC) [Mass/Vol] 32.6 g/dL Low 33.0-37.0 [facility] Comment on above: Performed By: #### 2 155143 #### ESTEFANY RemHemo [address] [place] [address] MCV (RBC) [Entitic vol] 90.7 fL Normal 78.0-100.0 [facility] Comment on above: Performed By: #### 2 412187 #### ESTEFANY RemHemo [address] [place] [address] Platelet mean volume (Bld) [Entitic vol] 9.1 fL Normal 7.4-11.0 [facility] Comment on above: Performed By: #### 2 543210 #### ESTEFANY RichHemo [address] [place] [address] Platelets (Bld) [#/Vol] 251 E3/mcL Normal 130-400 [facility] Comment on above: Performed By: #### 2 387005 #### ESTEFANY RichHemo [address] [place] [address] RBC (Bld) [#/Vol] 3.34 E6/mcL Low 3.90-5.40 [facility] Comment on above: Performed By: #### 2 325872 #### ESTEFANY RichHemo [address] [place] [address] WBC (Bld) [#/Vol] 8.3 E3/mcL Normal 3.6-11.0 [facility] Comment on above: Performed By: #### 2 445315 #### ESTEFANY RichHemo [address] [place] [address] CMPon 01-05-2019 Albumin [Mass/Vol] 3.5 g/dL Normal 3.4-5.0 [facility] Comment on above: Performed By: #### 2 269728 #### ESTEFANY [employer] [address] [place] [address] Albumin/Globulin [Mass ratio] 1.6 {ratio} Normal 1.1-1.9 [facility] Comment on above: Performed By: #### 2 682105 #### ESTEFANY [facility] [address] [place] [address] Alk Phos 44 Int._Unit/L Normal 33-136 [facility] Comment on above: Performed By: #### 2 962015 #### ESTEFANY [facility] [address] [place] [address] ALT [Catalytic activity/Vol] 7 Int._Unit/L Normal 7-45 [facility] Comment on above: Performed By: #### 2 521683 #### ESTEFANY [facility] [address] [place] [address] Anion gap [Moles/Vol] 12 mmol/L Normal 10-20 [facility] Comment on above: Performed By: #### 2 026564 #### ESTEFANYNuzhat [place] [address] [place] [address] AST [Catalytic activity/Vol] 11 Int._Unit/L Normal 9-39 [facility] Comment on above: Performed By: #### 2 398867 #### ESTEFANYNuzhat Rich[address] [address] Bili Total 0.32 mg/dL Normal 0.00-1.20 [facility] Comment on above: Performed By: #### 2 664674 #### ESTEFANYNuzhat RichMarlborough Software [facility] [place] [address] Calcium [Mass/Vol] 8.7 mg/dL Normal 8.6-10.3 [facility] Comment on above: Performed By: #### 2 410232 #### ESTEFANYNuzhat [address] [address] Chloride [Moles/Vol] 107 mmol/L Normal 98-107 [facility] Comment on above: Performed By: #### 2 629453 #### ESTEFANYNuzhat [employer] [address] [place] [address] CO2 [Moles/Vol] 25.0 mmol/L Normal 21.0-32.0 [facility] Comment on above: Performed By: #### 2 874450 #### ESTEFANY Rich[address] [address] Creatinine [Mass/Vol] 0.6 mg/dL Normal 0.5-1.1 [facility] Comment on above: Performed By: #### 2 156522 #### ESTEFANY [facility] [address] [place] [address] Globulin (S) [Mass/Vol] 2.0 g/dL Normal 2.0-4.0 [facility] Comment on above: Performed By: #### 2 748440 #### ESTEFANYNuzhat [facility] [address] [place] [address] Glucose [Mass/Vol] 104 mg/dL High 70-99 [facility] Comment on above: Performed By: #### 2 295569 #### ESTEFANY [facility] [address] [place] [address] Potassium [Moles/Vol] 3.8 mmol/L Normal 3.5-5.3 [facility] Comment on above: Performed By: #### 2 864070 #### ESTEFANY [facility] [address] [place] [address] Protein [Mass/Vol] 5.7 g/dL Low 6.4-8.2 [facility] Comment on above: Performed By: #### 2 976691 #### ESTEFANY [facility] [address] [place] [address] Sodium [Moles/Vol] 140 mmol/L Normal 136-145 [facility] Comment on above: Performed By: #### 2 654374 #### ESTEFANY [facility] [address] [place] [address] Urea nitrogen [Mass/Vol] 18 mg/dL Normal 6-23 [facility] Comment on above: Performed By: #### 2 114465 #### ESTEFANY [facility] [facility] [place] [address] Urea nitrogen/Creatinine [Mass ratio] 30.0 ratio Normal 5.4-30.0 [facility] Comment on above: Performed By: #### 2 [id number] #### ESTEFANY [employer] [address] [place] [id number] Ferritinon 01-05-2019 Ferritin [Mass/Vol] 30.0 ng/mL Normal 8.0-150.0 [facility] Comment on above: Order Comment: Order Added by Discern Expert. Performed By: #### 2 [id number] #### ESTEFANY [employer] [address] [place] [address] Folateon 01-05-2019 Folate Lvl 15.50 ng/mL Normal >=5.00 [facility] Comment on above: Result Comment: The WHO Technical Consultation on folate and vitamin B12 deficiencies has determined that deficient folate concentrations are considered to be less than 4ng/ml. Performed By: #### 2 [id number] #### ESTEFANY [employer] [address] [place] [address] Hemoglobinon 01-05-2019 Hemoglobin (Bld) [Mass/Vol] 8.9 g/dL Low 12.0-16.0 [facility] Comment on above: Performed By: #### 2 [id number] #### ESTEFANY [employer] [address] [place] [id number] Ironon 01-05-2019 Iron [Mass/Vol] 71 microgram/dL Normal 35-150 [facility] Comment on above: Order Comment: Order Added by Discern Expert. Performed By: #### 2 [id number] #### ESTEFANY RichHemo [facility] [place] [id number] Iron Testson 01-05-2019 Iron Sat 21 Normal 11-46 [facility] Comment on above: Order Comment: Order Added by Discern Expert. Performed By: #### 2 [id number] #### ESTEFANY RichHemo [facility] [place] [id number] Transferrin [Mass/Vol] 246 mg/dL Normal 200-360 [facility] Comment on above: Order Comment: Order Added by Radha Expert. Performed By: #### 2 [id number] #### ESTEFANY RichHemo [facility] [place] [id number] Lactic Acidon 01-05-2019 Lactate [Moles/Vol] 1.9 mmol/L Normal 0.4-2.0 [facility] Comment on above: Performed By: #### 2 [id number] #### ESTEFANY [employer] [address] [place], [place] [id number] PTon 01-05-2019 INR Coag (PPP) [Relative time] 0.9 {INR} Normal 0.9-1.1 [facility] Comment on above: Result Comment: INR Recommended Therapeutic ranges: Prophylaxis/treatment of DVT and PE..........2.0-3.0 Prevention of systemic embolism.................2.0-3.0 Mechanical prosthetic values........................2.5-3.5 CRITICAL VALUE.........................................> 4.0 NOTE: New methodology started 08/16/2018 Performed By: #### 2 [id number] #### ESTEFANY [employer] [address] [place] [address] PT Coag (PPP) [Time] 10.9 second(s) Normal 9.7-12.7 [facility] Comment on above: Result Comment: NOTE : New reference range established on 08/16/2018 due to change in methodology. Performed By: #### 2 [id number] #### ESTEFANY [employer] [address] [place] [address] PTTon 01-05-2019 aPTT Coag (Bld) [Time] 29 second(s) Normal 28-38 [facility] Comment on above: Result Comment: NOTE :New reference range established 08/16/2018 due to change in methodology. Performed By: #### 2 [id number] #### ESTEFANY [employer] [address] [place] [id number] Retic Counton 01-05-2019 Reticulocyte 0.8 % Normal 0.5-1.5 [facility] Comment on above: Order Comment: add t o admission labs Performed By: #### 2 [id number] #### ESTEFANY [employer] [address] [place] [id number] TIBC Calculatedon 01-05-2019 TIBC 344 microgram/dL Normal >=250 [facility] Comment on above: Order Comment: Order Added by Discern Expert. Performed By: #### 2 [id number] #### ESTEFANY [employer] [address] [place] [id number] Vit B12on 01-05-2019 Cobalamin (Vitamin B12) [Mass/Vol] 148 pg/mL Low 180-914 [facility] Comment on above: Performed By: #### 2 [id number] #### ESTEFANY [employer] [address] [place] [address] eGFRon 01-05-2019 GFR/1.73 sq M predicted among non-blacks MDRD (S/P/Bld) [Vol rate/Area] mL/min/{1.73_m2} Normal [facility] Comment on above: Order Comment: Order added by Discern Expert. Performed By: #### 1 [id number] #### ESTEFANY [address] [address] Vital Signs Date Time Vital Sign Value Performing Clinician Facility 01-05-2025 09:39-0400 Body height 170.2 cm Don Marquez [employer] Work Phone: [facility] 01-05-2025 09:39-0400 Body mass index (BMI) [Ratio] 22.84 kg/m2 Don Wood [employer] Work Phone: [facility] 01-05-2025 09:39-0400 Body weight 66.13 kg Don Wood [employer] Work Phone: [facility] 01-05-2025 09:39-0400 Diastolic blood pressure 84 mm[Hg] Don Wood [employer] Work Phone: [facility] 01-05-2025 09:39-0400 Systolic blood pressure 132 mm[Hg] Don Wood [employer] Work Phone: [facility] 12-19-2024 18:30-0400 Diastolic blood pressure 81 mm[Hg] Alberta Oberhauser DO Work Phone: [facility] 12-19-2024 18:30-0400 Heart rate 91 /min Alberta Oberhauser DO Work Phone: [facility] 12-19-2024 18:30-0400 Respiratory rate 17 /min Alberta Oberhauser DO Work Phone: [facility] 12-19-2024 18:30-0400 SaO2% (BldA) [Mass fraction] 94 % Alberta Oberhauser DO Work Phone: [facility] 12-19-2024 18:30-0400 Systolic blood pressure 168 mm[Hg] Alberta Oberhauser DO Work Phone: [facility] 12-19-2024 16:00-0400 Body temperature 99.39 [degF] Alberta Oberhauser DO Work Phone: [facility] 11-15-2024 14:51-0400 Body height 170.2 cm Roberto Watson DO Work Phone: [facility] 11-15-2024 14:51-0400 Body mass index (BMI) [Ratio] 23.4 kg/m2 Roberto Thomae DO Work Phone: [facility] 11-15-2024 14:51-0400 Body weight 67.77 kg Roberto Watson DO Work Phone: [facility] 11-15-2024 14:51-0400 Diastolic blood pressure 70 mm[Hg] Roberto Thomae DO Work Phone: [facility] 11-15-2024 14:51-0400 Heart rate 90 /min Roberto Floresae DO Work Phone: [facility] 11-15-2024 14:51-0400 Respiratory rate 16 /min Roberto Watson DO Work Phone: [facility] 11-15-2024 14:51-0400 SaO2% (BldA) [Mass fraction] 98 % Roberto Watson DO Work Phone: [facility] 11-15-2024 14:51-0400 Systolic blood pressure 160 mm[Hg] Roberto Thomae DO Work Phone: [facility] 10-24-2024 10:15-0400 Diastolic blood pressure 61 mm[Hg] [address] 10-24-2024 10:15-0400 Heart rate 84 /min [address] 10-24-2024 10:15-0400 Respiratory rate 16 /min [address] 10-24-2024 10:15-0400 SaO2% (BldA) [Mass fraction] 98 % [address] 10-24-2024 10:15-0400 Systolic blood pressure 139 mm[Hg] [address] 10-24-2024 09:30-0400 Body temperature 97.11 [degF] [address] 10-24-2024 08:27-0400 Body height 170.[address] 10-24-2024 08:27-0400 Body mass index (BMI) [Ratio] 23.24 kg/m2 [facility] 02 [facility] 10-24-2024 08:27-0400 Body weight 67.[address] 08-25-2024 14:31-0500 Body height 170.2 cm Alberta Navarro MD Work Phone: [facility] 08-25-2024 14:31-0500 Body mass index (BMI) [Ratio] 24.31 kg/m2 Alberta Navarro MD Work Phone: [facility] 08-25-2024 14:31-0500 Body weight 70.4 kg Alberta Navarro MD Work Phone: [facility] 08-25-2024 14:31-0500 Diastolic blood pressure 80 mm[Hg] Alberta Navarro MD Work Phone: [facility] 08-25-2024 14:31-0500 Heart rate 90 /min Alberta Navarro MD Work Phone: [facility] 08-25-2024 14:31-0500 Systolic blood pressure 156 mm[Hg] Alberta Navarro MD Work Phone: [facility] 08-22-2024 07:30-0500 Body temperature 97.5 [degF] Jani Mcgrath DO Work Phone: [facility] 08-22-2024 07:30-0500 Diastolic blood pressure 84 mm[Hg] Jani Mcgrath DO Work Phone: [facility] 08-22-2024 07:30-0500 Heart rate 72 /min Jani Mcgrath DO Work Phone: [facility] 08-22-2024 07:30-0500 Respiratory rate 20 /min Jani Mcgrath DO Work Phone: [facility] 08-22-2024 07:30-0500 SaO2% (BldA) [Mass fraction] 98 % Jani Mcgrath DO Work Phone: [facility] 08-22-2024 07:30-0500 Systolic blood pressure 143 mm[Hg] Jani Lemasters DO Work Phone: [facility] 08-19-2024 20:27-0500 Body height 170.2 cm Jani Mcgrath DO Work Phone: [facility] 08-19-2024 20:27-0500 Body mass index (BMI) [Ratio] 19.3 kg/m2 Jani Plattasters DO Work Phone: [facility] 08-19-2024 20:27-0500 Body weight 55.9 kg Jani Plattasters DO Work Phone: [facility] 08-17-2024 12:30-0500 Diastolic blood pressure 70 mm[Hg] Jani Mcgrath DO Work Phone: [facility] 08-17-2024 12:30-0500 Heart rate 79 /min Jani Mcgrath DO Work Phone: [facility] 08-17-2024 12:30-0500 Respiratory rate 18 /min Jani Mcgrath DO Work Phone: [facility] 08-17-2024 12:30-0500 SaO2% (BldA) [Mass fraction] 96 % Jani Mcgrath DO Work Phone: [facility] 08-17-2024 12:30-0500 Systolic blood pressure 151 mm[Hg] Jani Mcgrath DO Work Phone: [facility] 08-17-2024 08:18-0500 Body height 170.2 cm Jani Plattasters DO Work Phone: [facility] 08-17-2024 08:18-0500 Body mass index (BMI) [Ratio] 23.62 kg/m2 Jani Mcgrath DO Work Phone: [facility] 08-17-2024 08:18-0500 Body temperature 97.2 [degF] Jani Mcgrath DO Work Phone: [facility] 08-17-2024 08:18-0500 Body weight 68.4 kg Jani Mcgrath DO Work Phone: [facility] 07-14-2024 08:43-0500 Body height 170.2 cm Sangita Garciaman [employer] Work Phone: [facility] 07-14-2024 08:43-0500 Body mass index (BMI) [Ratio] 25.28 kg/m2 Sangita Eliud [employer] Work Phone: [facility] 07-14-2024 08:43-0500 Body weight 73.21 kg Sangita Eliud [employer] Work Phone: [facility] 07-14-2024 08:43-0500 Diastolic blood pressure 88 mm[Hg] Sangita Garciaman [employer] Work Phone: [facility] 07-14-2024 08:43-0500 Heart rate 83 /min Sangita Eliud [employer] Work Phone: [facility] 07-14-2024 08:43-0500 Systolic blood pressure 169 mm[Hg] Sangita Garciaman [employer] Work Phone: [facility] 05-27-2024 11:36-0400 Body height 170.2 cm Bg Srinivasan [employer], DNP Work Phone: [facility] 05-27-2024 11:36-0400 Body mass index (BMI) [Ratio] 25.06 kg/m2 Bg Srinivasan [employer], DNP Work Phone: [facility] 05-27-2024 11:36-0400 Body weight 72.58 kg Bg Srinivasan [employer], DNP Work Phone: [facility] 05-27-2024 11:36-0400 Diastolic blood pressure 80 mm[Hg] Bg Srinivasan [employer], DNP Work Phone: [facility] 05-27-2024 11:36-0400 Heart rate 72 /min Bg Srinivasan APRN-TREY, DNP Work Phone: [facility] 05-27-2024 11:36-0400 SaO2% (BldA) [Mass fraction] 98 % Bgneda Srinivasan [employer], DNP Work Phone: [facility] 05-27-2024 11:36-0400 Systolic blood pressure 152 mm[Hg] Bg Srinivasan APRN-TREY, DNP Work Phone: [facility] 04-07-2024 11:25-0400 Body height 170.2 cm Sangita Kline [employer] Work Phone: [facility] 04-07-2024 11:25-0400 Body mass index (BMI) [Ratio] 25.25 kg/m2 Sangita Kline [employer] Work Phone: [facility] 04-07-2024 11:25-0400 Body weight 73.12 kg Sangita Garciaman [employer] Work Phone: [facility] 04-07-2024 11:25-0400 Diastolic blood pressure 91 mm[Hg] Sangita Garciaman [employer] Work Phone: [facility] 04-07-2024 11:25-0400 Heart rate 73 /min Sangita Kline [employer] Work Phone: [facility] 04-07-2024 11:25-0400 Systolic blood pressure 174 mm[Hg] Sangita Garciaman [employer] Work Phone: [facility] 04-02-2024 17:30-0400 Diastolic blood pressure 70 mm[Hg] Jani Mcgrath DO Work Phone: [facility] 04-02-2024 17:30-0400 Heart rate 78 /min Jani Mcgrath DO Work Phone: [facility] 04-02-2024 17:30-0400 Respiratory rate 17 /min Jani Mcgrath DO Work Phone: [facility] 04-02-2024 17:30-0400 SaO2% (BldA) [Mass fraction] 94 % Jani Mcgrath DO Work Phone: [facility] 04-02-2024 17:30-0400 Systolic blood pressure 164 mm[Hg] Jani Mcgrath DO Work Phone: [facility] 04-02-2024 15:41-0400 Body height 170.2 cm Jani Mcgrath DO Work Phone: [facility] 04-02-2024 15:41-0400 Body mass index (BMI) [Ratio] 25.06 kg/m2 Jani Mcgrath DO Work Phone: [facility] 04-02-2024 15:41-0400 Body temperature 98.49 [degF] Jani Mcgrath DO Work Phone: [facility] 04-02-2024 15:41-0400 Body weight 72.58 kg Jani Mcgrath DO Work Phone: [facility] 03-29-2024 08:49-0400 Body height 170.2 cm Sangita Eliud [employer] Work Phone: [facility] 03-29-2024 08:49-0400 Body mass index (BMI) [Ratio] 25.47 kg/m2 Sangita Eliud [employer] Work Phone: [facility] 03-29-2024 08:49-0400 Body weight 73.75 kg Sangita Eliud [employer] Work Phone: [facility] 03-29-2024 08:49-0400 Diastolic blood pressure 81 mm[Hg] Sangita Eliud [employer] Work Phone: [facility] 03-29-2024 08:49-0400 Heart rate 68 /min Sangita Eliud [employer] Work Phone: [facility] 03-29-2024 08:49-0400 Systolic blood pressure 149 mm[Hg] Sangita Kline [employer] Work Phone: [facility] 08-04-2023 10:34-0500 Body height 170.2 cm Alberta Oberhauser DO Work Phone: [facility] 08-04-2023 10:34-0500 Body mass index (BMI) [Ratio] 25.84 kg/m2 Alberta Oberhauser DO Work Phone: [facility] 08-04-2023 10:34-0500 Body weight 74.84 kg Alberta Oberhauser DO Work Phone: [facility] 08-04-2023 10:34-0500 Diastolic blood pressure 72 mm[Hg] Alberta Oberhauser DO Work Phone: [facility] 08-04-2023 10:34-0500 Heart rate 90 /min Alberta Oberhauser DO Work Phone: [facility] 08-04-2023 10:34-0500 Systolic blood pressure 145 mm[Hg] Alberta Oberhauser DO Work Phone: [facility] 08-02-2023 05:00-0500 Diastolic blood pressure 72 mm[Hg] Franco Spears MD Work Phone: [facility] 08-02-2023 05:00-0500 Heart rate 94 /min Franco Spears MD Work Phone: [facility] 08-02-2023 05:00-0500 Respiratory rate 18 /min Franco Spears MD Work Phone: [facility] 08-02-2023 05:00-0500 SaO2% (BldA) [Mass fraction] 94 % Franco Spears MD Work Phone: [facility] 08-02-2023 05:00-0500 Systolic blood pressure 158 mm[Hg] Franco Spears MD Work Phone: [facility] 08-02-2023 01:31-0500 Body height 170.2 cm Franco Spears MD Work Phone: [facility] 08-02-2023 01:31-0500 Body mass index (BMI) [Ratio] 25.84 kg/m2 Franco Spears MD Work Phone: [facility] 08-02-2023 01:31-0500 Body weight 74.84 kg Franco Spears MD Work Phone: [facility] 05-25-2023 15:06-0400 Body height 172.1 cm Bg ROLAND DNP Work Phone: [facility] 05-25-2023 15:06-0400 Body mass index (BMI) [Ratio] 25.04 kg/m2 Bg ROLAND DNP Work Phone: [facility] 05-25-2023 15:06-0400 Body weight 74.16 kg Bg ROLAND DNP Work Phone: [facility] 05-25-2023 15:06-0400 Diastolic blood pressure 84 mm[Hg] Bg ROLAND DNP Work Phone: [facility] 05-25-2023 15:06-0400 Heart rate 88 /min Bg ROLAND DNP Work Phone: [facility] 05-25-2023 15:06-0400 SaO2% (BldA) [Mass fraction] 95 % Bg ROLAND DNP Work Phone: [facility] 05-25-2023 15:06-0400 Systolic blood pressure 150 mm[Hg] Bg ROLAND DNP Work Phone: [facility] 01-19-2023 13:34-0400 Body height 171.5 cm Ben Newbill PA-C Work Phone: [facility] 01-19-2023 13:34-0400 Body mass index (BMI) [Ratio] 24.69 kg/m2 Ben Newbill PA-C Work Phone: [facility] 01-19-2023 13:34-0400 Body temperature 97.5 [degF] Ben Newbill PA-C Work Phone: [facility] 01-19-2023 13:34-0400 Body weight 72.58 kg Ben Newbill PA-C Work Phone: [facility] 01-19-2023 13:34-0400 Diastolic blood pressure 65 mm[Hg] Ben Newbill PA-C Work Phone: [facility] 01-19-2023 13:34-0400 Heart rate 77 /min Ben Newbill PA-C Work Phone: [facility] 01-19-2023 13:34-0400 Systolic blood pressure 157 mm[Hg] Ben Newbill PA-C Work Phone: [facility] 09-18-2022 11:13-0500 Body height 170.18 cm Alberta L Oberhauser Work Phone: [facility] [address] [place] Work Phone: 09-18-2022 11:13-0500 Body mass index (BMI) [Ratio] 26.2 kg/m2 Alberta L Oberhauser Work Phone: UN[facility]Ftmtfv[facility]ns[facility] [place] Work Phone: 09-18-2022 11:13-0500 Body surface area Derived from formula 1.87 m2 Alberta L Oberhauser Work Phone: NI-Tqtohbjcxv-Tgksr [address] [place] Work Phone: 09-18-2022 11:13-0500 Body weight 75.89 kg Alberta L Oberhauser Work Phone: YK-Eawytjftxf[facility]M[address] [place] Work Phone: 09-18-2022 11:13-0500 Diastolic blood pressure 92 mm[Hg] Alberta L Oberhauser Work Phone: CB-Yuqvcplrri-Pnctg [address] [place] Work Phone: 09-18-2022 11:13-0500 Heart rate 83 /min Alberta L Oberhauser Work Phone: DE-Pbvofzigfm[facility]Oeb[address] [place] Work Phone: 09-18-2022 11:13-0500 SaO2% (BldA) [Mass fraction] 97 % Alberta L Oberhauser Work Phone: GZ-Cdvpkyyuld[facility]Z[address] [place] Work Phone: 09-18-2022 11:13-0500 Systolic blood pressure 194 mm[Hg] Alberta L Oberhauser Work Phone: MB-Hopszcaozn-Stbmk [address] [place] Work Phone: 06-30-2022 11:15-0500 Body height 167.64 cm Alberta L Oberhauser Work Phone: [facility] Work Phone: 06-30-2022 11:15-0500 Body mass index (BMI) [Ratio] 26.47 kg/m2 Alberta L Oberhauser Work Phone: [facility] Work Phone: 06-30-2022 11:15-0500 Body surface area Derived from formula 1.84 m2 Alberta L Oberhauser Work Phone: [facility] Work Phone: 06-30-2022 11:15-0500 Body weight 74.39 kg Alberta L Oberhauser Work Phone: [facility] Work Phone: 06-30-2022 11:15-0500 Diastolic blood pressure 80 mm[Hg] Alberta L Oberhauser Work Phone: [facility] Work Phone: 06-30-2022 11:15-0500 Heart rate 80 /min Alberta L Oberhauser Work Phone: [facility] Work Phone: 06-30-2022 11:15-0500 Systolic blood pressure 156 mm[Hg] Alberta L Oberhauser Work Phone: [facility] Work Phone: 12-16-2021 14:45-0400 Body height 167.64 cm Alberta L Oberhauser Work Phone: [facility] Work Phone: 12-16-2021 14:45-0400 Body mass index (BMI) [Ratio] 26.12 kg/m2 Alberta L Oberhauser Work Phone: [facility] Work Phone: 12-16-2021 14:45-0400 Body surface area Derived from formula 1.83 m2 Alberta L Oberhauser Work Phone: [facility] Work Phone: 12-16-2021 14:45-0400 Body temperature 97.7 [degF] Alberta L Oberhauser Work Phone: [facility] Work Phone: 12-16-2021 14:45-0400 Body weight 73.39 kg Alberta L Oberhauser Work Phone: [facility] Work Phone: 12-16-2021 14:45-0400 Diastolic blood pressure 92 mm[Hg] Alberta Barba Oberhauser Work Phone: [facility] Work Phone: 12-16-2021 14:45-0400 Heart rate 92 /min Alberta Dolaner Work Phone: [facility] Work Phone: 12-16-2021 14:45-0400 SaO2% (BldA) [Mass fraction] 97.7 % Alberta Dolaner Work Phone: [facility] Work Phone: 12-16-2021 14:45-0400 Systolic blood pressure 156 mm[Hg] Alberta Dolaner Work Phone: [facility] Work Phone: 04-01-2021 09:18-0400 Body height 167.64 cm Alberta Dolaner Work Phone: [facility] Work Phone: 04-01-2021 09:18-0400 Body mass index (BMI) [Ratio] 25.34 kg/m2 Alberta Montezeralfredoer Work Phone: [facility] Work Phone: 04-01-2021 09:18-0400 Body surface area Derived from formula 1.8 m2 Alberta Dolaner Work Phone: [facility] Work Phone: 04-01-2021 09:18-0400 Body temperature 97.6 [degF] Alberta Montezeralfredoer Work Phone: [facility] Work Phone: 04-01-2021 09:18-0400 Body weight 71.22 kg Alberta Barba Oberhauser Work Phone: [facility] Work Phone: 04-01-2021 09:18-0400 Diastolic blood pressure 75 mm[Hg] Alberta L Oberhauser Work Phone: [facility] Work Phone: 04-01-2021 09:18-0400 Heart rate 73 /min Alberta L Oberhauser Work Phone: [facility] Work Phone: 04-01-2021 09:18-0400 Systolic blood pressure 140 mm[Hg] Alberta L Oberhauser Work Phone: [facility] Work Phone: 03-12-2021 13:40-0400 Body height 167.64 cm Alberta L Oberhauser Work Phone: [facility] Work Phone: 03-12-2021 13:40-0400 Body mass index (BMI) [Ratio] 25.34 kg/m2 Alberta L Oberhauser Work Phone: [facility] Work Phone: 03-12-2021 13:40-0400 Body surface area Derived from formula 1.8 m2 Alberta Barba Oberhauser Work Phone: [facility] Work Phone: 03-12-2021 13:40-0400 Body temperature 97.7 [degF] Alberta L Oberhauser Work Phone: [facility] Work Phone: 03-12-2021 13:40-0400 Body weight 71.22 kg Alberta L Oberhauser Work Phone: [facility] Work Phone: 03-12-2021 13:40-0400 Diastolic blood pressure 77 mm[Hg] Alberta Montezeralfredoer Work Phone: [facility] Work Phone: 03-12-2021 13:40-0400 Heart rate 83 /min Alberta Dolaner Work Phone: [facility] Work Phone: 03-12-2021 13:40-0400 Systolic blood pressure 145 mm[Hg] Alberta Dolaner Work Phone: [facility] Work Phone: 03-26-2020 11:05-0400 BMI (Body Mass Index) 24.7 kg/m2 Alberta Brown [facility] Work Phone: 03-26-2020 11:05-0400 Body Temperature 97.6 [degF] Alberta Brown [facility] Work Phone: 03-26-2020 11:05-0400 Body weight 69.4 kg Alberta Brown [facility] Work Phone: 03-26-2020 11:05-0400 BP Diastolic 85 mm[Hg] Alberta Brown [facility] Work Phone: 03-26-2020 11:05-0400 BP Systolic 155 mm[Hg] Alberta Brown [facility] Work Phone: 03-26-2020 11:05-0400 BSA (Body Surface Area) 1.78 m2 Alberta Brown [facility] Work Phone: 03-26-2020 11:05-0400 Height 167.64 cm Alberta Brown [facility] Work Phone: 03-26-2020 11:05-0400 Pulse (Heart Rate) 79 /min Alberta [facility]er [facility] Work Phone: 09-26-2019 12:38-0500 BMI (Body Mass Index) 25.34 kg/m2 Alberta Oberhauser [facility] Work Phone: 09-26-2019 12:38-0500 Body weight 71.22 kg Alberta Oberhauser [facility] Work Phone: 09-26-2019 12:38-0500 BP Diastolic 74 mm[Hg] Alberta Oberhauser [facility] Work Phone: 09-26-2019 12:38-0500 BP Systolic 130 mm[Hg] Alberta Oberhauser [facility] Work Phone: 09-26-2019 12:38-0500 BSA (Body Surface Area) 1.8 m2 Alberta Oberhauser [facility] Work Phone: 09-26-2019 12:38-0500 Height 167.64 cm Alberta Oberhauser [facility] Work Phone: 09-05-2019 16:16-0500 BMI (Body Mass Index) 25.34 kg/m2 Alberta Oberhauser [facility] Work Phone: 09-05-2019 16:16-0500 Body weight 71.22 kg Alberta Oberhauser [facility] Work Phone: 09-05-2019 16:16-0500 BP Diastolic 76 mm[Hg] Alberta Oberhauser [facility] Work Phone: 09-05-2019 16:16-0500 BP Systolic 128 mm[Hg] Alberta Oberhauser [facility] Work Phone: 09-05-2019 16:16-0500 BSA (Body Surface Area) 1.8 m2 [facility] Work Phone: 09-05-2019 16:16-0500 Height 167.64 cm Alberta [facility]ita [facility] Work Phone: 09-05-2019 16:16-0500 Pulse (Heart Rate) 70 /min Alberta [facility]ita [facility] Work Phone: Encounters Encounter Date Encounter Type Care Provider Facility Start: 01-11-2025 ambulatory Alberta Brown Facili ty:[facility] Start: 01-05-2025 End: 01-05-2025 Office outpatient visit 25 minutes [facility] [employer] Work Phone: [facility] Comment on above: Bladder prolapse, 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, acquired (Primary Dx); Mixed dyslipidemia; Primary hypertension; Acute pharyngitis, unspecified etiology; Umbilical hernia without obstruction and without gangrene Start: 01-05-2025 End: 01-05-2025 ambulatory [facility] Start: 12-22-2024 End: 12-22-2024 ambulatory [facility] Ambulatory Start: 12-22-2024 End: 12-22-2024 ambulatory [facility] Start: 12-19-2024 End: 12-20-2024 Emergency department patient visit AFSHIN VALDEZ [facility] Start: 12-19-2024 End: 12-19-2024 Subsequent hospital visit by physician uYsuf Pandav1 [facility] Start: 12-19-2024 End: 12-19-2024 Emergency department patient visit SANGITA KLINE [facility] Emergency Medicine Comment on above: LUQ pain (Primary Dx ) Start: 11-15-2024 End: 11-15-2024 Office outpatient new 30 minutes Roberto Watson DO Work Phone: [facility] Comment on above: Diverticulitis (Prim leonrado Dx) Start: 11-15-2024 End: 11-15-2024 ambulatory [facility] Ambulatory Start: 10-24-2024 End: 10-24-2024 Subsequent hospital visit by physician Alberta Navarro MD Work Phone: [facility] [place] Comment on above: Diverticulitis (Prim leonardo Dx) Start: 10-24-2024 End: 10-24-2024 ambulatory [facility] Start: 08-31-2024 End: 08-31-2024 Office outpatient visit 15 minutes Alberta Brown DO Work Phone: [facility] Comment on above: Anxiety (Primary Dx) ; Diverticulitis; Primary hypertension Start: 08-31-2024 End: 08-31-2024 ambulatory [facility] Ambulatory Start: 08-25-2024 End: 08-25-2024 Office outpatient visit 25 minutes Alberta Navarro MD Work Phone: [facility] Comment on above: Diverticulitis (Prim leonardo Dx) Start: 08-25-2024 End: 08-25-2024 ambulatory [facility] Ambulatory Start: 08-19-2024 End: 08-22-2024 Evaluation and management of inpatient Jani Mcgrath DO Work Phone: [facility] 3 Comment on above: Acute diverticulitis (Primary Dx); Diverticulitis; Primary hypertension Start: 08-17-2024 End: 08-17-2024 Subsequent hospital visit by physician Yusuf Sandhu [facility] Comment on above: Arrived Start: 08-17-2024 End: 08-17-2024 ambulatory JANI MCGRATH [facility] Start: 08-17-2024 End: 08-17-2024 Emergency department patient visit Jani Mcgrath DO Work Phone: [facility] Emergency Medicine Comment on above: Diverticulitis (Prim leonardo Dx) Start: 08-15-2024 End: 08-15-2024 ambulatory [facility] Start: 08-08-2024 End: 08-08-2024 Office outpatient visit 15 minutes Alberta Brown DO Work Phone: [facility] Comment on above: History of diverticu litis (Primary Dx); Multiple drug allergies Start: 08-08-2024 End: 08-08-2024 ambulatory [facility] Ambulatory Start: 07-14-2024 End: 07-14-2024 Office outpatient visit 15 minutes Sangita Kline [employer] Work Phone: [facility] Comment on above: Diverticulitis (Prim leonardo Dx) Start: 07-14-2024 End: 07-14-[address] [facility] Ambulatory Start: 05-27-2024 End: 05-27-2024 Office outpatient visit 25 minutes Bg Srinivasan [employer], DNP Work Phone: [facility] Building Comment on above: PSVT (paroxysmal sup raventricular tachycardia) ([facility]) Start: 05-27-2024 End: 05-27-2024 ambulatory BG SRINIVASAN [facility] Ambulatory Start: 04-07-2024 End: 04-07-2024 Office outpatient visit 15 minutes Sangita Kline [employer] Work Phone: [facility] Comment on above: Primary hypertension (Primary Dx); Lightheadedness Start: 04-07-2024 End: 04-07-[address] [facility] Start: 04-02-2024 End: 04-02-2024 Emergency department patient visit Jani Mcgrath DO Work Phone: [facility] Emergency Medicine Comment on above: Palpitations (Primar y Dx); Lightheadedness Start: 03-31-2024 End: 03-31-2024 Subsequent hospital visit by physician [address] Comment on above: Kidney infection Start: 03-31-2024 End: 03-31-2024 ambulatory [facility] Start: 03-29-2024 End: 03-29-2024 Office outpatient visit 25 minutes Sangita Kline [employer] Work Phone: [facility] Comment on above: Kidney infection Start: 03-29-2024 End: 03-29-[address] [facility] Start: 08-04-2023 End: 08-04-2023 Patient encounter procedure Alberta Brown DO Work Phone: [facility] Comment on above: Screening for diabet es mellitus (Primary Dx); Screening for lipid disorders; Primary hypertension; Elevated blood sugar; PVC (premature ventricular contraction); Overweight (BMI 25.0-29.9); Gastroesophageal reflux disease without esophagitis; Medicare annual wellness visit, subsequent; Osteopenia, unspecified location Start: 08-04-2023 End: 08-04-2023 Subsequent hospital visit by physician Yusuf Sandhu [facility] Comment on above: Arrived Start: 08-02-2023 End: 08-02-2023 Emergency department patient visit Franco Spears MD Work Phone: 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) Start: 01-01-2023 Chart Update Alberta Reyes user Work Phone: OE-Vycddktync-Vwppgx [facility] Work Phone: Start: 11-20-2022 Office outpatient vi sit 15 minutes Alberta Brown Work Phone: [facility] [address] Work Phone: Start: 11-13-2022 ambulatory Alberta Brown Facili ty:[id number] Start: 09-18-2022 Office outpatient ne w 45 minutes Alberta Dolaner Work Phone: XC-Qasccyqonp-Brrkyh [facility] [address] Work Phone: Start: 07-31-2022 AUDIT Alberta Reyes user Work Phone: [facility] Work Phone: Start: 07-26-2022 ambulatory Alberta Brown Facili ty:[id number] Start: 07-15-2022 End: 07-15-2022 ambulatory [facility] Work Phone: Start: 07-15-2022 End: 07-15-2022 Patient encounter procedure [facility] Start: 07-11-2022 AUDIT Alberta Reyes user Work Phone: [facility] Work Phone: Start: 07-02-2022 EVENT EDA, Provider : [facility]ST[facility]ER[facility]ISTCATH[facility], Status: Pen, Time: 10:45 AM Alberta Dolaner Work Phone: [facility] Work Phone: Start: 07-02-2022 ambulatory Alberta Brown Facili ty:[id number] Start: 07-01-2022 Chart Update Alberta Reyes user Work Phone: [facility] Work Phone: Start: 06-30-2022 Adv care pln/ no alt dcsn mkr docd or refusal Alberta Dolaner Work Phone: [facility] Work Phone: Start: 12-21-2021 Result Review Alberta Reyes user Work Phone: [facility] Work Phone: Start: 12-18-2021 ambulatory Mr. Ben barba [facility] Facility:[id number] Start: 12-16-2021 Office outpatient vi sit 15 minutes Alberta Barba Oberhauser Work Phone: [facility] Work Phone: Start: 11-25-2021 AUDIT Alberta Barba Oberha user Work Phone: [facility] Work Phone: Start: 05-20-2021 AUDIT Alberta Barba Oberha user Work Phone: [facility] Work Phone: Start: 04-01-2021 Current tobacco non- user cad cap copd pv dm Alberta Barba Oberhauser Work Phone: [facility] Work Phone: Start: 03-17-2021 Chart Update Alberta Barba Oberha user Work Phone: [facility] Work Phone: Start: 03-14-2021 AUDIT Alberta Barba Oberha user Work Phone: [facility] Work Phone: Start: 03-12-2021 Office outpatient vi sit 15 minutes Alberta Nazariohauser Work Phone: [facility] Work Phone: Start: 03-26-2020 Patient encounter procedure Alberta Ob erhauser [facility] Work Phone: Start: 10-03-2019 Patient encounter procedure Alberta Ob erhauser [facility] Work Phone: Start: 09-26-2019 Patient encounter procedure Alberta Ob erhauser [facility] Work Phone: Start: 09-05-2019 Patient encounter procedure Alberta Ob erhauser [facility] Work Phone: Start: 08-15-2019 Patient encounter procedure Alberta Ob erhauser [facility] Work Phone: Start: 05-30-2019 Patient encounter procedure Alberta Ob erhauser -[facility] Work Phone: Start: 05-23-2019 Patient encounter procedure Alberta Ob erhauser -[facility] Work Phone: Start: 05-02-2019 Patient encounter procedure Alberta Ob erhauser [facility] Work Phone: Start: 03-28-2019 Patient encounter procedure Alberta Ob erhauser -[facility] Work Phone: Start: 01-17-2019 Patient encounter procedure Alberta Ob erhauser -[facility] Work Phone: Patient encounter procedure Alexys n L Oberhauser Work Phone: [facility] Work Phone: Procedures Date Procedure Procedure Detail Performing Clinician Start: 12-23-2024 Lipid 1996 panel - S anson or Plasma Don ROLAND Work Phone: Start: 12-19-2024 Ct abdomen & pelvis w/contrast material Afshin CONTE-C Work Phone: Start: 12-19-2024 Urnls dip stick/tabl et rgnt auto w/o microscopy Afshin CONTE-C Work Phone: Start: 12-19-2024 Ecg routine ecg w/le ast 12 lds trcg only w/o i&r Afshin CONTE-C Work Phone: Start: 12-19-2024 Comprehensive metabo lic panel Afshin CONTE-C Work Phone: Start: 10-24-2024 Colonoscopy w/biopsy single/multiple Alberta Navarro MD Work Phone: Start: 10-24-2024 PULSE OXIMETRY, SPOT Pr faina Navarro MD Work Phone: Start: 10-24-2024 Colonoscopy Yusuf 02 Start: 08-22-2024 Basic metabolic pane l calcium total Theo Chanelle DO Work Phone: Start: 08-21-2024 Basic metabolic pane l calcium total Theo Chanelle DO Work Phone: Start: 08-20-2024 Basic metabolic pane l calcium total Theo Chanelle DO Work Phone: Start: 08-19-2024 Comprehensive metabo lic panel Jani D Lemasters DO Work Phone: Start: 08-17-2024 Ecg routine ecg w/le ast 12 lds trcg only w/o i&r Jani D Lemasters DO Work Phone: Start: 08-17-2024 Urnls dip stick/tabl et rgnt auto w/o microscopy Jani D Lemasters DO Work Phone: Start: 08-17-2024 Ct abdomen & pelvis w/contrast material Jani D Lemasters DO Work Phone: Start: 08-17-2024 LIGHT BLUE TOP Jani D Lemasters DO Work Phone: Start: 08-17-2024 PST TOP Jani D Lemasters DO Work Phone: Start: 08-17-2024 RAINBOW DRAW Jani D Lemasters DO Work Phone: Start: 08-17-2024 Comprehensive metabo lic panel Jani D Lemasters DO Work Phone: Start: 04-02-2024 Ecg routine ecg w/le ast 12 lds trcg only w/o i&r Jani D Lemasters DO Work Phone: Start: 04-02-2024 Radiologic exam ches t single view Jani D Lemasters DO Work Phone: Start: 04-02-2024 Ct abdomen & pelvis w/o contrast material Jani D Lemasters DO Work Phone: Start: 04-02-2024 Comprehensive metabo lic panel Jani D Lemasters DO Work Phone: Start: 04-02-2024 Urnls dip stick/tabl et rgnt auto w/o microscopy Jani Mcgrath DO Work Phone: Start: 08-14-2023 Lipid 1996 panel - S anson or Plasma Sangita Eliud [employer] Work Phone: Start: 08-04-2023 Ecg routine ecg w/le ast 12 lds trcg only w/o i&r Franco Spears MD Work Phone: Start: 07-15-2022 Bilateral mammography Start: 07-15-2022 Ultrasonography of breast Start: 08-25-2019 Ultrasound Abdominal Limited F/U Alberta Oberhauser Start: 08-15-2019 Culture bacterial quanttative colony count urine Alberta Oberhauser Start: 08-15-2019 Urnls dip stick/tabl et rgnt auto w/o microscopy Alberta Oberhauser Start: 08-15-2019 Xray Abdomen AP View Me faina Oberhauser Cataract surgery Alberta L Obe rhauser Work Phone: Comment on above: b/l 2020; Cholecystectomy Alberta Oberha user Comment on above: Laparoscopic cholecy stectomy on 09/21/[address] Navarro, pathology showed chronic cholecystitis and cholelithiasis; Colonoscopy Alberta Oberhause r Comment on above: 01/[address] Watson; Hysterectomy Alberta Oberhause r Repair of cystocele Alberta L Oberhauser Work Phone: Repair of rectocele Alberta L Oberhauser Work Phone: Replacement of joint of digit of hand Alberta L Oberhauser Work Phone: Plan of Treatment Date Care Activity Detail Author Start: 12-23-2029 Lipid panel Lipid Panel [facility] Start: 10-23-2029 Screening for malignant neoplasm of colon [facility] Start: 08-14-2028 Lipid panel Lipid Panel [facility] Start: 12-23-2025 Diabetes mellitus screening Diabetes Screening [facility] Start: 12-23-2025 Hemoglobin A1c measurement Diabetes: Hemoglobin A1C [facility] Start: 07-12-2025 End: 07-12-2025 Patient encounter procedure 07/12/2025 10:40 AM EST Office Visit [facility] [address] [facility] [address] [place] [id number] Don Marquez, [employer] [address] [facility] [address] [place] [address] [facility] Start: 05-26-2025 End: 05-26-2025 Patient encounter procedure 05/26/2025 10:30 AM EDT Office Visit [facility] Building [address] [place] [phone] Bg Srinivasan, [employer], [facility] [address], [address] [place], [place] [id number] [facility] Building Start: 04-03-2025 Influenza vaccination Influenz a Vaccine (Season Ended) [facility] Start: 03-16-2025 End: 03-16-2025 Patient encounter procedure 03/16/2025 11:15 AM EDT Office Visit [facility] Medical Office [facility] [address] [place] [phone] Maria Tipton MD [address] [place] [address] [facility] Medical Office [facility] Start: 12-22-2024 End: 12-22-2024 Patient encounter procedure [facility] Start: 12-01-2024 End: 12-01-2024 Patient encounter procedure 12/01/2024 2:10 PM EDT Office Visit [facility] [address] [place] [phone] Sangita Kline, [employer] [address] [facility], [address] [place] [address] [facility] Start: 10-24-2024 End: 10-24-2024 Patient encounter procedure 10/24/2024 7:30 AM EDT Appointment [facility] [address] [facility] [address] [place] [phone] Alberta Navarro MD [address] [facility], [address] [place] [address] [facility] Start: 08-29-2024 End: 08-29-2024 Patient encounter procedure [facility] Start: 08-25-2024 End: 08-25-2025 Colonoscopy study Colonoscopy Diagnostic (Diverticulitis) Endoscopy Routine Diverticulitis Expected: 08/25/2024, Expires: 08/25/2025 [facility] Service Area Work Phone: Comment on above: Expected: 08/25/2024 , Expires: 08/25/2025 Start: 08-22-2024 End: 08-22-2024 Patient encounter procedure 08/22/2024 3:30 PM EST Office Visit [facility] [address] [facility] [address] [place] [phone] Alberta Navarro MD [address] [facility], [facility] [address] [place] [address] [facility] Start: 08-14-2024 Diabetes mellitus screening Diabetes Screening [facility] Start: 08-14-2024 Hemoglobin A1c measurement Diabetes: Hemoglobin A1C [facility] Start: 08-05-2024 Medicare Annual Wellness Visit Medicare Annual Wellness Visit (AWV) [facility] Start: 08-04-2024 End: 08-04-2024 Patient encounter procedure 08/04/2024 10:20 AM EST Office Visit [facility] [address] [place] [address] Alberta Brown DO [address] [facility] [place] [address] [facility] Start: 05-27-2024 End: 05-27-2024 Patient encounter procedure 05/27/2024 11:30 AM EDT Office Visit [facility] Medical Office Building [address] [place] [address] Bg Srinivasan, [employer], DNP [address], [address] [place] [address] [facility] Medical Office [facility] Start: 05-19-2024 End: 05-19-2024 Patient encounter procedure 05/19/2024 11:30 AM EDT Office Visit [facility] [address] [place] [phone] Sangita Kline, [employer] [address] [facility] [place] [address] [facility] Start: 04-03-2024 COVID-19 Vaccine ( season) COVID-19 Vaccine ( season) [facility] Start: 04-03-2024 COVID-19 Vaccine ( season) COVID-19 Vaccine ( season) [facility] Start: 04-03-2024 Influenza vaccination Influenza Vacc ine (#1) [facility] Start: 03-29-2024 End: 03-29-2025 CBC W Auto Differential panel - Blood CBC and Auto Differential Lab Routine Kidney infection Expected: 03/29/2024 (Approximate), Expires: 03/29/2025 [facility] Work Phone: Comment on above: Expected: 03/29/2024 (Approximate), Expires: 03/29/2025 Start: 03-29-2024 End: 03-29-2025 Comprehensive metabolic 2000 panel - Serum or Plasma Comprehensive Metabolic Panel Lab Routine Kidney infection Expected: 03/29/2024 (Approximate), Expires: 03/29/2025 [facility] Work Phone: Comment on above: Expected: 03/29/2024 (Approximate), Expires: 03/29/2025 Start: 03-29-2024 End: 03-29-2025 US Kidney - bilateral and Urinary bladder US renal complete Imaging Routine Kidney infection Expected: 03/29/2024, Expires: 03/29/2025 [facility] Service Area Work Phone: Comment on above: Expected: 03/29/2024 , Expires: 03/29/2025 Start: 08-04-2023 End: 08-04-2024 Comprehensive metabolic 2000 panel - Serum or Plasma Comprehensive Metabolic Panel Lab Routine Primary hypertension Expected: 08/04/2023 (Approximate), Expires: 08/04/2024 [facility] Work Phone: Comment on above: Expected: 08/04/2023 (Approximate), Expires: 08/04/2024 Start: 08-04-2023 End: 08-04-2024 Hemoglobin A1c/Hemoglobin.total in Blood Hemoglobin A1C Lab Routine Screening for diabetes mellitus Elevated blood sugar Expected: 08/04/2023 (Approximate), Expires: 08/04/2024 [facility] Work Phone: Comment on above: Expected: 08/04/2023 (Approximate), Expires: 08/04/2024 Start: 08-04-2023 End: 08-04-2024 Lipid 1996 panel - Serum or Plasma Lipid Panel Lab Routine Screening for lipid disorders Expected: 08/04/2023 (Approximate), Expires: 08/04/2024 [facility] Area Work Phone: Comment on above: Expected: 08/04/2023 (Approximate), Expires: 08/04/2024 Start: 08-04-2023 End: 08-04-2023 Patient encounter procedure 08/04/2023 10:40 AM EST Office Visit [facility] [address] [place] [address] Alberta Brown DO [address] [facility] [place] [address] [facility] Start: 07-01-2023 Medicare Annual Wellness Visit Medicare Annual Wellness Visit (AWV) [facility] Start: 05-22-2023 FUV, Provider: Bg Srinivasan, Status: Pen, Time: 10:30 AM FUV, Provider: Bg Srinivasan, Status: Pen, Time: 10:30 AM [id number] nd [address] Work Phone: Start: 04-03-2023 COVID-19 Vaccine ( season) COVID-19 Vaccine ( season) [facility] Start: 04-03-2023 Influenza vaccination Influenza Vacc ine (#1) [facility] Start: 11-20-2022 FUV, Provider: Babar Bill, Status: Pen, Time: 3:15 PM FUV, Provider: Babar Bill, Status: Pen, Time: 3:15 PM [id number] nd [address] Work Phone: Start: 11-13-2022 ECHO, Provider: AVIVA [facility] ECHO 2,SMCECHO2, Status: Pen, Time: 11:30 AM ECHO, Provider: AVIVA [facility] ECHO 2,SMCECHO2, Status: Pen, Time: 11:30 AM [id number] nd [address] Work Phone: Start: 09-18-2022 NPV, Provider: Babar Bill, Status: Pen, Time: 11:30 AM NPV, Provider: Babar Bill, Status: Pen, Time: 11:30 AM [facility] Work Phone: Start: 04-01-2021 FUV, Provider: Alberta Brown, Status: Pen, Time: 9:20 AM FUV, Provider: Alberta Brown, Status: Pen, Time: 9:20 AM [facility] Work Phone: Start: 02-05-2021 DTaP/Tdap/Td Vaccine s (2 - Td or Tdap) DTaP/Tdap/Td Vaccines (2 - Td or Tdap) [facility] Start: 2021 RSV High Risk: (Elderly (60+) or Population) (1 - 1-dose 75+ series) RSV High Risk: (Elderly (60+) or Population) (1 - 1-dose 75+ series) [facility] Start: 05-09-2013 Zoster Vaccines (2 o f 3) Zoster Vaccines (2 of 3) [facility] Start: 2006 RSV patient s and/or patients aged 60+ years (1 - 1-dose 60+ series) RSV patients and/or patients aged 60+ years (1 - 1-dose 60+ series) [facility] Start: 01-29-1964 Diabetes mellitus screening Diabetes Screening [facility] Start: 01-29-1964 [facility] Start: [facility] COVID-19 Vaccine (#1) COVID-19 Vacci ne (#1) [facility] Start: 1945 Lipid panel Lipid Panel [facility] Start: 1945 Medicare Annual Wellness Visit Medicare Annual Wellness Visit (AWV) [facility] Start: 1945 Screening for malignant neoplasm of colon [facility] End: 08-02-2023 ECG 12 Lead [facility] Service Area Work Phone: Comment on above: Once for 1 Occurrenc es starting 08/02/2023 until 08/02/2023 ECG 12 lead ECG 12 lead ECG STAT 04/02/2024 5:42 PM EDT [facility] Work Phone: End: 08-17-2024 ECG 12 lead [facility] Work Phone: Comment on above: Once for 1 Occurrenc es starting 08/17/2024 until 08/17/2024 End: 12-19-2024 ECG 12 lead ECG 12 lead ECG STAT Once for 1 Occurrences starting 12/19/2024 until 12/19/2024 [facility] Service Area Work Phone: Comment on above: Once for 1 Occurrenc es starting 12/19/2024 until 12/19/2024 Electrocardiogram, 12-lead PRN ACS symptoms Electrocardiogram, 12-lead PRN ACS symptoms ECG Routine As needed until discontinued starting 08/19/2024 [facility] Service Area Work Phone: Comment on above: As needed until disc ontinued starting 08/19/2024 End: 04-02-2024 Extra Urine Perkins Tube [facility] Work Phone: Comment on above: Once for 1 Occurrenc es starting 04/02/2024 until 04/02/2024 End: 08-17-2024 Extra Urine Perkins Tube [facility] Work Phone: Comment on above: Once for 1 Occurrenc es starting 08/17/2024 until 08/17/2024 End: 12-19-2024 Extra Urine Perkins Tube [facility] Work Phone: Comment on above: Once for 1 Occurrenc es starting 12/19/2024 until 12/19/2024 End: 10-24-2024 Moderate Sedation Moderate Sedation Procedures Routine Once for 1 Occurrences starting 10/24/2024 until 10/24/2024 [facility] Service Area Work Phone: Comment on above: Once for 1 Occurrenc es starting 10/24/2024 until 10/24/2024 End: 10-24-2024 Pulse oximetry, continuous Pulse oximetry, continuous Respiratory Care Routine Continuous until discontinued starting 10/24/2024 [facility] Work Phone: Comment on above: Continuous until dis continued starting 10/24/2024 Surgical pathology study [facility] Work Phone: Comment on above: Release Upon Orderin g for 1 Occurrences starting 10/24/2024 End: 04-02-2024 Urinalysis complete W Reflex Culture panel - Urine [facility] Service Area Work Phone: Comment on above: Once (Lab) for 1 Occ urrences starting 04/02/2024 until 04/02/2024 End: 08-17-2024 Urinalysis complete W Reflex Culture panel - Urine [facility] Service Area Work Phone: Comment on above: Once (Lab) for 1 Occ urrences starting 08/17/2024 until 08/17/2024 End: 12-19-2024 Urinalysis complete W Reflex Culture panel - Urine [facility] Work Phone: Comment on above: Once (Lab) for 1 Occ urrences starting 12/19/2024 until 12/19/2024 End: 03-31-2024 US Kidney - bilateral and Urinary bladder [facility] Service Area Work Phone: Comment on above: Once for 1 Occurrenc es starting 03/31/2024 until 03/31/2024 [facility] Work Phone: NEGATED: Highlighted row has been ruled out! Planned Goals not documented [facility] Work Phone: Immunizations Immunization Date Immunization Notes Care Provider Randy conde 06-15-2023 influenza virus vaccine, unspecified formulation Sangita Kline [employer] Work Phone: [facility] Work Phone: 07-18-2022 Flu vaccine, quadrivalent, high-dose, preservative free, age 65y+ (FLUZONE) Bg Srinivasan [employer], DNP Work Phone: [facility] Work Phone: 07-18-2022 influenza virus vaccine, unspecified formulation Bg Srinivasan [employer], DNP Work Phone: [facility] Work Phone: 07-22-2020 influenza, seasonal, injectable Alberta Brown Work Phone: [facility] Work Phone: Comment on above: Series: 07-16-2020 Fluzone High-Dose Quadrivalent 0.7 ML Intramuscular Suspension Prefilled Syringe; Translations: [Fluzone High-Dose Quadrivalent 0.7 ML Intramuscular Suspension Prefilled Syringe] Alberta Brown Work Phone: [facility] Work Phone: Comment on above: Series: 07-16-2020 influenza, seasonal, injectable Alberta L Oberhauser Work Phone: [facility] Work Phone: Comment on above: Series: 07-06-2019 influenza, high dose seasonal, preservative-free Alberta L Oberhauser Work Phone: [facility] Work Phone: 12-14-2018 pneumococcal conjuga te vaccine, 13 valent Alberta L Oberhauser Work Phone: [facility] Work Phone: 08-11-2018 influenza, high dose seasonal, preservative-free Alberta L Oberhauser Work Phone: [facility] Work Phone: 07-23-2015 influenza, seasonal, injectable Alberta L Oberhauser Work Phone: [facility] Work Phone: 07-06-2014 influenza, seasonal, injectable Alberta L Oberhauser Work Phone: [facility] Work Phone: 08-15-2013 influenza, seasonal, injectable Alberta L Oberhauser Work Phone: [facility] Work Phone: 03-14-2013 zoster vaccine, live Alberta L Oberhauser Work Phone: [facility] Work Phone: 06-01-2012 influenza, seasonal, injectable Alberta L Oberhauser Work Phone: [facility] Work Phone: 02-05-2011 pneumococcal polysaccharide vaccine, 23 valent Alberta L Oberhauser Work Phone: [facility] Work Phone: 02-05-2011 tetanus toxoid, redu josh diphtheria toxoid, and acellular pertussis vaccine, adsorbed Alberta Veronica Tcnicole Work Phone: [facility] Work Phone: Payers Date Payer Category Payer Self-pay [id number] 2023 Medicare ANTHEM MEDICARE ANTHEM MEDICARE ADVANTAGE [id number] 2023-Present [address] [place] [address] [id number] 2023 Medicare (Managed Care) [facility] ADVANTAGE [id number] 2023 Medicare [id number] 2011 Medicare [id number] 2011 Unknown [id number] 1945 Unknown [id number] 2.16.840.1.327240.3.579. 2.1068 1945 Unknown [id number] 2.16.840.1.970451.3.579. 2.1068 1946 Unknown [id number] 2.16840.1.348010.3.579. 2.1068 1946 Unknown [id number] 2.16.840.1.202990.3.579. 2.10681946 Unknown [id number] 2.16.840.1.412841.3.579. 2.1244 1946 Unknown [id number] 2.16.840.1.547986.3.579. 2.1244 1946 Unknown [id number] 2.16.840.1.045519.3.579. 2.1242 1946 Unknown [id number] 2.16.840.1.683443.3.579. 2.1242 1946 Unknown [id number] 2.16.840.1.143577.3.579. 2.1242 1946 Unknown [id number] 2.16.840.1.338929.3.579. 2.1242 1946 Unknown [id number] 2.16840.1.469608.3.579. 2.1242 1946 Unknown [id number] 2.16.840.1.093195.3.579. 2.1242 1946 Unknown [id number] 2.16840.1.522371.3.579. 2.1242 1946 Unknown [id number] 2.16.840.1.911145.3.579. 2.1242 1946 Unknown [id number] 2.16840.1.220544.3.579. 2.1243 1946 Unknown [id number] 2.16.840.1.515488.3.579. 2.1243 1946 Unknown [id number] 2.16.840.1.159179.3.579. 2.1243 1946 Unknown [id number] 2.16.840.1.986491.3.579. 2.1243 1946 Unknown [id number] 2.16840.1.657115.3.579. 2.1243 1946 Unknown [id number] 2.16.840.1.687418.3.579. 2.1244 1946 Unknown [id number] 2.16.840.1.306389.3.579. 2.1244 1946 Unknown [id number] 2.16.840.1.760812.3.579. 2.1244 1946 Unknown [id number] 2.16.840.1.338237.3.579. 2.1244 1946 Unknown [id number] 2.16.840.1.599471.3.579. 2.1244 1945 Unknown [id number] 2.16.840.1.121361.3.579. 2.1244 Unknown Unknown [facility] [id number] Unknown [id number] 2.16.840.1.502762.3.579. 2.462 Social History Date Type Detail Facility Start: 01-19-2023 End: 08-21-2024 Never a smoker Never a smoker [facility] Work Phone: Start: 07-06-2014 Tobacco smoking status AKIS Unknown if ever smoked [facility] Work Phone: Start: 1945 Sex Assigned At Female [facility] Work Phone: Start: 01-19-2023 End: 05-25-2023 Tobacco smoking status NHIS Never smoked tobacco [facility] Work Phone: Start: 01-19-2023 End: 05-25-2023 Tobacco use and exposure Smokeless tobacco non-user [facility] Work Phone: Start: 01-19-2023 End: 04-07-2024 Alcohol intake Lifetime non-drinker (finding) [facility] Work Phone: Start: 01-19-2023 End: 08-21-2024 Tobacco use panel [facility] Work Phone: Start: 1945 [facility] Start: 01-09-2023 End: 01-05-2025 Exposure to SARS-CoV-2 (event) Not sure [facility] History of tobacco use Passive smoker [facility] Work Phone: Start: 05-27-2024 End: 08-08-2024 Alcoholic beverage intake Current drinker of alcohol (finding) [facility] Work Phone: Start: 05-27-2024 Alcohol Comment [facility]: Start: 07-29-2024 End: 08-08-2024 Exposure to SARS-CoV-2 (event) Unable to assess [facility] Start: 08-17-2024 End: 01-05-2025 Alcoholic beverage intake Ex-drinker (finding) [facility] Work Phone: How often do you nee d to have someone help you when you read instructions, pamphlets, or other written material from your doctor or pharmacy [SILS] Patient declines to respond [facility] How often to you hav e a drink containing alcohol? Never [facility] Work Phone: In the past 12 months, was there a time when you were not able to pay the mortgage or rent on time? No [facility] Work Phone: NEGATED: Highlighted row - - [facility] Work Phone: Medical Equipment Procedure Code Equipment Code Equipment Original Text Equipment Identifier Dates Endo, Clip, 5mm, M/L Case [id number] Start: 09-21-2019 Comment on above: Description: Convert ed from [facility]. Please see archived information for full log information. Clip, Endo, [place], W/Ratchet, On/Off, [place], 5 Mm Case [id number] Start: 09-21-2019 Comment on above: Description: Convert ed from [facility]. Please see archived information for full log information. Functional Status Date Assessment Result Facility 12-19-2024 [place] - suicide severity rating scale screener - recent [C-SSRS] [facility] Work Phone: NEGATED: Highlighted row Functional performance Functional status health issues are not documented Disease [facility] Work Phone: Mental Status Date Assessment Result Facility NEGATED: Highlighted row Cognitive function [Interpretation] Cognitive status health issues are not documented [facility] Work Phone: Clinical Notes 07-03-2022 to 01-05-2025 Assessment & Plan Note - LUAN George - 01/05/2025 9:40 AM EDTAssessment & Plan Note - LUAN George - 01/05/2025 9:40 AM EDTPatient InstructionsDischarge Instructions Note Date & Type Note Facility 01-05-2025 Evaluation + Plan note Associated Problem(s): Mixed dyslipidemia 10Y ASCVD risk 22.7% + FXHX Father with CV Disease Elevated LDL, total cholesterol and triglycerides Greater than 15 minutes were spent assessing and discussing cardiovascular risk and, if needed, lifestyle modifications recommended, including nutritional choices, exercise, and elimination of habits contributing to the risk. We agreed on a plan to reduce the current cardiovascular risk. Aspirin use\distant use was discussed following the guidelines of the [employer] [place] [employer]. Patient is not interested in starting on statin therapy at this time to lower her risk for cardiovascular disease. She understands the risks. For not treating her elevated cholesterol levels and her elevated ASCVD risk. She is curious if there is any dietary measures that may help with her cholesterol numbers. Discussed that she may incorporate more plant-based foods in her diet and minimize processed foods and red meats. Minimizing alcohol remaining physically active may also be beneficial. We did discuss that despite dietary modifications her cholesterol still may remain elevated where statin therapy is recommended. Orders: Follow Up In Primary Care - Established Follow Up In Primary Care - Established; Future [facility] Work Phone: 01-05-2025 Evaluation + Plan note Associated Problem(s): Bladder prolapse, female, acquired Remote bladder sling surgery 20+Y ago, since losing weight she can feel a bulge outside of her vagina. This is more pronounced when she is standing. Feels like she isn't emptying her bladder as much as before. Orders: Referral to Urogynecology; Future [facility] Work Phone: 01-05-2025 Evaluation + Plan note Associated Problem(s): Primary hypertension Home blood pressure readings: 120-130/60-70's IO BP today: 132/84. No longer taking Amlodipine as she felt it caused dizziness & lightheadedness. [facility] Work Phone: 01-05-2025 Evaluation + Plan note Associated Problem(s): Acute pharyngitis Developed a sore throat yesterday, Taking Vitamin C & Airborne. No cough/fever or ear pain. lymph nodes under her chin feel tender & enlarged. [facility] Work Phone: 01-05-2025 Evaluation + Plan note Associated Problem(s): Umbilical hernia without obstruction and without gangrene noticed a small umbilical hernia last week with some mild tenderness [facility] Work Phone: 01-05-2025 History of Present illness Narrative Subjective Patient ID: Troy Ramos is a 79 y.o. female who presents for Follow-up, elevated cholesterol, and Sore Throat. Troy comes to office to review labs today Saw GI and he encouraged her to reduce Protonix to daily w/ an update after she stops taking it. Her LLQ pain resolved. No pain with eating. Is very careful about what she eats because of her diverticulosis MMG & DEXA scheduled for next Thursday Review of Systems Constitutional: Negative for fever. HENT: Positive for sore throat. Negative for ear pain. Eyes: Negative for visual disturbance. Respiratory: Negative for cough and shortness of breath. Gastrointestinal: Negative for abdominal pain, blood in stool, constipation, diarrhea, nausea and vomiting. Bulge @ umbilicus Genitourinary: + incomplete bladder emptying Neurological: Negative for dizziness, light-headedness and headaches. Psychiatric/Behavioral: Negative for dysphoric mood. The patient is not nervous/anxious. Objective Physical Exam Vitals reviewed. Constitutional: General: She is not in acute distress. Appearance: Normal appearance. She is normal weight. She is not ill-appearing. HENT: Head: Normocephalic. Mouth/Throat: Pharynx: Posterior oropharyngeal erythema present. Cardiovascular: Rate and Rhythm: Normal rate and regular rhythm. Heart sounds: No murmur heard. Pulmonary: Effort: Pulmonary effort is normal. Breath sounds: Normal breath sounds. Abdominal: General: Abdomen is flat. Bowel sounds are decreased. Palpations: Abdomen is soft. Tenderness: There is no abdominal tenderness. Hernia: A hernia is present. Hernia is present in the umbilical area. Musculoskeletal: Right lower leg: No edema. Left lower leg: No edema. Lymphadenopathy: Cervical: Cervical adenopathy present. Neurological: Mental Status: She is alert. Psychiatric: Cognition and Memory: Cognition normal. Assessment/Plan Assessment & Plan Mixed dyslipidemia 10Y ASCVD risk 22.7% + FXHX Father with CV Disease Elevated LDL, total cholesterol and triglycerides Greater than 15 minutes were spent assessing and discussing cardiovascular risk and, if needed, lifestyle modifications recommended, including nutritional choices, exercise, and elimination of habits contributing to the risk. We agreed on a plan to reduce the current cardiovascular risk. Aspirin use\distant use was discussed following the guidelines of the [employer] [place] [employer]. Patient is not interested in starting on statin therapy at this time to lower her risk for cardiovascular disease. She understands the risks. For not treating her elevated cholesterol levels and her elevated ASCVD risk. She is curious if there is any dietary measures that may help with her cholesterol numbers. Discussed that she may incorporate more plant-based foods in her diet and minimize processed foods and red meats. Minimizing alcohol remaining physically active may also be beneficial. We did discuss that despite dietary modifications her cholesterol still may remain elevated where statin therapy is recommended. Orders: Follow Up In Primary Care - Established Follow Up In Primary Care - Established; Future Bladder prolapse, female, acquired Remote bladder sling surgery 20+Y ago, since losing weight she can feel a bulge outside of her vagina. This is more pronounced when she is standing. Feels like she isn't emptying her bladder as much as before. Orders: Referral to Urogynecology; Future Primary hypertension Home blood pressure readings: 120-130/60-70's IO BP today: 132/84. No longer taking Amlodipine as she felt it caused dizziness & lightheadedness. Acute pharyngitis, unspecified etiology Developed a sore throat yesterday, Taking Vitamin C & Airborne. No cough/fever or ear pain. lymph nodes under her chin feel tender & enlarged. Umbilical hernia without obstruction and without gangrene noticed a small umbilical hernia last week with some mild tenderness LUAN George 01/05/25 11:38 AM documented in this encounter [facility] Work Phone: 01-05-2025 Instructions LUAN George - 01/05/2025 9:40 AM EDT Office visit in 6 months You may use 1/8 of a teaspoon of table salt with 1 cup of warm water to gargle as needed to help with your sore throat. Continue to take your vitamin C and Airborne. Get plenty of rest you may also drink hot tea to help soothe your irritated throat. documented in this encounter [facility] Work Phone: 01-05-2025 Miscellaneous Notes Associated Problem(s): Mixed dyslipidemia 10Y ASCVD risk 22.7% + FXHX Father with CV Disease Elevated LDL, total cholesterol and triglycerides Greater than 15 minutes were spent assessing and discussing cardiovascular risk and, if needed, lifestyle modifications recommended, including nutritional choices, exercise, and elimination of habits contributing to the risk. We agreed on a plan to reduce the current cardiovascular risk. Aspirin use\distant use was discussed following the guidelines of the [place] [place] [employer]. Patient is not interested in starting on statin therapy at this time to lower her risk for cardiovascular disease. She understands the risks. For not treating her elevated cholesterol levels and her elevated ASCVD risk. She is curious if there is any dietary measures that may help with her cholesterol numbers. Discussed that she may incorporate more plant-based foods in her diet and minimize processed foods and red meats. Minimizing alcohol remaining physically active may also be beneficial. We did discuss that despite dietary modifications her cholesterol still may remain elevated where statin therapy is recommended. Orders: Follow Up In Primary Care - Established Follow Up In Primary Care - Established; Future Associated Problem(s): Bladder prolapse, female, acquired Remote bladder sling surgery 20+Y ago, since losing weight she can feel a bulge outside of her vagina. This is more pronounced when she is standing. Feels like she isn't emptying her bladder as much as before. Orders: Referral to Urogynecology; Future Associated Problem(s): Primary hypertension Home blood pressure readings: 120-130/60-70's IO BP today: 132/84. No longer taking Amlodipine as she felt it caused dizziness & lightheadedness. Associated Problem(s): Acute pharyngitis Developed a sore throat yesterday, Taking Vitamin C & Airborne. No cough/fever or ear pain. lymph nodes under her chin feel tender & enlarged. Associated Problem(s): Umbilical hernia without obstruction and without gangrene noticed a small umbilical hernia last week with some mild tenderness documented in this encounter [facility] Work Phone: 11-15-2024 History of Present illness Narrative Subjective Patient ID: Troy Ramos is a 79 y.o. female who presents for Hospital Follow-up (Pt presents today as a hospital follow up. Pt was admitted to the hospital from 08/19/24-08/22/24 and was diagnosed and treated for diverticulitis. Pt states she is currently having a flair, which began on 11/10/24, and include left side pain and a hot flash like sensation. Pt states she had medication left from hospital stay, which she says have lightened symptoms, but not eliminated. ). HPI 79-year-old female hospitalized mid August with acute sigmoid diverticulitis. Treated with IV antibiotics discharged home on oral Augmentin. Completed all but 5-day course. Underwent outpatient colonoscopy 3 weeks ago findings of 4 small adenomatous polyps largest 8 mm scattered throughout colon. Pandiverticular disease throughout colon without stricture or active diverticulitis. Approximately 10 days ago developed increasing left lower quadrant pain with symptoms suggestive of diverticulitis was placed back on antibiotics which she did not complete. She completed 5-day course of Augmentin still has pain in her left side denies any rectal bleeding no fevers no chills. Presents here for follow-up. States she has had chronic diarrhea since her cholecystectomy many years ago. Will have diarrhea anytime she eats. Begin taking fiber feels that it has firmed her stool up in the morning is still soft and rapidly disintegrates but is more formed. Review of Systems Constitutional: Negative. Negative for chills and fever. HENT: Negative. Eyes: Negative. Respiratory: Negative. Cardiovascular: Negative. Gastrointestinal: Positive for abdominal pain and diarrhea. Negative for anal bleeding, constipation and nausea. Endocrine: Negative. Genitourinary: Negative. Neurological: Negative. Hematological: Negative. Objective Physical Exam Vitals and nursing note reviewed. Constitutional: Appearance: Normal appearance. HENT: Head: Normocephalic. Mouth/Throat: Mouth: Mucous membranes are moist. Pharynx: Oropharynx is clear. Eyes: Conjunctiva/sclera: Conjunctivae normal. Pupils: Pupils are equal, round, and reactive to light. Cardiovascular: Pulses: Normal pulses. Heart sounds: Normal heart sounds. Pulmonary: Effort: Pulmonary effort is normal. Breath sounds: Normal breath sounds. Abdominal: General: Abdomen is flat. Bowel sounds are normal. Palpations: Abdomen is soft. There is no mass. Tenderness: There is abdominal tenderness. There is no guarding or rebound. Musculoskeletal: Cervical back: Normal range of motion and neck supple. Skin: General: Skin is warm and dry. Neurological: General: No focal deficit present. Mental Status: She is alert and oriented to person, place, and time. Psychiatric: Behavior: Behavior normal. Assessment/Plan Diagnoses and all orders for this visit: Diverticulitis - amoxicillin-pot clavulanate (Augmentin) 875-125 mg tablet; Take 1 tablet (875 mg) by mouth 2 times a day for 5 days. Suspect recurrent diverticulitis will continue Augmentin for full 10-day course given additional 5-day prescription advised her to call Thursday if she is no better will need to complete imaging. If improved would consider treatment with cholestyramine for bile salt diarrhea. Roberto Watson DO 11/15/24 3:20 PM documented in this encounter [facility] Work Phone: 10-24-2024 History and physical note General Surgery H&P Patient: Troy Ramos : 1945 Primary Care Provider: LUAN Rayn Chief Complaint: Diverticulitis History of Present Illness: Troy Ramos is a 79 y.o. old female seen at the request of Dr. Brown for follow-up of recent episode of diverticulitis. I have previously performed a laparoscopic cholecystectomy for her back in 2019. She was evaluated in the Emergency Department on 08/17/24 for abdominal pain. This has been going on for about 2 months. WBC was normal. CT of the abdomen and pelvis showed pancolonic diverticulosis with acute diverticulitis of just a single thick walled diverticulum along the antimesenteric aspect of the distal left/proximal sigmoid colon. She was started on Augmentin. She reported throat swelling and difficulty swallowing. She was reevaluated in the ED on 08/19/24 and admitted for IV antibiotics. She received IV Unasyn. She was transitioned back to Augmentin, with Benadryl and Pepcid, and discharged home on 08/22/24. She is currently off of the antibiotics as of this morning. 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 She denies any abdominal pain. She denies fever. Her bowel movements are still a little more loose than normal but she is having 1 bowel movement each morning. She denies seeing any blood in the stool or dark black bowel movement. Her last colonoscopy was in [address] Watson. Prior to this episode of diverticulitis she only had 1 or 2 previous episodes that were both over 10 years ago and treated in the outpatient setting with oral antibiotics. He has no family history of colon or rectal cancer or inflammatory bowel disease. Medical History: Diverticulitis Arthritis Surgical History: Colonoscopy, January [address] Watson Laparoscopic cholecystectomy, 09/21/2019 Hysterectomy Bilateral cataract surgery Home Medications: Prior to Admission medications Medication Sig Start Date End Date Taking? Authorizing Provider acetaminophen (Tylenol 8 Hour) 650 mg ER tablet Take 2 tablets (1,300 mg) by mouth once daily at bedtime. Historical Provider, amoxicillin-pot clavulanate (Augmentin) 875-125 mg tablet Take 1 tablet (875 mg) by mouth every 12 hours for 10 days. Patient not taking: Reported on 08/19/2024 08/17/24 08/27/24 Jani Mcgrath DO ascorbic acid, vitamin C, 500 mg capsule Take 1 tablet by mouth once daily. Historical Provider, calcium carb-vit D3-magnesium 250-200-125 mg-unit-mg capsule Take 2 tablets by mouth once daily. 01/23/11 Historical Provider, cetirizine (ZyrTEC) 5 mg tablet Take 2 tablets (10 mg) by mouth every other day. 4x/week 05/23/19 Historical Provider, colesevelam (Welchol) 625 mg tablet Take 1 tablet (625 mg) by mouth 2 times daily (morning and late afternoon). Per patient: Takes for diarrhea that happened secondary to her gall bladder removal Historical Provider, diphenhydrAMINE (Sominex) 25 mg tablet Take 1 tablet (25 mg) by mouth as needed at bedtime for sleep. Historical Provider, ERGOCALCIFEROL, VITAMIN D2, ORAL Take 2,400 Units by mouth once daily. Historical Provider, estradiol (Estrace) 1 mg tablet Take 1 tablet by mouth once daily 08/01/24 Alberta Brown DO famotidine (Pepcid) 20 mg tablet Take 1 tablet (20 mg) by mouth once daily. Historical Provider, metoprolol tartrate (Lopressor) 25 mg tablet Take 1 tablet (25 mg) by mouth once daily. 05/27/24 Bg Srinivasan, [employer], DNP UNABLE TO FIND Take 1 tablet by mouth once daily. Med Name: PREVAGAN Historical Provider, ECHINACEA ORAL Take 1 tablet by mouth once daily. 08/19/24 Historical Provider, NON FORMULARY Take 1 each by mouth once daily. 08/19/24 Historical Provider, Allergies: Allergies Allergies Allergen Reactions Amoxicillin Itching Ciprofloxacin Hives Ciprofloxacin-Fluocinolone Hives Estroven Nighttime Rash Shellfish Containing Products Hives and Swelling Amoxicillin-Pot Clavulanate Hives and Itching Bactrim [Sulfamethoxazole-Trimethoprim] Hives Cephalexin Itching Flagyl [Metronidazole] Itching Prednisone Unknown Shellfish Derived Other Gatifloxacin Unknown Levofloxacin Unknown Quinolones Hives, Itching and Rash Family History: No family history of colon or rectal cancer or inflammatory bowel disease. Mother with aneurysm. Father with CAD. Social History: Non-smoker. No alcohol or drug use. . 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: no fever, sweats, and chills, + wears hearing aids Cardiovascular: + Irregular heartbeat, palpitations Respiratory: No cough or shortness of breath Gastrointestinal: + Resolution of previous abdominal pain and diarrhea Genitourinary: no dysuria Musculoskeletal: + Arthritis, osteoporosis Integumentary: no rashes Neurological: + Unsteady gait Endocrine: no heat or cold intolerance Heme/Lymph: no easy bruising or bleeding Physical Exam: Constitutional: No acute distress, conversant, pleasant Neurologic: alert and oriented Psych: appropriate affect Ears, Nose, Mouth and Throat: mucus membranes moist Pulmonary: No labored breathing Cardiovascular: Regular rate and rhythm Abdomen: soft, non-distended, BMI 19, nontender Musculoskeletal: Moves all extremities, no edema Skin: no jaundice Labs: WBC has remained normal from 08/17/24 - 08/22/24 Imaging: CT a/p from 08/17/24 reviewed: Orantes diverticulosis. Diverticulitis of a single diverticulum in the distal descending/proximal sigmoid colon. Assessment and Plan: Troy Ramos is a 79 y.o. old female with uncomplicated diverticulitis. It has been over 5 years since her last colonoscopy. I have recommended colonoscopy in 6 - 8 weeks after acute inflammation has subsided. We discussed the risks of this procedure. This included risks of bleeding, perforation, missed polyps, incomplete colonoscopy, and potential need for additional procedures pending findings. The patient was agreeable to proceed. Bowel prep instructions were reviewed and all questions were answered. The patient is scheduled for colonoscopy on 10/24/24. Alberta Navarro MD [facility] Work Phone: 10-24-2024 History and physical note General Surgery H&P Patient: Troy Ramos : 1945 Primary Care Provider: LUAN Ryan Chief Complaint: Diverticulitis History of Present Illness: Troy Ramos is a 79 y.o. old female seen at the request of Dr. Brown for follow-up of recent episode of diverticulitis. I have previously performed a laparoscopic cholecystectomy for her back in 2019. She was evaluated in the Emergency Department on 08/17/24 for abdominal pain. This has been going on for about 2 months[address] W[address] was normal. CT of the abdomen and pelvis showed pancolonic diverticulosis with acute diverticulitis of just a single thick walled diverticulum along the antimesenteric aspect of the distal left/proximal sigmoid colon. She was started on Augmentin. She reported throat swelling and difficulty swallowing. She was reevaluated in the ED on 08/19/24 and admitted for IV antibiotics. She received IV Unasyn. She was transitioned back to Augmentin, with Benadryl and Pepcid, and discharged home on 08/22/24. She is currently off of the antibiotics as of this morning. 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 She denies any abdominal pain. She denies fever. Her bowel movements are still a little more loose than normal but she is having 1 bowel movement each morning. She denies seeing any blood in the stool or dark black bowel movement. Her last colonoscopy was in [address] Watson. Prior to this episode of diverticulitis she only had 1 or 2 previous episodes that were both over 10 years ago and treated in the outpatient setting with oral antibiotics. He has no family history of colon or rectal cancer or inflammatory bowel disease. Medical History: Diverticulitis Arthritis Surgical History: Colonoscopy, January [address] Watson Laparoscopic cholecystectomy, 09/21/2019 Hysterectomy Bilateral cataract surgery Home Medications: Prior to Admission medications Medication Sig Start Date End Date Taking? Authorizing Provider acetaminophen (Tylenol 8 Hour) 650 mg ER tablet Take 2 tablets (1,300 mg) by mouth once daily at bedtime. Historical Provider, amoxicillin-pot clavulanate (Augmentin) 875-125 mg tablet Take 1 tablet (875 mg) by mouth every 12 hours for 10 days. Patient not taking: Reported on 08/19/2024 08/17/24 08/27/24 Jani Mcgrath DO ascorbic acid, vitamin C, 500 mg capsule Take 1 tablet by mouth once daily. Historical Provider, calcium carb-vit D3-magnesium 250-200-125 mg-unit-mg capsule Take 2 tablets by mouth once daily. 01/23/11 Historical Provider, cetirizine (ZyrTEC) 5 mg tablet Take 2 tablets (10 mg) by mouth every other day. 4x/week 05/23/19 Historical Provider, colesevelam (Welchol) 625 mg tablet Take 1 tablet (625 mg) by mouth 2 times daily (morning and late afternoon). Per patient: Takes for diarrhea that happened secondary to her gall bladder removal Historical Provider, diphenhydrAMINE (Sominex) 25 mg tablet Take 1 tablet (25 mg) by mouth as needed at bedtime for sleep. Historical Provider, ERGOCALCIFEROL, VITAMIN D2, ORAL Take 2,400 Units by mouth once daily. Historical Provider, estradiol (Estrace) 1 mg tablet Take 1 tablet by mouth once daily 08/01/24 Alberta Brown DO famotidine (Pepcid) 20 mg tablet Take 1 tablet (20 mg) by mouth once daily. Historical Provider, metoprolol tartrate (Lopressor) 25 mg tablet Take 1 tablet (25 mg) by mouth once daily. 05/27/24 Bg Srinivasan, [employer], DNP UNABLE TO FIND Take 1 tablet by mouth once daily. Med Name: PREVAGAN Historical Provider, ECHINACEA ORAL Take 1 tablet by mouth once daily. 08/19/24 Historical Provider, NON FORMULARY Take 1 each by mouth once daily. 08/19/24 Historical Provider, Allergies: Allergies Allergies Allergen Reactions Amoxicillin Itching Ciprofloxacin Hives Ciprofloxacin-Fluocinolone Hives Estroven Nighttime Rash Shellfish Containing Products Hives and Swelling Amoxicillin-Pot Clavulanate Hives and Itching Bactrim [Sulfamethoxazole-Trimethoprim] Hives Cephalexin Itching Flagyl [Metronidazole] Itching Prednisone Unknown Shellfish Derived Other Gatifloxacin Unknown Levofloxacin Unknown Quinolones Hives, Itching and Rash Family History: No family history of colon or rectal cancer or inflammatory bowel disease. Mother with aneurysm. Father with CAD. Social History: Non-smoker. No alcohol or drug use. . 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: no fever, sweats, and chills, + wears hearing aids Cardiovascular: + Irregular heartbeat, palpitations Respiratory: No cough or shortness of breath Gastrointestinal: + Resolution of previous abdominal pain and diarrhea Genitourinary: no dysuria Musculoskeletal: + Arthritis, osteoporosis Integumentary: no rashes Neurological: + Unsteady gait Endocrine: no heat or cold intolerance Heme/Lymph: no easy bruising or bleeding Physical Exam: Constitutional: No acute distress, conversant, pleasant Neurologic: alert and oriented Psych: appropriate affect Ears, Nose, Mouth and Throat: mucus membranes moist Pulmonary: No labored breathing Cardiovascular: Regular rate and rhythm Abdomen: soft, non-distended, BMI 19, nontender Musculoskeletal: Moves all extremities, no edema Skin: no jaundice Labs: WBC has remained normal from 08/17/24 - 08/22/24 Imaging: CT a/p from 08/17/24 reviewed: Orantes diverticulosis. Diverticulitis of a single diverticulum in the distal descending/proximal sigmoid colon. Assessment and Plan: Troy Ramos is a 79 y.o. old female with uncomplicated diverticulitis. It has been over 5 years since her last colonoscopy. I have recommended colonoscopy in 6 - 8 weeks after acute inflammation has subsided. We discussed the risks of this procedure. This included risks of bleeding, perforation, missed polyps, incomplete colonoscopy, and potential need for additional procedures pending findings. The patient was agreeable to proceed. Bowel prep instructions were reviewed and all questions were answered. The patient is scheduled for colonoscopy on 10/24/24. Alberta Navarro MD documented in this encounter [facility] Work Phone: 10-24-2024 Hospital Discharge instructions Nicol Rodriguez RN - 10/24/2024 9:13 AM EDT SEE SEDATION AND AFTER A COLONOSCOPY FORM PROVIDED. NEXT COLONOSCOPY 3-5 YEARS IF DECISION TO DO SO PER DR NAVARRO PER CONVERSATION. documented in this encounter [facility] Work Phone: 08-31-2024 History of Present illness Narrative Subjective Patient ID: Troy Ramos is a 79 y.o. female who presents for No chief complaint on file.. HPI Patient is here today for Hospital follow up via telephone. Pt and physician are at two separate locations. Pt was verbally consented for the encounter. Pt reports that she did go to the hospital for worsening abdominal pain with refractory diverticulitis. She has many drug allergies or intolerances, I had referred her to Allergy & Immunology to have further antibiotic testing as we are very limited in oral antibiotics. However in the meantime she had another abd pain flare, advised her to go to the Ed as I was concerned that she could have developed an abscess related to the diverticulitis. Pt was admitted due to failing outpatient treatment. Patient was admitted for a few days and received IV antibiotics, unasyn. Pt reports that she is not currently having any abd pain and she is feeling better. Eating bland foods. She did see Dr Navarro and she has a colonscopy scheduled for October 24. She has skin test scheduled for antibiotic testing on 09/14/24. Review of Systems HENT: Negative for sinus pressure, sore throat and tinnitus. Respiratory: Negative for cough and shortness of breath. Gastrointestinal: Negative for abdominal distention, blood in stool, constipation, diarrhea and vomiting. Objective There were no vitals taken for this visit. Physical Exam No physical exam was completed due telephone visit. Assessment/Plan Problem List Items Addressed This Visit Primary hypertension Relevant Medications amLODIPine (Norvasc) 2.5 mg tablet Other Visit Diagnoses Anxiety - Primary Relevant Medications ALPRAZolam (Xanax) 0.5 mg tablet Diverticulitis Refractory diverticulitis - reviewed hospital records including imaging and laboratory studies - Ct showed extensive diverticulosis with area of diverticulitis in single thick walled ectatic diverticulum along the antimesenteric margin of the distal left sigmoid colon - was treated with IV unasyn - reports feeling overall better - has a colonoscopy scheduled with Dr Navarro In october 2. Multiple antibiotic allergies or intolerances - scheduled skin allergy testing 3. Anxiety, related to feeling poorly for so long and being in an out of the hospital - sent xanax x 6 tabs - I have personally reviewed this patient's [place]AR[place] report and found it to be appropriate. This has been uploaded into the medical record. I have considered the risks of abuse, addiction, dependency and diversion and feel that it is clinically appropriate for this patient to be prescribed this controlled substance medication. Final diagnoses: [K57.92] Diverticulitis [I10] Primary hypertension [F41.9] Anxiety documented in this encounter [facility] Work Phone: 08-25-2024 History of Present illness Narrative General Surgery Consultation Patient: Troy Ramos : 1945 Date of Consultation: 08/25/24 Referring Primary Care Provider: Alberta Brown DO Chief Complaint: Diverticulitis History of Present Illness: Troy Ramos is a 79 y.o. old female seen at the request of Dr. Brown for follow-up of recent episode of diverticulitis. I have previously performed a laparoscopic cholecystectomy for her back in 2019. She was evaluated in the Emergency Department on 08/17/24 for abdominal pain. This has been going on for about 2 months. WBC was normal. CT of the abdomen and pelvis showed pancolonic diverticulosis with acute diverticulitis of just a single thick walled diverticulum along the antimesenteric aspect of the distal left/proximal sigmoid colon. She was started on Augmentin. She reported throat swelling and difficulty swallowing. She was reevaluated in the ED on 08/19/24 and admitted for IV antibiotics. She received IV Unasyn. She was transitioned back to Augmentin, with Benadryl and Pepcid, and discharged home on 08/22/24. She is currently off of the antibiotics as of this morning. 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 She denies any abdominal pain. She denies fever. Her bowel movements are still a little more loose than normal but she is having 1 bowel movement each morning. She denies seeing any blood in the stool or dark black bowel movement. Her last colonoscopy was in [address] Watson. Prior to this episode of diverticulitis she only had 1 or 2 previous episodes that were both over 10 years ago and treated in the outpatient setting with oral antibiotics. He has no family history of colon or rectal cancer or inflammatory bowel disease. Medical History: Diverticulitis Arthritis Surgical History: Colonoscopy, January [address] Watson Laparoscopic cholecystectomy, 09/21/2019 Hysterectomy Bilateral cataract surgery Home Medications: Prior to Admission medications Medication Sig Start Date End Date Taking? Authorizing Provider acetaminophen (Tylenol 8 Hour) 650 mg ER tablet Take 2 tablets (1,300 mg) by mouth once daily at bedtime. Historical Provider, amoxicillin-pot clavulanate (Augmentin) 875-125 mg tablet Take 1 tablet (875 mg) by mouth every 12 hours for 10 days. Patient not taking: Reported on 08/19/2024 08/17/24 08/27/24 Jani Mcgrath, ascorbic acid, vitamin C, 500 mg capsule Take 1 tablet by mouth once daily. Historical Provider, calcium carb-vit D3-magnesium 250-200-125 mg-unit-mg capsule Take 2 tablets by mouth once daily. 01/23/11 Historical Provider, cetirizine (ZyrTEC) 5 mg tablet Take 2 tablets (10 mg) by mouth every other day. 4x/week 05/23/19 Historical Provider, colesevelam (Welchol) 625 mg tablet Take 1 tablet (625 mg) by mouth 2 times daily (morning and late afternoon). Per patient: Takes for diarrhea that happened secondary to her gall bladder removal Historical Provider, diphenhydrAMINE (Sominex) 25 mg tablet Take 1 tablet (25 mg) by mouth as needed at bedtime for sleep. Historical Provider, ERGOCALCIFEROL VITAMIN D2, ORAL Take 2,400 Units by mouth once daily. Historical Provider, estradiol (Estrace) 1 mg tablet Take 1 tablet by mouth once daily 08/01/24 Alberta Brown, famotidine (Pepcid) 20 mg tablet Take 1 tablet (20 mg) by mouth once daily. Historical Provider, metoprolol tartrate (Lopressor) 25 mg tablet Take 1 tablet (25 mg) by mouth once daily. 05/27/24 Bg Srinivasan, [employer], DNP UNABLE TO FIND Take 1 tablet by mouth once daily. Med Name: PREVAGAN Historical Provider, ECHINACEA ORAL Take 1 tablet by mouth once daily. 08/19/24 Historical Provider, NON FORMULARY Take 1 each by mouth once daily. 08/19/24 Historical Provider, Allergies: Allergies Allergen Reactions Amoxicillin Itching Ciprofloxacin Hives Ciprofloxacin-Fluocinolone Hives Estroven Nighttime Rash Shellfish Containing Products Hives and Swelling Amoxicillin-Pot Clavulanate Hives and Itching Bactrim [Sulfamethoxazole-Trimethoprim] Hives Cephalexin Itching Flagyl [Metronidazole] Itching Prednisone Unknown Shellfish Derived Other Gatifloxacin Unknown Levofloxacin Unknown Quinolones Hives, Itching and Rash Family History: No family history of colon or rectal cancer or inflammatory bowel disease. Mother with aneurysm. Father with CAD. Social History: Non-smoker. No alcohol or drug use. . 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: no fever, sweats, and chills, + wears hearing aids Cardiovascular: + Irregular heartbeat, palpitations Respiratory: No cough or shortness of breath Gastrointestinal: + Resolution of previous abdominal pain and diarrhea Genitourinary: no dysuria Musculoskeletal: + Arthritis, osteoporosis Integumentary: no rashes Neurological: + Unsteady gait Endocrine: no heat or cold intolerance Heme/Lymph: no easy bruising or bleeding Objective: BP 156/80 Pulse 90 Ht 1.702 m (5' 7) Wt 70.4 kg (155 lb 3.2 oz) BMI 24.31 kg/m Physical Exam: Constitutional: No acute distress, conversant, pleasant Neurologic: alert and oriented Psych: appropriate affect Ears, Nose, Mouth and Throat: mucus membranes moist Pulmonary: No labored breathing Cardiovascular: Regular rate and rhythm Abdomen: soft, non-distended, BMI 19, nontender Musculoskeletal: Moves all extremities, no edema Skin: no jaundice Labs: WBC has remained normal from 08/17/24 - 08/22/24 Imaging: CT a/p from 08/17/24 reviewed: Orantes diverticulosis. Diverticulitis of a single diverticulum in the distal descending/proximal sigmoid colon. Assessment and Plan: Troy Ramos is a 79 y.o. old female with uncomplicated diverticulitis. It has been over 5 years since her last colonoscopy. I have recommended colonoscopy in 6 - 8 weeks after acute inflammation has subsided. We discussed the risks of this procedure. This included risks of bleeding, perforation, missed polyps, incomplete colonoscopy, and potential need for additional procedures pending findings. The patient was agreeable to proceed. Bowel prep instructions were reviewed and all questions were answered. The patient is scheduled for colonoscopy on 10/24/24. Alberta Navarro MD 08/25/2024 documented in this encounter [facility] Work Phone: 08-22-2024 Nurse Note Discharge Note: 08/22/2024 1259 AVS and pt responsibilities reviewed with pt and copy given. Diverticulitis, low fiber/residue diet, education reviewed with pt and information sheets given. Pt verbalizes understanding of instructions received, verbalizes understanding of when to seek medical attention, denies any home going or personal care needs. Denies further questions or concerns. Reviewed follow up appts with pt and verbalizes understanding. Juanito CHEW [facility] 08-22-2024 History of Present illness Narrative Medication Education Medication education for Troy Ramos was provided to the patient and family for the following medication(s): Amlodipine 2.5 mg daily Anni-Lanta 200-200-20 mg/5 mL - 10 mL Q4H PRN Augmentin 875/125 mg BID x 5 doses Benadryl 25 mg BID x 5 doses Pepcid 20 mg BID x 5 doses Medication education provided by a Pharmacist: ADR Counseling Dose, frequency, storage Proper dose, indication, possible ADRs Refilling the medication Benefits of taking the medication Potential duration of therapy Identified potential barriers to education: None Method(s) of Education: Verbal Written materials provided and reviewed An opportunity to ask questions and receive answers was provided. Assessment of understanding the patient and family: 2= meets goals/outcomes Additional Notes (if applicable): Patient participated in the Meds to Beds program via the [facility]. The above 4 medications (not the Benadryl as patient stated she had a bottle at home) were delivered to the patient's bedside by the pharmacist and all question were addressed at that time. 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 She was familiar with using Pepcid and Benadryl to treat and pre-treat for allergic reactions. She was able to identify her Pepcid as an H2RA. Patient and family wanted to know if patient could be allergic to an inactive ingredient in one investments manager's Augmentin as opposed to another investments manager's Augmentin. Patient was advised that this was possible. She had her previous bottle of Augmentin with her. We compared that investments manager to the investments manager of the script filled for meds to beds. They were different. Patient decided to use the Augmentin filled for Meds to Beds in case her previous reaction was caused by an inactive ingredient found in the investments manager of her previous script of Augmentin. Uriah Wheatley PharmD Troy Ramos is a 79 y.o. female on day 2 of admission presenting with Acute diverticulitis. Subjective Patient seen and examined at bedside. She continues to do well. She is now on a soft diet and appears to be tolerating this. She is having no abdominal pain. We discussed trialing oral Augmentin and administrating Benadryl and Pepcid each time with her antibiotic. She has agreed to this plan. Objective Last Recorded Vitals BP 158/80 (BP Location: Right arm, Patient Position: Lying) Pulse 81 Temp 36.9 C (98.4 F) (Temporal) Resp 20 Wt 55.9 kg (123 lb 3.8 oz) SpO2 94% Intake/Output last 3 Shifts: Intake/Output Summary (Last 24 hours) at 08/21/2024 1731 Last data filed at 08/21/2024 1100 Gross per 24 hour Intake 660 ml Output -- Net 660 ml Admission Weight Weight: 68 kg (150 lb) (08/19/24 0912) Daily Weight 08/19/24 : 55.9 kg (123 lb 3.8 oz) Image Results ECG 12 lead Sinus rhythm with occasional Premature ventricular complexes Nonspecific ST abnormality Abnormal ECG When compared with ECG of 02-APR-2024 15:48, Premature ventricular complexes are now Present Nonspecific T wave abnormality now evident in Inferior leads Physical exam: General: Well appearing HENT: Head: Normocephalic and atraumatic. Mouth: Mucous membranes are moist. Eyes: Pupils are equal, round, and reactive to light. Cardiovascular: Normal rate and regular rhythm. Normal S1, S2. No murmurs, clicks, gallops. Pulmonary: Clear to auscultation bilaterally. No wheezing, rhonchi, or crackles heard. Abdominal: Bowel sounds are normal. Abdomen is soft, nontender, nondistended Skin: No lesions seen Musculoskeletal: Extremities: No edema present. No deformities with no abnormal range of motion Neck supple. Neurological: Mental Status: Patient is alert and oriented X3 CN II-XII intact. No focal neurologic deficits appreciated. Relevant Results Assessment/Plan Assessment & Plan Acute diverticulitis Patient has improved on IV Unasyn. Transition to oral Augmentin and treat until the . We will administer Benadryl and Pepcid to help alleviate any side effects symptoms she is having including flushing and feeling hot. Continue serial abdominal examinations. She is scheduled to see Dr. Navarro outpatient. It would be ideal to stabilize her and have her discharged early tomorrow so she can have this follow-up appointment. She will need follow-up colonoscopy in 6 weeks after resolution of infection. 2. PSVT: Continue metoprolol. Patient follows with cardiology outpatient. 3. Cataracts 4. Multiple allergies: We will need to continue extensively reviewing this in order to evaluate what is truly an allergy at this point. Her allergy to Augmentin appears more to be a side effect and not an allergy. DVT ppx: Subcutaneous heparin Diet: Clear liquid diet Disposition: Transition to oral Augmentin. Follow-up CBC and BMP in the morning. Continue monitoring on soft diet. Anticipate patient remain hospitalized for additional 24. If she tolerates Augmentin overnight, we will consider discharge in the morning. She will be discharged home once medically stable. A total of 50 minutes was spent reviewing the patient's chart, interviewing and examining the patient, discussing diagnosis and treatment with patient, and discussing the case with nursing and other ancillary staff. Theo Recinos DO Troy Ramos is a 79 y.o. female on day 1 of admission presenting with Acute diverticulitis. Subjective Patient seen and examined at bedside. Patient was admitted to the hospital yesterday for treatment of acute diverticulitis. She believes she is doing much better today and is having no pain. We discussed restarting a clear liquid diet this afternoon and considering a full liquid diet for dinner if she tolerates a clear liquid diet. She is in agreement with this. She believes she is doing well with Unasyn but continues to think she is having swelling in her neck that improves with receiving Benadryl. Objective Last Recorded Vitals BP 162/79 (BP Location: Right arm, Patient Position: Lying) Pulse 71 Temp 36.8 C (98.3 F) (Temporal) Resp 18 Wt 55.9 kg (123 lb 3.8 oz) SpO2 98% Intake/Output last 3 Shifts: Intake/Output Summary (Last 24 hours) at 08/20/2024 1557 Last data filed at 08/20/2024 1331 Gross per 24 hour Intake 2291.25 ml Output -- Net 2291.25 ml Admission Weight Weight: 68 kg (150 lb) (08/19/24 0912) Daily Weight 08/19/24 : 55.9 kg (123 lb 3.8 oz) Image Results ECG 12 lead Sinus rhythm with occasional Premature ventricular complexes Nonspecific ST abnormality Abnormal ECG When compared with ECG of 02-APR-2024 15:48, Premature ventricular complexes are now Present Nonspecific T wave abnormality now evident in Inferior leads Physical exam: General: Well appearing HENT: Head: Normocephalic and atraumatic. Mouth: Mucous membranes are moist. Eyes: Pupils are equal, round, and reactive to light. Cardiovascular: Normal rate and regular rhythm. Normal S1, S2. No murmurs, clicks, gallops. Pulmonary: Clear to auscultation bilaterally. No wheezing, rhonchi, or crackles heard. Abdominal: Bowel sounds are normal. Abdomen is soft, nontender, nondistended Skin: No lesions seen Musculoskeletal: Extremities: No edema present. No deformities with no abnormal range of motion Neck supple. Neurological: Mental Status: Patient is alert and oriented X3 CN II-XII intact. No focal neurologic deficits appreciated. Relevant Results Assessment/Plan Assessment & Plan Acute diverticulitis Continue IV Unasyn. Start clear liquid diet. Discontinue fluids. Continue serial abdominal examinations. If she does not improve, we will consult general surgery for further evaluation. She will need follow-up colonoscopy in 6 weeks after resolution of infection. 2. PSVT: Continue metoprolol. Patient follows with cardiology outpatient. 3. Cataracts 4. Multiple allergies: We will need to continue extensively reviewing this in order to evaluate what is truly an allergy at this point. Will be difficult to discharge on oral antibiotics considering the amount of allergies she has had. DVT ppx: Subcutaneous heparin Diet: Clear liquid diet Disposition: Continue IV antibiotics. Follow-up CBC and BMP in the morning. Continue advancing diet as tolerated. Anticipate patient remain hospitalized for additional 24 to 48 hours. She will be discharged home once medically stable. Theo Recinos DO Pt reviewed in care rounds this morning. Pt not medically ready for discharge. ADOD is 24-48 hours. SW met w/ Pt at bedside. SW explained the role of care transitions and completed initial assessment. SW confirmed demographic and insurance information is accurate per Pt's chart. PCP is Dr. Brown. No SW needs identified. Pt is independent w/ ADLs/IADLs and has not experienced a change in functioning related to this admission. Pt denied need for additional supports or services at home. 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 Plan is for Pt to discharge to home, no need for additional supports or services. 08/21/24 1332 Discharge Planning Living Arrangements Alone Support Systems Children;Friends/neighbors;Jainism/counts include [facility] beds at the [facility] community Assistance Needed Independent Type of Residence Private residence Number of Stairs to Enter Residence 3 Number of Stairs Within Residence 0 Do you have animals or pets at home? Yes Type of Animals or Pets 2 dogs Who is requesting discharge planning? Provider Home or Post Acute Services None Expected Discharge Disposition Home Does the patient need discharge transport arranged? No Financial Resource Strain How hard is it for you to pay for the very basics like food, housing, medical care, and heating? Not hard Housing Stability In the last 12 months, was there a time when you were not able to pay the mortgage or rent on time? N In the past 12 months, how many times have you moved where you were living? 0 At any time in the past 12 months, were you homeless or living in a assisted (including now)? N Transportation Needs In the past 12 months, has lack of transportation kept you from medical appointments or from getting medications? no In the past 12 months, has lack of transportation kept you from meetings, work, or from getting things needed for daily living? No Stroke Family Assessment Stroke Family Assessment Needed No Intensity of Service Intensity of Service 0-30 min documented in this encounter [facility] Work Phone: 08-22-2024 Nurse Note Discharge Note: 08/22/2024 1259 AVS and pt responsibilities reviewed with pt and copy given. Diverticulitis, low fiber/residue diet, education reviewed with pt and information sheets given. Pt verbalizes understanding of instructions received, verbalizes understanding of when to seek medical attention, denies any home going or personal care needs. Denies further questions or concerns. Reviewed follow up appts with pt and verbalizes understanding. Juanito CHEW documented in this encounter [facility] Work Phone: 08-22-2024 Plan of care note The clinical goals for the shift include: Continue tolerating PO antibiotics. [facility] Work Phone: 08-22-2024 Miscellaneous Notes The clinical goals for the shift include: Continue tolerating PO antibiotics. Problem: Skin Goal: Participates in plan/prevention/treatment measures Outcome: Progressing Associated Problem(s): Acute diverticulitis (Resolved 08/22/2024) Patient has improved on IV Unasyn. Transition to oral Augmentin and treat until the . We will administer Benadryl and Pepcid to help alleviate any side effects symptoms she is having including flushing and feeling hot. Continue serial abdominal examinations. She is scheduled to see Dr. Navarro outpatient. It would be ideal to stabilize her and have her discharged early tomorrow so she can have this follow-up appointment. She will need follow-up colonoscopy in 6 weeks after resolution of infection. Problem: Nutrition Goal: Less than 5 days NPO/clear liquids Outcome: Progressing Goal: Oral intake greater than 50% Outcome: Progressing Goal: Oral intake greater 75% Outcome: Progressing Goal: Consume prescribed supplement Outcome: Progressing Goal: Adequate PO fluid intake Outcome: Progressing Goal: Nutrition support goals are met within 48 hrs Outcome: Progressing Goal: Nutrition support is meeting 75% of nutrient needs Outcome: Progressing Goal: Lab values WNL Outcome: Progressing Goal: Electrolytes WNL Outcome: Progressing Goal: Promote healing Outcome: Progressing Goal: Maintain stable weight Outcome: Progressing Goal: Gradual weight gain Outcome: Progressing Problem: Skin Goal: Participates in plan/prevention/treatment measures Outcome: Progressing Goal: Promote/optimize nutrition Outcome: Progressing Problem: Fall/Injury Goal: Not fall by end of shift Outcome: Progressing Goal: Be free from injury by end of the shift Outcome: Progressing Goal: Verbalize understanding of personal risk factors for fall in the hospital Outcome: Progressing Problem: Pain - Adult Goal: Verbalizes/displays adequate comfort level or baseline comfort level Outcome: Progressing Problem: Safety - Adult Goal: Free from fall injury Outcome: Progressing Problem: Discharge Planning Goal: Discharge to home or other facility with appropriate resources Outcome: Progressing Problem: Chronic Conditions and Co-morbidities Goal: Patient's chronic conditions and co-morbidity symptoms are monitored and maintained or improved Outcome: Progressing The patient's goals for the shift include The clinical goals for the shift include pain control Problem: Skin Goal: Participates in plan/prevention/treatment measures Outcome: Progressing Flowsheets (Taken 08/20/2024 2100) Participates in plan/prevention/treatment measures: Elevate heels Associated Problem(s): Acute diverticulitis (Resolved 08/22/2024) Continue IV Unasyn. Start clear liquid diet. Discontinue fluids. Continue serial abdominal examinations. If she does not improve, we will consult general surgery for further evaluation. She will need follow-up colonoscopy in 6 weeks after resolution of infection. The patient's goals for the shift include The clinical goals for the shift include pain control Problem: Nutrition Goal: Less than 5 days NPO/clear liquids Outcome: Progressing Goal: Oral intake greater than 50% Outcome: Progressing Goal: Oral intake greater 75% Outcome: Progressing Goal: Consume prescribed supplement Outcome: Progressing Goal: Adequate PO fluid intake Outcome: Progressing Goal: Nutrition support goals are met within 48 hrs Outcome: Progressing Goal: Nutrition support is meeting 75% of nutrient needs Outcome: Progressing Goal: Lab values WNL Outcome: Progressing Goal: Electrolytes WNL Outcome: Progressing Goal: Promote healing Outcome: Progressing Goal: Maintain stable weight Outcome: Progressing Goal: Gradual weight gain Outcome: Progressing Problem: Skin Goal: Participates in plan/prevention/treatment measures Outcome: Progressing Goal: Promote/optimize nutrition Outcome: Progressing Problem: Fall/Injury Goal: Not fall by end of shift Outcome: Progressing Goal: Be free from injury by end of the shift Outcome: Progressing Goal: Verbalize understanding of personal risk factors for fall in the hospital Outcome: Progressing Problem: Pain - Adult Goal: Verbalizes/displays adequate comfort level or baseline comfort level Outcome: Progressing Problem: Safety - Adult Goal: Free from fall injury Outcome: Progressing Problem: Discharge Planning Goal: Discharge to home or other facility with appropriate resources Outcome: Progressing Problem: Chronic Conditions and Co-morbidities Goal: Patient's chronic conditions and co-morbidity symptoms are monitored and maintained or improved Outcome: Progressing Associated Problem(s): Acute diverticulitis (Resolved 08/22/2024) Continue IV Unasyn. Keep patient n.p.o. for now. Add fluids with D5 half-normal saline at 75 mL/h. Continue serial abdominal examinations. She does not improve, we will consult general surgery for further evaluation. We will need follow-up colonoscopy in 6 weeks after resolution of infection. documented in this encounter [facility] Work Phone: 08-22-2024 Hospital course Narrative Images from the original note were not included. Discharge Diagnosis Acute diverticulitis Issues Requiring Follow-Up PSVT Discharge Meds Medication List START taking these medications alum-mag hydroxide-simeth 200-200-20 mg/5 mL oral suspension; Commonly known as: Mylanta; Take 10 mL by mouth every 4 hours if needed (mucositis/stomatitis). amLODIPine 2.5 mg tablet; Commonly known as: Norvasc; Take 1 tablet (2.5 mg) by mouth once daily.; Start taking on: August 23, 2024 diphenhydrAMINE 25 mg capsule; Commonly known as: BENADryl; Take 1 capsule (25 mg) by mouth 2 times a day for 5 doses.; Replaces: diphenhydrAMINE 25 mg tablet CHANGE how you take these medications amoxicillin-pot clavulanate 875-125 mg tablet; Commonly known as: Augmentin; Take 1 tablet by mouth every 12 hours for 5 doses.; What changed: when to take this famotidine 20 mg tablet; Commonly known as: Pepcid; Take 1 tablet (20 mg) by mouth 2 times a day for 5 doses.; What changed: when to take this CONTINUE taking these medications acetaminophen 650 mg ER tablet; Commonly known as: Tylenol 8 HOUR ascorbic acid (vitamin C) 500 mg capsule calcium carb-vit D3-magnesium 250-200-125 mg-unit-mg capsule cetirizine 5 mg tablet; Commonly known as: ZyrTEC colesevelam 625 mg tablet; Commonly known as: Welchol ERGOCALCIFEROL (VITAMIN D2) ORAL estradiol 1 mg tablet; Commonly known as: Estrace; Take 1 tablet by mouth once daily metoprolol tartrate 25 mg tablet; Commonly known as: Lopressor; Take 1 tablet (25 mg) by mouth once daily. UNABLE TO FIND STOP taking these medications diphenhydrAMINE 25 mg tablet; Commonly known as: Sominex; Replaced by: diphenhydrAMINE 25 mg capsule Test Results Pending At Discharge Pending Labs No current pending labs. Hospital Course Troy Ramos is a 79 y.o. female presenting with abdominal pain. This has been ongoing for at least 2 months. She was clinically diagnosed with diverticulitis outpatient and suggested to stay on a clear liquid diet and advance as tolerated. Every time she advanced her diet, her abdominal pain would worsen. She was seen in the emergency department on the and was given oral Augmentin. After being discharged on this, she experienced throat swelling and difficulty swallowing. She believes she was having a reaction and return to our emergency department. Workup in our emergency department showed CBC showing white blood cell count of 7.5, hemoglobin of 12.6, platelet count of 319. CMP was unremarkable. CT abdomen pelvis showed pancolonic diverticulosis with single thick-walled ectatic diverticulum along the antimesenteric margin of the distal left or proximal sigmoid colon with no findings suggestive of perforation or abscess. Patient will be admitted and continued on IV Unasyn. We will make the patient stay n.p.o. with options for ice chips overnight and consider advancing diet tomorrow. Acute diverticulitis Patient's diet was transition from n.p.o., to clear liquids and then full regular diet. She is tolerating it without any abdominal discomfort or pain. She has not had any increased diarrhea or constipation. Stools are without blood or mucus. Patient has improved on IV Unasyn. She was transitioned transition to oral Augmentin. We will administer Benadryl and Pepcid to help alleviate any side effects symptoms she is having including flushing and feeling hot. She has been tolerating it without any adverse events. She is scheduled to see Dr. Navarro outpatient. She will need follow-up colonoscopy in 6 weeks after resolution of infection He reports multiple allergies: We will need to continue extensively reviewing this in order to evaluate what is truly an allergy at this point. Obese discharged home today in stable condition. She is to follow-up with her PCP within 1 week of discharge. Pertinent Physical Exam At Time of Discharge Physical Exam General: Well appearing HENT: Head: Normocephalic and atraumatic. Mouth: Mucous membranes are moist. Eyes: Pupils are equal, round, and reactive to light. Cardiovascular: Normal rate and regular rhythm. Normal S1, S2. No murmurs, clicks, gallops. Pulmonary: Clear to auscultation bilaterally. No wheezing, rhonchi, or crackles heard. Abdominal: Bowel sounds are normal. Abdomen is soft, nontender, nondistended Skin: No lesions seen Musculoskeletal: Extremities: No edema present. No deformities with no abnormal range of motion Neck supple. Neurological: Mental Status: Patient is alert and oriented X3 CN II-XII intact. No focal neurologic deficits appreciated. Outpatient Follow-Up Future Appointments Date Time Provider Department Center 08/22/2024 3:30 PM Alberta Navarro MD [id number] [facility] 05/26/2025 10:30 AM LUAN Bryan, DNP [id number] [facility] LUAN Donohue documented in this encounter [facility] Work Phone: 08-21-2024 Plan of care note Problem: Skin Goal: Participates in plan/prevention/treatment measures Outcome: Progressing [facility] 08-21-2024 Evaluation + Plan note Associated Problem(s): Acute diverticulitis (Resolved 08/22/2024) Patient has improved on IV Unasyn. Transition to oral Augmentin and treat until the 22nd. We will administer Benadryl and Pepcid to help alleviate any side effects symptoms she is having including flushing and feeling hot. Continue serial abdominal examinations. She is scheduled to see Dr. Navarro outpatient. It would be ideal to stabilize her and have her discharged early tomorrow so she can have this follow-up appointment. She will need follow-up colonoscopy in 6 weeks after resolution of infection. [facility] Work Phone: 08-21-2024 Plan of care note Problem: Nutrition Goal: Less than 5 days NPO/clear liquids Outcome: Progressing Goal: Oral intake greater than 50% Outcome: Progressing Goal: Oral intake greater 75% Outcome: Progressing Goal: Consume prescribed supplement Outcome: Progressing Goal: Adequate PO fluid intake Outcome: Progressing Goal: Nutrition support goals are met within 48 hrs Outcome: Progressing Goal: Nutrition support is meeting 75% of nutrient needs Outcome: Progressing Goal: Lab values WNL Outcome: Progressing Goal: Electrolytes WNL Outcome: Progressing Goal: Promote healing Outcome: Progressing Goal: Maintain stable weight Outcome: Progressing Goal: Gradual weight gain Outcome: Progressing Problem: Skin Goal: Participates in plan/prevention/treatment measures Outcome: Progressing Goal: Promote/optimize nutrition Outcome: Progressing Problem: Fall/Injury Goal: Not fall by end of shift Outcome: Progressing Goal: Be free from injury by end of the shift Outcome: Progressing Goal: Verbalize understanding of personal risk factors for fall in the hospital Outcome: Progressing Problem: Pain - Adult Goal: Verbalizes/displays adequate comfort level or baseline comfort level Outcome: Progressing Problem: Safety - Adult Goal: Free from fall injury Outcome: Progressing Problem: Discharge Planning Goal: Discharge to home or other facility with appropriate resources Outcome: Progressing Problem: Chronic Conditions and Co-morbidities Goal: Patient's chronic conditions and co-morbidity symptoms are monitored and maintained or improved Outcome: Progressing The patient's goals for the shift include The clinical goals for the shift include pain control [facility] 08-20-2024 Plan of care note Problem: Skin Goal: Participates in plan/prevention/treatment measures Outcome: Progressing Flowsheets (Taken 08/20/2024 2100) Participates in plan/prevention/treatment measures: Elevate heels [facility] Work Phone: 08-20-2024 Evaluation + Plan note Associated Problem(s): Acute diverticulitis (Resolved 08/22/2024) Continue IV Unasyn. Start clear liquid diet. Discontinue fluids. Continue serial abdominal examinations. If she does not improve, we will consult general surgery for further evaluation. She will need follow-up colonoscopy in 6 weeks after resolution of infection. [facility] Work Phone: 08-20-2024 Plan of care note The patient's goals for the shift include The clinical goals for the shift include pain control Problem: Nutrition Goal: Less than 5 days NPO/clear liquids Outcome: Progressing Goal: Oral intake greater than 50% Outcome: Progressing Goal: Oral intake greater 75% Outcome: Progressing Goal: Consume prescribed supplement Outcome: Progressing Goal: Adequate PO fluid intake Outcome: Progressing Goal: Nutrition support goals are met within 48 hrs Outcome: Progressing Goal: Nutrition support is meeting 75% of nutrient needs Outcome: Progressing Goal: Lab values WNL Outcome: Progressing Goal: Electrolytes WNL Outcome: Progressing Goal: Promote healing Outcome: Progressing Goal: Maintain stable weight Outcome: Progressing Goal: Gradual weight gain Outcome: Progressing Problem: Skin Goal: Participates in plan/prevention/treatment measures Outcome: Progressing Goal: Promote/optimize nutrition Outcome: Progressing Problem: Fall/Injury Goal: Not fall by end of shift Outcome: Progressing Goal: Be free from injury by end of the shift Outcome: Progressing Goal: Verbalize understanding of personal risk factors for fall in the hospital Outcome: Progressing Problem: Pain - Adult Goal: Verbalizes/displays adequate comfort level or baseline comfort level Outcome: Progressing Problem: Safety - Adult Goal: Free from fall injury Outcome: Progressing Problem: Discharge Planning Goal: Discharge to home or other facility with appropriate resources Outcome: Progressing Problem: Chronic Conditions and Co-morbidities Goal: Patient's chronic conditions and co-morbidity symptoms are monitored and maintained or improved Outcome: Progressing [facility] Work Phone: 08-19-2024 Evaluation + Plan note Associated Problem(s): Acute diverticulitis (Resolved 08/22/2024) Continue IV Unasyn. Keep patient n.p.o. for now. Add fluids with D5 half-normal saline at 75 mL/h. Continue serial abdominal examinations. She does not improve, we will consult general surgery for further evaluation. We will need follow-up colonoscopy in 6 weeks after resolution of infection. [facility] Work Phone: 08-19-2024 History and physical note History Of Present Illness Troy Ramos is a 79 y.o. female presenting with abdominal pain. This has been ongoing for at least 2 months. She was clinically diagnosed with diverticulitis outpatient and suggested to stay on a clear liquid diet and advance as tolerated. Every time she advanced her diet, her abdominal pain would worsen. She was seen in the emergency department on the and was given oral Augmentin. After being discharged on this, she experienced throat swelling and difficulty swallowing. She believes she was having a reaction and return to our emergency department. Abdominal pain has improved after starting IV Unasyn. She believes she is doing better on this compared to the oral Augmentin. She has an extensive allergy history including reactions to Flagyl, ciprofloxacin, Augmentin, cephalosporins. Many of her reactions resulted in her feeling hot and having sensation of her throat swelling. She states that she often times can prevent this from progressing by taking Pepcid and Benadryl. Workup in our emergency department showed CBC showing white blood cell count of 7.5, hemoglobin of 12.6, platelet count of 319. CMP was unremarkable. CT abdomen pelvis showed pancolonic diverticulosis with single thick-walled ectatic diverticulum along the antimesenteric margin of the distal left or proximal sigmoid colon with no findings suggestive of perforation or abscess. Patient will be admitted and continued on IV Unasyn. We will make the patient stay n.p.o. with options for ice chips overnight and consider advancing diet tomorrow. Past Medical History She has a past medical history of Diverticulitis, Personal history of other diseases of the digestive system, and Unspecified osteoarthritis, unspecified site (04/01/2021). Surgical History She has a past surgical history that includes Colonoscopy (07/03/2016); Cholecystectomy (09/21/2019); and Other surgical history (09/05/2019). Social History She reports that she has never smoked. She has been exposed to tobacco smoke. She has never used smokeless tobacco. She reports that she does not currently use alcohol. She reports that she does not use drugs. Family History Family History Problem Relation Name Age of Onset Aneurysm Mother Coronary artery disease Father Diabetes type II Brother controlled Allergies Amoxicillin, Ciprofloxacin, Ciprofloxacin-fluocinolone, Estroven nighttime, Shellfish containing products, Amoxicillin-pot clavulanate, Bactrim [sulfamethoxazole-trimethoprim], Cephalexin, Flagyl [metronidazole], Prednisone, Shellfish derived, Gatifloxacin, Levofloxacin, and Quinolones Physical Exam General: Well appearing HENT: Head: Normocephalic and atraumatic. Mouth: Mucous membranes are moist. Eyes: Pupils are equal, round, and reactive to light. Cardiovascular: Normal rate and regular rhythm. Normal S1, S2. No murmurs, clicks, gallops. Pulmonary: Clear to auscultation bilaterally. No wheezing, rhonchi, or crackles heard. Abdominal: Bowel sounds are normal. Abdomen is soft, mild tenderness to palpation of left lower quadrant without rebound tenderness, nondistended Skin: No lesions seen Musculoskeletal: Extremities: No edema present. No deformities with no abnormal range of motion Neck supple. Neurological: Mental Status: Patient is alert and oriented X3 CN II-XII intact. No focal neurologic deficits appreciated. Last Recorded Vitals BP 171/72 Pulse 75 Temp 36.5 C (97.7 F) Resp 16 Wt 68 kg (150 lb) SpO2 95% Relevant Results Assessment/Plan Assessment & Plan Acute diverticulitis Continue IV Unasyn. Keep patient n.p.o. for now. Add fluids with D5 half-normal saline at 75 mL/h. Continue serial abdominal examinations. She does not improve, we will consult general surgery for further evaluation. We will need follow-up colonoscopy in 6 weeks after resolution of infection. 2. PSVT: Continue metoprolol. Patient follows with cardiology outpatient. 3. Cataracts 4. Multiple allergies: We will need to continue extensively reviewing this in order to evaluate what is truly an allergy at this point. DVT ppx: Subcutaneous heparin Diet: N.p.o. with ice chips Theo Recinos DO [facility] Work Phone: 08-19-2024 History and physical note History Of Present Illness Troy Ramos is a 79 y.o. female presenting with abdominal pain. This has been ongoing for at least 2 months. She was clinically diagnosed with diverticulitis outpatient and suggested to stay on a clear liquid diet and advance as tolerated. Every time she advanced her diet, her abdominal pain would worsen. She was seen in the emergency department on the and was given oral Augmentin. After being discharged on this, she experienced throat swelling and difficulty swallowing. She believes she was having a reaction and return to our emergency department. Abdominal pain has improved after starting IV Unasyn. She believes she is doing better on this compared to the oral Augmentin. She has an extensive allergy history including reactions to Flagyl, ciprofloxacin, Augmentin, cephalosporins. Many of her reactions resulted in her feeling hot and having sensation of her throat swelling. She states that she often times can prevent this from progressing by taking Pepcid and Benadryl. Workup in our emergency department showed CBC showing white blood cell count of 7.5, hemoglobin of 12.6, platelet count of 319. CMP was unremarkable. CT abdomen pelvis showed pancolonic diverticulosis with single thick-walled ectatic diverticulum along the antimesenteric margin of the distal left or proximal sigmoid colon with no findings suggestive of perforation or abscess. Patient will be admitted and continued on IV Unasyn. We will make the patient stay n.p.o. with options for ice chips overnight and consider advancing diet tomorrow. Past Medical History She has a past medical history of Diverticulitis, Personal history of other diseases of the digestive system, and Unspecified osteoarthritis, unspecified site (04/01/2021). Surgical History She has a past surgical history that includes Colonoscopy (07/03/2016); Cholecystectomy (09/21/2019); and Other surgical history (09/05/2019). Social History She reports that she has never smoked. She has been exposed to tobacco smoke. She has never used smokeless tobacco. She reports that she does not currently use alcohol. She reports that she does not use drugs. Family History Family History Problem Relation Name Age of Onset Aneurysm Mother Coronary artery disease Father Diabetes type II Brother controlled Allergies Amoxicillin, Ciprofloxacin, Ciprofloxacin-fluocinolone, Estroven nighttime, Shellfish containing products, Amoxicillin-pot clavulanate, Bactrim [sulfamethoxazole-trimethoprim], Cephalexin, Flagyl [metronidazole], Prednisone, Shellfish derived, Gatifloxacin, Levofloxacin, and Quinolones Physical Exam General: Well appearing HENT: Head: Normocephalic and atraumatic. Mouth: Mucous membranes are moist. Eyes: Pupils are equal, round, and reactive to light. Cardiovascular: Normal rate and regular rhythm. Normal S1, S2. No murmurs, clicks, gallops. Pulmonary: Clear to auscultation bilaterally. No wheezing, rhonchi, or crackles heard. Abdominal: Bowel sounds are normal. Abdomen is soft, mild tenderness to palpation of left lower quadrant without rebound tenderness, nondistended Skin: No lesions seen Musculoskeletal: Extremities: No edema present. No deformities with no abnormal range of motion Neck supple. Neurological: Mental Status: Patient is alert and oriented X3 CN II-XII intact. No focal neurologic deficits appreciated. Last Recorded Vitals BP 171/72 Pulse 75 Temp 36.5 C (97.7 F) Resp 16 Wt 68 kg (150 lb) SpO2 95% Relevant Results Assessment/Plan Assessment & Plan Acute diverticulitis Continue IV Unasyn. Keep patient n.p.o. for now. Add fluids with D5 half-normal saline at 75 mL/h. Continue serial abdominal examinations. She does not improve, we will consult general surgery for further evaluation. We will need follow-up colonoscopy in 6 weeks after resolution of infection. 2. PSVT: Continue metoprolol. Patient follows with cardiology outpatient. 3. Cataracts 4. Multiple allergies: We will need to continue extensively reviewing this in order to evaluate what is truly an allergy at this point. DVT ppx: Subcutaneous heparin Diet: N.p.o. with ice chips Theo Recinos DO documented in this encounter [facility] Work Phone: 08-19-2024 Emergency department Note HPI Chief Complaint Patient presents with Allergic Reaction Reports allergic rx to Augmentin started yesterday, last night had tongue swelling and itching Limitations to History: None HPI: 79-year-old female presents with concern for allergic reaction to Augmentin. Patient was seen 2 days ago. Patient had been struggling with diverticulitis with conservative measures over the past 9 weeks. Large allergy profile. Was given Unasyn at that time. Switched to Augmentin. States that she had a severe hot flash and folic her tongue was swelling last night. Has none of the symptoms now. Continues to have left lower quadrant pain. Denies any fever, chills, nausea, vomiting, diarrhea, hematochezia, melena. Additional History Obtained from: Daughter at the bedside. Physical Exam: VS: As documented in the triage note and EMR flowsheet from this visit were reviewed. Appearance: Alert. cooperative, in no acute distress. Skin: Intact, dry skin, no lesions, rash, petechiae or purpura. Eyes: PERRLA, EOMs intact, Conjunctiva pink with no redness or exudates. HENT: Normocephalic, atraumatic. Nares patent. No intraoral lesions. Neck: Supple, without meningismus. Trachea at midline. No lymphadenopathy. Pulmonary: Clear bilaterally with good chest wall excursion. No rales, rhonchi or wheezing. No accessory muscle use or stridor. Cardiac: Regular rate and rhythm, no rubs, murmurs, or gallops. Abdomen: Abdomen is soft, nontender, and nondistended. No palpable organomegaly. No rebound or guarding. No CVA tenderness. Nonsurgical abdomen. Genitourinary: Exam deferred. Musculoskeletal: Full range of motion. Pulses full and equal. No cyanosis, clubbing, or edema. Psychiatric: Appropriate mood and affect. Patient History Past Medical History: Diagnosis Date Diverticulitis Personal history of other diseases of the digestive system History of gastrointestinal hemorrhage Unspecified osteoarthritis, unspecified site 04/01/2021 Osteoarthritis Past Surgical History: Procedure Laterality Date CHOLECYSTECTOMY 09/21/2019 LAP CHOLECYSTECTOMY/ DR NAVARRO COLONOSCOPY 07/03/2016 REPEAT 10 YRS/ [facility] OTHER SURGICAL HISTORY 09/05/2019 Hysterectomy Family History Problem Relation Name Age of Onset Aneurysm Mother Coronary artery disease Father Diabetes type II Brother controlled Social History Tobacco Use Smoking status: Never Passive exposure: Past Smokeless tobacco: Never Substance Use Topics Alcohol use: Not Currently Comment: occasional Drug use: Never Physical Exam ED Triage Vitals [08/19/24 0912] Temperature Heart Rate Respirations BP 36.5 C (97.7 F) 88 18 (!) 211/89 Pulse Ox Temp src Heart Rate Source Patient Position 99 % -- -- -- BP Location FiO2 (%) -- -- Physical Exam ED Course & MDM Diagnoses as of 08/19/24 1706 Diverticulitis Acute diverticulitis No data recorded [employer] Coma Scale Score: 15 (08/19/24 0914 : Kristin Abel RN) Medical Decision Making Labs Reviewed CBC WITH AUTO DIFFERENTIAL - Abnormal WBC 7.5 nRBC 0.0 RBC 4.33 Hemoglobin 12.6 Hematocrit 40.3 MCV 93 MCH 29.1 MCHC 31.3 (*) RDW 12.8 Platelets 319 Neutrophils % 71.0 Immature Granulocytes %, Automated 0.4 Lymphocytes % 21.1 Monocytes % 6.8 Eosinophils % 0.4 Basophils % 0.3 Neutrophils Absolute 5.35 Immature Granulocytes Absolute, Au* 0.03 Lymphocytes Absolute 1.59 Monocytes Absolute 0.51 Eosinophils Absolute 0.03 Basophils Absolute 0.02 COMPREHENSIVE METABOLIC PANEL - Abnormal Medical Decision Making: Patient appears well nontoxic. Lab work unremarkable. Failing outpatient treatment secondary to oral antibiotic allergic reactions. Treated with Unasyn. Initially plan for transfer however bed became available at [facility]. Patient admitted in stable condition. Escalation of Care: Appropriate for admission for further treatment and evaluation. Discussion of Management with Other Providers: I discussed the patient/results with: Meeting hospitalist. Procedure Procedures Jani Mcgrath DO 08/19/24 1707 documented in this encounter [facility] Work Phone: 08-19-2024 Physician Emergency department Note HPI Chief Complaint Patient presents with Allergic Reaction Reports allergic rx to Augmentin started yesterday, last night had tongue swelling and itching Limitations to History: None HPI: 79-year-old female presents with concern for allergic reaction to Augmentin. Patient was seen 2 days ago. Patient had been struggling with diverticulitis with conservative measures over the past 9 weeks. Large allergy profile. Was given Unasyn at that time. Switched to Augmentin. States that she had a severe hot flash and folic her tongue was swelling last night. Has none of the symptoms now. Continues to have left lower quadrant pain. Denies any fever, chills, nausea, vomiting, diarrhea, hematochezia, melena. Additional History Obtained from: Daughter at the bedside. Physical Exam: VS: As documented in the triage note and EMR flowsheet from this visit were reviewed. Appearance: Alert. cooperative, in no acute distress. Skin: Intact, dry skin, no lesions, rash, petechiae or purpura. Eyes: PERRLA, EOMs intact, Conjunctiva pink with no redness or exudates. HENT: Normocephalic, atraumatic. Nares patent. No intraoral lesions. Neck: Supple, without meningismus. Trachea at midline. No lymphadenopathy. Pulmonary: Clear bilaterally with good chest wall excursion. No rales, rhonchi or wheezing. No accessory muscle use or stridor. Cardiac: Regular rate and rhythm, no rubs, murmurs, or gallops. Abdomen: Abdomen is soft, nontender, and nondistended. No palpable organomegaly. No rebound or guarding. No CVA tenderness. Nonsurgical abdomen. Genitourinary: Exam deferred. Musculoskeletal: Full range of motion. Pulses full and equal. No cyanosis, clubbing, or edema. Psychiatric: Appropriate mood and affect. Patient History Past Medical History: Diagnosis Date Diverticulitis Personal history of other diseases of the digestive system History of gastrointestinal hemorrhage Unspecified osteoarthritis, unspecified site 04/01/2021 Osteoarthritis Past Surgical History: Procedure Laterality Date CHOLECYSTECTOMY 09/21/2019 LAP CHOLECYSTECTOMY/ DR NAVARRO COLONOSCOPY 07/03/2016 REPEAT 10 YRS/ [facility] OTHER SURGICAL HISTORY 09/05/2019 Hysterectomy Family History Problem Relation Name Age of Onset Aneurysm Mother Coronary artery disease Father Diabetes type II Brother controlled Social History Tobacco Use Smoking status: Never Passive exposure: Past Smokeless tobacco: Never Substance Use Topics Alcohol use: Not Currently Comment: occasional Drug use: Never Physical Exam ED Triage Vitals [08/19/24 0912] Temperature Heart Rate Respirations BP 36.5 C (97.7 F) 88 18 (!) 211/89 Pulse Ox Temp src Heart Rate Source Patient Position 99 % -- -- -- BP Location FiO2 (%) -- -- Physical Exam ED Course & MDM Diagnoses as of 08/19/24 1706 Diverticulitis Acute diverticulitis No data recorded [place] Coma Scale Score: 15 (08/19/24 0914 : Kristin Abel RN) Medical Decision Making Labs Reviewed CBC WITH AUTO DIFFERENTIAL - Abnormal WBC 7.5 nRBC 0.0 RBC 4.33 Hemoglobin 12.6 Hematocrit 40.3 MCV 93 MCH 29.1 MCHC 31.3 (*) RDW 12.8 Platelets 319 Neutrophils % 71.0 Immature Granulocytes %, Automated 0.4 Lymphocytes % 21.1 Monocytes % 6.8 Eosinophils % 0.4 Basophils % 0.3 Neutrophils Absolute 5.35 Immature Granulocytes Absolute, Au* 0.03 Lymphocytes Absolute 1.59 Monocytes Absolute 0.51 Eosinophils Absolute 0.03 Basophils Absolute 0.02 COMPREHENSIVE METABOLIC PANEL - Abnormal Medical Decision Making: Patient appears well nontoxic. Lab work unremarkable. Failing outpatient treatment secondary to oral antibiotic allergic reactions. Treated with Unasyn. Initially plan for transfer however bed became available at [facility]. Patient admitted in stable condition. Escalation of Care: Appropriate for admission for further treatment and evaluation. Discussion of Management with Other Providers: I discussed the patient/results with: Meeting hospitalist. Procedure Procedures Jani Mcgrath DO 08/19/241706 [facility] Work Phone: 08-08-2024 History of Present illness Narrative Subjective Patient ID: Troy Ramos is a 79 y.o. female who presents for follow up HPI Patient is here today for telephone follow-up visit. Patient and physician are 2 separate physical locations. Patient was verbally consented for the encounter. Patient has upcoming appointment with review nurse to look into her penicillin allergy. Patient had a reaction 25 to 30 years ago,, due to her other antibiotic allergies we are limited in treatment options should she have another flare of diverticulitis. She had a reaction to Bactrim, as well as ciprofloxacin Keflex Flagyl. She reports today that she is having a good day as far as her abdominal pain. Advised that should she have recurrence of lower quadrant abdominal pain to please let me know and I would order labs and a CT scan to further evaluate this. Review of Systems Gastrointestinal: Negative for abdominal pain, diarrhea and vomiting. Objective There were no vitals taken for this visit. Physical Exam No physical exam was completed due to telephone visit Assessment/Plan Problem List Items Addressed This Visit History of diverticulitis - Primary Other Visit Diagnoses Multiple drug allergies Hx of diverticulitis -Has appointment with review nurse to do further antibiotic testing since she has multi full drug allergies and we are limited in further treatment options should she have another flare of diverticulitis, for now she is not having any abdominal pain therefore will not order further workup, but if it recurs she is to let me know as soon as possible. 2. Multiple drug allergies -Has an appointment with review nurse upcoming Advised patient that I will be leaving the system at the end of September 2024. Final diagnoses: [Z87.19] History of diverticulitis [Z88.9] Multiple drug allergies documented in this encounter [facility] Work Phone: 07-14-2024 History of Present illness Narrative Subjective Patient ID: Troy Ramos is a 79 y.o. female who presents for Left rib pain. HPI Here today for diverticulitis reports she has had a flare in April and the antibiotics gave her hives, tingling in her fingers. We did discuss allergy testing, and she was not able to get scheduled in the past. We need a better understanding what antibiotics she is allergic to, since her list consist of 13 different ones. She does have diverticulitis flares every 3 sasha months and we are unable to treat her due to the cipro and flagyl allergies on her list Review of Systems Constitutional: Negative for chills, fatigue and fever. Gastrointestinal: Positive for abdominal pain. Negative for constipation, diarrhea, nausea and vomiting. Genitourinary: Negative for dysuria. Neurological: Negative for light-headedness and numbness. Objective BP 169/88 (Patient Position: Sitting) Pulse 83 Ht 1.702 m (5' 7) Wt 73.2 kg (161 lb 6.4 oz) BMI 25.28 kg/m Physical Exam Cardiovascular: Rate and Rhythm: Normal rate and regular rhythm. Skin: Capillary Refill: Capillary refill takes less than 2 seconds. Neurological: Mental Status: She is alert and oriented to person, place, and time. Assessment/Plan Problem List Items Addressed This Visit None Diverticulitis flare -Encouraged bowel rest, followed with liquid diet then progressing to GI soft -If no improvement will call the office and can consider ER documented in this encounter [facility] Work Phone: 05-27-2024 History of Present illness Narrative Images from the original note were not included. CHIEF COMPLAINT 1 year follow up HISTORY OF PRESENT ILLNESS Patient denies any major complaints and reports medication compliance. Cardiovascular hx: PSVT: -Previous monitor showed evidence of PSVT -Currently on Lopressor 25mg daily. Cardiovascular testing: Echo (November,): Normal left ventricular systolic function with EF of 60%. Normal biatrial sizes with normal right ventricular size and function. No significant valvular pathology. No pericardial effusion noted. 7-day holter monitor (July,)- Predominant sinus rhythm with average heart rate 82 bpm. Infrequent PAC PVCs. Patient having short runs of PSVT longest 1 of 15 beats appears to be short RP tachycardia fastest heart rate 180 bpm. Past Medical, Surgical, and Family History reviewed and updated in chart. Reviewed all medications by prescribing practitioner or clinical pharmacist (such as prescriptions, OTCs, herbal therapies and supplements) and documented in the medical record. Past Medical History Past Medical History: Diagnosis Date Personal history of other diseases of the digestive system History of gastrointestinal hemorrhage Unspecified osteoarthritis, unspecified site 04/01/2021 Osteoarthritis Social History Social History Tobacco Use Smoking status: Never Passive exposure: Past Smokeless tobacco: Never Substance Use Topics Alcohol use: Yes Comment: occasional Drug use: Never Family History Family History Problem Relation Name Age of Onset Aneurysm Mother Coronary artery disease Father Diabetes type II Brother controlled Allergies: Allergies Allergen Reactions Amoxicillin Itching Ciprofloxacin Hives Ciprofloxacin-Fluocinolone Hives Estroven Nighttime Rash Shellfish Containing Products Hives and Swelling Amoxicillin-Pot Clavulanate Hives and Itching Bactrim [Sulfamethoxazole-Trimethoprim] Hives Prednisone Unknown Gatifloxacin Unknown Levofloxacin Unknown Quinolones Hives, Itching and Rash Outpatient Medications: Current Outpatient Medications Medication Instructions acetaminophen (TYLENOL 8 HOUR) 1,300 mg, Nightly ascorbic acid, vitamin C, 500 mg capsule 1-2 tablets, Daily calcium carb-vit D3-magnesium 250-200-125 mg-unit-mg capsule Take by mouth. cetirizine (ZYRTEC) 10 mg, Every other day colesevelam (WELCHOL) 1,875 mg, 2 times daily (morning and late afternoon) diphenhydrAMINE (SOMINEX) 25 mg, Nightly PRN ECHINACEA ORAL 1 tablet, Daily ERGOCALCIFEROL, VITAMIN D2, ORAL 2,400 Units, Daily estradiol (ESTRACE) 1 mg, oral, Daily famotidine (PEPCID) 20 mg, Daily metoprolol tartrate (LOPRESSOR) 25 mg, oral, Daily NON FORMULARY 1 each, Daily Labs: CMP: Recent Labs 04/02/24 1543 03/31/24 1041 08/14/23 0805 08/16/19 0950 NA 137 135* 139 135* K 3.7 4.4 4.4 4.1 CL 103 102 105 102 CO2 22 27 25 28 ANIONGAP 16 10 13 9* BUN 14 14 16 12 CREATININE 0.84 0.81 0.71 0.72 EGFR 71 74 88 -- Recent Labs 04/02/24 1543 03/31/24 1041 08/14/23 0805 09/12/19 1024 ALBUMIN 4.5 4.1 4.4 4.0 ALKPHOS 60 56 58 54 ALT 9 6* 15 8 AST 18 14 22 15 BILITOT 0.3 0.4 0.6 0.4 CBC: Recent Labs 04/02/24 1543 03/31/24 10412/16/21 1608 WBC 7.0 5.8 7.7 HGB 13.2 12.3 13.0 HCT 42.4 40.0 39.6 PLT 268 276 266 MCV 94 96 91 COAG: No results for input(s): PTT, INR, HAUF, DDIMERVTE, HAPTOGLOBIN, FIBRINOGEN in the last 20427 hours. ABO: No results for input(s): ABO in the last 55538 hours. HEME/ENDO: Recent Labs 08/14/23 0805 06/30/22 1151 TSH -- 0.95 HGBA1C 5.9* -- CARDIAC: Recent Labs 04/02/24 1543 TROPHS 4 Recent Labs 08/14/23 0805 CHOL 271* HDL 57.0 TRIG 238* MICRO: No results for input(s): ESR, CRP, PROCAL in the last 89659 hours. No results found for the last 90 days. Notable Studies: imaging personally reviewed EKG: Encounter Date: 04/02/24 ECG 12 lead Result Value Ventricular Rate 88 Atrial Rate 88 MO Interval 140 QRS Duration 94 QT Interval 394 QTC Calculation(Bazett) 476 P [place] 60 R [place] 21 T [place] 49 QRS Count 14 Q Onset 222 P Onset 152 P Offset 206 T Offset 419 QTC Fredericia 447 Narrative Normal sinus rhythm Minimal voltage criteria for LVH, may be normal variant ( Stainslaw product ) Nonspecific ST abnormality Abnormal ECG When compared with ECG of 02-AUG-2023 01:22, No significant change was found See ED provider note for full interpretation and clinical correlation Confirmed by Afshin Valdez ([id number]) on 04/05/2024 5:27:39 PM Echocardiogram: [place] [address] [phone], TRANSTHORACIC ECHOCARDIOGRAM REPORT Patient Name: TROY RAMOS Reading Physician: [id number] Mat Weaver MD Study Date: 11/13/2022 Referring BABAR BILL MD Physician: MRN/PID: [id number] PCP: Accession/Order#: [id number] Department [facility] Echo Lab Location: Date of : 1945 Fellow: Gender: F Nurse: Coreen Mark Admit Date: Gold Miner: Silver [facility] Admission Status: Outpatient Additional Staff: Height: 170.18 cm CC Report to: Weight: 73.48 kg Study Type: Echocardiogram BSA: 1.85 m2 Blood Pressure: 179 /79 mmHg Diagnosis/ICD: I47.1-Supraventricular tachycardia Indication: Procedure/CPT: Echo Complete w Full [id number] Study Detail: The following Echo studies were performed: 2D, M-Mode, Doppler and color flow. Agitated saline used as a contrast agent for intraseptal flow evaluation. PHYSICIAN INTERPRETATION: Left Ventricle: Left ventricular systolic function is normal, with an estimated ejection fraction of 60%. There are no regional wall motion abnormalities. The left ventricular cavity size is normal. Spectral Doppler shows an impaired relaxation pattern of left ventricular diastolic filling. Left Atrium: The left atrium is normal in size. A bubble study using agitated saline was performed. Bubble study is negative. Right Ventricle: The right ventricle is normal in size. There is normal right ventricular global systolic function. Right Atrium: The right atrium is normal in size. Aortic Valve: The aortic valve is trileaflet. There is no evidence of aortic valve regurgitation. The peak instantaneous gradient of the aortic valve is 7.7 mmHg. The mean gradient of the aortic valve is 4.0 mmHg. Mitral Valve: The mitral valve is normal in structure. There is trace mitral valve regurgitation. Tricuspid Valve: The tricuspid valve is structurally normal. There is trace tricuspid regurgitation. Pulmonic Valve: The pulmonic valve is not well visualized. There is trace pulmonic valve regurgitation. Pericardium: There is no pericardial effusion noted. There is a pericardial fat pad present. Aorta: The aortic root is normal. Systemic Veins: The inferior vena cava appears to be of normal size. There is IVC inspiratory collapse greater than 50%. CONCLUSIONS: 1. Left ventricular systolic function is normal with a 60% estimated ejection fraction. 2. Spectral Doppler shows an impaired relaxation pattern of left ventricular diastolic filling. QUANTITATIVE DATA SUMMARY: 2D MEASUREMENTS: Normal Ranges: Ao Root d: 3.10 cm (2.0-3.7cm) LAs: 3.80 cm (2.7-4.0cm) IVSd: 1.00 cm (0.6-1.1cm) LVPWd: 0.92 cm (0.6-1.1cm) LVIDd: 4.57 cm (3.9-5.9cm) LVIDs: 2.82 cm LV Mass Index: 80.2 g/m2 LV % FS 38.3 % LA VOLUME: Normal Ranges: LA Vol A4C: 49.3 ml (22+/-6mL/m2) LA Vol A2C: 36.2 ml LA Vol BP: 43.2 ml LA Vol Index A4C: 26.7ml/m2 LA Vol Index A2C: 19.6 ml/m2 LA Vol Index BP: 23.3 ml/m2 LA Area A4C: 17.2 cm2 LA Area A2C: 14.4 cm2 LA Major [place] A4C: 5.1 cm LA Major [place] A2C: 4.9 cm LA Volume Index: 25.4 ml/m2 LA Vol A4C: 46.9 ml LA Vol A2C: 36.3 ml LV SYSTOLIC FUNCTION BY 2D PLANIMETRY (MOD): Normal Ranges: EF-A4C View: 60.9 % (>=55%) EF-A2C View: 56.5 % EF-Biplane: 58.2 % LV DIASTOLIC FUNCTION: Normal Ranges: MV Peak E: 0.82 m/s (0.7-1.2 m/s) MV Peak A: 1.09 m/s (0.42-0.7 m/s) E/A Ratio: 0.75 (1.0-2.2) MV lateral e' 0.07 m/s MV medial e' 0.08 m/s MITRAL VALVE: Normal Ranges: MV DT: 151 msec (150-240msec) AORTIC VALVE: Normal Ranges: AoV Vmax: 1.39 m/s (<=1.7m/s) AoV Peak P.7 mmHg (<20mmHg) AoV Mean P.0 mmHg (1.7-11.5mmHg) LVOT Max Damir: 0.96 m/s (<=1.1m/s) AoV VTI: 31.40 cm (18-25cm) LVOT VTI: 21.20 cm LVOT Diameter: 1.90 cm (1.8-2.4cm) AoV Area, VTI: 1.91 cm2 (2.5-5.5cm2) AoV Area,Vmax: 1.96 cm2 (2.5-4.5cm2) AoV Dimensionless Index: 0.68 RIGHT VENTRICLE: RV 1 3.49 cm RV 2 2.68 cm RV 3 7.13 cm TAPSE: 22.6 mm RV s' 0.14 m/s TRICUSPID VALVE/RVSP: Normal Ranges: Peak TR Velocity: 2.86 m/s RV Syst Pressure: 35.7 mmHg (< 30mmHg) PULMONIC VALVE: Normal Ranges: PV Accel Time: 162 msec (>120ms) PV Max Damir: 0.7 m/s (0.6-0.9m/s) PV Max P.0 mmHg [id number] Mat Weaver MD Electronically signed on 11/13/2022 at 1:11:38 PM Stress Testing: No results found for this or any previous visit from the past 1825 days. Cardiac Catheterization: No results found for this or any previous visit from the past 1825 days. No results found for this or any previous visit from the past 3650 days. REVIEW OF SYSTEMS A 10-point system review was completed and was negative except as noted in the HPI. VITALS Vitals: 05/27/24 1136 BP: 152/80 Pulse: 72 SpO2: 98% PHYSICAL EXAM General: awake, alert and oriented. No acute distress. Skin: Skin is warm, dry and intact without rashes or lesions. HEENT: normocephalic, atraumatic; conjunctivae are clear without exudates or hemorrhage. Sclera is non-icteric. Eyelids are normal in appearance without swelling or lesions. Hearing intact. Nares are patent bilaterally. Moist mucous membranes. Cardiovascular: heart rate and rhythm are normal. No murmurs, gallops, or rubs are auscultated. S1 and S2 are heard and are of normal intensity. No JVD, no carotid bruits Respiratory: bilateral lung sounds clear to auscultations without rales, rhonchi, or wheezes. No accessory muscle use or stridor Musculoskeletal: ROM intact, no deformities Extremities:; no swelling or erythema Neurological: no focal deficits; gait steady Psychiatric: appropriate mood and affect; good judgment and insight ASSESSMENT AND PLAN Assessment/Plan Diagnoses and all orders for this visit: PSVT (paroxysmal supraventricular tachycardia) ([facility]) -I offered to switch patient to Toprol XL 25mg rather than once daily short acting. She prefers to keep as is and will take an extra dose in the evening if she experiences palpitations RTC: 1 year Thank you for allowing me to participate in the care of this patient. Please reach me out if you have any questions or if you need any clarifications regarding the patient's care. Bg Srinivasan DNP, MADINA, DIE CLEANER-C Division of Cardiovascular Medicine [facility] documented in this encounter [facility] Work Phone: 04-07-2024 History of Present illness Narrative Subjective Patient ID: Troy Ramos is a 79 y.o. female who presents for No chief complaint on file.. HPI Here today for ER follow up after an ER visit due to feeling shaky, light headed. Her workup in the hospital was negative. She thinks it was a different type of medication than at [facility] From now on she wants her medications to be sent to [facility]. Reports now she is feeling much better. She does still have some right sided flank pain. US renal and CT abdomen was negative. Advised it could be muscle in nature and advised to take Tylenol. HTN she is hypertensive today but reports she forgot her phone and had to [facility] to get it and make it to her apt on time, we will recheck at her next apt. Review of Systems Constitutional: Negative for fatigue. Respiratory: Negative for cough and shortness of breath. Cardiovascular: Negative for chest pain, palpitations and leg swelling. Gastrointestinal: Negative for abdominal pain, constipation and diarrhea. Genitourinary: Negative for dysuria and flank pain. Neurological: Negative for light-headedness and headaches. Objective BP (!) 174/91 (Patient Position: Sitting) Pulse 73 Ht 1.702 m (5' 7) Wt 73.1 kg (161 lb 3.2 oz) BMI 25.25 kg/m Physical Exam Cardiovascular: Rate and Rhythm: Normal rate and regular rhythm. Heart sounds: Normal heart sounds. Abdominal: General: Bowel sounds are normal. Neurological: Mental Status: She is alert and oriented to person, place, and time. Assessment/Plan Problem List Items Addressed This Visit ICD-10-CM Palpitations R00.2 Other Visit Diagnoses Codes Lightheadedness R42 Hypertension -will recheck in 6 weeks RUQ pain -Tylenol TID PRN -US and CT abdomen negative documented in this encounter [facility] Work Phone: 04-02-2024 Emergency department Note Associated Order(s): ECG 12 lead HPI No chief complaint on file. Limitations to History: None HPI: 71-year-old female brought in by EMS with concern for palpitations and shakiness. States that approximately an hour prior to arrival she was seated on the couch when she felt her heart racing. Began feeling shaky. Mildly lightheaded. States she is feeling improved now however is currently on antibiotic therapy secondary to right-sided kidney infection. This is her second 5 days of Bactrim. Denies any fever, chills, chest pain, shortness of breath, nausea, vomiting, abdominal pain, vaginal bleeding or discharge. Denies any fall or trauma. Additional History Obtained from: EMS. Physical Exam: VS: As documented in the triage note and EMR flowsheet from this visit were reviewed. Appearance: Alert. cooperative, in no acute distress. Skin: Intact, dry skin, no lesions, rash, petechiae or purpura. Eyes: PERRLA, EOMs intact, Conjunctiva pink with no redness or exudates. HENT: Normocephalic, atraumatic. Nares patent. No intraoral lesions. Neck: Supple, without meningismus. Trachea at midline. No lymphadenopathy. Pulmonary: Clear bilaterally with good chest wall excursion. No rales, rhonchi or wheezing. No accessory muscle use or stridor. Cardiac: Regular rate and rhythm, no rubs, murmurs, or gallops. Abdomen: Abdomen is soft, nontender, and nondistended. No palpable organomegaly. No rebound or guarding. No CVA tenderness. Nonsurgical abdomen. Genitourinary: Exam deferred. Musculoskeletal: Full range of motion. Pulses full and equal. No cyanosis, clubbing, or edema. Neurological: Cranial nerves are grossly intact, grossly normal sensation, no weakness, no focal findings identified. Psychiatric: Appropriate mood and affect. Patient History Past Medical History: Diagnosis Date Personal history of other diseases of the digestive system History of gastrointestinal hemorrhage Unspecified osteoarthritis, unspecified site 04/01/2021 Osteoarthritis Past Surgical History: Procedure Laterality Date OTHER SURGICAL HISTORY 05/23/2019 Colonoscopy OTHER SURGICAL HISTORY 10/03/2019 Cholecystectomy OTHER SURGICAL HISTORY 09/05/2019 Hysterectomy Family History Problem Relation Name Age of Onset Aneurysm Mother Coronary artery disease Father Diabetes type II Brother controlled Social History Tobacco Use Smoking status: Never Passive exposure: Past Smokeless tobacco: Never Substance Use Topics Alcohol use: Never Drug use: Never Physical Exam ED Triage Vitals Temp Pulse Resp BP -- -- -- -- SpO2 Temp src Heart Rate Source Patient Position -- -- -- -- BP Location FiO2 (%) -- -- Physical Exam ED Course & MDM Diagnoses as of 04/02/24 1740 Palpitations Lightheadedness No data recorded Medical Decision Making Labs Reviewed CBC WITH AUTO DIFFERENTIAL - Abnormal WBC 7.0 nRBC 0.0 RBC 4.51 Hemoglobin 13.2 Hematocrit 42.4 MCV 94 MCH 29.3 MCHC 31.1 (*) RDW 13.5 Platelets 268 Neutrophils % 57.5 Immature Granulocytes %, Automated 0.1 Lymphocytes % 33.5 Monocytes % 7.9 Eosinophils % 0.6 Basophils % 0.4 Neutrophils Absolute 4.02 Immature Granulocytes Absolute, Au* 0.01 Lymphocytes Absolute 2.34 Monocytes Absolute 0.55 Eosinophils Absolute 0.04 Basophils Absolute 0.03 COMPREHENSIVE METABOLIC PANEL - Abnormal Glucose 124 (*) Sodium 137 Potassium 3.7 Chloride 103 Bicarbonate 22 Anion Gap 16 Urea Nitrogen 14 Creatinine 0.84 eGFR 71 Calcium 9.2 Albumin 4.5 Alkaline Phosphatase 60 Total Protein 7.9 AST 18 Bilirubin, Total 0.3 ALT 9 URINALYSIS WITH REFLEX CULTURE AND MICROSCOPIC - Abnormal Color, Urine Colorless (*) Appearance, Urine Clear Specific [place], Urine 1.005 pH, Urine 6.0 Protein, Urine NEGATIVE Glucose, Urine Normal Blood, Urine NEGATIVE Ketones, Urine NEGATIVE Bilirubin, Urine NEGATIVE Urobilinogen, Urine Normal Nitrite, Urine NEGATIVE Leukocyte Esterase, Urine NEGATIVE TROPONIN I, HIGH SENSITIVITY - Normal Troponin I, High Sensitivity 4 Narrative: Less than 99th percentile of normal range cutoff- Female and children under 18 years old <14 ng/L; Male <21 ng/L: Negative Repeat testing should be performed if clinically indicated. Female and children under 18 years old 14-50 ng/L; Male 21-50 ng/L: Consistent with possible cardiac damage and possible increased clinical risk. Serial measurements may help to assess extent of myocardial damage. >50 ng/L: Consistent with cardiac damage, increased clinical risk and myocardial infarction. Serial measurements may help assess extent of myocardial damage. NOTE: Children less than 1 year old may have higher baseline troponin levels and results should be interpreted in conjunction with the overall clinical context. NOTE: Troponin I testing is performed using a different testing methodology at [facility] than at other [facility]. Direct result comparisons should only be made within the same method. URINALYSIS WITH REFLEX CULTURE AND MICROSCOPIC Narrative: The following orders were created for panel order Urinalysis with Reflex Culture and Microscopic. Procedure Abnormality Status --------- ------ Urinalysis with Reflex C...[[id number]] Abnormal Final result Extra Urine Perkins Tube[[id number]] In process Please view results for these tests on the individual orders. EXTRA URINE PERKINS TUBE XR chest 1 view Final Result No acute cardiopulmonary process. Right medial lung base opacity likely represents prominent cardiophrenic fat pad. MACRO: None. Signed by: Jay Davis 04/02/2024 5:33 PM Dictation workstation: [id number] CT abdomen pelvis wo IV contrast Final Result No acute findings in the abdomen or pelvis Each kidney contains just one, less than 3 mm (too small to accurately measure attenuation) nonobstructing stone. No obstructing/offending stone anywhere in the urinary tract No hydroureteronephrosis Mild urinary bladder floor descent, 1.5 cm inferior to the level the pubococcygeal line for example on sagittal image 65 which I have annotated. This is new from prior CT from 2019 Normal appendix No bowel obstruction, perforation, abscess or free fluid No hernia Two unchanged benign-appearing small left adnexal cysts, the more inferior of which could artifactually mimic a urinary bladder diverticulum volume confident it is an adnexal cyst especially given no change from CT from 2019 Impressive nearly orantes colonic diverticulosis but none with any associated inflammatory change No acute hemorrhage or hematoma, retroperitoneal or otherwise anywhere in the abdomen or pelvis MACRO: None Signed by: Raulito Segal 04/02/2024 4:52 PM Dictation workstation: [id number] Medical Decision Making: Patient appears well nontoxic. Hypertensive upon arrival which was improved without treatment. Lab work unremarkable. Chest x-ray clear. Patient treated with [address] shows no acute findings. Patient feeling improved. Patient states she did have a couple coffee with her son which sometimes can make her palpitations. Advised on follow-up with primary care. Stable at time of discharge. Differential Diagnoses Considered: Electrolyte abnormality, drug reaction, volume depletion, ACS, UTI, kidney stone Independent Interpretation of Studies: I independently interpreted: Chest x-ray shows no evidence of pneumonia or pneumothorax. CT of the abdomen pelvis without intra-abdominal free air. Escalation of Care: Appropriate for discharge and follow-up with primary care. Procedure ECG 12 lead Performed by: Jani Mcgrath DO Authorized by: Jani Mcgrath DO ECG interpreted by ED Physician in the absence of a water truck driver: yes Comments: EKG interpreted by Dr. Jani Mcgrath: Normal sinus rhythm at 88 bpm. MO interval 140 ms. QTc of 476 ms. LVH. Jani Mcgrath DO 04/02/241741 documented in this encounter [facility] Work Phone: 04-02-2024 Physician Emergency department Note Associated Order(s): ECG 12 lead HPI No chief complaint on file. Limitations to History: None HPI: 71-year-old female brought in by EMS with concern for palpitations and shakiness. States that approximately an hour prior to arrival she was seated on the couch when she felt her heart racing. Began feeling shaky. Mildly lightheaded. States she is feeling improved now however is currently on antibiotic therapy secondary to right-sided kidney infection. This is her second 5 days of Bactrim. Denies any fever, chills, chest pain, shortness of breath, nausea, vomiting, abdominal pain, vaginal bleeding or discharge. Denies any fall or trauma. Additional History Obtained from: EMS. Physical Exam: VS: As documented in the triage note and EMR flowsheet from this visit were reviewed. Appearance: Alert. cooperative, in no acute distress. Skin: Intact, dry skin, no lesions, rash, petechiae or purpura. Eyes: PERRLA, EOMs intact, Conjunctiva pink with no redness or exudates. HENT: Normocephalic, atraumatic. Nares patent. No intraoral lesions. Neck: Supple, without meningismus. Trachea at midline. No lymphadenopathy. Pulmonary: Clear bilaterally with good chest wall excursion. No rales, rhonchi or wheezing. No accessory muscle use or stridor. Cardiac: Regular rate and rhythm, no rubs, murmurs, or gallops. Abdomen: Abdomen is soft, nontender, and nondistended. No palpable organomegaly. No rebound or guarding. No CVA tenderness. Nonsurgical abdomen. Genitourinary: Exam deferred. Musculoskeletal: Full range of motion. Pulses full and equal. No cyanosis, clubbing, or edema. Neurological: Cranial nerves are grossly intact, grossly normal sensation, no weakness, no focal findings identified. Psychiatric: Appropriate mood and affect. Patient History Past Medical History: Diagnosis Date Personal history of other diseases of the digestive system History of gastrointestinal hemorrhage Unspecified osteoarthritis, unspecified site 04/01/2021 Osteoarthritis Past Surgical History: Procedure Laterality Date OTHER SURGICAL HISTORY 05/23/2019 Colonoscopy OTHER SURGICAL HISTORY 10/03/2019 Cholecystectomy OTHER SURGICAL HISTORY 09/05/2019 Hysterectomy Family History Problem Relation Name Age of Onset Aneurysm Mother Coronary artery disease Father Diabetes type II Brother controlled Social History Tobacco Use Smoking status: Never Passive exposure: Past Smokeless tobacco: Never Substance Use Topics Alcohol use: Never Drug use: Never Physical Exam ED Triage Vitals Temp Pulse Resp BP -- -- -- -- SpO2 Temp src Heart Rate Source Patient Position -- -- -- -- BP Location FiO2 (%) -- -- Physical Exam ED Course & MDM Diagnoses as of 04/02/24 1740 Palpitations Lightheadedness No data recorded Medical Decision Making Labs Reviewed CBC WITH AUTO DIFFERENTIAL - Abnormal WBC 7.0 nRBC 0.0 RBC 4.51 Hemoglobin 13.2 Hematocrit 42.4 MCV 94 MCH 29.3 MCHC 31.1 (*) RDW 13.5 Platelets 268 Neutrophils % 57.5 Immature Granulocytes %, Automated 0.1 Lymphocytes % 33.5 Monocytes % 7.9 Eosinophils % 0.6 Basophils % 0.4 Neutrophils Absolute 4.02 Immature Granulocytes Absolute, Au* 0.01 Lymphocytes Absolute 2.34 Monocytes Absolute 0.55 Eosinophils Absolute 0.04 Basophils Absolute 0.03 COMPREHENSIVE METABOLIC PANEL - Abnormal Glucose 124 (*) Sodium 137 Potassium 3.7 Chloride 103 Bicarbonate 22 Anion Gap 16 Urea Nitrogen 14 Creatinine 0.84 eGFR 71 Calcium 9.2 Albumin 4.5 Alkaline Phosphatase 60 Total Protein 7.9 AST 18 Bilirubin, Total 0.3 ALT 9 URINALYSIS WITH REFLEX CULTURE AND MICROSCOPIC - Abnormal Color, Urine Colorless (*) Appearance, Urine Clear Specific [place], Urine 1.005 pH, Urine 6.0 Protein, Urine NEGATIVE Glucose, Urine Normal Blood, Urine NEGATIVE Ketones, Urine NEGATIVE Bilirubin, Urine NEGATIVE Urobilinogen, Urine Normal Nitrite, Urine NEGATIVE Leukocyte Esterase, Urine NEGATIVE TROPONIN I, HIGH SENSITIVITY - Normal Troponin I, High Sensitivity 4 Narrative: Less than 99th percentile of normal range cutoff- Female and children under 18 years old <14 ng/L; Male <21 ng/L: Negative Repeat testing should be performed if clinically indicated. Female and children under 18 years old 14-50 ng/L; Male 21-50 ng/L: Consistent with possible cardiac damage and possible increased clinical risk. Serial measurements may help to assess extent of myocardial damage. >50 ng/L: Consistent with cardiac damage, increased clinical risk and myocardial infarction. Serial measurements may help assess extent of myocardial damage. NOTE: Children less than 1 year old may have higher baseline troponin levels and results should be interpreted in conjunction with the overall clinical context. NOTE: Troponin I testing is performed using a different testing methodology at [facility] than at other [facility]. Direct result comparisons should only be made within the same method. URINALYSIS WITH REFLEX CULTURE AND MICROSCOPIC Narrative: The following orders were created for panel order Urinalysis with Reflex Culture and Microscopic. Procedure Abnormality Status --------- ------ Urinalysis with Reflex C...[[id number]] Abnormal Final result Extra Urine Perkins Tube[[id number]] In process Please view results for these tests on the individual orders. EXTRA URINE PERKINS TUBE XR chest 1 view Final Result No acute cardiopulmonary process. Right medial lung base opacity likely represents prominent cardiophrenic fat pad. MACRO: None. Signed by: Jay Davis 04/02/2024 5:33 PM Dictation workstation: [id number] CT abdomen pelvis wo IV contrast Final Result No acute findings in the abdomen or pelvis Each kidney contains just one, less than 3 mm (too small to accurately measure attenuation) nonobstructing stone. No obstructing/offending stone anywhere in the urinary tract No hydroureteronephrosis Mild urinary bladder floor descent, 1.5 cm inferior to the level the pubococcygeal line for example on sagittal image 65 which I have annotated. This is new from prior CT from 2019 Normal appendix No bowel obstruction, perforation, abscess or free fluid No hernia Two unchanged benign-appearing small left adnexal cysts, the more inferior of which could artifactually mimic a urinary bladder diverticulum volume confident it is an adnexal cyst especially given no change from CT from 2019 Impressive nearly orantes colonic diverticulosis but none with any associated inflammatory change No acute hemorrhage or hematoma, retroperitoneal or otherwise anywhere in the abdomen or pelvis MACRO: None Signed by: Raulito Segal 04/02/2024 4:52 PM Dictation workstation: [id number] Medical Decision Making: Patient appears well nontoxic. Hypertensive upon arrival which was improved without treatment. Lab work unremarkable. Chest x-ray clear. Patient treated with [address] shows no acute findings. Patient feeling improved. Patient states she did have a couple coffee with her son which sometimes can make her palpitations. Advised on follow-up with primary care. Stable at time of discharge. Differential Diagnoses Considered: Electrolyte abnormality, drug reaction, volume depletion, ACS, UTI, kidney stone Independent Interpretation of Studies: I independently interpreted: Chest x-ray shows no evidence of pneumonia or pneumothorax. CT of the abdomen pelvis without intra-abdominal free air. Escalation of Care: Appropriate for discharge and follow-up with primary care. Procedure ECG 12 lead Performed by: Jani Mcgrath DO Authorized by: Jani Mcgrath DO ECG interpreted by ED Physician in the absence of a water truck driver: yes Comments: EKG interpreted by Dr. Jani Mcgrath: Normal sinus rhythm at 88 bpm. MO interval 140 ms. QTc of 476 ms. LVH. Jani Mcgrath DO 04/02/241741 [facility] Work Phone: 03-29-2024 History of Present illness Narrative Subjective Patient ID: Troy Ramos is a 79 y.o. female who presents for Flank Pain. Flank Pain Pertinent negatives include no abdominal pain, dysuria or headaches. Here today for flank pain, she was treated with bactrim and reports the pain is still present but not as bad. Denies painful urination, urgency or frequency. She reports she is taking tylenol every 6-8 hours. Denies fevers or n/v. Review of Systems Gastrointestinal: Negative for abdominal pain, constipation, diarrhea, nausea and vomiting. Genitourinary: Positive for flank pain. Negative for dysuria and hematuria. Neurological: Negative for light-headedness and headaches. Objective BP 149/81 (Patient Position: Sitting) Pulse 68 Ht 1.702 m (5' 7) Wt 73.8 kg (162 lb 9.6 oz) BMI 25.47 kg/m Physical Exam Constitutional: Appearance: Normal appearance. Cardiovascular: Rate and Rhythm: Normal rate. Heart sounds: Normal heart sounds. Pulmonary: Breath sounds: Normal breath sounds. Abdominal: General: Bowel sounds are normal. Tenderness: There is right CVA tenderness. There is no left CVA tenderness. Neurological: Mental Status: She is alert and oriented to person, place, and time. Assessment/Plan Problem List Items Addressed This Visit None Visit Diagnoses Codes Kidney infection N15.9 Relevant Medications sulfamethoxazole-trimethoprim (Bactrim DS) 800-160 mg tablet Other Relevant Orders US renal complete Comprehensive Metabolic Panel CBC and Auto Differential Kidney infection -Bactrim order -US renal -CBC and CMP ordered documented in this encounter [facility] Work Phone: 08-04-2023 History of Present illness Narrative Chief Complaint: Medicare Wellness Exam/Comprehensive Problem Focused Follow Up and Physical Exam HPI: Patient is here today for MWV. Pt reports that she started taking a new supplement Estroven, she had been buying in from the [employer] store, but they were out so she ordered it offline, It appeared to be the same medication, same packaging. She went to the ED and was given prednisone, took benadryl. 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 Overweight with body mass index (BMI) of 26 to 26.9 in adult Elevated blood sugar Primary hypertension Screening for lipid disorders Comprehensive Medical/Surgical/Social/Family History Past Medical History: Diagnosis Date Personal history of other diseases of the digestive system History of gastrointestinal hemorrhage Unspecified osteoarthritis, unspecified site 04/01/2021 Osteoarthritis Past Surgical History: Procedure Laterality Date OTHER SURGICAL HISTORY 05/23/2019 Colonoscopy OTHER SURGICAL HISTORY 10/03/2019 Cholecystectomy OTHER SURGICAL HISTORY 09/05/2019 Hysterectomy Social History Tobacco Use Smoking status: Never Passive exposure: Past Smokeless tobacco: Never Substance Use Topics Alcohol use: Never Drug use: Never Family History Problem Relation Name Age of Onset Aneurysm Mother Coronary artery disease Father Diabetes type II Brother controlled Allergies and Medications Amoxicillin, Ciprofloxacin, Ciprofloxacin-fluocinolone, Shellfish containing products, Amoxicillin-pot clavulanate, Gatifloxacin, Levofloxacin, and Quinolones Current Outpatient Medications on File Prior to Visit Medication Sig Dispense Refill [DISCONTINUED] CHOLESTYRAMINE, BULK, MISC Take by mouth. [DISCONTINUED] omeprazole (PriLOSEC) [address] capsule Take by mouth. acetaminophen (Tylenol 8 Hour) 650 mg ER tablet Take 2 tablets (1,300 mg) by mouth once daily at bedtime. ascorbic acid, vitamin C, 500 mg capsule Take 1-2 tablets by mouth once daily. calcium carb-vit D3-magnesium 250-200-125 mg-unit-mg capsule Take by mouth. cetirizine (ZyrTEC) 10 mg tablet Take 0.5 tablets (5 mg) by mouth 1 (one) time per week in the molder closed molds.. 4x/week colesevelam (Welchol) 625 mg tablet Take 1 tablet (625 mg) by mouth 2 times a day. Take with meal(s) and a liquid. 180 tablet 3 ECHINACEA ORAL Take 1 tablet by mouth once daily. ERGOCALCIFEROL, VITAMIN D2, ORAL Take 2,400 Units by mouth once daily. metoprolol tartrate (Lopressor) 25 mg tablet Take 1 tablet (25 mg) by mouth once daily. 90 tablet 3 [DISCONTINUED] herbal complex no.174 (ECHINACEA AND GOLDENSEAL ORAL) Take by mouth. [DISCONTINUED] mv-mn/folic acid/vit [id number]/[id number] (ALIVE ONCE DAILY WOMEN 50 PLUS ORAL) Take 1 tablet by mouth once daily. No current facility-administered medications on file prior to visit. Medicare Wellness Questionnaire How have you been on Medicare less than a year ? No Have you had a Medicare Wellness exam before ? Yes Have you had any surgeries in the last year ? No Have you developed any new diseases in the last year ? No Have any close family members developed new diseases in the last year ? Yes Have you been to a [facility] hospital in the last year ? No Do you take any pills or supplements other than those prescribed for you ? Yes Do you take any opiates for pain such as Tramadol, Percocet or Branch ? No How do you consider your overall health ?Good Have you ever used tobacco products ? No Have you smoked more than 100 cigarettes in your life ? No Do you drink alcohol ? No Have you ever used illegal drugs at anytime in your life including Marijuana ? No Which of the following describes your diet ?Well balanced How many days per week on average do you exercise ? 0 days Do you have any loss of hearing ? No Do you have hearing aids ? No Have you or others noted you have loss of memory ? Yes Do you need someone to assist you with any of the following ? None Do you need someone to assist you with any of the following ?none Have you fallen in the last 6 months ? No Do you have any of the following in your house ? None Do you have a living will ? No Do you have a durable power of Head Of Science for health care decisions ? no Medications and Supplements prescribed by me and other practitioners or clinical pharmacist (such as prescriptions, OTC's, herbal therapies and supplements) were reviewed and documented in the medical record. Tobacco/Alcohol/Opioid use, as well as Illicit Drug Use was screened for/reviewed and documented in Social History section and medication list as appropriate Activities of Daily Living In your present state of health, do you have any difficulty performing the following activities?: Preparing food and eating?: No Bathing yourself: No Getting dressed: No Using the toilet:No Moving around from place to place: No In the past year have you fallen or had a near fall?:No Depression Screen (Note: if answer to either of the following is Yes, then a more complete depression screening is indicated) Q1: Over the past two weeks, have you felt down, depressed or hopeless? No Q2: Over the past two weeks, have you felt little interest or pleasure in doing things? no Current exercise habits: Home exercise routine includes walking 0.5 hrs per day. Dietary issues discussed: Yes Hearing difficulties: No Safe in current home environment: yes Visual Acuity assessed: no Cognitive Impairment assessed: yes Advance directives Advanced Care Planning (including a Living Will, Healthcare POA, as well as specific end of life choices and/or directives), was discussed for approximately 1 minutes with the patient and/or surrogate, voluntarily, and documented in the medical record. Cardiac Risk Assessment Cardiovascular risk was discussed and, if needed, lifestyle modifications recommended, including nutritional choices, exercise, and elimination of habits contributing to risk. We agreed on a plan to reduce the current cardiovascular risk based on above discussion as needed. Aspirin use/disuse was discussed after reviewing the updated guidelines below: Consider low dose Aspirin (81-162 mg) use if the benefit for cardiovascular disease prevention outweighs risk for bleeding complications. In general, low dose ASA should be considered: In patients WITHOUT prior TX/stroke/PAD (primary prevention): a. Age <60: Use if 10-year cardiovascular disease risk >20%, with discussion of risks and benefits with patient b. Age 60-<70: Use if 10-year cardiovascular disease risk >20% and low bleeding (e.g., gastrointenstinal) risk, with discussion of risks and benefits with patient c. Age >=70: Do not use In patients WITH prior TX/stroke/PAD (secondary prevention): Generally use unless extremely high bleeding (e.g., gastrointenstinal) risk, with discussion of risks and benefits with patient ROS otherwise negative aside from what was mentioned above in HPI. Vitals BP 145/72 Pulse 90 Ht 1.702 m (5' 7) Wt 74.8 kg (165 lb) BMI 25.84 kg/m Body mass index is 25.84 kg/m . Physical Exam Gen: Alert, NAD HEENT: PERRLA, EOMI, conjunctiva and sclera normal in appearance. Neck: Supple with FROM; No masses/nodes palpable; Thyroid nontender and without nodules; No DARIN Respiratory: Lungs CTAB Cardiovascular: Heart RRR. No M/R/G. Peripheral pulses equal bilaterally Abdomen: Soft, nontender, BS present throughout; No R/G/R; No HSM or masses palpated Extremities: FROM all extremities; Muscle strength grossly normal with good tone Neuro: CN II-XII intact; Reflexes 2+/2+; Gross motor and sensory intact Skin: No suspicious lesions present Mammo 07/24, wants to do every two yeas DEXA 09/18/21 Colonoscopy 2018 Flu shot 2022 COVID received PNA 12/2018 Shingles zostavax 2012 RSV recommended Assessment and Plan: Problem List Items Addressed This Visit GERD (gastroesophageal reflux disease) Overweight (BMI 25.0-29.9) PVC (premature ventricular contraction) Elevated blood sugar Relevant Orders Hemoglobin A1C Primary hypertension Relevant Orders Comprehensive Metabolic Panel Screening for lipid disorders - Primary Relevant Orders Lipid Panel Will order lipid, A1c Recommend shingles vaccine Recent rash allergic reaction to supplement, has resolved 4. Osteopenia - started on estradiol by drywall worker - on vit d and calcium daily During the course of the visit the patient was educated and counseled about age appropriate screening and preventive services. Completed preventive screenings were documented in the chart and orders were placed for outstanding screenings/procedures as documented in the Assessment and Plan. Patient Instructions (the written plan) was given to the patient at check out. Alberta Brown DO documented in this encounter [facility] Work Phone: 08-02-2023 Hospital Discharge instructions Franco Spears MD - 08/02/2023 2:56 AM EST Recommend discussing your blood pressure as well as your blood pressure medication with your primary care physician or water truck driver. documented in this encounter [facility] Work Phone: 08-02-2023 Emergency department Note The patient is a 78-year-old female presents with concern for allergic reaction. She does have multiple allergies. She started taking a new postmenopausal medication 3 days ago. That is only thing she can think of. Yesterday she had hives all over her body. She took some Benadryl and Pepcid and that seemed to cleared up. She woke up just prior to arrival feeling a throat swelling sensation. Denies any difficulty breathing. No wheezing or stridor. Review of Systems Physical Exam Vitals and nursing note reviewed. Constitutional: General: She is not in acute distress. Appearance: She is well-developed. HENT: Head: Normocephalic and atraumatic. Eyes: Conjunctiva/sclera: Conjunctivae normal. Cardiovascular: Rate and Rhythm: Normal rate and regular rhythm. Heart sounds: No murmur heard. Pulmonary: Effort: Pulmonary effort is normal. No respiratory distress. Breath sounds: Normal breath sounds. Abdominal: Palpations: Abdomen is soft. Tenderness: There is no abdominal tenderness. Musculoskeletal: General: No swelling. Cervical back: Neck supple. Skin: General: Skin is warm and dry. Capillary Refill: Capillary refill takes less than 2 seconds. Neurological: Mental Status: She is alert. Psychiatric: Mood and Affect: Mood normal. Labs Reviewed - No data to display No orders to display Procedures Medical Decision Making Patient 78-year-old female concerned about allergic reaction. She does have multiple allergies. She did start a new postmenopausal medication and felt like she was having an allergic reaction. She had a throat closing/swelling sensation. IV access was obtained and patient was given Solu-Medrol 125, Benadryl 50, Pepcid 40 all IVP. After about an hour the patient did start to feel better.. Will provide a 20 mg shot of IM Kenalog. Will monitor for additional timeframe the patient can be discharged. She is encouraged to discuss her blood pressure medication. She is taking metoprolol tartrate on an as-needed basis, she did not take it today, and when she does take it she is taking it once a day. Amount and/or Complexity of Data Reviewed ECG/medicine tests: independent interpretation performed. Details: Sinus tachycardia rate of 110, narrow complex, normal axis, no ST elevation or depression, no ectopy. Diagnoses as of 08/02/23 0257 Allergic reaction to drug, initial encounter Franco Spears MD 08/02/23 0257 documented in this encounter [facility] Work Phone: 08-02-2023 Physician Emergency department Note The patient is a 78-year-old female presents with concern for allergic reaction. She does have multiple allergies. She started taking a new postmenopausal medication 3 days ago. That is only thing she can think of. Yesterday she had hives all over her body. She took some Benadryl and Pepcid and that seemed to cleared up. She woke up just prior to arrival feeling a throat swelling sensation. Denies any difficulty breathing. No wheezing or stridor. Review of Systems Physical Exam Vitals and nursing note reviewed. Constitutional: General: She is not in acute distress. Appearance: She is well-developed. HENT: Head: Normocephalic and atraumatic. Eyes: Conjunctiva/sclera: Conjunctivae normal. Cardiovascular: Rate and Rhythm: Normal rate and regular rhythm. Heart sounds: No murmur heard. Pulmonary: Effort: Pulmonary effort is normal. No respiratory distress. Breath sounds: Normal breath sounds. Abdominal: Palpations: Abdomen is soft. Tenderness: There is no abdominal tenderness. Musculoskeletal: General: No swelling. Cervical back: Neck supple. Skin: General: Skin is warm and dry. Capillary Refill: Capillary refill takes less than 2 seconds. Neurological: Mental Status: She is alert. Psychiatric: Mood and Affect: Mood normal. Labs Reviewed - No data to display No orders to display Procedures Medical Decision Making Patient 78-year-old female concerned about allergic reaction. She does have multiple allergies. She did start a new postmenopausal medication and felt like she was having an allergic reaction. She had a throat closing/swelling sensation. IV access was obtained and patient was given Solu-Medrol 125, Benadryl 50, Pepcid 40 all IVP. After about an hour the patient did start to feel better.. Will provide a 20 mg shot of IM Kenalog. Will monitor for additional timeframe the patient can be discharged. She is encouraged to discuss her blood pressure medication. She is taking metoprolol tartrate on an as-needed basis, she did not take it today, and when she does take it she is taking it once a day. Amount and/or Complexity of Data Reviewed ECG/medicine tests: independent interpretation performed. Details: Sinus tachycardia rate of 110, narrow complex, normal axis, no ST elevation or depression, no ectopy. Diagnoses as of 08/02/23256 Allergic reaction to drug, initial encounter Franco Spears MD 08/02/23256 [facility] Work Phone: 05-25-2023 Evaluation + Plan note Associated Problem(s): PSVT (paroxysmal supraventricular tachycardia) Stable; continue Lopressor 25mg daily; no adverse effects reported [facility] Work Phone: 05-25-2023 Miscellaneous Notes Associated Problem(s): PSVT (paroxysmal supraventricular tachycardia) Stable; continue Lopressor 25mg daily; no adverse effects reported documented in this encounter [facility] Work Phone: 05-25-2023 History of Present illness Narrative [facility] VISIT CHIEF COMPLAINT 6 month follow up HISTORY OF PRESENT ILLNESS Cardiac hx: Palpitations: - 7-day cardiac nurse (July 2022): Predominant sinus rhythm with average heart rate 82 bpm. Infrequent PAC PVCs. Patient having short runs of PSVT longest 1 of 15 beats appears to be short RP tachycardia fastest heart rate 180 bpm. - Echo (November 13, 2022): Normal left ventricular systolic function with EF of 60%. Normal biatrial sizes with normal right ventricular size and function. No significant valvular pathology. No pericardial effusion noted. -Currently on Lopressor 25mg daily Today, patient denies any chest pain/pressure/discomfort or palpitations. She reports feeling great since starting the metoprolol. Past Medical History Past Medical History: Diagnosis Date Personal history of other diseases of the digestive system History of gastrointestinal hemorrhage Unspecified osteoarthritis, unspecified site 04/01/2021 Osteoarthritis Social History Social History Tobacco Use Smoking status: Never Passive exposure: Past Smokeless tobacco: Never Substance Use Topics Alcohol use: Never Drug use: Never Family History Family History Problem Relation Name Age of Onset Aneurysm Mother Coronary artery disease Father Diabetes type II Brother controlled Allergies: Allergies Allergen Reactions Amoxicillin Itching Ciprofloxacin Hives Ciprofloxacin-Fluocinolone Hives Shellfish Containing Products Hives and Swelling Amoxicillin-Pot Clavulanate Hives and Itching Gatifloxacin Unknown Levofloxacin Unknown Quinolones Hives, Itching and Rash Outpatient Medications: Current Outpatient Medications Medication Instructions acetaminophen (TYLENOL 8 HOUR) 1,300 mg, oral, Nightly ascorbic acid, vitamin C, 500 mg capsule 1-2 tablets, oral, Daily calcium carb-vit D3-magnesium 250-200-125 mg-unit-mg capsule oral cetirizine (ZYRTEC) 5 mg, oral, Weekly, 4x/week colesevelam (WELCHOL) 625 mg, oral, 2 times daily, Take with meal(s) and a liquid. ECHINACEA ORAL 1 tablet, oral, Daily ERGOCALCIFEROL, VITAMIN D2, ORAL 2,400 Units, oral, Daily herbal complex no.174 (ECHINACEA AND GOLDENSEAL ORAL) oral metoprolol tartrate (LOPRESSOR) 25 mg, oral, Daily mv-mn/folic acid/vit [id number] (ALIVE ONCE DAILY WOMEN 50 PLUS ORAL) 1 tablet, oral, Daily Labs: CMP: Recent Labs 08/16/19 0950 NA 135* K 4.1 CL 102 CO2 28 ANIONGAP 9* BUN 12 CREATININE 0.72 Recent Labs 09/12/19 1024 ALBUMIN 4.0 ALKPHOS 54 ALT 8 AST 15 BILITOT 0.4 CBC: Recent Labs 12/16/21 1608 WBC 7.7 HGB 13.0 HCT 39.6 PLT 266 MCV 91 COAG: No results for input(s): PTT, INR, HAUF, DDIMERVTE, HAPTOGLOBIN, FIBRINOGEN in the last 60623 hours. ABO: No results for input(s): ABO in the last 13739 hours. HEME/ENDO: Recent Labs 06/30/22 1151 TSH 0.95 CARDIAC: No results for input(s): LDH, CKMB, TROPHS, BNP in the last 43622 hours. No lab exists for component: CK, CKMBPNo results for input(s): CHOL, LDLF, HDL, TRIG in the last 17290 hours. MICRO: No results for input(s): ESR, CRP, PROCAL in the last 28582 hours. No results found for the last 90 days. Notable Studies: imaging personally reviewed EKG:No results found for this or any previous visit (from the past 4464 hour(s)). Echocardiogram: [place] [address] [phone], TRANSTHORACIC ECHOCARDIOGRAM REPORT Patient Name: TROY RAMOS Reading Physician: [id number] Mat Weaver MD Study Date: 11/13/2022 Referring BABAR BILL MD Physician: MRN/PID: [id number] PCP: Accession/Order#: [id number] Department [facility] Echo Lab Location: Date of : 1945 Fellow: Gender: F Nurse: Coreen Mark Admit Date: Gold Miner: [place] Admission Status: Outpatient Additional Staff: Height: 170.18 cm CC Report to: Weight: 73.48 kg Study Type: Echocardiogram BSA: 1.85 m2 Blood Pressure: 179 /79 mmHg Diagnosis/ICD: I47.1-Supraventricular tachycardia Indication: Procedure/CPT: Echo Complete w Full [id number] Study Detail: The following Echo studies were performed: 2D, M-Mode, Doppler and color flow. Agitated saline used as a contrast agent for intraseptal flow evaluation. PHYSICIAN INTERPRETATION: Left Ventricle: Left ventricular systolic function is normal, with an estimated ejection fraction of 60%. There are no regional wall motion abnormalities. The left ventricular cavity size is normal. Spectral Doppler shows an impaired relaxation pattern of left ventricular diastolic filling. Left Atrium: The left atrium is normal in size. A bubble study using agitated saline was performed. Bubble study is negative. Right Ventricle: The right ventricle is normal in size. There is normal right ventricular global systolic function. Right Atrium: The right atrium is normal in size. Aortic Valve: The aortic valve is trileaflet. There is no evidence of aortic valve regurgitation. The peak instantaneous gradient of the aortic valve is 7.7 mmHg. The mean gradient of the aortic valve is 4.0 mmHg. Mitral Valve: The mitral valve is normal in structure. There is trace mitral valve regurgitation. Tricuspid Valve: The tricuspid valve is structurally normal. There is trace tricuspid regurgitation. Pulmonic Valve: The pulmonic valve is not well visualized. There is trace pulmonic valve regurgitation. Pericardium: There is no pericardial effusion noted. There is a pericardial fat pad present. Aorta: The aortic root is normal. Systemic Veins: The inferior vena cava appears to be of normal size. There is IVC inspiratory collapse greater than 50%. CONCLUSIONS: 1. Left ventricular systolic function is normal with a 60% estimated ejection fraction. 2. Spectral Doppler shows an impaired relaxation pattern of left ventricular diastolic filling. QUANTITATIVE DATA SUMMARY: 2D MEASUREMENTS: Normal Ranges: Ao Root d: 3.10 cm (2.0-3.7cm) LAs: 3.80 cm (2.7-4.0cm) IVSd: 1.00 cm (0.6-1.1cm) LVPWd: 0.92 cm (0.6-1.1cm) LVIDd: 4.57 cm (3.9-5.9cm) LVIDs: 2.82 cm LV Mass Index: 80.2 g/m2 LV % FS 38.3 % LA VOLUME: Normal Ranges: LA Vol A4C: 49.3 ml (22+/-6mL/m2) LA Vol A2C: 36.2 ml LA Vol BP: 43.2 ml LA Vol Index A4C: 26.7ml/m2 LA Vol Index A2C: 19.6 ml/m2 LA Vol Index BP: 23.3 ml/m2 LA Area A4C: 17.2 cm2 LA Area A2C: 14.4 cm2 LA Major [place] A4C: 5.1 cm LA [place] A2C: 4.9 cm LA Volume Index: 25.4 ml/m2 LA Vol A4C: 46.9 ml LA Vol A2C: 36.3 ml LV SYSTOLIC FUNCTION BY 2D PLANIMETRY (MOD): Normal Ranges: EF-A4C View: 60.9 % (>=55%) EF-A2C View: 56.5 % EF-Biplane: 58.2 % LV DIASTOLIC FUNCTION: Normal Ranges: MV Peak E: 0.82 m/s (0.7-1.2 m/s) MV Peak A: 1.09 m/s (0.42-0.7 m/s) E/A Ratio: 0.75 (1.0-2.2) MV lateral e' 0.07 m/s MV medial e' 0.08 m/s MITRAL VALVE: Normal Ranges: MV DT: 151 msec (150-240msec) AORTIC VALVE: Normal Ranges: AoV Vmax: 1.39 m/s (<=1.7m/s) AoV Peak P.7 mmHg (<20mmHg) AoV Mean P.0 mmHg (1.7-11.5mmHg) LVOT Max Damir: 0.96 m/s (<=1.1m/s) AoV VTI: 31.40 cm (18-25cm) LVOT VTI: 21.20 cm LVOT Diameter: 1.90 cm (1.8-2.4cm) AoV Area, VTI: 1.91 cm2 (2.5-5.5cm2) AoV Area,Vmax: 1.96 cm2 (2.5-4.5cm2) AoV Dimensionless Index: 0.68 RIGHT VENTRICLE: RV 1 3.49 cm RV 2 2.68 cm RV 3 7.13 cm TAPSE: 22.6 mm RV s' 0.14 m/s TRICUSPID VALVE/RVSP: Normal Ranges: Peak TR Velocity: 2.86 m/s RV Syst Pressure: 35.7 mmHg (< 30mmHg) PULMONIC VALVE: Normal Ranges: PV Accel Time: 162 msec (>120ms) PV Max Damir: 0.7 m/s (0.6-0.9m/s) PV Max P.0 mmHg [id number] Mat Weaver MD Electronically signed on 11/13/2022 at 1:11:38 PM Stress Testing: No results found for this or any previous visit from the past 1824 days. Cardiac Catheterization: No results found for this or any previous visit from the past 1824 days. No results found for this or any previous visit from the past 3650 days. REVIEW OF SYSTEMS A 10-point system review was completed and was negative except as noted in the HPI. VITALS Vitals: 05/25/23 1506 BP: 150/84 Pulse: 88 SpO2: 95% PHYSICAL EXAM General: awake, alert and oriented. No acute distress. Skin: Skin is warm, dry and intact without rashes or lesions. HEENT: normocephalic, atraumatic; conjunctivae are clear without exudates or hemorrhage. Sclera is non-icteric. Eyelids are normal in appearance without swelling or lesions. Hearing intact. Nares are patent bilaterally. Moist mucous membranes. Cardiovascular: heart rate and rhythm are normal. No murmurs, gallops, or rubs are auscultated. S1 and S2 are heard and are of normal intensity. No JVD, no carotid bruits Respiratory: bilateral lung sounds clear to auscultations without rales, rhonchi, or wheezes. No accessory muscle use or stridor Gastrointestinal: non-distended, non-tender Genitourinary: exam deferred Musculoskeletal: ROM intact, no deformities Extremities: pulses palpable bilaterally; no swelling or erythema Neurological: no focal deficits; gait steady Psychiatric: appropriate mood and affect; good judgment and insight ASSESSMENT AND PLAN Assessment/Plan Problem List Items Addressed This Visit ICD-10-CM Cardiac and Vasculature PSVT (paroxysmal supraventricular tachycardia) - Primary I47.10 Stable; continue Lopressor 25mg daily; no adverse effects reported Relevant Medications metoprolol tartrate (Lopressor) 25 mg tablet Return to clinic: 1 year Thank you for allowing me to participate in the care of this patient. Please reach me out if you have any questions or if you need any clarifications regarding the patient's care. Bg Srinivasan DNP, MADINA, DIE CLEANER-C Division of Cardiovascular Medicine [facility] [facility] documented in this encounter [facility] Work Phone: 01-19-2023 History of Present illness Narrative Subjective Patient ID: Troy Ramos is a 77 y.o. female who presents for Wrist Pain (Dx with arthritis and states was cleaning and over worked her left wrist. Having left wrist discomfort x 1 week.). HPI Patient presents for evaluation of left thumb pain. Patient has fairly severe case of hand arthritis that is slightly disfiguring and reports increased use over the past week. Patient denies any known trauma or fall. Patient took ibuprofen without relief. No other complaints. Review of Systems Musculoskeletal: See HPI. Neurologic: Alert and oriented X4, No numbness, No tingling. All other systems are negative Objective BP 157/65 (BP Location: Left arm, Patient Position: Sitting, BP Cuff Size: Adult) Pulse 77 Temp 36.4 C (97.5 F) Ht 1.715 m (5' 7.5) Wt 72.6 kg (160 lb) BMI 24.69 kg/m Physical Exam General: Alert and oriented, No acute distress. Eye: Pupils are equal, round and reactive to light, Normal conjunctiva. HENT: Normocephalic, Neck: Supple Respiratory: Respirations are non-labored Musculoskeletal: Left thumb is visibly swollen at the thenar eminence; there is warmth and tenderness at the first metacarpal phalangeal joint; there is reduced strength and range of motion Integumentary: Warm, Dry, Intact, No pallor, No rash. Neurologic: Alert, Oriented, Normal sensory, Cranial Nerves II-XII are grossly intact Psychiatric: Cooperative, Appropriate mood & affect. Assessment/Plan Inflammatory arthritis of the left thumb: Prednisone taper. Recommend ice and rest otherwise. Follow-up as needed. Problem List Items Addressed This Visit None Visit Diagnoses Inflammatory arthritis - Primary Relevant Medications predniSONE (Deltasone) 10 mg tablet Final diagnoses: [M19.90] Inflammatory arthritis documented in this encounter [facility] Work Phone: 07-03-2022 History of Present illness Narrative 77-year-old F with h/o PSVT, Osteoarthritis being referred by their PCP for further evaluation management of PalpitationsPalpitations HPI:Sx started Jul 2022. 1st episode lasting 1-2 hours. Caffeine makes it worse but lack of it nor resolving it. Pt reports that she has been having episodes daily. Episodes not associated with activity (dog walking 1 mile at time without any events).Denies CP, reports palpitations. She denies dizziness or LOC with the episodes.Reports increased frequency but not intense.PMHx/PSHx: As aboveTobacco never, alcohol - Social, caffeine use 1 cup coffee/day, 1 can of Coke/day, drug use - deniesA 12 point ROS was done, and negative unless otherwise stated in the HPI. [facility] [employer] Work Phone: 07-03-2022 History of Present illness Narrative 77-year-old F with h/o PSVT, Osteoarthritis being referred by their PCP for further evaluation management of PalpitationsPalpitations HPI:Sx started Jul 2022. 1st episode lasting 1-2 hours. Caffeine makes it worse but lack of it nor resolving it. Pt reports that she has been having episodes daily. Episodes not associated with activity (dog walking 1 mile at time without any events).Denies CP, reports palpitations. She denies dizziness or LOC with the episodes.Reports increased frequency but not intense.PMHx/PSHx: As aboveTobacco never, alcohol - Social, caffeine use 1 cup coffee/day, 1 can of Coke/day, drug use - deniesA 12 point ROS was done, and negative unless otherwise stated in the HPI. [facility] Work Phone: Chief complaint Narrative - Reported TROY RAMOS is being seen for a consultation for palpitations. [facility] [employer] Work Phone: Chief complaint Narrative - Reported TROY RAMOS is being seen for a consultation for palpitations. [facility] Work Phone: Evaluation note No assessment information availa [facility] Work Phone: Evaluation note Diagnosis Inflammatory arthritis- Primary Unspecified inflammatory polyarthropathy documented in this encounter [facility] Work Phone: Evaluation note* Diagnosis PSVT (paroxysmal supraventricular tachycardia)- Primary Paroxysmal supraventricular tachycardia documented in this encounter [facility] Work Phone: Evaluation note* Diagnosis Allergic reaction to drug, initial encounter- Primary documented in this encounter [facility] Work Phone: Evaluation note* Diagnosis Screening for diabetes mellitus- Primary Screening for lipid disorders Primary hypertension Unspecified essential hypertension Elevated blood sugar Other abnormal glucose PVC (premature ventricular contraction) Other premature beats Overweight (BMI 25.0-29.9) Overweight Gastroesophageal reflux disease without esophagitis Esophageal reflux Medicare annual wellness visit, subsequent Osteopenia, unspecified location documented in this encounter [facility] Work Phone: Evaluation note* Diagnosis PSVT (paroxysmal supraventricular tachycardia) ([facility])- Primary Paroxysmal supraventricular tachycardia PSVT (paroxysmal supraventricular tachycardia) ([facility]) Paroxysmal supraventricular tachycardia documented in this encounter [facility] Work Phone: [phone] note* Diagnosis PSVT (paroxysmal supraventricular tachycardia) ([facility])- Primary Paroxysmal supraventricular tachycardia Diverticulitis- Primary Diverticulitis of colon (without mention of hemorrhage) documented in this encounter [facility] Work Phone: [phone] note* Diagnosis PSVT (paroxysmal supraventricular tachycardia) ([facility])- Primary Paroxysmal supraventricular tachycardia Kidney infection Unspecified infection of kidney documented in this encounter [facility] Work Phone: [phone] note* Diagnosis PSVT (paroxysmal supraventricular tachycardia) ([facility])- Primary Paroxysmal supraventricular tachycardia Kidney infection Unspecified infection of kidney documented in this encounter [facility] Work Phone: Evaluation note* Diagnosis PSVT (paroxysmal supraventricular tachycardia) ([facility])- Primary Paroxysmal supraventricular tachycardia Palpitations- Primary Lightheadedness Dizziness and giddiness documented in this encounter [facility] Work Phone: Evaluation note* Diagnosis PSVT (paroxysmal supraventricular tachycardia) ([facility])- Primary Paroxysmal supraventricular tachycardia Primary hypertension- Primary Unspecified essential hypertension Lightheadedness Dizziness and giddiness documented in this encounter [facility] Work Phone: [phone] note* Diagnosis PSVT (paroxysmal supraventricular tachycardia) ([facility])- Primary Paroxysmal supraventricular tachycardia History of diverticulitis- Primary Multiple drug allergies documented in this encounter [facility] Work Phone: Evaluation note* Diagnosis PSVT (paroxysmal supraventricular tachycardia) ([facility])- Primary Paroxysmal supraventricular tachycardia Diverticulitis- Primary Diverticulitis of colon (without mention of hemorrhage) documented in this encounter [facility] Work Phone: Evaluation note* Diagnosis PSVT (paroxysmal supraventricular tachycardia) ([facility])- Primary Paroxysmal supraventricular tachycardia Acute diverticulitis- Primary Diverticulitis Diverticulitis of colon (without mention of hemorrhage) Acute diverticulitis Primary hypertension Unspecified essential hypertension documented in this encounter [facility] Work Phone: [phone] note* Diagnosis PSVT (paroxysmal supraventricular tachycardia) ([facility])- Primary Paroxysmal supraventricular tachycardia Diverticulitis- Primary Diverticulitis of colon (without mention of hemorrhage) documented in this encounter [facility] Work Phone: Evaluation note* Diagnosis PSVT (paroxysmal supraventricular tachycardia) ([facility])- Primary Paroxysmal supraventricular tachycardia Anxiety- Primary Anxiety state, unspecified Diverticulitis Diverticulitis of colon (without mention of hemorrhage) Primary hypertension Unspecified essential hypertension documented in this encounter [facility] Work Phone: [phone] note* Diagnosis PSVT (paroxysmal supraventricular tachycardia) ([facility])- Primary Paroxysmal supraventricular tachycardia Diverticulitis- Primary Diverticulitis of colon (without mention of hemorrhage) documented in this encounter [facility] Work Phone: Evaluation note* Diagnosis PSVT (paroxysmal supraventricular tachycardia) ([facility])- Primary Paroxysmal supraventricular tachycardia Diverticulitis- Primary Diverticulitis of colon (without mention of hemorrhage) documented in this encounter [facility] Work Phone: Evaluation note* Diagnosis PSVT (paroxysmal supraventricular tachycardia)- Primary Paroxysmal supraventricular tachycardia LUQ pain- Primary Abdominal pain, left upper quadrant documented in this encounter [facility] Work Phone: Evaluation note* Diagnosis PSVT (paroxysmal supraventricular tachycardia)- Primary Paroxysmal supraventricular tachycardia Bladder prolapse, female, acquired- Primary Mixed dyslipidemia Primary hypertension Unspecified essential hypertension Acute pharyngitis, unspecified etiology Umbilical hernia without obstruction and without gangrene documented in this encounter [facility] Work Phone: History of Present illness Narrative* Patient is here today for right sided back pain. * Patient has had this intermittent flank pain off and on, initially got better after after her gallbladder surgery, but yesterday it was sharp and stabbing worse with movement. Had not been like this previously. No other gi symptoms. No blood in her urine or urinary frequency. [facility] Work Phone: History of Present illness Narrative* The patient is being seen for the subsequent annual wellness visit. * Past Medical, Surgical and Family History: reviewed and updated in chart. * Interval History: Patient has not been hospitalized previously. * Medications and Supplements: Medications and supplements, including calcium and vitamins reviewed and updated in chart. * No, the patient is not using opioids. * Health Risk Assessment: * During the past 4 weeks: * How much have you been bothered by feeling anxious, depressed, irritable or sad, downhearted or blue? Not at all. * Has your physical and emotional health limited your social activities with family, friends, neighbors or groups? Not at all. * Was someone available to help you if you needed or wanted help: Yes, as much as I wanted. * The hardest physical activity you could do for at least 2 minutes: Moderate. * Yes, can get to places out of walking distance without help. * Yes, can shop for groceries or clothes without help. * Yes, does prepare meals. * Yes, does housework without help. * Yes, handles money without help. * Does not need help eating, bathing, dressing, or getting around home. * Rates health in general: Good. * How have things been going for you? Pretty good. * Having difficulties driving a car: No. * Always fastens seatbelt when in a car: Yes, usually. * Has fallen or gotten dizzy when standing up: Never * Sexual problems: Never * Has trouble eating: Never * Has problems with teeth or dentures: Never * Has problems using the telephone: Never * Tired or fatigued: Never No, has not fallen 2 or more times in the past year. * Number of drinks of wine, beer or other alcoholic beverages: No alcohol at all. * Exercise for about 20 minutes 3 or more days a week: Yes, some of the time. * Have you been given any information to help you with the following: Yes, has given information regarding hazards in the home that might hurt you. Yes, has been given information regarding keeping track of medications. * Do you have trouble taking medicines the way told to take them: I always take them as prescribed. * Confidence in control and management of most health problems: Somewhat cofident. * Patient Self Assessment of Health Status: good. * Tobacco use: Non-User * Alcohol use: Non-User * Illicit drug use: Non-User * Current diet: well balanced diet, does consume adequate fluids and does consume caffeine. * Exercise Frequency: infrequently. * Depression/Suicide Screening: . * During the past 2 weeks, the patient has not felt down, depressed or hopeless. * During the past 2 weeks, the patient has not felt little interest or pleasure in doing things. * Hearing Impairment: none. * Cognitive Impairment: No cognitive impairment observed. * Bathing: performs independently. * Dressing: performs independently. * Walking: performs independently. * Toileting: performs independently. * Feeding: performs independently. * Personal Hygiene: performs independently. * Bowels: continent. * Bladder: occasional accident. * Managing Finances: performs independently. * Shopping: performs independently. * Managing Medications: performs independently. * Housework / Basic Home Maintenance: performs independently. * Handling Transportation: performs independently. * Preparing Meals: performs independently. * Using the Telephone/ Communication Devices: performs independently. * Falls Risk Screening:. TURLENE has not fallen in the last 6 months. * Home safety risk factors: none. * Advance directives:. Advance Directives discussed, verbal or written information provided if indicated. Patient has no living will. Patient has no healthcare POA. * Patient's End of Life Decisions: I agree to follow the patient's decisions. * Patient is here today for back pain follow up and MCW. * Pt reports that she has been seeing her chiropractor for her back pain. He has started her on exercises and she reports that her pain has significant improved. * Pt complains of diarrhea that has been going on since she had her gallbladder out. She reports thatgenerally her bowels are fine in the morning until she eats something and without an hour she will have liquid diarrhea. Does not necessarily have to be a fatty or fried meal, it is anything that sheeats. * Pt reports that she recently took some old Bactrim that she had and then the diarrhea stopped. [facility] Work Phone: History of Present illness NarrativePatient presents for evaluation of left axillary lump. Patient states its been there for some time without overlying skin changes erythema, tenderness, or drainage. Patient did have recent mammogram which was unremarkable.[facility] Work Phone: History of Present illness Narrative* The patient is being seen for the subsequent annual wellness visit. * Past Medical, Surgical and Family History: reviewed and updated in chart. * Interval History: Patient has not been hospitalized previously. * Medications and Supplements: Review of all medications by a prescribing practitioner or clinical pharmacist (such as prescriptions, OTCs, herbal therapies and supplements) documented in the medical record. * No, the patient is not using opioids. * Health Risk Assessment: * During the past 4 weeks: * How much have you been bothered by feeling anxious, depressed, irritable or sad, downhearted or blue? Not at all. * Has your physical and emotional health limited your social activities with family, friends, neighbors or groups? Not at all. * In general bodily pain: No pain. * Was someone available to help you if you needed or wanted help: Yes, as much as I wanted. * The hardest physical activity you could do for at least 2 minutes: Light. * Yes, can get to places out of walking distance without help. * Yes, can shop for groceries or clothes without help. * Yes, does prepare meals. * Yes, does housework without help. * Yes, handles money without help. * Does not need help eating, bathing, dressing, or getting around home. * Rates health in general: Good. * How have things been going for you? Pretty good. * Having difficulties driving a car: No. * Always fastens seatbelt when in a car: Yes, usually. * Has fallen or gotten dizzy when standing up: Never * Sexual problems: Never * Has trouble eating: Never * Has problems with teeth or dentures: Never * Has problems using the telephone: Never * Tired or fatigued: Never No, has not fallen 2 or more times in the past year. No, not afraid of falling. * Number of drinks of wine, beer or other alcoholic beverages: No alcohol at all. * Exercise for about 20 minutes 3 or more days a week: No, I usually do not exercise this much. * Have you been given any information to help you with the following: Yes, has given information regarding hazards in the home that might hurt you. Yes, has been given information regarding keeping track of medications. * Do you have trouble taking medicines the way told to take them: I always take them as prescribed. * Confidence in control and management of most health problems: Somewhat cofident. * Patient Self Assessment of Health Status: good. * Tobacco use: Non-User * Alcohol use: Non-User * Illicit drug use: Non-User * Current diet: well balanced diet, does consume adequate fluids and does consume caffeine. * Exercise Frequency: the patient does not exercise. * Depression/Suicide Screening: . * During the past 2 weeks, the patient has not felt down, depressed or hopeless. * During the past 2 weeks, the patient has not felt little interest or pleasure in doing things. * Hearing Impairment: none. * Cognitive Impairment: No cognitive impairment observed. * Bathing: performs independently. * Dressing: performs independently. * Walking: performs independently. * Toileting: performs independently. * Feeding: performs independently. * Personal Hygiene: performs independently. * Bowels: continent. * Bladder: continent. * Managing Finances: performs independently. * Shopping: performs independently. * Managing Medications: performs independently. * Housework / Basic Home Maintenance: performs independently. * Handling Transportation: performs independently. * Preparing Meals: performs independently. * Using the Telephone/ Communication Devices: performs independently. * Falls Risk Screening:. T[place]ENE has not fallen in the last 6 months. * Home safety risk factors: none. * Advance directives:. Advance Care Planning discussed and documented in the medical record, patient did not wish or was not able to name a surrogate decision maker or provide an advance care plan. Patient has no living will. Patient has no healthcare POA. * Patient's End of Life Decisions: I agree to follow the patient's decisions. * Patient is ere today for left sided axillary lump. * She has had a lump in her axilla that she has noticed since around December she thinks it has gotten larger. * Review of Ct scan does not show any lymph nodes r other abnormalities. * Patient has been also having some breast tenderness as well, her last mammogram was 09/18/2021 that was done at [facility] in [place] and it was normal. * She has also noticed some heart palpitations. * She reports on Thanksgiving her heart was racing and she felt like it was skipping, she was just siting in her recliner. * She has not changed her caffeine intake. * Reports that this happened every day except this morning. * She has not gotten any covid shots. [facility] Work Phone: History of Present illness Narrative* The patient is being seen for the subsequent annual wellness visit. * Past Medical, Surgical and Family History: reviewed and updated in chart. * Interval History: Patient has not been hospitalized previously. * Medications and Supplements: Review of all medications by a prescribing practitioner or clinical pharmacist (such as prescriptions, OTCs, herbal therapies and supplements) documented in the medical record. * No, the patient is not using opioids. * Health Risk Assessment: * During the past 4 weeks: * How much have you been bothered by feeling anxious, depressed, irritable or sad, downhearted or blue? Not at all. * Has your physical and emotional health limited your social activities with family, friends, neighbors or groups? Not at all. * In general bodily pain: No pain. * Was someone available to help you if you needed or wanted help: Yes, as much as I wanted. * The hardest physical activity you could do for at least 2 minutes: Light. * Yes, can get to places out of walking distance without help. * Yes, can shop for groceries or clothes without help. * Yes, does prepare meals. * Yes, does housework without help. * Yes, handles money without help. * Does not need help eating, bathing, dressing, or getting around home. * Rates health in general: Good. * How have things been going for you? Pretty good. * Having difficulties driving a car: No. * Always fastens seatbelt when in a car: Yes, usually. * Has fallen or gotten dizzy when standing up: Never * Sexual problems: Never * Has trouble eating: Never * Has problems with teeth or dentures: Never * Has problems using the telephone: Never * Tired or fatigued: Never No, has not fallen 2 or more times in the past year. No, not afraid of falling. * Number of drinks of wine, beer or other alcoholic beverages: No alcohol at all. * Exercise for about 20 minutes 3 or more days a week: No, I usually do not exercise this much. * Have you been given any information to help you with the following: Yes, has given information regarding hazards in the home that might hurt you. Yes, has been given information regarding keeping track of medications. * Do you have trouble taking medicines the way told to take them: I always take them as prescribed. * Confidence in control and management of most health problems: Somewhat cofident. * Patient Self Assessment of Health Status: good. * Tobacco use: Non-User * Alcohol use: Non-User * Illicit drug use: Non-User * Current diet: well balanced diet, does consume adequate fluids and does consume caffeine. * Exercise Frequency: the patient does not exercise. * Depression/Suicide Screening: . * During the past 2 weeks, the patient has not felt down, depressed or hopeless. * During the past 2 weeks, the patient has not felt little interest or pleasure in doing things. * Hearing Impairment: none. * Cognitive Impairment: No cognitive impairment observed. * Bathing: performs independently. * Dressing: performs independently. * Walking: performs independently. * Toileting: performs independently. * Feeding: performs independently. * Personal Hygiene: performs independently. * Bowels: continent. * Bladder: continent. * Managing Finances: performs independently. * Shopping: performs independently. * Managing Medications: performs independently. * Housework / Basic Home Maintenance: performs independently. * Handling Transportation: performs independently. * Preparing Meals: performs independently. * Using the Telephone/ Communication Devices: performs independently. * Falls Risk Screening:. TROY has not fallen in the last 6 months. * Home safety risk factors: none. * Advance directives:. Advance Care Planning discussed and documented in the medical record, patient did not wish or was not able to name a surrogate decision maker or provide an advance care plan. Patient has no living will. Patient has no healthcare POA. * Patient's End of Life Decisions: I agree to follow the patient's decisions. * Patient is ere today for left sided axillary lump. * She has had a lump in her axilla that she has noticed since around December she thinks it has gotten larger. * Review of Ct scan does not show any lymph nodes r other abnormalities. * Patient has been also having some breast tenderness as well, her last mammogram was 09/18/2021 that was done at [facility] in [place] and it was normal. * She has also noticed some heart palpitations. * She reports on Thanksgiving her heart was racing and she felt like it was skipping, she was just siting in her recliner. * She has not changed her caffeine intake. * Reports that this happened every day except this morning. * She has not gotten any covid shots. [facility] Work Phone: History of Present illness Narrative* The patient is being seen for the subsequent annual wellness visit. * Past Medical, Surgical and Family History: reviewed and updated in chart. * Interval History: Patient has not been hospitalized previously. * Medications and Supplements: Review of all medications by a prescribing practitioner or clinical pharmacist (such as prescriptions, OTCs, herbal therapies and supplements) documented in the medical record. * No, the patient is not using opioids. * Health Risk Assessment: * During the past 4 weeks: * How much have you been bothered by feeling anxious, depressed, irritable or sad, downhearted or blue? Not at all. * Has your physical and emotional health limited your social activities with family, friends, neighbors or groups? Not at all. * In general bodily pain: No pain. * Was someone available to help you if you needed or wanted help: Yes, as much as I wanted. * The hardest physical activity you could do for at least 2 minutes: Light. * Yes, can get to places out of walking distance without help. * Yes, can shop for groceries or clothes without help. * Yes, does prepare meals. * Yes, does housework without help. * Yes, handles money without help. * Does not need help eating, bathing, dressing, or getting around home. * Rates health in general: Good. * How have things been going for you? Pretty good. * Having difficulties driving a car: No. * Always fastens seatbelt when in a car: Yes, usually. * Has fallen or gotten dizzy when standing up: Never * Sexual problems: Never * Has trouble eating: Never * Has problems with teeth or dentures: Never * Has problems using the telephone: Never * Tired or fatigued: Never No, has not fallen 2 or more times in the past year. No, not afraid of falling. * Number of drinks of wine, beer or other alcoholic beverages: No alcohol at all. * Exercise for about 20 minutes 3 or more days a week: No, I usually do not exercise this much. * Have you been given any information to help you with the following: Yes, has given information regarding hazards in the home that might hurt you. Yes, has been given information regarding keeping track of medications. * Do you have trouble taking medicines the way told to take them: I always take them as prescribed. * Confidence in control and management of most health problems: Somewhat cofident. * Patient Self Assessment of Health Status: good. * Tobacco use: Non-User * Alcohol use: Non-User * Illicit drug use: Non-User * Current diet: well balanced diet, does consume adequate fluids and does consume caffeine. * Exercise Frequency: the patient does not exercise. * Depression/Suicide Screening: . * During the past 2 weeks, the patient has not felt down, depressed or hopeless. * During the past 2 weeks, the patient has not felt little interest or pleasure in doing things. * Hearing Impairment: none. * Cognitive Impairment: No cognitive impairment observed. * Bathing: performs independently. * Dressing: performs independently. * Walking: performs independently. * Toileting: performs independently. * Feeding: performs independently. * Personal Hygiene: performs independently. * Bowels: continent. * Bladder: continent. * Managing Finances: performs independently. * Shopping: performs independently. * Managing Medications: performs independently. * Housework / Basic Home Maintenance: performs independently. * Handling Transportation: performs independently. * Preparing Meals: performs independently. * Using the Telephone/ Communication Devices: performs independently. * Falls Risk Screening:. TURTRACIE has not fallen in the last 6 months. * Home safety risk factors: none. * Advance directives:. Advance Care Planning discussed and documented in the medical record, patient did not wish or was not able to name a surrogate decision maker or provide an advance care plan. Patient has no living will. Patient has no healthcare POA. * Patient's End of Life Decisions: I agree to follow the patient's decisions. * Patient is ere today for left sided axillary lump. * She has had a lump in her axilla that she has noticed since around December she thinks it has gotten larger. * Review of Ct scan does not show any lymph nodes r other abnormalities. * Patient has been also having some breast tenderness as well, her last mammogram was 09/18/2021 that was done at [facility] in [place] and it was normal. * She has also noticed some heart palpitations. * She reports on Thanksgiving her heart was racing and she felt like it was skipping, she was just siting in her recliner. * She has not changed her caffeine intake. * Reports that this happened every day except this morning. * She has not gotten any covid shots. -[facility] Work Phone: History of Present illness Narrative* 77-year-old F with h/o PSVT, Osteoarthritis being referred by their PCP for further evaluation management of Palpitations patient presenting today for follow-up. * Patient reports has been doing well denies any chest pain, palpitation, dizziness or loss of consciousness. She has been taking her metoprolol once a day and has not needed to take an additional as needed dose. * PMHx/PSHx: As above * Tobacco never, alcohol - Social, caffeine use 1 cup coffee/day, 1 can of Coke/day, drug use - denies * A 12 point ROS was done, and negative unless otherwise stated in the HPI. [id number] Work Phone: Hospital Discharge instructions* Attachments The following attachments cannot be sent through Care Everywhere. * Palpitations Discharge Instructions ([place]) [facility]* Attachments The following attachments cannot be sent through Care Everywhere. * Diverticulitis Discharge Instructions ([place]) [facility]: [facility] Discharge instructions* Attachments The following attachments cannot be sent through Care Everywhere. * Diverticulitis Discharge Instructions ([place]) * Low Fiber Diet ([place]) documented in this [facility] Work Phone: Hospital Discharge instructions* Attachments The following attachments cannot be sent through Care Everywhere. * Abdominal Pain, Adult ED ([place]) [facility]: reason for referral (narrative)* Consultation (Routine) - Authorized Specialty Diagnoses / Procedures Referred By Contac t Referred To Contact Primary Care Procedures Follow Up In Primary Care - Established Alberta Brown DO [address] [facility] Physician [place] [id number] Referral ID Status Reason Start Date Expiration Date V isits Requested Visits Authorized [id number] Authorized 08/04/2023 08/03/2024 1 1 [facility] Work Phone: reason for referral (narrative)* Consultation (Routine) - Authorized Specialty Diagnoses / Procedures Referred By Contac t Referred To Contact Family Medicine / Primary Care Diagnoses Palpitations Lightheadedness Jani Mcgrath, DO [address] [place] [address] Department [place] [address] Referral ID Status Reason Start Date Expiration Date Visits Requested Visits Authorized [id number] Authorized Specialty Services Required 04/02/2024 04/02/2025 1 1 [facility] Work Phone: reason for referral (narrative)* Consultation (Routine) - Authorized Specialty Diagnoses / Procedures Referred By Contac t Referred To Contact Primary Care Procedures Follow Up In Primary Care - Established Sangita Kline APRN-TREY [address] [facility] [place] [address] Referral ID Status Reason Start Date Expiration Date V isits Requested Visits Authorized [id number] Authorized 04/07/2024 04/07/2025 1 1 [facility] Work Phone: Rehqhj for visit Narrative* Consultation (Routine) - Authorized Specialty Diagnoses / Procedures Referred By Contac t Referred To Contact Family Medicine / Primary Care Diagnoses Palpitations Lightheadedness Jani Mcgrath, DO [address] [place] [address] [place] [address] Referral ID Status Reason Start Date Expiration Date Visits Requested Visits Authorized [id number] Authorized Specialty Services Required 04/02/2024 04/02/2025 1 1 [facility] Work Phone: reason for visit Narrative* Consultation (Routine) - Authorized Specialty Diagnoses / Procedures Referred By Contac t Referred To Contact Primary Care Procedures Follow Up In Primary Care - Established Alberta Brown, [address] [place] [address] Phone: tel: fax: Referral ID Status Reason Start Date Expiration Date V isits Requested Visits Authorized [id number] Authorized 08/04/2023 08/03/2024 1 1 [facility] Work Phone: reason for visit Narrative* Consultation (Routine) - Authorized Specialty Diagnoses / Procedures Referred By Contac t Referred To Contact General Surgery Diagnoses Diverticulitis Alberta Brown, [address] [place] [address] Phone: tel: fax: Referral ID Status Reason Start Date Expiration Date Visits Requested Visits Authorized [id number] Authorized Specialty Services Required 08/16/2024 08/16/2025 1 1 [facility] Work Phone: reason for visit Narrative* Consultation (Routine) - Authorized Specialty Diagnoses / Procedures Referred By Contac t Referred To Contact Family Medicine / Primary Care Diagnoses Diverticulitis Jani Mcgrath, DO [address] [place] [address] [place] [address] Phone: tel: fax: Referral ID Status Reason Start Date Expiration Date Visits Requested Visits Authorized [id number] Authorized Specialty Services Required 08/17/2024 08/17/2025 1 1 [facility] Work Phone: Reason for visit Narrative* Endoscopy (Routine) - Authorized Specialty Diagnoses / Procedures Referred By Sarah arechiga Referred To Contact Gastroenterology Diagnoses Diverticulitis Procedures Colonoscopy Diagnostic (Diverticulitis) MO COLONOSCOPY FLX DX W/COLLJ SPEC WHEN PFRMD MO COLONOSCOPY W/BIOPSY SINGLE/MULTIPLE MO COLSC FLX W/RMVL OF TUMOR POLYP LESION SNARE TQ MO COLSC FLX W/REMOVAL LESION BY HOT BX FORCEPS Alberta Navarro MD [address] [place] [address] [facility], [address] [place] [address] Phone: tel: fax: Referral ID Status Reason Start Date Expiration Date V isits Requested Visits Authorized [id number] Authorized 08/25/2024 08/25/2025 1 1 [facility] Work Phone: Summary Purpose Family History No Family History Records Found natural son Name Dates Details Family history of hypertensi on(V17.49, Z82.49) Status:Active Mother Name Dates Details Family history of Aneurysm(4 42.9, I72.9) Status:Active Father Name Dates Details Family history of coronary a rtery disease(V17.3, Z82.49) Status:Active Brother Name Dates Details Family history of DM II (anali betes mellitus, type II), controlled(250.00, E11.9) Status:Active natural son Name Dates Details Family history of hypertensi on(V17.49, Z82.49) Status:Active Mother Name Dates Details Family history of Aneurysm(4 42.9, I72.9) Status:Active Father Name Dates Details Family history of coronary a rtery disease(V17.3, Z82.49) Status:Active Brother Name Dates Details Family history of DM II (anali betes mellitus, type II), controlled(250.00, E11.9) Status:Active natural son Name Dates Details Family history of hypertensi on(V17.49, Z82.49) Status:Active Mother Name Dates Details Family history of Aneurysm(4 42.9, I72.9) Status:Active Father Name Dates Details Family history of coronary a rtery disease(V17.3, Z82.49) Status:Active Brother Name Dates Details Family history of DM II (anali betes mellitus, type II), controlled(250.00, E11.9) Status:Active natural son Name Dates Details Family history of hypertensi on(V17.49, Z82.49) Status:Active Mother Name Dates Details Family history of Aneurysm(4 42.9, I72.9) Status:Active Father Name Dates Details Family history of coronary a rtery disease(V17.3, Z82.49) Status:Active Brother Name Dates Details Family history of DM II (anali betes mellitus, type II), controlled(250.00, E11.9) Status:Active Unknown Family Member Name Dates Details Family history of hypertensi on: Son(V17.49, Z82.49) Status:Active Family history of coronary a rtery disease: Father(V17.3, Z82.49) Status:Active Aneurysm: Mother Status:Active DM II (diabetes mellitus, ty pe II), controlled: Brother Status:Active Unknown Family Member Name Dates Details Family history of hypertensi on: Son(V17.49, Z82.49) Status:Active Family history of coronary a rtery disease: Father(V17.3, Z82.49) Status:Active Aneurysm: Mother Status:Active DM II (diabetes mellitus, ty pe II), controlled: Brother Status:Active Unknown Family Member Name Dates Details DM II (diabetes mellitus, ty pe II), controlled: Brother Status:Active Aneurysm: Mother Status:Active Family history of coronary a rtery disease: Father(V17.3, Z82.49) Status:Active Family history of hypertensi on: Son(V17.49, Z82.49) Status:Active Unknown Family Member Name Dates Details Family history of hypertensi on: Son(V17.49, Z82.49) Status:Active Family history of coronary a rtery disease: Father(V17.3, Z82.49) Status:Active Aneurysm: Mother Status:Active DM II (diabetes mellitus, ty pe II), controlled: Brother Status:Active Unknown Family Member Name Dates Details Family history of hypertensi on: Son(V17.49, Z82.49) Status:Active Family history of coronary a rtery disease: Father(V17.3, Z82.49) Status:Active Aneurysm: Mother Status:Active DM II (diabetes mellitus, ty pe II), controlled: Brother Status:Active Unknown Family Member Name Dates Details Family history of hypertensi on: Son(V17.49, Z82.49) Status:Active Family history of coronary a rtery disease: Father(V17.3, Z82.49) Status:Active Aneurysm: Mother Status:Active DM II (diabetes mellitus, ty pe II), controlled: Brother Status:Active Unknown Family Member Name Dates Details Family history of hypertensi on: Son(V17.49, Z82.49) Status:Active Family history of coronary a rtery disease: Father(V17.3, Z82.49) Status:Active Aneurysm: Mother Status:Active DM II (diabetes mellitus, ty pe II), controlled: Brother Status:Active Unknown Family Member Name Dates Details Family history of hypertensi on: Son(V17.49, Z82.49) Status:Active Family history of coronary a rtery disease: Father(V17.3, Z82.49) Status:Active Aneurysm: Mother Status:Active DM II (diabetes mellitus, ty pe II), controlled: Brother Status:Active Unknown Family Member Name Dates Details Family history of hypertensi on: Son(V17.49, Z82.49) Status:Active Family history of coronary a rtery disease: Father(V17.3, Z82.49) Status:Active Aneurysm: Mother Status:Active DM II (diabetes mellitus, ty pe II), controlled: Brother Status:Active Unknown Family Member Name Dates Details Family history of hypertensi on: Son(V17.49, Z82.49) Status:Active Family history of coronary a rtery disease: Father(V17.3, Z82.49) Status:Active Aneurysm: Mother Status:Active DM II (diabetes mellitus, ty pe II), controlled: Brother Status:Active Unknown Family Member Name Dates Details Family history of hypertensi on: Son(V17.49, Z82.49) Status:Active Family history of coronary a rtery disease: Father(V17.3, Z82.49) Status:Active Aneurysm: Mother Status:Active DM II (diabetes mellitus, ty pe II), controlled: Brother Status:Active Unknown Family Member Name Dates Details Family history of hypertensi on: Son(V17.49, Z82.49) Status:Active Family history of coronary a rtery disease: Father(V17.3, Z82.49) Status:Active Aneurysm: Mother Status:Active DM II (diabetes mellitus, ty pe II), controlled: Brother Status:Active Unknown Family Member Name Dates Details Family history of hypertensi on: Son(V17.49, Z82.49) Status:Active Family history of coronary a rtery disease: Father(V17.3, Z82.49) Status:Active Aneurysm: Mother Status:Active DM II (diabetes mellitus, ty pe II), controlled: Brother Status:Active Unknown Family Member Name Dates Details Family history of hypertensi on: Son(V17.49, Z82.49) Status:Active Family history of coronary a rtery disease: Father(V17.3, Z82.49) Status:Active Aneurysm: Mother Status:Active DM II (diabetes mellitus, ty pe II), controlled: Brother Status:Active Unknown Family Member Name Dates Details Family history of hypertensi on: Son(V17.49, Z82.49) Status:Active Family history of coronary a rtery disease: Father(V17.3, Z82.49) Status:Active Aneurysm: Mother Status:Active DM II (diabetes mellitus, ty pe II), controlled: Brother Status:Active Unknown Family Member Name Dates Details DM II (diabetes mellitus, ty pe II), controlled: Brother Status:Active Aneurysm: Mother Status:Active Family history of coronary a rtery disease: Father(V17.3, Z82.49) Status:Active Family history of hypertensi on: Son(V17.49, Z82.49) Status:Active Unknown Family Member Name Dates Details Family history of coronary a rtery disease: Father(V17.3, Z82.49) Status:Active Aneurysm: Mother Status:Active DM II (diabetes mellitus, ty pe II), controlled: Brother Status:Active Unknown Family Member Name Dates Details Family history of coronary a rtery disease: Father(V17.3, Z82.49) Status:Active Aneurysm: Mother Status:Active DM II (diabetes mellitus, ty pe II), controlled: Brother Status:Active Unknown Family Member Name Dates Details Family history of coronary a rtery disease: Father(V17.3, Z82.49) Status:Active Aneurysm: Mother Status:Active DM II (diabetes mellitus, ty pe II), controlled: Brother Status:Active Unknown Family Member Name Dates Details Family history of coronary a rtery disease: Father(V17.3, Z82.49) Status:Active Aneurysm: Mother Status:Active DM II (diabetes mellitus, ty pe II), controlled: Brother Status:Active Advance Directives No Advanced Directives Records Found Date Activated Date Inactivated Comments 08/19/2024 8:54 PM Question Answer Comments Plan of Care: Code Status Discussion Completed Decision Maker: Patient Date Activated Date Inactivated Comments 08/19/2024 8:54 PM Question Answer Comments Plan of Care: Code Status Discussion Completed Decision Maker: Patient Chief Complaint * 76 y/o female presents for back pain * Pt reports the pain is right over her RT kidney * She had her gallbladder removed last August which is what the surgeon thought was where the pain was coming from * Pt reports the pain was horrible yesterday she could barley move, it felt like someone was stabbingher and twisting the knife * The pain is off and on since her surgery * 76 y/o female presents for Medicare wellness visit * pt reports her Chiropractor told her she has arthritis in her back * She was given stretches to do at home and she is starting to feel better * Patient here today to be sen for tissue swelling of the left armpit and breast area x 5 days. * Patient denies any discomfort or breast discharge, no known injury. * 77 y/o female presents for Medicare wellness and a lump in her LT armpit * Had CT scan done through [facility] back in December * Lump has been enlarging since this visit * Pt has recently been getting heart palpitations * 77 y/o female presents for Medicare wellness and a lump in her LT armpit * Had CT scan done through [facility] back in December * Lump has been enlarging since this visit * Pt has recently been getting heart palpitations * 77 y/o female presents for Medicare wellness and a lump in her LT armpit * Had CT scan done through [facility] back in December * Lump has been enlarging since this visit * Pt has recently been getting heart palpitations TROY RAMOS is being seen for a 2 month follow-up of palpitations. Chief Complaint and Reason for Visit Chief Complaint Localized swelling, mass and lump, unspecified upp Reason for Referral Specialty Diagnoses / Procedures Referred By Sarah arechiga Referred To Contact Radiology Diagnoses Kidney infection Procedures US renal complete Sangita Kline, [employer] [address] [facility] [place] [address] Referral ID Status Reason Start Date Expiration Date Visits Requested Visits Authorized [id number] Authorized Perform Procedure 03/29/2024 03/29/2025 1 1 Additional Source Comments INFORMATION SOURCE (unrecogn ized section and content) DATE CREATED AUTHOR 05/03/2019 [facility] DATE CREATED AUTHOR AUTHOR'S ORGANIZ ATION 11/15/2022 [facility] DATE CREATED AUTHOR AUTHOR'S ORGANIZ ATION 11/21/2022 [facility] DATE CREATED AUTHOR AUTHOR'S ORGANIZ ATION 08/21/2024 [facility] DATE CREATED AUTHOR AUTHOR'S ORGANIZ ATION 12/21/2024 [facility] DATE CREATED AUTHOR AUTHOR'S ORGANIZ ATION 12/27/2024 [facility] DATE CREATED AUTHOR AUTHOR'S ORGANIZ ATION 12/30/2024 [facility] DATE CREATED AUTHOR AUTHOR'S ORGANIZ ATION 01/06/2025 [facility] DATE CREATED AUTHOR AUTHOR'S ORGANIZ ATION [facility]20[facility] Goals (unrecognized section and content) Goals may be documented in a n alternate section Reason for Visit (unrecogniz ed section and content) Reason Comments Wrist Pain Dx with arthritis an d states was cleaning and over worked her left wrist. Having left wrist discomfort x 1 week. Reason Comments 6 month f/u Dr. Bill patient Reason Comments Allergic Reaction Patient started OTC medication for menopause 3 days ago, reports hives yesterday treated with benadryl & pepcid, woke up tonight with sensation of throat closing. Reason Comments Annual Exam Wellness ER Follow-up Reason Comments Follow-up 1 year Reason Comments Left rib pain Reason Comments Flank Pain Specialty Diagnoses / Procedures Referred By Sarah arechiga Referred To Contact Radiology Diagnoses Kidney infection Procedures US renal complete Sangita Kline, [employer] [address] [facility] Physician [place] [id number] Referral ID Status Reason Start Date Expiration Date Visits Requested Visits Authorized [id number] Authorized Perform Procedure 03/29/2024 03/29/2025 1 1 Reason Comments Rapid Heart Rate Brought to ED by [facility] from home with c/o sudden onset of elevated HR and shaky just [employer]. She is currently being treated with her second course of Bactrim for a kidney infection. She reports that she had some coffee at her son's house today and she is not supposed to drink coffee because it does funny things to her heart. Called for EKG Reason Comments Abdominal Pain Reports abd pain x 9 weeks. Reports Diverticulitis and I am allergic to all antibiotics Denies N/V/D Reason Comments Allergic Reaction Reports allergic rx to Augmentin started yesterday, last night had tongue swelling and itching Specialty Diagnoses / Procedures Referred By Sarah arechiga Referred To Contact Diagnoses Diverticulitis Acute diverticulitis Procedures Theo Madrigal, DO [address] [place] [address] Phone: tel: fax: [facility] [address] [place] [address] Phone: tel: Referral ID Status Reason Start Date Expiration Date Visits Re quested Visits Authorized [id number] 1 1 Reason Comments Hospital Follow-up Pt presents today as a hospital follow up. Pt was admitted to the hospital from 08/19/24-08/22/24 and was diagnosed and treated for diverticulitis. Pt states she is currently having a flair, which began on 11/10/24, and include left side pain and a hot flash like sensation. Pt states she had medication left from hospital stay, which she says have lightened symptoms, but not eliminated. Reason Comments Abdominal Pain Hx of diverticulitis presents today with ABD pain. Today pain awoke her. Constant pain now in LUQ under the diaphragm, pain comes and goes. Says drinking milk eases the pain. No N/V just full sensation. Reason Comments Follow-up elevated cholesterol Sore Throat Specialty Diagnoses / Procedures Referred By Contac t Referred To Contact Primary Care Diagnoses Mixed dyslipidemia Procedures Follow Up In Primary Care - Established Don Marquez Veronica, CAR CHECKER[employer]DETECTIVE [employer] [address] [address] Phone: tel: fax: Referral ID Status Reason Start Date Expiration Date V isits Requested Visits Authorized [id number] Authorized 12/22/2024 12/22/2025 1 1 Care Teams (unrecognized sec tion and content) Retail Store Associate Relationship Specialty Start Date End Date Alberta Brown, DO [address] [facility] [place] [address] PCP - General 04/05/19 Alberta Brown, DO [address] [facility] [place] [address] [place] [facility] [place] Attributed Provider 05/03/22 Retail Store Associate Relationship Specialty Start Date End Date Alberta Brown, DO [address] [facility] [place] [address] PCP - General 04/05/19 Retail Store Associate Relationship Specialty Start Date End Date Alberta Brown DO [address] [facility] [place] [address] PCP - General 04/05/19 Alberta Brown, DO [address] [facility] [place] [address] PCP - [place] [employer] PCP 04/03/23 Retail Store Associate Relationship Specialty Start Date End Date Alberta Brown DO [address] [facility] [place] [address] PCP - General 04/05/19 Alberta Brown, DO [address] [facility] [place] [address] PCP - [employer]age PCP 04/03/23 Retail Store Associate Relationship Specialty Start Date End Date Alberta Brown, DO [address] [facility] [place] [address] PCP - General 04/05/19 Alberta Brown, DO [address] [facility] [place] [address] PCP - [employer] PCP 04/03/23 Retail Store Associate Relationship Specialty Start Date End Date Alberta Brown, DO [address] [facility] [place] [address] PCP - General 04/05/19 Alberta Brown, DO [address] [facility] [place] [address] PCP - [employer] PCP 10/02/23 Retail Store Associate Relationship Specialty Start Date End Date Alberta Borwn, DO [address] [facility] [place] [address] PCP - General 04/05/19 Alberta Brown, DO [address] [facility] [place] [address] PCP - [employer] PCP 10/02/23 Retail Store Associate Relationship Specialty Start Date End Date Alberta Brown, DO [address] [facility] [place] [address] PCP - General 04/05/19 Alberta Brown DO [address] [facility] [place] [address] PCP - [employer] PCP 10/02/23 Retail Store Associate Relationship Specialty Start Date End Date Alberta Brown DO [address] [facility] [place] [address] PCP - General 04/05/19 Alberta Brown, [address] [facility] [place] [address] PCP - [employer] PCP 10/02/23 Retail Store Associate Relationship Specialty Start Date End Date Alberta Brown DO [address] [facility] [place] [address] PCP - General 04/05/19 Alberta Brown DO 53 [facility] [place] [address] PCP - [employer] PCP 10/02/23 Retail Store Associate Relationship Specialty Start Date End Date Alberta Brown DO 53 [facility] [place] [address] PCP - General 04/05/19 Alberta Brown DO [address] [facility] [place] [address] PCP - [employer] PCP 10/02/23 Retail Store Associate Relationship Specialty Start Date End Date Alberta Brown DO [address] [facility] [place] [address] PCP - General 04/05/19 Alberta Brown, DO [address] [facility] [place] [address] PCP - [employer] PCP 10/02/23 Retail Store Associate Relationship Specialty Start Date End Date Alberta Brown DO [address] [facility] [place] [address] PCP - General 04/05/19 Alberta Brown, DO [address] [facility] [place] [address] PCP - [employer] PCP 10/02/23 Retail Store Associate Relationship Specialty Start Date End Date Alberta Brown, DO [address] [facility] [place] [address] PCP - General 04/05/19 Alberta Brown, DO [address] [facility] [place] [address] PCP - [employer] PCP 10/02/23 Retail Store Associate Relationship Specialty Start Date End Date Alberta Brown, DO [address] [facility] [place] [address] PCP - General 04/05/19 Alberta Brown, DO [address] [facility] [place] [address] PCP - [place] [employer] PCP 10/02/23 Sisi Tenorio LPN Care Exploitation Analyst 08/23/24 Retail Store Associate Relationship Specialty Start Date End Date Alberta Brown, DO [address] [facility] [place] [address] PCP - General 04/05/19 Alberta Brown, DO [address] [facility] [place] [address] PCP - [employer] PCP 10/02/23 Sisi Tenorio LPN Care Exploitation Analyst 08/23/24 Retail Store Associate Relationship Specialty Start Date End Date Alberta Brown, DO [address] [facility] [place] [address] PCP - [place] [employer] PCP 10/02/23 Sisi Tenorio LPN Care Exploitation Analyst 08/23/24 Retail Store Associate Relationship Specialty Start Date End Date Alberta Brown, DO [address] [place] [address] PCP - [place] [employer] PCP 10/02/23 Sangita Kline, [employer] [address] [facility] [place], [address] [address] PCP - General Family Medicine 11/15/24 Sisi Tenorio LPN Derrick ManExploitation Analyst 08/23/24 Retail Store Associate Relationship Specialty Start Date End Date Alberta Borwn DO [address] [place] [address] PCP - [employer] PCP 10/02/23 Generic Provider, No Assigned Pcp, [place] [address] PCP - General Newspaper Press Operator Apprentice 12/19/24 Retail Store Associate Relationship Specialty Start Date End Date Alberta Brown DO [address] [place] [address] PCP - [employer] PCP 10/02/23 Generic Provider, No Assigned Pcp, [place] [address] PCP - General Newspaper Press Operator Apprentice 12/19/24 Retail Store Associate Relationship Specialty Start Date End Date Alberta Brown DO [address] [place] [address] PCP - [employer] PCP 10/02/23 Don Marquez, [employer] [address] [place] [address] PCP - General Family Medicine 01/05/25 Scheduled Active and Recently Administ ered Medications (unrecognized section and content) Medication Order 07/31/2023 08/01/2023 08/02/2023 diphenhydrAMINE (BENADryl) injection 50 mg (COMPLETED) 50 mg, intravenous, Once, On 08/02/23 at 0135, For 1 dose, If giving IV push, max rate of 25 mg/min. 0135 (Given - Provid er: Negro Klein RN) famotidine PF (Pepcid) injection 40 mg (COMPLETED) 40 mg, intravenous, Once, On 08/02/23 at 0135, For 1 dose 0135 (Given - Provid er: Negro Klein RN) methylPREDNISolone sod succinate (SOLU-Medrol) injection 125 mg (COMPLETED) 125 mg, intravenous, Once, On 08/02/23 at 0135, For 1 dose 0135 (Given - Provid er: Negro Klein RN) metoprolol tartrate (Lopressor) tablet 25 mg (COMPLETED) 25 mg, oral, Once, On 08/02/23 at 0355, For 1 dose 0405 (Given - Provid er: Adria Wesley RN) triamcinolone acetonide (Kenalog-40) injection 20 mg (COMPLETED) 20 mg, intramuscular, Once, On 08/02/23 at 0310, For 1 dose 0313 (Given - Provid er: Adria Wesley RN) Scheduled Medication Order 03/31/2024 04/01/2024 04/02/2024 sodium chloride 0.9 % bolus 1,000 mL (COMPLETED) 1,000 mL, intravenous, at 999 mL/hr, Administer over 1 Hours, Once, On 04/02/24 at 1540, For 1 dose 1543 (New Bag - Prov ider: Charito Ovalles RN)1643 (Stopped - Provider: Kelly Case RN) Scheduled Medication Order 08/15/2024 08/16/2024 08/17/2024 ampicillin-sulbactam (Unasyn) 3 g in sodium chloride 0.9 % 100 mL IV (COMPLETED) 3 g, intravenous, at 200 mL/hr, Administer over 30 Minutes, Once, On Thu08/17/24 at 1045, For 1 dose, Mini-Bag Plus/ADD-[place] bag, Suspected Indication (Select all that apply): Abdominal Infection, Type of Therapy: Empiric, Type of infection: Community-Acquired, Indications: Abdominal Infection 1052 (New Bag - Prov ider: Rogelio Vincent, NAINA)1137 (Stopped - Provider: Rosemary Markham, NAINA) iohexol (OMNIPaque) 350 mg iodine/mL solution 72 mL (COMPLETED) 72 mL, intravenous, Once in imaging, Starting on Thu08/17/24 at 0958, For 1 dose 1012 (Given - Provid er: Gio Antonio, RT) Scheduled Medication Order 08/20/2024 08/21/2024 08/22/2024 amLODIPine (Norvasc) tablet 2.5 mg 2.5 mg, oral, Daily, First dose on 08/20/24 at 1000 1222 (Given - Provider: Bina Gomez RN) 0745 (Given - Provider: Bina Gomez RN)0900 (Canceled Entry - Provider: Bina Gomez RN) 0822 (Given - Provider: Tamia Celaya, NAINA) amoxicillin-pot clavulanate (Augmentin) 875-125 mg per tablet 1 tablet 1 tablet, oral, Every 12 hours scheduled, First dose on Thu08/21/24 at 2100, For 7 doses, Suspected Indication (Select all that apply): Abdominal Infection, Type of Therapy: Empiric, Type of infection: Community-Acquired, Indications: Abdominal Infection 2004 (Given - Provider: Charity Denney, NAINA) 08 (Given - Provider: Tamia Celaya, NAINA)2100 (Due) ampicillin-sulbactam (Unasyn) 3 g in sodium chloride 0.9 % 100 mL IV (COMPLETED) 3 g, intravenous, at 200 mL/hr, Administer over 30 Minutes, Every 6 hours, First dose on Thu08/19/24 at 0920, For 9 doses, Mini-Bag Plus/ADD-[place] bag, Suspected Indication (Select all that apply): Abdominal Infection, Type of Therapy: Empiric, Type of infection: Community-Acquired, Indications: Abdominal Infection 0420 (New Bag - Provider: Roseann Granados RN)0450 (Stopped - Provider: Jen Ham RN)0902 (New Bag - Provider: Bina Gomez RN)0932 (Stopped - Provider: Bina Gomez RN)1555 (New Bag - Provider: Bina Gomez RN)1625 (Stopped - Provider: Bina Gomez RN)2124 (New Bag - Provider: Charity Denney, NAINA)2146 (Stopped - Provider: Charity Denney, NAINA) 0457 (New Bag - Provider: Charity Denney RN)0458 (Stopped - Provider: Charity Denney RN)1020 (New Bag - Provider: Bina Gomez RN)1100 (Stopped - Provider: Bina Gomez RN) cetirizine (ZyrTEC) tablet 10 mg (CANCELED) 10 mg, oral, Every other day, First dose on Thu25 at 0900 0855 (Given - Provider: Bina Gomez RN) diphenhydrAMINE (BENADryl) capsule 25 mg 25 mg, oral, 2 times daily, First dose on 08/21/24 at 2100, For 7 doses, Give with augmentin and pepcid 2004 (Given - Provider: Charity Denney RN) 0823 (Given - Provider: Tamia Celaya, NAINA)2100 (Due) famotidine (Pepcid) tablet 20 mg (CANCELED) 20 mg, oral, Daily, First dose on 08/20/24 at 0900 0855 (Given - Provider: Bina Gomez RN) 0745 (Given - Provider: Bina Gomez RN)0900 (Canceled Entry - Provider: Bina Gomez RN) famotidine (Pepcid) tablet 20 mg 20 mg, oral, 2 times daily, First dose on 08/21/24 at 2100, For 7 doses, Give with pepcid and benadryl 2004 (Given - Provider: Charity Denney RN) 08 (Given - Provider: Tamia Celaya RN)2100 (Due) heparin (porcine) injection 5,000 Units 5,000 Units, subcutaneous, Every 8 hours, First dose on Thu08/19/24 at 2115 0423 (Not Given - Provider: Roseann Granados RN - Reason: Patient/family refused)1221 (Given - Provider: Bina Gomez RN)2124 (Given - Provider: Charity Denney RN) 0457 (Given - Provider: Charity Denney RN)1312 (Given - Provider: Bina Goemz RN)2004 (Given - Provider: Charity Denney, NAINA) 0537 (Given - Provider: Charity Denney RN)1253 (Not Given - Provider: Tamia Celaya RN - Reason: Other - Comment: pt leaving)2114 (Due) metoprolol tartrate (Lopressor) tablet 25 mg 25 mg, oral, Daily, First dose on 08/20/24 at 0900 0855 (Given - Provider: Bina Gomez RN) 0745 (Given - Provider: Bina Gomez RN)0900 (Canceled Entry - Provider: Bina Gomez RN) 0822 (Given - Provider: Tamia Celaya RN) potassium chloride CR (Klor-Con M20) ER tablet 40 mEq (COMPLETED) 40 mEq, oral, Once, On Thu08/20/24 at 0830, For 1 dose, Best given with food and plenty of water to minimize gastric irritation. Do not crush or chew. 0854 (Given - Provider: Bina Gomez RN) PRN Medication Order 08/20/2024 08/21/2024 08/22/2024 acetaminophen (Tylenol) oral liquid 650 mg(Linked Group 1) 650 mg, oral, Every 4 hours PRN, pain mild (1-3), first line, Starting on Thu08/19/24 at 2053, Give oral liquid per feeding tube if present or if patient prefers oral liquid over tablets. 07 (See Alternative - Provider: Bina Gomez RN)2124 (See Alternative - Provider: Charity Denney RN) 0745 (See Alternative - Provider: Bina Gomez RN) acetaminophen (Tylenol) suppository 650 mg(Linked Group 1) 650 mg, rectal, Every 4 hours PRN, pain mild (1-3), first line, Starting on Thu08/19/24 at 2054, Give rectally if unable to administer by mouth or feeding tube., If ordered PRN for pain, nurse is permitted to administer this medication for higher pain scores based on patient preference? Yes 07 (See Alternative - Provider: Bina Gomez RN)2124 (See Alternative - Provider: Charity Denney, NAINA) 0745 (See Alternative - Provider: Bina Gomez RN) acetaminophen (Tylenol) tablet 650 mg(Linked Group 1) 650 mg, oral, Every 4 hours PRN, pain mild (1-3), first line, Starting on Thu08/19/24 at 2054, Administer tablet or oral liquid per patient preference., If ordered PRN for pain, nurse is permitted to administer this medication for higher pain scores based on patient preference? Yes 07 (Given - Provider: Bina Gomez RN)2124 (Given - Provider: Charity Denney, NAINA) 0745 (Given - Provider: Bina Gomez RN) alum-mag hydroxide-simeth (Mylanta) 200-200-20 mg/5 mL oral suspension 10 mL 10 mL, oral, Every 4 hours PRN, mucositis/stomatitis, Starting on 08/20/24 at 1456, Swish and Spit diphenhydrAMINE (BENADryl) capsule 25 mg 25 mg, oral, Nightly PRN, sleep, Starting on Thu08/19/24 at 2054 0420 (Given - Provider: Roseann Granados RN)2123 (Given - Provider: Charity Denney, NAINA) lidocaine (Xylocaine) 2 % mouth solution 10 mL 10 mL, Swish & Spit, Every 4 hours PRN, mucositis/stomatitis, Starting on 08/20/24 at 1458 melatonin tablet 6 mg 6 mg, oral, Nightly PRN, sleep, Starting on Thu08/19/24 at 2053 morphine injection 2 mg 2 mg, intravenous, Every 3 hours PRN, pain breakthrough, Starting on Thu08/19/24 at 2053 polyethylene glycol (Glycolax, Miralax) packet 17 g 17 g, oral, Daily PRN, constipation, Starting on Thu08/19/24 at 2053, Bowel Regimen - for prevention of constipation. Linked Groups Order Group 1: acetaminophen (Tylenol) tablet 650 mgJump to med 650 mg, oral, Every 4 hours PRN, pain mild (1-3), first line, Starting on Thu08/19/24 at 2053, Administer tablet or oral liquid per patient preference., If ordered PRN for pain, nurse is permitted to administer this medication for higher pain scores based on patient preference? Yes Or acetaminophen (Tylenol) oral liquid 650 mgJump to med 650 mg, oral, Every 4 hours PRN, pain mild (1-3), first line, Starting on Thu08/19/24 at 2053, Give oral liquid per feeding tube if present or if patient prefers oral liquid over tablets. Or acetaminophen (Tylenol) suppository 650 mgJump to med 650 mg, rectal, Every 4 hours PRN, pain mild (1-3), first line, Starting on Thu08/19/24 at 2053, Give rectally if unable to administer by mouth or feeding tube., If ordered PRN for pain, nurse is permitted to administer this medication for higher pain scores based on patient preference? Yes Scheduled Medication Order 12/17/2024 12/18/2024 12/19/2024 fentaNYL PF (Sublimaze) injection 50 mcg (COMPLETED) 50 mcg, intravenous, Once, On Thu12/19/24 at 1610, For 1 dose 162 (Given - Provid er: Kelly Case RN) iohexol (OMNIPaque) 350 mg iodine/mL solution 68 mL (COMPLETED) 68 mL, intravenous, Once in imaging, Starting on Thu12/19/24 at 1728, For 1 dose 172 (Given - Provid er: Paris Chang) ondansetron (Zofran) injection 4 mg (COMPLETED) 4 mg, intravenous, Once, On Thu12/19/24 at 1610, For 1 dose, When administering via IV Push, administer over 3-5 minutes. 162 (Given - Provid er: Kelly Case RN) pantoprazole (Protonix) injection 40 mg 40 mg, intravenous, Daily, First dose on Thu12/19/24 at 1610, Reconstitute each 40 mg vial with 10 mL NS to make 4 mg/mL solution. 1624 (Given - Provid er: Kelly Case RN) sodium chloride 0.9 % bolus 500 mL (COMPLETED) 500 mL, intravenous, at 500 mL/hr, Administer over 1 Hours, Once, On Thu12/19/24 at 1610, For 1 dose 1620 (New Bag - Prov ider: Kelly Case RN)1812 (Stopped - Provider: Kelly Case RN) FOR RECORDS PERTAINING TO PATIENTS WHO ARE OR HAVE BEEN ENROLLED IN A CHEMICAL DEPENDENCY/SUBSTANCEABUSE PROGRAM, SOME INFORMATION MAY BE OMITTED. This clinical summary was aggregated from multiple sources. Caution should be exercised in using it in the provision of clinical care. This summary normalizes information from multiple sources, and as a consequence, information in this document may materially change the coding, format and clinical context of patient data. In addition, data may be omitted in some cases. CLINICAL DECISIONS SHOULD BE BASED ON THE PRIMARY CLINICAL RECORDS. [facility]. provides no warranty or guarantee of the accuracy or completeness of information in this document.
== END | disposition home or self-care (01) ==
PROVIDERS: PCP Internal Medicine; Referring Provider Nurse Practitioner Family; Visit Provider Nurse Practitioner Family
DX: Z12.31 Encounter for screening mammogram for malignant neoplasm of breast (principal); Z78.0 Asymptomatic menopausal state
CPT/HCPCS: 77063; 77067; 77080